=== PATIENT | male | born 1970 | race Caucasian/White ===

== ENCOUNTER 2016-12-12 17:53 | Observation (INO) | payer MEDICARE, OTHER ==
[~2016-12-12] VITALS: Ht 165.1 cm; Wt 115.0 kg
[~2016-12-12 17:53] MED LIST: ACET160L7 PO; ALBU.5I NEB; AMBI5TAB PO; AMLO10 PO; AMLO10TA2 PO; CARA1TAB6 PO; CLIN300I2 IM/IV; COLA100C3 PO; COMMODE PAIL WI1 MIS; COUM5TAB PO; COUM6TAB PO; DOCU1CAP39 PO; ENOX30P SQ; FLUT1INH INH; GETGO ROLLING W1 MI1; INSU100V2 SQ; LACTG PO; LANTUS2P SQ; MIRA33504 PO; NICO7DIS2 TD; NICODIS3 TD; NYST1POW16 TOP; OXYC-392 PO; PANT40TA3 PO; POLY17S PO; PRAV40TA PO; PRAV40TA2 PO; PROP20TA3 PO; PROT40TA PO; VANC1INJ38 IM/IV; VENL75TA2 PO; VENL75XR PO; [UNRECOGNIZED DRUG - CODE] PO
[2016-12-12 17:55] VITALS: BP 131/89; PULSE 108; RESP 16; TEMP 98.2; O2SAT 89
[2016-12-12] MEDS ORDERED: ONDANSETRON HCL 4 MG/2 ML VIAL IV PUSH ONE (18:15)
[2016-12-12] MEDS ORDERED: HYDROmorphone HCL PF 1 MG/ML VIAL IV PUSH ONE ×2 (18:15→21:00)
[2016-12-12] MEDS ORDERED: OMEP20TA PO (18:18)
--- NOTE | 2016-12-12 18:34 | PD ---
HPI Chief Complaint: Fall Time Seen by Provider: 18:29 Travel History International Travel<30 days: No Contact w/Intl Traveler<30days: No Traveled to known affect area: No History of Present Illness HPI 46-year-old male that presents to the ED for evaluation of fall in the shower. Patient has a chronic history of left leg up with the patient secondary to cancer. Per patient he is in stable on his feet and uses crutches to get about. Per patient he was just discharged recently from this hospital from rehabilitation after he suffered aspiration pneumonia which put him on a,. Patient has been able to do well at home with no issues. Per patient today he was in the shower and she slipped and fell and landed on his left rib cage on one of the rails that helped him hold when he is in the shower. He states that the pain is severe and feels like there is something moving on his left ribs. He does take blood thinners including Coumadin to prevent him from getting blood clots in his lungs. He denies any head injury or loss of consciousness. No abdominal pain. No nausea or vomiting. States that the pain is severe 8 out of 10 and gets worse with deep breaths. Injury occurred less than an hour ago. He denies any other injury. She states that he is compliant with his medications. He takes no pain medications at home. She does have an allergy to morphine and penicillin. 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17) Cardiovascular Problems: Yes High Cholesterol: No Chemotherapy: Yes (12 treatments completed ) Chest Pain: No Congestive Heart Failure: No COPD: Yes Cerebrovascular Accident: Yes (3 X CVA) Diabetes: Yes Patient Takes Glucophage: No Deep Vein Thrombosis: Yes Endocrine: No GERD: Yes Genitourinary: No Headaches: Yes Hiatal Hernia: No Hypertension: Yes Immune Disorder: No Implanted Vascular Access Dvce: Yes Kidney Stones: No Musculoskeletal: Yes Neurologic: No Psychiatric: Yes Reproductive: No Respiratory: Yes Migraines: No Renal Failure: No Seizures: No Sleep Apnea: No Ulcer: No Past Surgical History Abdominal Surgery: No AICD: No Appendectomy: Yes Arteriovenous Shunt: No Body Medical Devices: ivc filter Cardiac Surgery: No Ear Surgery: No Endocrine Surgery: No Eye Surgery: No Genitourinary Surgery: No Gynecologic Surgery: No Insulin Pump: No Joint Replacement: No Oral Surgery: No Pacemaker: No Thoracic Surgery: No Other Surgery: Yes (RIGH HIP REPLACED) Social History Alcohol Use: No Tobacco Use: Yes (<1ppd) Substance Use: No Allergies-Medications (Allergen,Severity, Reaction): Coded Allergies: Morphine (Verified Allergy, Mild, HIVES, 12/12/16) Penicillin (Verified Allergy, Mild, HIVES, 12/12/16) Reported Meds & Prescriptions Reported Meds & Active Scripts Active Effexor XR 24 HR (Venlafaxine HCl) 75 Mg Cap 75 Mg PO HS 30 Days Nicotine Patch (Nicotine) 7 Mg/24 Hr Patch 1 Patch TD DAILY 30 Days Commode With Arms (Device) 1 Mis Mis 1 Ea .ROUTE DIRECTED Walker Rolling/GetGo (Device) 1 Mis Mis 1 Ea .ROUTE DIRECTED Reported Omeprazole 20 Mg Tab 20 Mg PO DAILY Carafate (Sucralfate) 1 Gm Tab 1 Gm PO TIDAC AND HS On empty stomach Propranolol (Propranolol HCl) 20 Mg Tab 20 Mg PO QID Albuterol Neb (Albuterol Sulfate) 2.5 Mg/0.5 Ml Neb 2.5 Mg NEB Q6HR NEB Note: The Albuterol Sulfate Inhalation Solution is concentrated and must be diluted. Read complete instructions carefully before using. Coumadin (Warfarin) 5 Mg Tab 10 Mg PO DAILY Breo Ellipta Inh (Fluticasone/Vilanterol) 100-25 Mcg/Act Inh 1 Puff INH DAILY Use daily at the same time. Pravastatin 40 Mg Tab 40 Mg PO HS Amlodipine (Amlodipine Besylate) 10 Mg Tab 10 Mg PO DAILY Review of Systems General / Constitutional: No: Fever, Chills, Weight Gain, Weight Loss, Other Eyes: No: Diploplia, Blurred Vision, Photophobia, Drainage, Redness, Foreign Body Sensation, Pain, Tearing, Blind Spots, Visual changes, Blindness, Other HENT: No: Headaches, Vertigo, Lightheadedness, Sore Throat, Rhinitis, Rhinorrhea, Congestion, Nosebleed, Neck Stiffness, Neck Pain, Masses, Gingival Bleeding, Dental Difficulties, Ear Discharge, Earache, Other Cardiovascular: Positive: Chest Pain or Discomfort, No: Palpitations, Irregular Rhythm, Tachycardia, Diaphoresis, Syncope, Dyspnea on exertion, Varicosities, Edema, Cyanosis, Varicosities, Phlebitis, Claudication, Other Respiratory: Positive: Pleuritic Pain, No: Cough, Shortness of Breath, Wheezing, Sneezing, Orthopnea, Hemoptysis, Stridor, Night Sweats, Other Gastrointestinal: No: Nausea, Vomiting, Diarrhea, Abdominal Pain, Hematemesis, Hematochezia, Constipation, Changes in Bowel Habits, Indigestion, Dysphagia, Loss of Appetite, Other Genitourinary: No: Urgency, Frequency, Dysuria, Nocturia, Hematuria, Decreased Urinary Output, Oliguria, Hesitancy, Dribbling, Incontinence, Pelvic Pain, Flank Pain, Dyspareunia, Discharge, Dysmenorrhea, Menorrhagia, Metorrhagia, Vaginal Bleeding, Other Musculoskeletal: Positive: Pain, No: Myalgias, Arthralgias, Limited ROM, Weakness, Cramping, Edema, Atrophy, Other Skin: No Rash, No Itching, No Dryness, No Lumps, No Hives, No Change in Pigmentation, No Change in nails, No Alopecia, No Lesions, No Breast Lumps, No Breast Tenderness, No Breast Swelling, No Other Neurologic: No: Weakness, Dizziness, Syncope, Focal Abnormalities, Coordination Problem, Tremor, Ataxia, Headache, Change in Mentation, Slurred Speech, Paresthesia, Incontinence, Seizures, Sensory Disturbance, Other Psychiatric: No: Anxiety, Depression, Suicidal Ideations, Disorder of Thought, Mood Disorder, Substance Abuse, Homicidal Ideation, Other Endocrine: No: Heat Intolerance, Cold Intolerance, Polyuria, Polydipsia, Other Hematologic/Lymphatic: No: Easy Bruising, Lymph Node Enlargement, Other Physical Exam Narrative GENERAL: SKIN: Warm and dry. HEAD: Atraumatic. Normocephalic. EYES: Pupils equal and round. No scleral icterus. No injection or drainage. ENT: No nasal bleeding or discharge. Mucous membranes pink and moist. Tongue is midline. No uvula deviation. NECK: Trachea midline. No JVD. CARDIOVASCULAR: Regular rate and rhythm. No murmurs, S3. S4. Patient does have a producible pain on the left rib cage with touch and with deep breaths. Very sensitive to touch. No obvious deformity noted. RESPIRATORY: No accessory muscle use. Clear to auscultation. Breath sounds equal bilaterally. GASTROINTESTINAL: Abdomen soft, non-tender, nondistended. Hepatic and splenic margins not palpable. MUSCULOSKELETAL: Extremities without clubbing, cyanosis, or edema. No obvious deformities. Patient has full range of motion of the upper and lower extremities bilaterally. Patient does have a BKA on the left leg secondary to cancer appears to be well-healing with no sign of injury. Pupils pulses bilaterally in all extremities. No lumbar, thoracic, cervical spine tenderness to palpation. No signs of trauma to the head. NEUROLOGICAL: Awake and alert. No obvious cranial nerve deficits. Motor grossly within normal limits. Five out of 5 muscle strength in the arms and legs. Normal speech. PSYCHIATRIC: Appropriate mood and affect; insight and judgment normal. Data Data Last Documented VS Vital Signs Date Time Temp Pulse Resp B/P Pulse Ox O2 Delivery O2 Flow Rate FiO2 12/12/16 17:55 98.2 108 16 131/89 89 Room Air Orders Complete Blood Count With Diff (12/12/16 18:11) Basic Metabolic Panel (Bmp) (12/12/16 18:11) Prothrombin Time / Inr (Pt) (12/12/16 18:11) Act Partial Throm Time (Ptt) (12/12/16 18:11) Ribs, Uni (W/Exp Cxr-Min 3vw) (12/12/16 ) Iv Access Insert/Monitor (12/12/16 18:11) Hydromorphone Pf Inj (Dilaudid Pf Inj) (12/12/16 18:15) Ondansetron Inj (Zofran Inj) (12/12/16 18:15) Ct Thorax/ Chest W Iv Contrast (12/12/16 ) Iohexol 350 Inj (Omnipaque 350 Inj) (12/12/16 20:09) Hydromorphone Pf Inj (Dilaudid Pf Inj) (12/12/16 21:00) Admit Order (Ed Use Only) (12/12/16 21:02) Consult General Surgery (12/12/16 ) Labs Laboratory Tests Test 12/12/16 18:11 White Blood Count 9.4 TH/MM3 Red Blood Count 6.18 MIL/MM3 Hemoglobin 11.8 GM/DL Hematocrit 39.0 % Mean Corpuscular Volume 63.2 FL Mean Corpuscular Hemoglobin 19.1 PG Mean Corpuscular Hemoglobin 30.2 % Concent Red Cell Distribution Width 22.7 % Platelet Count 230 TH/MM3 Mean Platelet Volume 8.5 FL Neutrophils (%) (Auto) 61.4 % Lymphocytes (%) (Auto) 26.9 % Monocytes (%) (Auto) 9.1 % Eosinophils (%) (Auto) 1.7 % Basophils (%) (Auto) 0.9 % Neutrophils # (Auto) 5.8 TH/MM3 Lymphocytes # (Auto) 2.5 TH/MM3 Monocytes # (Auto) 0.9 TH/MM3 Eosinophils # (Auto) 0.2 TH/MM3 Basophils # (Auto) 0.1 TH/MM3 CBC Comment AUTO DIFF Differential Comment AUTO DIFF CONFIRMED Platelet Estimate NORMAL Platelet Morphology Comment NORMAL Prothrombin Time 83.3 SEC Prothromb Time International 6.9 RATIO Ratio Activated Partial 62.3 SEC Thromboplast Time Sodium Level 137 MEQ/L Potassium Level 4.2 MEQ/L Chloride Level 100 MEQ/L Carbon Dioxide Level 32.0 MEQ/L Anion Gap 5 MEQ/L Blood Urea Nitrogen 7 MG/DL Creatinine 0.95 MG/DL Estimat Glomerular Filtration 85 ML/MIN Rate Random Glucose 100 MG/DL Calcium Level 9.0 MG/DL [facility] Medical Decision Making Medical Screen Exam Complete: Yes Emergency Medical Condition: Yes Medical Record Reviewed: Yes Interpretation(s) CBC & BMP Diagram 12/12/16 18:11 Last Impressions Ribs X-Ray 12/12/16 0000 Signed Impressions: Service Date/Time: Monday, December 12, 2016 18:45 - CONCLUSION: 1. Multiple remote left-sided rib fractures. Questionable acute left eighth rib fracture. Left basilar atelectasis or scarring. Right lung is clear. No pneumothorax or effusion. Jarrett Mukherjee MD Chest CT 12/12/16 0000 Signed Impressions: Service Date/Time: Monday, December 12, 2016 19:56 - CONCLUSION: 1. Acute nondisplaced fractures left sixth, seventh and eighth ribs. Multiple remote healed left rib fractures. 2. Trace left pleural effusion. Subsegmental atelectasis at the left lung base. No pneumothorax. Jarrett Mukherjee MD INR of 6.9 Differential Diagnosis Rib fracture Versus fracture versus chest pain versus costochondritis versus contusion versus trauma versus fall Narrative Course 46-year-old male that presents to the ED for evaluation of injury to the left ribs. Patient was properly examine also to have signs and symptoms consistent appears to be chest injury. Recommendation this time is for labs and imaging secondary to his Coumadin use in significant discomfort. Patient is ago with this. Labs and imaging showed and about an arms as well as fracture to the left ribs. Case discussed in my attending who agrees that CT scan require. CT of the chest was done and show fractures of the sixth, seventh, eighth ribs. Patient had a small pleural effusion. My attending agrees the patient should be admitted for arms for evaluation of bleeding secondary to the elevated INR and recent trauma. This was discussed with the trauma surgeon Dr. Lora who agrees to admission but wants me to admit patient to medicine and he will consult. Case was discussed with Dr. Lewis from [facility] who agrees to admission. This was discussed with patient who agrees to admission. Procedures EKG Prior to Arrival: No Diagnosis Primary Impression: Ribs, multiple fractures Qualified Code: S22.42XA - Closed fracture of multiple ribs of left side, initial encounter Additional Impression: Elevated INR Admitting Information Admitting Physician Requests: Observation Yosef Davila Dec 12, 2016 18:34
[2016-12-12 18:41] LABS: AUTOMATED NEUTROPHIL # 5.8 TH/MM3 (1.8-7.7); BASOPHIL # 0.1 TH/MM3 (0-0.2); BASOPHIL % 0.9 % (0.0-2.0); EOSINOPHIL # 0.2 TH/MM3 (0-0.4); EOSINOPHIL % 1.7 % (0.0-4.0); HEMO FLAGS AUTO DIFF; LYMPH % 26.9 % (9.0-44.0); LYMPHOCYTE # 2.5 TH/MM3 (1.0-4.8); MEAN CELL VOLUME 63.2 FL (80.0-100.0); MEAN CORPUSCULAR HEMOGLOBIN 19.1 PG (27.0-34.0); MEAN CORPUSCULAR HGB CONC 30.2 % (32.0-36.0); MONO % 9.1 % (0.0-8.0); NEUT % 61.4 % (16.0-70.0); PLATELET COUNT 230 TH/MM3 (150-450); RED BLOOD COUNT 6.18 MIL/MM3 (4.50-5.90); RED CELL DISTRIBUTION WIDTH 22.7 % (11.6-17.2); WHITE BLOOD COUNT 9.4 TH/MM3 (4.0-11.0)
[2016-12-12 18:48] LABS: APTT (PATIENT) 62.3 SEC (24.3-30.1); PROTHROMBIN TIME - PATIENT 83.3 SEC (9.8-11.6)
[2016-12-12 18:50] LABS: POTASSIUM 4.2 MEQ/L (3.5-5.1)
--- NOTE | 2016-12-12 19:25 | RADRPT ---
EXAM DATE/TIME: 12/12/2016 18:45 [facility] COMPARISON: CHEST SINGLE AP, July 24, 2016, 4:12. INDICATIONS : Left sided rib pain from a fall. MEDICAL HISTORY : Hypertension. Diabetes mellitus type II. Chronic obstructive pulmonary disease. SURGICAL HISTORY : Left AKA ENCOUNTER: Initial ACUITY: 1 day PAIN SCORE: 10/10 LOCATION: Left flank Chest FINDINGS: There are multiple remote fractures of the left fifth through 10th ribs with callus formation and hea ling. There is a questionable acute fracture left eighth rib. No pneumothorax or significant effusion . There is probable atelectasis the left lung base. CONCLUSION: 1. Multiple remote left-sided rib fractures. Questionable acute left eighth rib fracture. Left basila r atelectasis or scarring. Right lung is clear. No pneumothorax or effusion. Jarrett Mukherjee MD on December 12, 2016 at 19:19 Board Certified Radiologist. This report was verified electronically.
[2016-12-12 19:27] LABS: INTERNATIONAL NORMALIZED RATIO 6.9 RATIO
[2016-12-12 20:04] LABS: PLATELET ESTIMATE SMEAR NORMAL (NORMAL); PLATELET MORPHOLOGY NORMAL (NORMAL); SCAN/DIFF AUTO DIFF CONFIRMED
[2016-12-12] MEDS ORDERED: IOHEXOL 350 MG/ML 10 ML VIAL (for RAD DIAG) IV ONE (20:09)
--- NOTE | 2016-12-12 20:32 | RADRPT ---
EXAM DATE/TIME: 12/12/2016 19:56 [facility] COMPARISON: No previous studies available for comparison. INDICATIONS : Trauma; fell in shower, complains of left sided rib/chest pain. IV CONTRAST: 96 cc Omnipaque 350 (iohexol) IV RADIATION DOSE: 8.46 CTDIvol (mGy) MEDICAL HISTORY : Cardiovascular disease. Deep venous thrombosis. Hypertension.CVA. Diabetes. Bone cancer. SURGICAL HISTORY : Appendectomy. ENCOUNTER: Initial ACUITY: 1 day PAIN SCALE: 8/10 LOCATION: Left chest TECHNIQUE: Volumetric scanning of the chest was performed. Using automated exposure control and adjustment of t he mA and/or kV according to patient size, radiation dose was kept as low as reasonably achievable to obtain optimal diagnostic quality images. FINDINGS: There are nondisplaced acute fractures of the left sixth, seventh and eighth ribs. There are multiple remote healed fractures of the left ribs as well. There is trace left pleural effusion. There is subsegmental airspace disease at the left lung base, l ikely atelectasis. Minimal right basilar atelectasis as well. No mediastinal hematoma. Aorta appears normal. Mild coronary calcifications. No pericardial effusion. No acute findings in the upper abdomen. CONCLUSION: 1. Acute nondisplaced fractures left sixth, seventh and eighth ribs. Multiple remote healed left rib fractures. 2. Trace left pleural effusion. Subsegmental atelectasis at the left lung base. No pneumothorax. Jarrett Mukherjee MD on December 12, 2016 at 20:26 Board Certified Radiologist. This report was verified electronically.
--- NOTE | 2016-12-12 21:07 | HHI.HP ---
HPI Service [facility] Primary Care Physician Unknown Admission Diagnosis left rib fractures with pleural effusion, elevated INR Diagnoses: (1) Fall Diagnosis: Principal (2) Ribs, multiple fractures Diagnosis: Principal (3) Intractable pain Diagnosis: Principal (4) Elevated INR Diagnosis: Principal (5) COPD (chronic obstructive pulmonary disease) Diagnosis: Principal Travel History International Travel<30 Days: No Contact w/Intl Traveler <30 Da: No Traveled to Known Affected Are: No History of Present Illness This is a 46-year-old male with PMH of DVT/PE on Coumadin, H/o Osteosarcoma s/p Left BKA, COPD, h/o CVA and HTN who presented to the ER w/ complaints of left rib pain following fall in shower. Pt normally ambulates w/ crutches, however while in shower he lost his balance and fell onto the shower rails w/ his left chest. No LOC or head trauma noted. On arrival, BP 131/89, HR 108, O2 sat 89% on RA, Afebrile. Hgb 11.6. Chemistry essentially unremarkable. INR 6.9. Rib X-ray with multiple remote left-sided rib fractures, questionable acute left eighth rib fracture, no pneumothorax. CT Chest with acute nondisplaced fractures of the left sixth seventh and eighth ribs, multiple remote healed left rib fractures, trace left pleural effusion and atelectasis left lung base, no pneumothorax. Dr. Baez consulted by ER physician, recommended admission for Observation in light of coagulopathy. Review of Systems Except as stated in HPI: all other systems reviewed are Neg ROS: 14 point review of systems otherwise negative. Past Family Social History Past Medical History PMH: DVT/PE on Coumadin, H/o Osteosarcoma s/p Left BKA, COPD, h/o CVA and HTN Past Surgical History PAST SURGICAL HISTORY: Appendectomy, IVC Filter, Right Hip Replacement Allergies: Coded Allergies: Morphine (Verified Allergy, Mild, HIVES, 12/12/16) Penicillin (Verified Allergy, Mild, HIVES, 12/12/16) Family History PAST FAMILY HISTORY: Reviewed. No h/o DM or CAD Social History PAST SOCIAL HISTORY: Negative for alcohol or drugs. Smokes <1ppd. Physical Exam Vital Signs Vital Signs Date Time Temp Pulse Resp B/P Pulse Ox O2 Delivery O2 Flow Rate FiO2 12/12/16 17:55 98.2 108 16 131/89 89 Room Air Physical Exam PE: GENERAL: Middle-aged obese white male in no acute distress. HEENT: PERRLA, EOMI. No scleral icterus or conjunctival pallor. No lid lag or facial droop. CARDIOVASCULAR: Regular rate and rhythm. No obvious murmurs to auscultation. No chest tenderness to palpation. Left rib tenderness to palpation. No flail chest RESPIRATORY: No obvious rhonchi or wheezing. Clear to auscultation. Breath sounds equal bilaterally. GASTROINTESTINAL: Abdomen soft, non-tender, nondistended. BS normal. MUSCULOSKELETAL: Extremities without clubbing, cyanosis, or edema. No obvious deformities. Left BKA, stump intact, no signs of infection. NEUROLOGICAL: Awake, alert and oriented x4. No focal neurologic deficits. Moving both upper and lower extremities spontaneously. Laboratory Laboratory Tests Test 12/12/16 18:11 White Blood Count 9.4 Red Blood Count 6.18 Hemoglobin 11.8 Hematocrit 39.0 Mean Corpuscular Volume 63.2 Mean Corpuscular Hemoglobin 19.1 Mean Corpuscular Hemoglobin 30.2 Concent Red Cell Distribution Width 22.7 Platelet Count 230 Mean Platelet Volume 8.5 Neutrophils (%) (Auto) 61.4 Lymphocytes (%) (Auto) 26.9 Monocytes (%) (Auto) 9.1 Eosinophils (%) (Auto) 1.7 Basophils (%) (Auto) 0.9 Neutrophils # (Auto) 5.8 Lymphocytes # (Auto) 2.5 Monocytes # (Auto) 0.9 Eosinophils # (Auto) 0.2 Basophils # (Auto) 0.1 CBC Comment AUTO DIFF Differential Comment AUTO DIFF CONFIRMED Platelet Estimate NORMAL Platelet Morphology Comment NORMAL Prothrombin Time 83.3 Prothromb Time International 6.9 Ratio Activated Partial 62.3 Thromboplast Time Sodium Level 137 Potassium Level 4.2 Chloride Level 100 Carbon Dioxide Level 32.0 Anion Gap 5 Blood Urea Nitrogen 7 Creatinine 0.95 Estimat Glomerular Filtration 85 Rate Random Glucose 100 Calcium Level 9.0 Result Diagram: 12/12/16181012/12/161810 Assessment and Plan Problem List: (1) Fall ICD Code: W19.XXXA Status: Acute (2) Ribs, multiple fractures ICD Code: S22.49XA Status: Acute (3) Intractable pain ICD Code: R52 Status: Acute (4) Elevated INR ICD Code: R79.1 Status: Acute (5) COPD (chronic obstructive pulmonary disease) ICD Code: J44.9 Status: Chronic Assessment and Plan A/P: 1. Fall: h/o Left BKA, s/p fall in shower after losing balance. No LOC or head trauma reported. 2. Left Rib Fx: CXR w/ multiple remote left-sided rib fractures, questionable acute left eighth rib fracture, no pneumothorax. CT Chest with acute nondisplaced fractures of the left sixth seventh and eighth ribs, remote healed left rib fractures, trace pleural effusion, no pneumothorax, images reviewed by me. Dr. Baez consulted by ER physician, recommended admission for observation in light of elevated INR. Analgesics as needed. 3. Intractable Pain: Secondary to fall/rib fractures. Analgesics as needed, Lidoderm patch prn. 4. Supratherapeutic INR: H/o DVT/PE on Coumadin, INR 6.9. Hgb stable. Vitals stable. No active bleeding at this time, CT Chest w/ no bleed. Will repeat INR in am. 5. COPD: Resume home MDI/Nebulizer. 6. DVT Prophylaxis: Hold Coumadin. 7. Social work for d/c planning as needed. 8. Case discussed w/ ER physician at length. Problem Qualifiers (1) Ribs, multiple fractures: Qualified Code: S22.42XA - Closed fracture of multiple ribs of left side, initial encounter Myra Lewis MD Dec 12, 2016 21:07
[2016-12-12] MEDS ORDERED: BISACODYL 10 MG SUPP PR PRN (21:15)
[2016-12-12] MEDS ORDERED: LIDOCAINE HCL 5% PATCH TD PRN (21:15)
[2016-12-12] MEDS ORDERED: SODIUM CHLORIDE 0.9% FLUSH 5 ML FLUSH FLUSH PRN (21:15)
[2016-12-12] MEDS ORDERED: ONDANSETRON HCL 4 MG/2 ML VIAL IVP PRN (21:15)
[2016-12-12] MEDS ORDERED: ACETAMINOPHEN 325 MG TAB PO PRN (21:15)
[2016-12-12] MEDS ORDERED: HYDROmorphone HCL PF 1 MG/ML VIAL IV PRN (21:15)
[2016-12-12 21:45] VITALS: BP 129/85; PULSE 102; RESP 16; O2SAT 95
[2016-12-12] MEDS: RESP: ALBUTEROL CONC 2.5 MG/0.5 ML NEB NEB SCH (22:02)
[2016-12-12 22:07] VITALS: O2SAT 93
[2016-12-12 23:39] VITALS: BP 146/86; PULSE 99; RESP 20; TEMP 97.4; O2SAT 91
[2016-12-13 04:05] VITALS: BP 137/83; PULSE 117; RESP 20; TEMP 97.5; O2SAT 91
[2016-12-13] MEDS: RESP: ALBUTEROL CONC 2.5 MG/0.5 ML NEB NEB SCH ×3 (04:11→10:50)
[2016-12-13] MEDS: SUCRALFATE 1 GM TAB PO SCH ×3 (06:08→16:37)
[2016-12-13 07:21] VITALS: BP 148/85; PULSE 125; RESP 24; TEMP 97.5; O2SAT 86
[2016-12-13 07:33] LABS: INTERNATIONAL NORMALIZED RATIO 5.3 RATIO; PROTHROMBIN TIME - PATIENT 62.9 SEC (9.8-11.6)
[2016-12-13 07:35] LABS: AUTOMATED NEUTROPHIL # 9.1 TH/MM3 (1.8-7.7); BASOPHIL # 0.1 TH/MM3 (0-0.2); BASOPHIL % 0.7 % (0.0-2.0); EOSINOPHIL # 0.1 TH/MM3 (0-0.4); EOSINOPHIL % 0.9 % (0.0-4.0); HEMATOCRIT 40.7 % (39.0-51.0); LYMPH % 14.4 % (9.0-44.0); LYMPHOCYTE # 1.7 TH/MM3 (1.0-4.8); MEAN CELL VOLUME 63.4 FL (80.0-100.0); MEAN CORPUSCULAR HEMOGLOBIN 19.2 PG (27.0-34.0); MEAN CORPUSCULAR HGB CONC 30.3 % (32.0-36.0); MONO % 6.8 % (0.0-8.0); NEUT % 77.2 % (16.0-70.0); PLATELET COUNT 260 TH/MM3 (150-450); RED BLOOD COUNT 6.42 MIL/MM3 (4.50-5.90); RED CELL DISTRIBUTION WIDTH 22.3 % (11.6-17.2); WHITE BLOOD COUNT 11.8 TH/MM3 (4.0-11.0)
[2016-12-13 07:44] LABS: ALT (GPT) 22 U/L (12-78); ANION GAP 6 MEQ/L (5-15); AST (GOT) 16 U/L (15-37); BICARBONATE 30.9 MEQ/L (21.0-32.0); BLOOD UREA NITROGEN 8 MG/DL (7-18); CHLORIDE 99 MEQ/L (98-107); GLOMERULAR FILTRATION RATE 96 ML/MIN (>89); POTASSIUM 4.2 MEQ/L (3.5-5.1); SODIUM (NA) 136 MEQ/L (136-145)
[2016-12-13 07:46] LABS: ALKALINE PHOSPHATASE 108 U/L (45-117); TOTAL BILIRUBIN ADULT 0.6 MG/DL (0.2-1.0)
[2016-12-13 07:52] LABS: HEMO FLAGS AUTO DIFF
--- NOTE | 2016-12-13 08:09 | RADRPT ---
EXAM DATE/TIME: 12/13/2016 07:42 [facility] COMPARISON: CHEST SINGLE AP, July 24, 2016, 4:12. INDICATIONS: Chest discomfort. Patient fell yesterday. MEDICAL HISTORY: Hypertension. Diabetes mellitus type II. Chronic obstructive pulmonary SURGICAL HISTORY: Appendectomy. ENCOUNTER: Subsequent ACUITY: 2 days PAIN SCORE: 8/10 LOCATION: Bilateral chest FINDINGS: Heart is enlarged. There is mild interstitial edema present. Minimal parenchymal changes persist in the left base. There is no pneumothorax. There is no displaced rib fracture. CONCLUSION: 1. Under aerated with mild interstitial edema. 2. Persistent consolidative changes left base. Shai Ramírez MD FACR on December 13, 2016 at 7:48 Board Certified Radiologist. This report was verified electronically.
[2016-12-13] MEDS ORDERED: DOCUSATE SODIUM 50 MG/SENNA 8.6 MG TAB PO SCH (09:00)
[2016-12-13] MEDS ORDERED: PANTOPRAZOLE SOD 20 MG DELAYED RELEASE TAB PO SCH (09:00)
[2016-12-13] MEDS ORDERED: NICOTINE 7 MG/24 HR PATCH TD SCH (09:00)
[2016-12-13] MEDS ORDERED: FLUTICASONE 100 MCG/VILANTEROL 25 MCG INHALER INH SCH (09:00)
[2016-12-13] MEDS ORDERED: SODIUM CHLORIDE 0.9% FLUSH 5 ML FLUSH FLUSH SCH (09:00)
[2016-12-13 09:25] LABS: OVALOCYTES 1+ (NORMAL); SCAN/DIFF AUTO DIFF CONFIRMED
[2016-12-13] MEDS: PROPRANOLOL HCL 20 MG TAB PO SCH ×2 (09:25→13:48)
[2016-12-13] MEDS: ACETAMINOPHEN/HYDROcodone 325 MG/5 MG TAB PO PRN ×2 (09:25→13:48)
[2016-12-13 10:50] VITALS: O2SAT 91
[2016-12-13 11:19] VITALS: BP 119/64; PULSE 101; RESP 22; TEMP 98.4; O2SAT 90
--- NOTE | 2016-12-13 11:57 | HHI.PR ---
Subjective Subjective Notes PTD: 1 Patient states that he fell in the shower. He complains to pain on the left side of his chest, and his abdomen when palpated. Objective Vitals/I&O Vital Signs Date Time Temp Pulse Resp B/P Pulse Ox O2 Delivery O2 Flow Rate FiO2 12/13/16 11:19 98.4 101 22 119/64 90 12/13/16 10:50 Nasal Cannula 4.00 Labs Laboratory Tests Test 12/12/16 12/13/16 18:11 07:05 White Blood Count 9.4 11.8 Red Blood Count 6.18 6.42 Hemoglobin 11.8 12.3 Hematocrit 39.0 40.7 Mean Corpuscular Volume 63.2 63.4 Mean Corpuscular Hemoglobin 19.1 19.2 Mean Corpuscular Hemoglobin 30.2 30.3 Concent Red Cell Distribution Width 22.7 22.3 Platelet Count 230 260 Mean Platelet Volume 8.5 9.0 Neutrophils (%) (Auto) 61.4 77.2 Lymphocytes (%) (Auto) 26.9 14.4 Monocytes (%) (Auto) 9.1 6.8 Eosinophils (%) (Auto) 1.7 0.9 Basophils (%) (Auto) 0.9 0.7 Neutrophils # (Auto) 5.8 9.1 Lymphocytes # (Auto) 2.5 1.7 Monocytes # (Auto) 0.9 0.8 Eosinophils # (Auto) 0.2 0.1 Basophils # (Auto) 0.1 0.1 CBC Comment AUTO DIFF AUTO DIFF Differential Comment AUTO DIFF AUTO DIFF CONFIRMED CONFIRMED Platelet Estimate NORMAL Platelet Morphology Comment NORMAL Prothrombin Time 83.3 62.9 Prothromb Time International 6.9 5.3 Ratio Activated Partial 62.3 Thromboplast Time Sodium Level 137 136 Potassium Level 4.2 4.2 Chloride Level 100 99 Carbon Dioxide Level 32.0 30.9 Anion Gap 5 6 Blood Urea Nitrogen 7 8 Creatinine 0.95 0.86 Estimat Glomerular Filtration 85 96 Rate Random Glucose 100 162 Calcium Level 9.0 8.9 Ovalocytes 1+ Total Bilirubin 0.6 Aspartate Amino Transf 16 (AST/SGOT) Alanine Aminotransferase 22 (ALT/SGPT) Alkaline Phosphatase 108 Total Protein 8.0 Albumin 3.6 Radiology Last Impressions Ribs X-Ray 12/12/16 0000 Signed Impressions: Service Date/Time: Monday, December 12, 2016 18:45 - CONCLUSION: 1. Multiple remote left-sided rib fractures. Questionable acute left eighth rib fracture. Left basilar atelectasis or scarring. Right lung is clear. No pneumothorax or effusion. Jarrtet Mukherjee MD Chest CT 12/12/16 0000 Signed Impressions: Service Date/Time: Monday, December 12, 2016 19:56 - CONCLUSION: 1. Acute nondisplaced fractures left sixth, seventh and eighth ribs. Multiple remote healed left rib fractures. 2. Trace left pleural effusion. Subsegmental atelectasis at the left lung base. No pneumothorax. Jarrett Mukherjee MD Narrative Exam GENERAL: This is a 46-year-old obese male sitting in bed in no distress. SKIN: Warm and dry. HEAD: Atraumatic. Normocephalic. EYES: PERRLA ENT: No nasal bleeding or discharge. Mucous membranes pink and moist. NECK: Trachea midline. No JVD. CARDIOVASCULAR: Regular rate and rhythm. RESPIRATORY: No accessory muscle use. Lungs are clear to auscultation. Breath sounds equal bilaterally. No distress or dyspnea. GASTROINTESTINAL: BS + x 4 quads. Abdomen soft, yet painful upon palpation, especially on the left side. MUSCULOSKELETAL: Extremities without cyanosis, or edema. LEFT AKA noted. + peripheral pulses x 3 extremities. Warm with good capillary refill and sensation. MAEW. NEUROLOGICAL: Awake and alert. Normal speech and pattern. A/P Problem List: (1) Ribs, multiple fractures (2) Elevated INR (3) Fall Assessment and Plan [place]: This is a 46-year-old obese male who sustained a fall in the shower. He landed on his left side. Elevated INR. (He was admitted to the hospitalist service, with a consult to the trauma team) PMHx: Bone Cancer. (Hx. DVT, Coumadin), CVA x 3, HTN, COPD, DM, GERD, IVC filter. RIGHT hip replacement. LEFT AKA INJURIES: LEFT rib fx (6,7,8) Diet: Regular diet. Tolerating po diet. Encourage good po intake with each meal. Pulmonary: Encourage good pulmonary toileting. IS and acapella at bedside and pt encouraged to use. Rationale for use explained to patient, and verbalized understanding. Patient complains of severe abdominal pain, especially upon palpation. CT abdomen/pelvis ordered for further evaluation in a patient post fall with an elevated INR. No active hemorrhage noted. PAIN Management: Hydrocodone po. Dilaudid IV. Activity: OOB. PT ordered. GI prophylaxis: Protonix by mouth. Bowel regimen: Colace and MOM. Bisacodyl ME PRN. DVT prophylaxis: Mechanical VTE with SCDs. Chemical management TBD. DC Planning: Case management consulted for assistance with final discharge disposition. Emotional support provided to patient at bedside and plan of care discussed. Patient is hemodynamically stable and being managed on the med/surg floor. Problem Qualifiers (1) Ribs, multiple fractures: Qualified Code: S22.42XA - Closed fracture of multiple ribs of left side, initial encounter (2) Fall: Qualified Code: W19.XXXA - Fall, initial encounter Sri Strong Dec 13, 2016 11:57
--- NOTE | 2016-12-13 12:31 | HHI.PR ---
Subjective Remarks Follow up for fall with rib fractures, supratherapeutic INR, COPD and hypoxia. Seen with PT at bedside, patient ambulating well at his baseline however becoming hypoxic. The patient wears 2-3L NC O2 at home secondary to his COPD. He reports mild shortness of breath secondary to the chest pain at the site of the rib fractures. He denies any wheezing. He really wants to go home. Dr. Rangel follows his INR. Thoroughly discussed holding his Coumadin until INR is rechecked and he follows up with his PCP. Objective Vitals Vital Signs Date Time Temp Pulse Resp B/P Pulse Ox O2 Delivery O2 Flow Rate FiO2 12/13/16 11:19 98.4 101 22 119/64 90 12/13/16 11:13 18 12/13/16 10:50 91 Nasal Cannula 4.00 12/13/16 07:21 97.5 125 24 148/85 86 12/13/16 04:05 97.5 117 20 137/83 91 12/12/16 23:39 97.4 99 20 146/86 91 12/12/16 22:07 93 Nasal Cannula 4.00 12/12/16 21:45 102 16 129/85 95 Nasal Cannula 4 12/12/16 17:55 98.2 108 16 131/89 89 Room Air Result Diagram: 12/13/16 0712/13/16 0705 Imaging Last Impressions Ribs X-Ray 12/12/16 0000 Signed Impressions: Service Date/Time: Monday, December 12, 2016 18:45 - CONCLUSION: 1. Multiple remote left-sided rib fractures. Questionable acute left eighth rib fracture. Left basilar atelectasis or scarring. Right lung is clear. No pneumothorax or effusion. Jarrett Mukherjee MD Chest CT 12/12/16 0000 Signed Impressions: Service Date/Time: Monday, December 12, 2016 19:56 - CONCLUSION: 1. Acute nondisplaced fractures left sixth, seventh and eighth ribs. Multiple remote healed left rib fractures. 2. Trace left pleural effusion. Subsegmental atelectasis at the left lung base. No pneumothorax. Jarrett Mukherjee MD Objective Remarks GENERAL: Well developed middle aged male patient in [facility]. SKIN: Warm and dry. HEAD: Atraumatic. Normocephalic. EYES: Pupils equal and round. No scleral icterus. No injection or drainage. ENT: No nasal bleeding or discharge. Mucous membranes pink and moist. NECK: Trachea midline. CARDIOVASCULAR: Regular rate and rhythm. No murmur appreciated. Left anterior chest tender to palpation. RESPIRATORY: No accessory muscle use. Clear to auscultation, no wheezing. Breath sounds equal bilaterally. GASTROINTESTINAL: Abdomen soft, non-tender, nondistended. Hepatic and splenic margins not palpable. MUSCULOSKELETAL: Chronic Left AKA. Extremities without clubbing, cyanosis, or edema. NEUROLOGICAL: Awake and alert. No obvious cranial nerve deficits. Motor grossly within normal limits. Normal speech. PSYCHIATRIC: Appropriate mood and affect; insight and judgment normal. Medications and IVs Current Medications Medications (Trade) Dose Ordered Sig/Corrie Route Start Time Stop Time Status Last Admin (Lidoderm 5% Patch.12 Hr) 1 patch DAILY PRN TD 12/12/16 21:15 (NS Flush) 2 ml UNSCH PRN FLUSH 12/12/16 21:15 (NS Flush) 2 ml BID FLUSH 12/13/16 09:00 12/13/16 09:26 (Zofran Inj) 4 mg Q6H PRN IVP 12/12/16 21:15 (Dulcolax Supp) 10 mg DAILY PRN NE 12/12/16 21:15 (Tylenol) 650 mg Q6H PRN PO 12/12/16 21:15 (Bostic 5-325 Mg) 1 tab Q4H PRN PO 12/12/16 21:15 12/13/16 09:25 (Dilaudid Pf Inj) 1 mg Q3H PRN IV 12/12/16 21:15 12/13/16 04:30 (Norvasc) 10 mg DAILY PO 12/13/16 09:00 12/13/16 09:25 (Breo Ellipta 100-25 Inh) 1 puff DAILY INH 12/13/16 09:00 12/13/16 09:26 (Habitrol 7 Mg Patch.24 Hr) 1 patch DAILY TD 12/13/16 09:00 12/13/16 09:25 (Protonix) 20 mg DAILY PO 12/13/16 09:00 12/13/16 09:25 (Pravachol) 40 mg HS PO 12/13/16 21:00 (Inderal) 20 mg QID PO 12/13/16 09:00 12/13/16 09:25 (Carafate) 1 gm ACHS PO 12/13/16 07:00 12/13/16 11:11 (Effexor Xr) 75 mg HS PO 12/13/16 21:00 Miscellaneous Information 1 HS TD 12/13/16 21:00 (Edyta-Colace) 2 tab DAILY PO 12/13/16 09:00 12/13/16 09:27 (Milk Of Magnsivan Lineftali) 30 ml HS PO 12/13/16 21:00 A/P Problem List: (1) Fall ICD Code: W19.XXXA Status: Acute (2) Ribs, multiple fractures ICD Code: S22.49XA Status: Acute (3) Intractable pain ICD Code: R52 Status: Acute (4) Elevated INR ICD Code: R79.1 Status: Acute (5) COPD (chronic obstructive pulmonary disease) ICD Code: J44.9 Status: Chronic Assessment and Plan 46-year-old male with PMH of DVT/PE on Coumadin, H/o Osteosarcoma s/p Left AKA, COPD, h/o CVA and HTN who presented to the ER w/ complaints of left rib pain following fall in shower. Pt normally ambulates w/ crutches to scooter, however while in shower he slipped and fell onto the shower rails w/ his left chest. No LOC or head trauma noted. Fall: h/o Left BKA, s/p fall in shower after losing balance. No LOC or head trauma reported. PT consult, ok to return home. Multiple Left Rib Fx: CXR w/ multiple remote left-sided rib fractures, questionable acute left eighth rib fracture, no pneumothorax. CT Chest with acute nondisplaced fractures of the left sixth seventh and eighth ribs, remote healed left rib fractures, trace pleural effusion, no pneumothorax, images reviewed by me. Dr. Baez consulted by ER physician, recommended admission for observation in light of elevated INR. Analgesics as needed, pain fairly well controlled on Bostic. COPD, Acute on Chronic Respiratory Failure with Hypoxia and Consolidation at B/ l Bases: suspect related to trauma/fractures to ribs. O2 sat 86% on 2L NC therefore increased O2 to 4L (patient wears 4L NC at home). Patient denies cough /fevers however WBC 11.8K and tachycardic, meets SIRS criteria, however suspect reactive to trauma and pain. Hold off on abx at this time. Continue O2 with pulmonary toilet, acapella, incentive spirometry. Repeat CBC tomorrow. Intractable Pain: Secondary to fall/rib fractures. Analgesics as needed, Lidoderm patch prn. Supratherapeutic INR: H/o DVT/PE on Coumadin, INR 6.9. Hgb stable. Vitals stable. No active bleeding at this time, CT Chest w/ no bleed. Repeat INR 5.3. Thoroughly discussed the patient needs to hold Coumadin until f/up INR done in next 1-2 days. COPD: Resume home MDI/Nebulizer. DVT Prophylaxis: Hold Coumadin. Written by Chantel Cole, acting as scribe for Dr. Frey on 12/13/16 at 12:25. The documentation accurately reflects the work performed [id number] by me Dr. Frey on 12/13/16 at 12:25. Discharge Planning Discharge patient to home with [facility]. Condition on discharge: Improved Heart Healthy Diet as tolerated Ad Diane activity Rx written: Bostic 5/325mg q4h prn pain #30 Follow-up with primary care physician Dr. Rangel 1400hrs: patient's discharge initially held due to hypoxia and consolidations on CT however he really wants to go home. Discussed with RN. We will discharge only if cleared by trauma team. Problem Qualifiers (1) Ribs, multiple fractures: Qualified Code: S22.42XA - Closed fracture of multiple ribs of left side, initial encounter Chantel Cole PA-C Dec 13, 2016 12:31 Shahnaz Frey MD Dec 13, 2016 14:39
[2016-12-13] MEDS ORDERED: NORC5TAB PO (12:36)
--- NOTE | 2016-12-13 12:37 | HHI.DCPOC ---
Discharge Care Plan Diagnosis: (1) Ribs, multiple fractures (2) Elevated INR (3) Fall (4) COPD (chronic obstructive pulmonary disease) Goals to Promote Your Health * To prevent worsening of your condition and complications * To maintain your health at the optimal level Directions to Meet Your Goals Take your medications as prescribed Follow your dietary instruction Follow activity as directed Keep your appointments as scheduled Take your immunizations and boosters as scheduled If your symptoms worsen call your PCP, if no PCP go to Urgent Care Center or Emergency Room Smoking is Dangerous to Your Health. Avoid second hand smoke Call the 24-hour hour crisis hotline for domestic abuse at Chantel Cole PA-C Dec 13, 2016 12:37 Shahnaz Frey MD Dec 14, 2016 15:51
[2016-12-13] MEDS ORDERED: IOHEXOL 350 MG/ML 10 ML VIAL (for RAD DIAG) IV ONE (13:20)
--- NOTE | 2016-12-13 13:39 | RADRPT ---
EXAM DATE/TIME: 12/13/2016 13:01 [facility] COMPARISON: CT ABDOMEN & PELVIS W CONTRAST, October 29, 2015, 12:32. INDICATIONS : Trauma; fall in bathtub. IV CONTRAST: 100 cc Omnipaque 350 (iohexol) IV ORAL CONTRAST: No oral contrast ingested. RADIATION DOSE: 11.89 CTDIvol (mGy) MEDICAL HISTORY : Cardiovascular disease. Carcinoma, bone. Deep venous thrombosis. Diabetes. SURGICAL HISTORY : Appendectomy. Appendectomy. Bowel resection. ENCOUNTER: Initial ACUITY: 1 day PAIN SCALE: 5/10 LOCATION: Left abdomen. TECHNIQUE: Volumetric scanning of the abdomen and pelvis was performed. Using automated exposure control and ad justment of the mA and/or kV according to patient size, radiation dose was kept as low as reasonably achievable to obtain optimal diagnostic quality images. FINDINGS: There is consolidative changes in both lung bases worse on the left than the right. Spleen, pancreas, liver and adrenals unremarkable. Vena cava filter is evident. There is symmetrica l renal function. There is a contusion of the left chest wall. Pelvic contents are unremarkable. Vena cava filter is noted. CONCLUSION: 1. Consolidative changes in the bases worse on the left without significant pleural effusion. 2. Spleen is intact. Shai Ramírez MD FACR on December 13, 2016 at 13:31 Board Certified Radiologist. This report was verified electronically.
--- NOTE | 2016-12-13 14:35 | HHI.FF ---
Face to Face Verification Diagnosis: (1) Fall (2) Ribs, multiple fractures (3) Elevated INR (4) COPD (chronic obstructive pulmonary disease) (5) History of pulmonary embolism (6) History of DVT (deep vein thrombosis) (7) HTN (hypertension) (8) GERD (gastroesophageal reflux disease) (9) Status post above knee amputation of left lower extremity Physical Therapy Order: Evaluate and Treat, Improve ambulation, Strength and gait training Home Health Nursing Order: Medical education Signs/symptoms of disease process Nursing assessment with vital signs I have seen patient Kayden Hand on 12/13/16. My clinical findings support the need for the requested home health care services because: Ltd mobility - disease progression Patient has SOB Limited ability to care for self High risk of falls I certify that my clinical findings support that this patient is homebound because: Hx COPD- exertion dyspnea/weakness Unsteady gait/balance Unsafe to leave home unassisted Chantel Cole PA-C Dec 13, 2016 14:35 Shahnaz Frey MD Dec 14, 2016 15:50
[2016-12-13 15:49] VITALS: BP 105/63; PULSE 93; RESP 17; TEMP 98.9; O2SAT 94
[2016-12-13] MEDS ORDERED: MAGNESIUM HYDROXIDE SUSP 30 ML CUP PO SCH (21:00)
[2016-12-13] MEDS ORDERED: VENLAFAXINE HCL XR 75 MG CAP PO SCH (21:00)
[2016-12-13] MEDS ORDERED: PRAVASTATIN SOD 40 MG TAB PO SCH (21:00)
[2016-12-13] MEDS ORDERED: REMOVE OLD NICODERM (NICOTINE) PATCH TD SCH (21:00)
== END 2016-12-13 18:08 | disposition home or self-care (01) ==
LOC: NEPE 17:53 → NEDA 21:03 → NEPHCDU 22:45
PROVIDERS: ADMIT Hospitalist; ATTEND Hospitalist
DX: S22.42XA Multiple fractures of ribs, left side, initial encounter for closed fracture (principal); J98.11 Atelectasis; J44.9 Chronic obstructive pulmonary disease, unspecified; J96.21 Acute and chronic respiratory failure with hypoxia; J90 Pleural effusion, not elsewhere classified; K21.9 Gastro-esophageal reflux disease without esophagitis; I10 Essential (primary) hypertension; E11.9 Type 2 diabetes mellitus without complications; Z72.0 Tobacco use; Z68.41 Body mass index [BMI] 40.0-44.9, adult; E66.9 Obesity, unspecified; Z86.711 Personal history of pulmonary embolism; Z86.718 Personal history of other venous thrombosis and embolism; Z86.73 Personal history of transient ischemic attack (TIA), and cerebral infarction without residual deficits; Z79.01 Long term (current) use of anticoagulants; Z85.830 Personal history of malignant neoplasm of bone; Z99.81 Dependence on supplemental oxygen; Z88.5 Allergy status to narcotic agent; Z89.612 Acquired absence of left leg above knee; Z92.21 Personal history of antineoplastic chemotherapy; Z96.641 Presence of right artificial hip joint; W01.0XXA Fall on same level from slipping, tripping and stumbling without subsequent striking against object, initial encounter; W18.2XXA Fall in (into) shower or empty bathtub, initial encounter; Y93.E1 Activity, personal bathing and showering
CPT/HCPCS: 71010; 71101; 71260; 74177; 80048; 80053; 85025; 85610; 85730; 94150; 94640; 94664; 94667; 96374; 96375; 97162; 99285; G0378; G8987; G8988; J1170; J2405; J7611; Q9967

== ENCOUNTER 2017-04-23 09:36 | Emergency (ER) | payer MEDICARE, OTHER ==
[~2017-04-23] VITALS: Ht 167.6 cm; Wt 100.0 kg
[~2017-04-23 09:36] MED LIST changes: -ACET160L7 PO; -AMBI5TAB PO; -AMLO10 PO; -CLIN300I2 IM/IV; -COLA100C3 PO; -COUM6TAB PO; -DOCU1CAP39 PO; -ENOX30P SQ; -INSU100V2 SQ; -LACTG PO; -LANTUS2P SQ; -MIRA33504 PO; -NICODIS3 TD; +NORC5TAB PO; -NYST1POW16 TOP; +OMEP20TA PO; -OXYC-392 PO; -PANT40TA3 PO; -POLY17S PO; -PRAV40TA PO; -PROT40TA PO; -VANC1INJ38 IM/IV; -VENL75TA2 PO; -[UNRECOGNIZED DRUG - CODE] PO
[2017-04-23 09:38] VITALS: BP 139/85; PULSE 104; RESP 18; TEMP 97.8; O2SAT 95
--- NOTE | 2017-04-23 09:56 | PD ---
HPI Chief Complaint: Fall Time Seen by Provider: 09:56 Travel History International Travel<30 days: No Contact w/Intl Traveler<30days: No Traveled to known affect area: No History of Present Illness HPI 46-year-old male presents to the emergency Department with complaint of right shoulder pain after losing his balance and falling this morning. Patient is a left lower extremity amputee and says when he stands up too fast sometimes he loses his balance. He reports hitting his head. Denies loss of consciousness. On Coumadin for history of PEs. Reports falling on his right shoulder. Denies neck pain or back pain. Denies headache, lightheadedness, dizziness. Denies paresthesias, loss of sensation to all extremities. Reports decreased range of motion of the right shoulder secondary to pain. Denies chest pain, shortness of breath, abdominal pain, nausea, vomiting. Has not taken any medications or tried any treatments to the bases symptoms. Allergies to morphine and penicillin. Has no other medical complaints. No other modifying factors or associated signs and symptoms. PFSH Past Medical History Hx Anticoagulant Therapy: Yes (WARFARIN) Arthritis: No Asthma: No Blood Disorders: Yes Anxiety: Yes Depression: Yes Heart Rhythm Problems: No Cancer: Yes (BONE-status post chemotherapy and resection with remission at 17) Cardiovascular Problems: Yes High Cholesterol: No Chemotherapy: Yes (bone ca) Chest Pain: No Congestive Heart Failure: No COPD: Yes Cerebrovascular Accident: Yes (3 CVA) Diabetes: Yes Deep Vein Thrombosis: Yes Endocrine: No GERD: Yes Genitourinary: No Headaches: Yes Hiatal Hernia: No Hypertension: Yes Immune Disorder: No Implanted Vascular Access Dvce: Yes Kidney Stones: No Musculoskeletal: Yes Neurologic: No Psychiatric: Yes Reproductive: No Respiratory: Yes (PE) Migraines: No Renal Failure: No Seizures: No Sleep Apnea: No Ulcer: No Past Surgical History Abdominal Surgery: No AICD: No Appendectomy: Yes Arteriovenous Shunt: No Body Medical Devices: ivc filter Cardiac Surgery: No Ear Surgery: No Endocrine Surgery: No Eye Surgery: No Genitourinary Surgery: No Gynecologic Surgery: No Insulin Pump: No Joint Replacement: No Oral Surgery: No Pacemaker: No Thoracic Surgery: No Other Surgery: Yes (RIGH HIP REPLACED) Social History Alcohol Use: No Tobacco Use: Yes (<1ppd) Substance Use: No Allergies-Medications (Allergen,Severity, Reaction): Coded Allergies: Morphine (Verified Allergy, Mild, HIVES, 04/23/17) Penicillin (Verified Allergy, Mild, HIVES, 04/23/17) Reported Meds & Prescriptions Reported Meds & Active Scripts Active Effexor XR 24 HR (Venlafaxine HCl) 75 Mg Cap 75 Mg PO HS 30 Days Nicotine Patch (Nicotine) 7 Mg/24 Hr Patch 1 Patch TD DAILY 30 Days Reported Carafate (Sucralfate) 1 Gm Tab 1 Gm PO TIDAC AND HS On empty stomach Propranolol (Propranolol HCl) 20 Mg Tab 20 Mg PO QID Albuterol Neb (Albuterol Sulfate) 2.5 Mg/0.5 Ml Neb 2.5 Mg NEB Q6HR NEB Note: The Albuterol Sulfate Inhalation Solution is concentrated and must be diluted. Read complete instructions carefully before using. Coumadin (Warfarin) 5 Mg Tab 6 Mg PO DAILY Breo Ellipta Inh (Fluticasone/Vilanterol) 100-25 Mcg/Act Inh 1 Puff INH DAILY Use daily at the same time. Pravastatin 40 Mg Tab 40 Mg PO HS Amlodipine (Amlodipine Besylate) 10 Mg Tab 10 Mg PO DAILY Review of Systems Except as stated in HPI: all other systems reviewed are Neg Physical Exam Narrative GENERAL: Well-nourished, well-developed male patient, in no acute distress SKIN: Warm and dry. HEAD: Atraumatic. Normocephalic. No facial or scalp abrasions or lacerations noted. EYES: Pupils equal and round at 3 mm with brisk reaction. No scleral icterus. No injection or drainage. No raccoon eyes. ENT: Mucosa pink and moist. No erythema or exudates. No uvular edema. No uvular , palatal, or tonsillar deviation. Airway patent. No rhinorrhea. EARS: Bilateral pinnae and external canals appear within normal limits. Bilateral tympanic membranes without erythema, dullness, hemotympanum or perforation. No otorrhea. No schwab signs. NECK: Moving freely. Trachea midline. No lymphadenopathy. Active rotation of the neck greater than 45 left and right. No midline point tenderness on palpation of the cervical spine. No obvious deformities. CHEST: No retractions or use of accessory muscles. CARDIOVASCULAR: Regular rate and rhythm. No murmur appreciated. RESPIRATORY: No accessory muscle use. Clear to auscultation. Breath sounds equal bilaterally. GASTROINTESTINAL: Obese. Abdomen soft, non-tender, nondistended. Hepatic and splenic margins not palpable. Bowel sounds are active 4 quadrants. MUSCULOSKELETAL: Left lower extremity amputated. No obvious deformities. No clubbing. No cyanosis. No edema. BACK: No midline Point tenderness on palpation of the lumbar or thoracic spine. No obvious deformities. Patient sitting up in bed at 90. NEUROLOGICAL: Awake and alert. Oriented 3. No obvious cranial nerve deficits. Motor grossly within normal limits. Normal speech. Moves all extremities. 5/5 strength to all extremities. Sensory intact. PSYCHIATRIC: Appropriate mood and affect; insight and judgment normal. Data Data Last Documented VS Vital Signs Date Time Temp Pulse Resp B/P Pulse Ox O2 Delivery O2 Flow Rate FiO2 04/23/17 09:38 97.8 104 18 139/[address] Brain W/O Iv Contrast(Rout) (04/23/17 ) Shoulder, Complete (>2vws) (04/23/17 09:56) Acetamin-Hydrocod 325-5 Mg ([place] 5-325 (04/23/17 10:15) Sling Cradle Arm (04/23/17 ) MDM Medical Decision Making Medical Screen Exam Complete: Yes Emergency Medical Condition: Yes Medical Record Reviewed: Yes Differential Diagnosis Fall, shoulder contusion, shoulder fracture, clavicle fracture, closed head injury Narrative Course 46-year-old male with right shoulder injury after losing his balance while falling. He is a lower extremity amputee and says he stood up too quickly and lost his balance. He reports hitting his head. He is on warfarin. I will do a CT of the head to rule out any intracranial process. Lortab administered in the ER. Right shoulder x-ray ordered. 1055: CT head and right shoulder x-ray concludes: Last 24 hours Impressions Shoulder X-Ray 04/23/17 0956 Signed Impressions: Service Date/Time: Sunday, April 23, 2017 10:08 - CONCLUSION: No acute fracture or joint dislocation. Satish Elizabeth MD Head CT 04/23/17 0000 Signed Impressions: Service Date/Time: Sunday, April 23, 2017 10:15 - CONCLUSION: 1. No focal or acute intracranial hemorrhage. 2. Stable CT scan of the brain compared to the prior study. Satish Elizabeth MD Patient instructed to take Tylenol as directed and as needed for pain and inflammation. Arm sling provided for support. Patient verbalizes understanding and agreement with treatment plan. Patient is medically cleared and stable for discharge. Discussed reasons to return to the emergency department. Instructed patient to follow up with primary care provider. Patient agrees with treatment plan. The patients vital signs are stable and the patient is stable for outpatient follow-up and treatment. Patient discharged home, stable and in no acute distress. Diagnosis Primary Impression: Fall Qualified Code: W19.XXXA - Fall, initial encounter Additional Impression: Right shoulder injury Qualified Code: S49.91XA - Right shoulder injury, initial encounter Referrals: Primary Care Physician Patient Instructions: Fall Prevention (ED), General Instructions, Shoulder Sprain (ED) Additional Instructions: Tylenol or ibuprofen as needed and as directed to reduce pain and inflammation Rest, ice, and compress extremity to decrease pain and inflammation Arm sling for support; remove the arm slings frequently and increased shoulder activity as tolerated Avoid aggravating activity; increase activity as tolerated Follow-up with primary care provider Follow-up with orthopedics Return to the emergency department immediately with worsening symptoms Med/Other Pt SpecificInfo: No Change to Meds, No Meds Exist/No RX given Disposition: 01 DISCHARGE HOME Condition: Stable Frida Montesinos Apr 23, 2017 09:56
[2017-04-23] MEDS ORDERED: ACETAMINOPHEN/HYDROcodone 325 MG/5 MG TAB PO ONE (10:15)
--- NOTE | 2017-04-23 10:28 | RADRPT ---
EXAM DATE/TIME: 04/23/2017 10:08 [facility] COMPARISON: No previous studies available for comparison. INDICATIONS : Anterior right shoulder pain after falling at home. MEDICAL HISTORY : Hypertension. Deep venous thrombosis. Chronic obstructive pulmonary disease. CVA. Anticoagulant thera py. GERD. Diabetes. Depression. Anxiety. Bone cancer. SURGICAL HISTORY : Appendectomy. Left leg amputation. Metal plate in right ankle. Chemotherapy. Blood transfusions. Righ t hip replaced. ENCOUNTER: Initial ACUITY: 1 day PAIN SCORE: 8/10 LOCATION: Right anterior shoulder FINDINGS: Multiple view examination of the right shoulder demonstrates no evidence of fracture or dislocation. The glenohumeral and acromioclavicular joints are maintained. Old healed fracture of the clavicle T here is normal range of motion between internal and external rotation. Bony mineralization is normal . CONCLUSION: No acute fracture or joint dislocation. Satish Elizabeth MD on April 23, 2017 at 10:25 Board Certified Radiologist. This report was verified electronically.
--- NOTE | 2017-04-23 10:44 | RADRPT ---
EXAM DATE/TIME: 04/23/2017 10:15 [facility] COMPARISON: CT BRAIN W/O CONTRAST, August 21, 2016, 15:16. INDICATIONS : Trauma; fall, pain. RADIATION DOSE: 56.35 CTDIvol (mGy) MEDICAL HISTORY : Stroke. Cardiovascular disease Hypertension. SURGICAL HISTORY : None. ENCOUNTER: Initial ACUITY: 1 day PAIN SCALE: 5/10 LOCATION: cranial TECHNIQUE: Multiple contiguous axial images were obtained of the head. Using automated exposure control and adj ustment of the mA and/or kV according to patient size, radiation dose was kept as low as reasonably a chievable to obtain optimal diagnostic quality images. DICOM format image data is available electro nically for review and comparison. FINDINGS: CEREBRUM: The ventricles are normal for age. Stable bilateral cortical atrophy and chronic white matter changes . No evidence of midline shift, mass lesion, hemorrhage or acute infarction. No extra-axial fluid c ollections are seen. POSTERIOR FOSSA: The cerebellum and brainstem are intact. The 4th ventricle is midline. The cerebellopontine angle i s unremarkable. EXTRACRANIAL: The visualized portion of the orbits is intact. SKULL: The calvaria is intact. No evidence of skull fracture. CONCLUSION: 1. No focal or acute intracranial hemorrhage. 2. Stable CT scan of the brain compared to the prior study. Satish Elizabeth MD on April 23, 2017 at 10:40 Board Certified Radiologist. This report was verified electronically.
== END 2017-04-23 11:38 | disposition home or self-care (01) ==
LOC: NEPD 09:36
DX: S49.91XA Unspecified injury of right shoulder and upper arm, initial encounter (principal); J44.9 Chronic obstructive pulmonary disease, unspecified; E11.9 Type 2 diabetes mellitus without complications; I10 Essential (primary) hypertension; W18.30XA Fall on same level, unspecified, initial encounter; Z79.01 Long term (current) use of anticoagulants; Z86.73 Personal history of transient ischemic attack (TIA), and cerebral infarction without residual deficits; Z86.718 Personal history of other venous thrombosis and embolism; Z86.711 Personal history of pulmonary embolism
CPT/HCPCS: 70450; 73030

== ENCOUNTER 2017-06-09 10:43 | Emergency (ER) | payer MEDICARE, OTHER ==
[~2017-06-09] VITALS: Ht 165.1 cm; Wt 5.0 kg
[~2017-06-09 10:43] MED LIST changes: -COMMODE PAIL WI1 MIS; -GETGO ROLLING W1 MI1; -NORC5TAB PO; -OMEP20TA PO
[2017-06-09 10:44] VITALS: BP 118/78; PULSE 128; RESP 20; TEMP 99.7; O2SAT 90
--- NOTE | 2017-06-09 10:55 | PD ---
HPI . left sided rib pain Chief Complaint: Fall Time Seen by Provider: 10:55 Travel History International Travel<30 days: No Contact w/Intl Traveler<30days: No Traveled to known affect area: No History of Present Illness HPI 46-year-old male with left leg amputation here with complaints of left sided rib pain. Patient apparently fell in his bathtub earlier today. Denies any head injury or loss of consciousness. Patient tells me that he has some type of defective hardware in his bathroom that causing him to trip repeatedly. He says that he's been in the emergency room several times for the same issue. He tells me that he plans on going to [facility] to get a new bath mat. He is requesting something for pain. He tells me does not go to his primary care provider until the end of this month and needs something for the pain in his ribs. 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17) Cardiovascular Problems: Yes High Cholesterol: Yes Chemotherapy: Yes Chest Pain: No Congestive Heart Failure: No COPD: Yes Cerebrovascular Accident: Yes Diabetes: Yes Diminished Hearing: No (UNABLE TO ASSESS ) Deep Vein Thrombosis: Yes Endocrine: No Gastrointestinal Disorders: Yes GERD: Yes Genitourinary: No Headaches: Yes Hiatal Hernia: No Hypertension: Yes Immune Disorder: No Implanted Vascular Access Dvce: Yes Kidney Stones: No Musculoskeletal: Yes Neurologic: No Psychiatric: Yes Reproductive: No Respiratory: Yes (lung ca) Migraines: No Renal Failure: No Seizures: No Sleep Apnea: No Ulcer: No Past Surgical History Abdominal Surgery: No AICD: No Appendectomy: Yes Arteriovenous Shunt: No Body Medical Devices: ivc filter Cardiac Surgery: No Ear Surgery: No Endocrine Surgery: No Eye Surgery: No Genitourinary Surgery: No Gynecologic Surgery: No Insulin Pump: No Joint Replacement: No Oral Surgery: No Pacemaker: No Thoracic Surgery: No Other Surgery: Yes (RIGH HIP REPLACED, GREEN-FIELD FILTER ) Social History Alcohol Use: No Tobacco Use: Yes (3-4 CIG ) Substance Use: No Allergies-Medications (Allergen,Severity, Reaction): Coded Allergies: Morphine (Verified Allergy, Mild, HIVES, 06/09/17) Penicillin (Verified Allergy, Mild, HIVES, 06/09/17) Reported Meds & Prescriptions Reported Meds & Active Scripts Active Effexor XR 24 HR (Venlafaxine HCl) 75 Mg Cap 75 Mg PO HS 30 Days Nicotine Patch (Nicotine) 7 Mg/24 Hr Patch 1 Patch TD DAILY 30 Days Reported Carafate (Sucralfate) 1 Gm Tab 1 Gm PO TIDAC AND HS On empty stomach Propranolol (Propranolol HCl) 20 Mg Tab 20 Mg PO QID Albuterol Neb (Albuterol Sulfate) 2.5 Mg/0.5 Ml Neb 2.5 Mg NEB Q6HR NEB Note: The Albuterol Sulfate Inhalation Solution is concentrated and must be diluted. Read complete instructions carefully before using. Coumadin (Warfarin) 5 Mg Tab 6 Mg PO DAILY Breo Ellipta Inh (Fluticasone/Vilanterol) 100-25 Mcg/Act Inh 1 Puff INH DAILY Use daily at the same time. Pravastatin 40 Mg Tab 40 Mg PO HS Amlodipine (Amlodipine Besylate) 10 Mg Tab 10 Mg PO DAILY Review of Systems General / Constitutional: No: Fever Eyes: No: Visual changes HENT: No: Headaches Cardiovascular: No: Chest Pain or Discomfort Respiratory: No: Shortness of Breath Gastrointestinal: No: Abdominal Pain Genitourinary: No: Dysuria Musculoskeletal: Positive: Pain (left rib) Skin: No Rash Neurologic: No: Weakness Psychiatric: No: Depression Endocrine: No: Polydipsia Hematologic/Lymphatic: No: Easy Bruising Physical Exam Narrative GENERAL: AAO x 3, no acute distress, Well-nourished, well-developed patient. SKIN: Warm and dry. No visible rashes or bruising. no ecchymosis present on chest/back/abdomen HEAD: Normocephalic and atraumatic. EYES: No scleral icterus. No injection or drainage. EOM intact, PERRLA ENT: No nasal drainage noted. Mucous membranes pink. Airway patent. NECK: Supple, trachea midline. No JVD. CARDIOVASCULAR: Regular rate and rhythm without murmurs, gallops, or rubs. No overt abnormality of the left-sided chest wall. There is tenderness to palpation proportion to examination RESPIRATORY: Breath sounds equal bilaterally. No accessory muscle use. No rhonchi or rales. GASTROINTESTINAL: Abdomen soft, non-tender, nondistended. EXTREMITIES: No cyanosis. Left leg amputated. BACK: No obvious deformity. NEURO: CN II-12 intact, PSYCH: AAO x 3, normal affect. Data Data Last Documented VS Vital Signs Date Time Temp Pulse Resp B/P Pulse Ox O2 Delivery O2 Flow Rate FiO2 06/09/17 11:40 108 20 93 06/09/17 10:44 99.7 118/78 Room Air Orders Ribs, Uni (W/Exp Cxr-Min 3vw) (06/09/17 10:58) Ketorolac Inj (Toradol Inj) (06/09/17 11:00) MDM Medical Decision Making Medical Screen Exam Complete: Yes Emergency Medical Condition: Yes Medical Record Reviewed: Yes Differential Diagnosis Rib contusion, rib fracture, acute on chronic pain Narrative Course 46-year-old male here with complaints of left-sided rib pain status post fall. Vitals were abnormal on arrival. On examination there are no significant findings except for tenderness proportion to palpation on the left-sided rib cage. Patient requesting pain medication. Prior to me leaving the exam room he says he needs pain medication to get through this. I explained to him that I will make those recommendations based on x-ray findings. I do not suspect I will find an acute fracture. [facility] and he filled 20 percocet on 05/26 as well as 05/16. Xray reviewed and shows what appears to be old fracture. Final read: no acute fracture. repeat vitals HR 108. o2 93%, patient uses PRN o2 at home. Says he doesn't like using it because of the mask. Discussed the findings with the patient. Explained to patient that I will not be refilling his pain medication. I explained that he needs to follow-up with his primary care provider. Diagnosis Primary Impression: Rib pain on left side Patient Instructions: General Instructions Additional Instructions: Please follow-up with your primary care provider for further refills on your pain medication. Med/Other Pt SpecificInfo: No Change to Meds Disposition: 01 DISCHARGE HOME Condition: Stable Honey Sanders Jun 09, 2017 10:55
[2017-06-09] MEDS ORDERED: KETOROLAC TROMETHAMINE 60 MG/2 ML (IM) VIAL IM ONE (11:00)
--- NOTE | 2017-06-09 11:30 | RADRPT ---
EXAM DATE/TIME: 06/09/2017 11:16 [facility] COMPARISON: RIBS LEFT(W PA CXR MIN 3VWS), December 12, 2016, 18:45. INDICATIONS : Left anterior rib pain, fell MEDICAL HISTORY : Stroke. Cardiovascular disease Hypertension. SURGICAL HISTORY : Right abouve knee amputation ENCOUNTER: Initial ACUITY: 3 days PAIN SCORE: 6/10 LOCATION: Left Ribs FINDINGS: On today's examination there are multiple old healed left-sided rib fractures which are stable compar ed to the prior examination. No definite new rib fractures are demonstrated. No evidence of pleural e ffusion or pneumothorax. Compared to the prior study no significant changes are demonstrated. There i s an IVC filter in place. This is unchanged in position compared to prior exam. CONCLUSION: 1. No definite acute rib fractures demonstrated. 2. Multiple old healed left-sided rib fractures are demonstrated. No change compared to the prior shaheen dy. Satish Elizabeth MD on June 09, 2017 at 11:26 Board Certified Radiologist. This report was verified electronically.
== END 2017-06-09 11:51 | disposition home or self-care (01) ==
LOC: NEPK 10:43
DX: R07.81 Pleurodynia (principal); F17.210 Nicotine dependence, cigarettes, uncomplicated; W18.2XXA Fall in (into) shower or empty bathtub, initial encounter
CPT/HCPCS: 71101; 99283

== ENCOUNTER 2017-10-19 10:50 | Observation (INO) | payer MEDICARE, OTHER ==
[2017-10-19] VITALS (8 sets, daily range): BP systolic 130–149; BP diastolic 79–94; PULSE 104–117; RESP 20–29; TEMP 98.2–98.4; O2SAT 87–95
[~2017-10-19] VITALS: Ht 167.6 cm; Wt 104.8 kg
[2017-10-19] MEDS ORDERED: IOHEXOL 350 MG/ML 10 ML VIAL (for RAD DIAG) IVCONTRAST ONE (10:51)
[2017-10-19] MEDS ORDERED: RESP: ALBUTEROL 2.5 MG/IPRATROPIUM 0.5 MG NEB (SCH) NEB ONE (11:00)
[2017-10-19] MEDS ORDERED: SODIUM CHLORIDE 0.9% FLUSH 10 ML FLUSH IVF PRN (11:00)
[2017-10-19] MEDS ORDERED: methylPREDNISolone SOD SUCC 125 MG/2 ML VIAL IV PUSH ONE (11:00)
[2017-10-19] MEDS ORDERED: APIX2.5T PO (11:07)
[2017-10-19 11:34] LABS: AUTOMATED NEUTROPHIL # 5.1 TH/MM3 (1.8-7.7); BASOPHIL # 0.1 TH/MM3 (0-0.2); BASOPHIL % 1.1 % (0.0-2.0); EOSINOPHIL # 0.1 TH/MM3 (0-0.4); EOSINOPHIL % 1.2 % (0.0-4.0); HEMO FLAGS DIFF FINAL; LYMPH % 22.9 % (9.0-44.0); LYMPHOCYTE # 1.7 TH/MM3 (1.0-4.8); MEAN CELL VOLUME 66.7 FL (80.0-100.0); MEAN CORPUSCULAR HEMOGLOBIN 20.6 PG (27.0-34.0); MEAN CORPUSCULAR HGB CONC 30.9 % (32.0-36.0); MONO % 5.8 % (0.0-8.0); PLATELET COUNT 334 TH/MM3 (150-450); RED CELL DISTRIBUTION WIDTH 20.5 % (11.6-17.2); WHITE BLOOD COUNT 7.4 TH/MM3 (4.0-11.0)
[2017-10-19 11:43] LABS: APTT (PATIENT) 24.4 SEC (24.3-30.1); PROTHROMBIN TIME - PATIENT 9.9 SEC (9.8-11.6)
[2017-10-19] MEDS ORDERED: HYDROmorphone HCL PF 2 MG/ML VIAL IV PUSH ONE ×2 (11:45→13:45)
--- NOTE | 2017-10-19 11:52 | RADRPT ---
EXAM DATE/TIME: 10/19/2017 11:07 [facility] COMPARISON: CHEST SINGLE AP, December 13, 2016, 7:42. INDICATIONS : Chest pain sudden onset. MEDICAL HISTORY : Stroke. Cardiovascular disease Hypertension. SURGICAL HISTORY : Right abouve knee amputation, total right shoulder. ENCOUNTER: Initial ACUITY: 1 day PAIN SCORE: 6/10 LOCATION: Bilateral chest FINDINGS: Cardia megaly with mild interstitial edema. There is no pneumothorax. There is consolidation. Shou lder arthroplasty on the right. CONCLUSION: Mild congestive failure. Negative for pneumothorax. Shai Ramírez MD FACR on October 19, 2017 at 11:48 Board Certified Radiologist. This report was verified electronically.
[2017-10-19 12:03] LABS: ALKALINE PHOSPHATASE 124 U/L (45-117); TOTAL BILIRUBIN ADULT 0.5 MG/DL (0.2-1.0)
--- NOTE | 2017-10-19 12:04 | PD ---
HPI Chief Complaint: Pain: Acute or Chronic Time Seen by Provider: 10:58 Travel History International Travel<30 days: No Contact w/Intl Traveler<30days: No Traveled to known affect area: No History of Present Illness HPI This is a 47-year-old male who presents to the emergency department with chest discomfort that started abruptly at home while he was sitting, constant, severe , and the center of his chest worse with coughing and deep breaths feeling like someone is stabbing him in the chest. He says he's never had pain like this before. He also feels short of breath particularly with exertion. He denies any fevers or chills. He does have a history of COPD. He's also had pulmonary emboli in the past. For the past week he's been off warfarin because he's been trying to fill his prescription for Eliquis. He took his first dose this morning. 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17) Cardiovascular Problems: Yes High Cholesterol: Yes Chemotherapy: Yes Chest Pain: No Congestive Heart Failure: No COPD: Yes Cerebrovascular Accident: Yes Diabetes: Yes Patient Takes Glucophage: No Diminished Hearing: No (UNABLE TO ASSESS ) Deep Vein Thrombosis: Yes Endocrine: No Gastrointestinal Disorders: Yes GERD: Yes Genitourinary: No Headaches: Yes Hiatal Hernia: No Hypertension: Yes Immune Disorder: No Implanted Vascular Access Dvce: Yes Kidney Stones: No Musculoskeletal: Yes Neurologic: No Psychiatric: Yes Reproductive: No Respiratory: Yes (lung ca) Migraines: No Renal Failure: No Seizures: No Sleep Apnea: No Ulcer: No Past Surgical History Abdominal Surgery: No AICD: No Appendectomy: Yes Arteriovenous Shunt: No Body Medical Devices: ivc filter Cardiac Surgery: No Ear Surgery: No Endocrine Surgery: No Eye Surgery: No Genitourinary Surgery: No Gynecologic Surgery: No Insulin Pump: No Joint Replacement: No Oral Surgery: No Pacemaker: No Thoracic Surgery: No Other Surgery: Yes (RIGH HIP REPLACED, GREEN-FIELD FILTER ) Social History Alcohol Use: No Tobacco Use: Yes (3-4 CIG ) Substance Use: No Allergies-Medications (Allergen,Severity, Reaction): Coded Allergies: morphine (Unverified Allergy, Mild, HIVES, 10/19/17) penicillin G (Unverified Allergy, Mild, HIVES, 10/19/17) Reported Meds & Prescriptions Reported Meds & Active Scripts Active Effexor XR 24 HR (Venlafaxine HCl) 75 Mg Cap 75 Mg PO HS 30 Days Nicotine Patch (Nicotine) 7 Mg/24 Hr Patch 1 Patch TD DAILY 30 Days Reported Eliquis (Apixaban) 2.5 Mg Tab 2.5 Mg PO BID Carafate (Sucralfate) 1 Gm Tab 1 Gm PO TIDAC AND HS On empty stomach Propranolol (Propranolol HCl) 20 Mg Tab 20 Mg PO QID Albuterol Neb (Albuterol Sulfate) 2.5 Mg/0.5 Ml Neb 2.5 Mg NEB Q6HR NEB Note: The Albuterol Sulfate Inhalation Solution is concentrated and must be diluted. Read complete instructions carefully before using. Pravastatin 40 Mg Tab 40 Mg PO HS Amlodipine (Amlodipine Besylate) 10 Mg Tab 10 Mg PO DAILY Review of Systems Except as stated in HPI: all other systems reviewed are Neg Physical Exam Narrative GENERAL: Uncomfortable appearing SKIN: Focused skin assessment warm and dry. HEAD: Atraumatic. Normocephalic. EYES: Pupils equal and round. No injection or drainage. ENT: Moist mucous membranes NECK: Trachea midline. CARDIOVASCULAR: Regular rate and rhythm. No murmur appreciated. RESPIRATORY: Tachypneic, Rales in the right lower lung base, increased work of breathing GASTROINTESTINAL: Abdomen soft, non-tender, nondistended. MUSCULOSKELETAL: Left AKA NEUROLOGICAL: Awake and alert. No obvious cranial nerve deficits. Moving all extremities. PSYCHIATRIC: Appropriate mood and affect; insight and judgment normal. Data Data Last Documented VS Vital Signs Date Time Temp Pulse Resp B/P (MAP) Pulse Ox O2 Delivery O2 Flow Rate FiO2 10/19/17 13:49 91 3.00 10/19/17 13:45 108 29 Nasal Cannula 10/19/17 10:53 98.2 Orders Orders Electrocardiogram (10/19/17 10:58) B-Type Natriuretic Peptide (10/19/17 10:58) Complete Blood Count With Diff (10/19/17 10:58) Comprehensive Metabolic Panel (10/19/17 10:58) Magnesium (Mg) (10/19/17 10:58) Prothrombin Time / Inr (Pt) (10/19/17 10:58) Act Partial Throm Time (Ptt) (10/19/17 10:58) Troponin I (10/19/17 10:58) Chest, Single Ap (10/19/17 10:58) Ecg Monitoring (10/19/17 10:58) Bilateral Bp Monitoring (10/19/17 10:58) Iv Access Insert/Monitor (10/19/17 10:58) Oximetry (10/19/17 10:58) Oxygen Administration (10/19/17 10:58) Sodium Chloride 0.9% Flush (Ns Flush) (10/19/17 11:00) Ct Pulmonary Angiogram (10/19/17 10:58) Methylprednisolone So Succ Inj (Solumedr (10/19/17 11:00) Albuterol-Ipratropium Neb (Duoneb Neb) (10/19/17 11:00) Hydromorphone Pf Inj (Dilaudid Pf Inj) (10/19/17 11:45) Iohexol 350 Inj (Omnipaque 350 Inj) (10/19/17 10:51) Sodium Chlor 0.9% 1000 Ml Inj (Ns 1000 M (10/19/17 13:45) Albuterol Neb (Albuterol Neb) (10/19/17 13:45) Hydromorphone Pf Inj (Dilaudid Pf Inj) (10/19/17 13:45) Admit Order (Ed Use Only) (10/19/17 15:27) Place In Observation (10/19/17 ) Vital Signs (Adult) Q4H (10/19/17 15:27) Activity Oob With Assistance (10/19/17 15:27) Sewer Pipe Offbearer / Telemetry .CONTINUOUS (10/19/17 15:27) Diet Heart Healthy (10/19/17 Dinner) Sodium Chloride 0.9% Flush (Ns Flush) (10/19/17 15:30) Sodium Chloride 0.9% Flush (Ns Flush) (10/19/17 21:00) Basic Metabolic Panel (Bmp) (10/20/17 06:00) Complete Blood Count With Diff (10/20/17 06:00) Resp Oxygen Shan C Titrat 1-4 L (10/19/17 ) Pt Request For Service (10/19/17 15:27) Case Management Consult (10/19/17 15:27) Naloxone Inj (Narcan Inj) (10/19/17 15:30) Ipratropium Neb (Atrovent Neb) (10/19/17 15:30) Creatine Kinase (Cpk) (10/19/17 17:00) Creatine Kinase (Cpk) (10/19/17 23:00) Troponin I (10/19/17 17:00) Troponin I (10/19/17 23:00) Electrocardiogram (10/19/17 17:00) Electrocardiogram (10/19/17 23:00) Labs Laboratory Tests Test 10/19/17 11:00 White Blood Count 7.4 TH/MM3 Red Blood Count 5.70 MIL/MM3 Hemoglobin 11.7 GM/DL Hematocrit 38.0 % Mean Corpuscular Volume 66.7 FL Mean Corpuscular Hemoglobin 20.6 PG Mean Corpuscular Hemoglobin Concent 30.9 % Red Cell Distribution Width 20.5 % Platelet Count 334 TH/MM3 Mean Platelet Volume 8.5 FL Neutrophils (%) (Auto) 69.0 % Lymphocytes (%) (Auto) 22.9 % Monocytes (%) (Auto) 5.8 % Eosinophils (%) (Auto) 1.2 % Basophils (%) (Auto) 1.1 % Neutrophils # (Auto) 5.1 TH/MM3 Lymphocytes # (Auto) 1.7 TH/MM3 Monocytes # (Auto) 0.4 TH/MM3 Eosinophils # (Auto) 0.1 TH/MM3 Basophils # (Auto) 0.1 TH/MM3 CBC Comment DIFF FINAL Differential Comment Prothrombin Time 9.9 SEC Prothromb Time International Ratio 1.0 RATIO Activated Partial Thromboplast Time 24.4 SEC Blood Urea Nitrogen 9 MG/DL Creatinine 0.75 MG/DL Random Glucose 123 MG/DL Total Protein 7.9 GM/DL Albumin 3.3 GM/DL Calcium Level 8.9 MG/DL Magnesium Level 1.8 MG/DL Alkaline Phosphatase 124 U/L Aspartate Amino Transf (AST/SGOT) 58 U/L Alanine Aminotransferase (ALT/SGPT) 31 U/L Total Bilirubin 0.5 MG/DL Sodium Level 135 MEQ/L Potassium Level 4.8 MEQ/L Chloride Level 99 MEQ/L Carbon Dioxide Level 29.2 MEQ/L Anion Gap 7 MEQ/L Estimat Glomerular Filtration Rate 112 ML/MIN Troponin I 0.04 NG/ML B-Type Natriuretic Peptide 60 PG/ML MDM Medical Decision Making Medical Screen Exam Complete: Yes Emergency Medical Condition: Yes Interpretation(s) Afebrile, tachycardic, tachypneic, hypoxic No leukocytosis Anemia Electrolytes are reassuring BNP is 60 Troponin is 0.04 Coags are normal EKG: Sinus tachycardia, right atrial enlargement, no st changes Differential Diagnosis Pulmonary embolism, myocardial infarction, COPD exacerbation, aortic dissection Narrative Course This is a 47-year-old male who presents to the emergency department with chest discomfort that started suddenly this morning as well as shortness of breath. He is diffusely wheezing on exam. He was placed on a monitor and an IV was established. He was given serial due nebs and IV steroids. He was found to be hypoxic. CT pulmonary angiogram given my high suspicion for pulmonary embolism was obtained which was negative. Patient will be admitted for COPD exacerbation. I suspect the patient's chest pain is related to COPD however given multiple risk factors at think it's reasonable to continue serial cardiac enzymes as an inpatient. Physician Communication Physician Communication Discussed with Dr. Villegas Diagnosis Primary Impression: Chest pain Qualified Codes: R07.9 - Chest pain, unspecified Additional Impression: COPD exacerbation Admitting Information Admitting Physician Requests: Admit Katherine Mann MD Oct 19, 2017 12:04
[2017-10-19 12:16] LABS: ALT (GPT) 31 U/L (12-78); ANION GAP 7 MEQ/L (5-15); AST (GOT) 58 U/L (15-37); BICARBONATE 29.2 MEQ/L (21.0-32.0); BLOOD UREA NITROGEN 9 MG/DL (7-18); CHLORIDE 99 MEQ/L (98-107); GLOMERULAR FILTRATION RATE 112 ML/MIN (>89); MAGNESIUM 1.8 MG/DL (1.5-2.5); SODIUM (NA) 135 MEQ/L (136-145)
[2017-10-19 12:21] LABS: POTASSIUM 4.8 MEQ/L (3.5-5.1)
--- NOTE | 2017-10-19 13:33 | RADRPT ---
EXAM DATE/TIME: 10/19/2017 13:09 [facility] COMPARISON: CT PULMONARY ANGIOGRAM, July 02, 2016, 9:44. INDICATIONS : Bilateral chest pain that radiates to the back. IV CONTRAST: 65 cc Omnipaque 350 (iohexol) IV RADIATION DOSE: 23.14 CTDIvol (mGy) ; Patient body habitus MEDICAL HISTORY : Cardiovascular disease. Chronic obstructive pulmonary disease. Deep venous thrombosis.Hypertension, b one cancer. SURGICAL HISTORY : Appendectomy. ENCOUNTER: Initial ACUITY: 1 day PAIN SCALE: 6/10 LOCATION: Bilateral chest TECHNIQUE: Volumetric scanning of the chest was performed using a pulmonary embolism protocol MIP images were re constructed. Using automated exposure control and adjustment of the mA and/or kV according to patien t size, radiation dose was kept as low as reasonably achievable to obtain optimal diagnostic quality images. DICOM format image data is available electronically for review and comparison. Follow-up recommendations for detected pulmonary nodules are based at a minimum on nodule size and pa tient risk factors according to Fleischner Society Guidelines. FINDINGS: PULMONARY ARTERIES: No filling defects are seen in the pulmonary arteries through the segmental level. LUNGS: There is a focal area of rounded atelectasis involving the right lung base. No infiltrate or effusion . PLEURAE: There is no pleural thickening or pleural effusion. MEDIASTINUM: Mild cardiomegaly without pericardial effusion. Aorta and pulmonary arteries are normal in caliber. N o adenopathy. MUSCULOSKELETAL: Within normal limits for patient age. MISCELLANEOUS: The visualized upper abdominal organs demonstrate no acute abnormality. CONCLUSION: 1. No pulmonary embolus. 2. Small area of atelectasis within the right base. 3. Cardiomegaly. Shane Merrill Jr., MD on October 19, 2017 at 13:22 Board Certified Radiologist. This report was verified electronically.
[2017-10-19] MEDS ORDERED: SODIUM CHLOR 0.9% 1000 ML INJ 1,000 ML IV SCH (13:45)
[2017-10-19] MEDS: RESP: ALBUTEROL 2.5 MG/3 ML NEB (SCH) INH ×2 (13:58→14:01)
[2017-10-19] MEDS ORDERED: RESP: IPRATROPIUM 0.5 MG/2.5 ML NEB NEB PRN (15:30)
[2017-10-19] MEDS ORDERED: NALOXONE HCL 0.4 MG/ML AMP IV PUSH PRN (15:30)
[2017-10-19] MEDS ORDERED: SODIUM CHLORIDE 0.9% FLUSH 10 ML FLUSH IV FLUSH PRN (15:30)
[2017-10-19] MEDS: SODIUM CHLORIDE 0.9% FLUSH 10 ML FLUSH IV FLUSH SCH (21:00)
[2017-10-19] MEDS ORDERED: RESP: ALBUTEROL 2.5 MG/IPRATROPIUM 0.5 MG NEB (PRN) NEB (22:45)
[2017-10-19] MEDS: ACETAMINOPHEN/HYDROcodone 325 MG/5 MG TAB PO PRN (22:51)
--- NOTE | 2017-10-19 23:12 | HHI.HP ---
[facility] Bebeto Cali MD Admission Diagnosis chest pain, copd exacerbation Diagnoses: Travel History International Travel<30 Days: No Contact w/Intl Traveler <30 Da: No Traveled to Known Affected Are: No History of Present Illness 47-year-old male with a past medical history significant for COPD on 2 L nasal cannula at home, hypertension, GERD, history of PE and multiple CVAs anticoagulated on Eliquis presents to the emergency department with increasing shortness of breath and bilateral chest pain that started earlier today. The patient reports his chest pain is worse with deep inspiration. He has a nonproductive cough. Chest x-ray significant for mild interstitial edema with cardiomegaly. Patient is afebrile without leukocytosis. Review of Systems Denies fever or chills Denies blurry vision, otorrhea, rhinorrhea Denies sore throat. 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 Read complete instructions carefully before using. Pravastatin 40 Mg Tab 40 Mg PO HS Amlodipine (Amlodipine Besylate) 10 Mg Tab 10 Mg PO DAILY Allergies: Coded Allergies: morphine (Unverified Allergy, Mild, HIVES, 10/19/17) penicillin G (Unverified Allergy, Mild, HIVES, 10/19/17) Family History Father with diabetes mellitus Social History Smokes approximately half a pack per day 32 years. Denies alcohol, illicit drugs. Physical Exam Vital Signs Vital Signs Date Time Temp Pulse Resp B/P (MAP) Pulse Ox O2 Delivery O2 Flow Rate FiO2 10/19/17 20:40 114 10/19/17 20:40 Nasal Cannula 3.00 10/19/17 19:34 98.4 109 20 130/79 (96) 94 10/19/17 13:49 91 3.00 10/19/17 13:45 108 29 140/94 (109) 87 Nasal Cannula 3.00 10/19/17 11:30 115 28 149/90 (109) 94 Nasal Cannula 2.00 10/19/17 11:03 Nasal Cannula 2.00 10/19/17 11:03 95 Nasal Cannula 10/19/17 10:53 98.2 117 26 142/91 (108) 95 Physical Exam GENERAL: Obese, male lying in bed SKIN: No rashes, ecchymoses or lesions. Cool and dry. HEAD: Atraumatic. Normocephalic. No temporal or scalp tenderness. EYES: Pupils equal round and reactive. Extraocular motions intact. No scleral icterus. No injection or drainage. ENT: Nose without bleeding, purulent drainage or septal hematoma. Throat without erythema, tonsillar hypertrophy or exudate. Uvula midline. Airway patent. NECK: Trachea midline. No JVD or lymphadenopathy. Supple, nontender, no meningeal signs. CARDIOVASCULAR: Regular rate and rhythm without murmurs, gallops, or rubs. RESPIRATORY: Clear to auscultation. Breath sounds equal bilaterally. No wheezes , rales, or rhonchi. GASTROINTESTINAL: Abdomen soft, non-tender, nondistended. No hepato-splenomegaly , or palpable masses. No guarding. MUSCULOSKELETAL: Right extremity without clubbing, cyanosis, or edema. No joint tenderness, effusion, or edema noted. No calf tenderness. Left AKA. NEUROLOGICAL: Awake and alert. Cranial nerves II through XII intact. Motor and sensory grossly within normal limits. Normal speech. Laboratory Laboratory Tests Test 10/19/17 11:00 10/19/17 18:43 White Blood Count 7.4 Red Blood Count 5.70 Hemoglobin 11.7 Hematocrit 38.0 Mean Corpuscular Volume 66.7 Mean Corpuscular Hemoglobin 20.6 Mean Corpuscular Hemoglobin Concent 30.9 Red Cell Distribution Width 20.5 Platelet Count 334 Mean Platelet Volume 8.5 Neutrophils (%) (Auto) 69.0 Lymphocytes (%) (Auto) 22.9 Monocytes (%) (Auto) 5.8 Eosinophils (%) (Auto) 1.2 Basophils (%) (Auto) 1.1 Neutrophils # (Auto) 5.1 Lymphocytes # (Auto) 1.7 Monocytes # (Auto) 0.4 Eosinophils # (Auto) 0.1 Basophils # (Auto) 0.1 CBC Comment DIFF FINAL Differential Comment Prothrombin Time 9.9 Prothromb Time International Ratio 1.0 Activated Partial Thromboplast Time 24.4 Blood Urea Nitrogen 9 Creatinine 0.75 Random Glucose 123 Total Protein 7.9 Albumin 3.3 Calcium Level 8.9 Magnesium Level 1.8 Alkaline Phosphatase 124 Aspartate Amino Transf (AST/SGOT) 58 Alanine Aminotransferase (ALT/SGPT) 31 Total Bilirubin 0.5 Sodium Level 135 Potassium Level 4.8 Chloride Level 99 Carbon Dioxide Level 29.2 Anion Gap 7 Estimat Glomerular Filtration Rate 112 Troponin I 0.04 0.02 B-Type Natriuretic Peptide 60 Total Creatine Kinase 41 Result Diagram: 10/19/17 1100 10/19/17 1100 Caprini VTE Risk Assessment Caprini VTE Risk Assessment: Mod/High Risk (score >= 2) Caprini Risk Assessment Model Point Value = 1 Point Value = 2 Point Value = 3 Point Value = 5 Age 41-60 Minor surgery BMI > 25 kg/m2 Swollen legs Varicose veins or History of unexplained or recurrent spontaneous Oral contraceptives or hormone replacement Sepsis (< 1 month) Serious lung disease, including pneumonia (< 1 month) Abnormal pulmonary function Acute myocardial infarction Congestive heart failure (< 1 month) History of inflammatory bowel disease Medical patient at bed rest Age 61-74 Arthroscopic surgery Major open surgery (> 45 min) Laparoscopic surgery (> 45 min) Malignancy Confined to bed (> 72 hours) Immobilizing plaster cast Central venous access Age >= 75 History of VTE Family history of VTE Factor V Leiden Prothrombin [id number] Lupus anticoagulant Anticardiolipin antibodies Elevated serum homocysteine Heparin-induced thrombocytopenia Other congenital or acquired thrombophilia Stroke (< 1 month) Elective arthroplasty Hip, pelvis, or leg fracture Acute spinal cord injury (< 1 month) Prophylaxis Regimen Total Risk Factor Score Risk Level Prophylaxis Regimen 0-1 Low Early ambulation 2 Moderate Order ONE of the following: *Sequential Compression Device (SCD) *Heparin 5000 units SQ BID 3-4 Higher Order ONE of the following medications: *Heparin 5000 units SQ TID *Enoxaparin/Lovenox 40 mg SQ daily (WT < 150 kg, CrCl > 30 mL/min) *Enoxaparin/Lovenox 30 mg SQ daily (WT < 150 kg, CrCl > 10-29 mL/min) *Enoxaparin/Lovenox 30 mg SQ BID (WT < 150 kg, CrCl > 30 mL/min) AND/OR *Sequential Compression Device (SCD) 5 or more Highest Order ONE of the following medications: *Heparin 5000 units SQ TID (Preferred with Epidurals) *Enoxaparin/Lovenox 40 mg SQ daily (WT < 150 kg, CrCl > 30 mL/min) *Enoxaparin/Lovenox 30 mg SQ daily (WT < 150 kg, CrCl > 10-29 mL/min) *Enoxaparin/Lovenox 30 mg SQ BID (WT < 150 kg, CrCl > 30 mL/min) AND *Sequential Compression Device (SCD) Assessment and Plan Assessment and Plan Assessment/plan: 1. Shortness of breath/COPD exacerbation Chest x-ray showed mild interstitial edema with cardiomegaly, images reviewed by me BNP 60 Supplemental oxygen Duo nebs IV Steroids 2. Chest pain Initial troponin negative 2 EKG showed sinus tachycardia, no ST segment elevations or depressions, images reviewed by me ACS rule out pending 3. Hypertension Continue home amlodipine, propranolol 4. GERD Continue home sucralfate for duodenal ulcer 5. Hyperlipidemia Continue home statin 6. History of PE CTA negative for PE Patient stopped his Coumadin approximately one week ago in preparation for transition to a Eliquis - took first dose this am Continue Eliquis FEN Heart healthy diet Electrolytes: monitor and replete prn Natalie De La Garza MD Oct 19, 2017 23:12
[2017-10-20] VITALS (13 sets, daily range): BP systolic 124–148; BP diastolic 80–96; PULSE 83–112; RESP 18–22; TEMP 97.8–98.6; O2SAT 92–96
[2017-10-20] MEDS: ACETAMINOPHEN/HYDROcodone 325 MG/5 MG TAB PO PRN ×5 (04:04→21:34)
[2017-10-20] MEDS: SUCRALFATE 1 GM TAB PO SCH ×2 (05:28→16:00)
[2017-10-20] MEDS: methylPREDNISolone SOD SUCC 40 MG/1 ML VIAL IV PUSH SCH ×3 (05:28→21:34)
[2017-10-20 07:35] LABS: AUTOMATED NEUTROPHIL # 10.4 TH/MM3 (1.8-7.7); BASOPHIL % 0.2 % (0.0-2.0); HEMATOCRIT 37.6 % (39.0-51.0); HEMO FLAGS DIFF FINAL; LYMPH % 7.1 % (9.0-44.0); LYMPHOCYTE # 0.8 TH/MM3 (1.0-4.8); MEAN CELL VOLUME 68.2 FL (80.0-100.0); MEAN CORPUSCULAR HEMOGLOBIN 20.8 PG (27.0-34.0); MEAN CORPUSCULAR HGB CONC 30.6 % (32.0-36.0); MONO % 3.6 % (0.0-8.0); NEUT % 89.1 % (16.0-70.0); PLATELET COUNT 338 TH/MM3 (150-450); RED BLOOD COUNT 5.52 MIL/MM3 (4.50-5.90); RED CELL DISTRIBUTION WIDTH 20.6 % (11.6-17.2); WHITE BLOOD COUNT 11.7 TH/MM3 (4.0-11.0)
[2017-10-20 07:51] LABS: BICARBONATE 28.4 MEQ/L (21.0-32.0); POTASSIUM 3.8 MEQ/L (3.5-5.1)
[2017-10-20] MEDS: APIXABAN 2.5 MG TABLET PO SCH ×2 (08:32→19:48)
[2017-10-20] MEDS: PROPRANOLOL HCL 20 MG TAB PO SCH ×4 (08:32→19:48)
[2017-10-20] MEDS: SODIUM CHLORIDE 0.9% FLUSH 10 ML FLUSH IV FLUSH SCH ×2 (08:32→19:49)
[2017-10-20] MEDS: RESP: ALBUTEROL 2.5 MG/IPRATROPIUM 0.5 MG NEB (SCH) NEB ×4 (10:00→20:52)
[2017-10-20] MEDS ORDERED: RESP: ALBUTEROL CONC 2.5 MG/0.5 ML NEB NEB PRN (10:00)
[2017-10-20] MEDS ORDERED: RESP: ALBUTEROL CONC 2.5 MG/0.5 ML NEB NEB SCH (10:00)
[2017-10-20] MEDS ORDERED: hydrOXYzine PAMOATE 25 MG CAP PO PRN (13:00)
[2017-10-20] MEDS: REMOVE OLD PATCH T-DERMAL SCH (13:00)
[2017-10-20] MEDS: guaiFENesin E.R. 600 MG TAB PO SCH ×2 (13:58→19:48)
[2017-10-20] MEDS: DOXYCYCLINE HYCLATE 100 MG CAP PO SCH ×2 (13:58→19:48)
[2017-10-20] MEDS: BENZONATATE 100 MG CAP PO PRN ×2 (13:58→21:34)
[2017-10-20] MEDS: NICOTINE 21 MG/24 HR PATCH T-DERMAL SCH (14:00)
--- NOTE | 2017-10-20 14:40 | EKG ---
Date Performed: 10/19/2017 Time Performed: 22:24:57 PTAGE: 47 years EKG: SINUS TACHYCARDIA Compared to prior tracing no significant change PREVIOUS TRACING : 07/02/2016 08.46 DOCTOR: Jean Pak Interpretating Date/Time 10/20/2017 14:39:44
[2017-10-20 14:45] LABS: HEMOGLOBIN A1a 1.6 %; HEMOGLOBIN A1b 2.2 %; HEMOGLOBIN Ao 83.7 %; HEMOGLOBIN LA1C 2.3 %; HEMOGLOBIN P3 3.7 %
--- NOTE | 2017-10-20 15:14 | HHI.PR ---
Subjective Remarks Follow-up COPD exacerbation. Improving shortness of breath. Still with atypical chest pain pleuritic in nature especially with cough and deep breathing. Requesting nicotinic patch. He is anxious and wants to go home. Seen with mother. Discussed with RN Objective Vitals Vital Signs Date Time Temp Pulse Resp B/P (MAP) Pulse Ox O2 Delivery O2 Flow Rate FiO2 10/20/17 12:00 98.6 94 20 130/86 (101) 96 10/20/17 09:00 Nasal Cannula 3.00 10/20/17 08:00 98.2 109 22 126/96 (106) 96 10/20/17 05:22 97.8 104 20 125/80 (95) 96 10/20/17 04:08 106 10/20/17 04:00 Nasal Cannula 3.00 10/20/17 00:00 Nasal Cannula 3.00 10/20/17 00:00 112 10/19/17 23:35 98.3 104 20 146/89 (108) 93 10/19/17 20:40 114 10/19/17 20:40 Nasal Cannula 3.00 10/19/17 19:34 98.4 109 20 130/79 (96) 94 I/O 10/19/17 10/19/17 10/19/17 10/20/17 10/20/17 10/20/17 07:00 15:00 23:00 07:00 15:00 23:00 Intake Total 1000 ml 360 ml Output Total 550 ml Balance 1000 ml -190 ml Intake Oral 360 ml IV Total 1000 ml Output Urine Total 550 ml # Bowel Movements 0 Result Diagram: 10/20/17 0631 10/20/17 0631 Imaging Last Impressions Chest X-Ray 10/19/17 1058 Signed Impressions: Service Date/Time: Thursday, October 19, 2017 11:07 - CONCLUSION: Mild congestive failure. Negative for pneumothorax. Shai Ramírez MD FACR CT Angiography 10/19/17 1058 Signed Impressions: Service Date/Time: Thursday, October 19, 2017 13:09 - CONCLUSION: 1. No pulmonary embolus. 2. Small area of atelectasis within the right base. 3. Cardiomegaly. Shane Merrill Jr., MD Objective Remarks GENERAL: Obese, male lying in bed SKIN: No rashes, ecchymoses or lesions. Cool and dry. CARDIOVASCULAR: Regular rate and rhythm without murmurs, gallops, or rubs. RESPIRATORY: Diffuse expiratory wheezes. Breath sounds equal bilaterally. GASTROINTESTINAL: Abdomen soft, non-tender, nondistended. No guarding. MUSCULOSKELETAL: Right extremity without clubbing, cyanosis, or edema. No joint tenderness, effusion, or edema noted. No calf tenderness. Left AKA. NEUROLOGICAL: Awake and alert. Cranial nerves II through XII intact. Motor and sensory grossly within normal limits. Normal speech. Procedures none A/P Problem List: (1) COPD exacerbation ICD Code: J44.1 - Chronic obstructive pulmonary disease with (acute) exacerbation Status: Acute (2) Chest pain ICD Code: R07.9 - Chest pain, unspecified Status: Acute Assessment and Plan 1. Shortness of breath/COPD exacerbation. He is actively wheezing. Continue IV steroids, nebulizations and start doxycycline. No evidence of heart failure even though chest x-ray image showed mild distress due to edema with cardiomegaly. Tobacco cessation. Start nicotinic patch 2. Atypical chest pain secondary to COPD exacerbation. CTA negative for PE. Ruled out for [place] with cardiac enzymes 3. Hypertension. Stable. Continue home amlodipine, propranolol 4. GERD. Stable. Continue home sucralfate for duodenal ulcer 5. Hyperlipidemia. Continue home statin 6. History of PE. Continue Eliquis 7. Hyperglycemia. Obtain A1c 8. Mild leukocytosis secondary to steroids. FEN Heart healthy diet Electrolytes: monitor and replete prn Discharge Planning Possible discharge in the morning Problem Qualifiers (1) Chest pain: Qualified Codes: R07.9 - Chest pain, unspecified Ge Mcfadden MD Oct 20, 2017 15:14
[2017-10-20] MEDS ORDERED: DOXY100C PO (15:51)
[2017-10-20] MEDS ORDERED: PRED20 PO (15:51)
[2017-10-20] MEDS ORDERED: HYDR-3516 PO (15:51)
--- NOTE | 2017-10-20 15:51 | HHI.DCPOC ---
Discharge Care Plan Diagnosis: (1) COPD (chronic obstructive pulmonary disease) Your Health Problems Are: Difficulty with ADL Exercise Tolerance Goals to Promote Your Health * To prevent worsening of your condition and complications * To maintain your health at the optimal level Directions to Meet Your Goals Take your medications as prescribed Follow your dietary instruction Follow activity as directed Keep your appointments as scheduled Take your immunizations and boosters as scheduled If your symptoms worsen call your PCP, if no PCP go to Urgent Care Center or Emergency Room Smoking is Dangerous to Your Health. Avoid second hand smoke Call the 24-hour hour crisis hotline for domestic abuse at Ge Mcfadden MD Oct 20, 2017 15:51
[2017-10-20] MEDS ORDERED: PRAVASTATIN SOD 40 MG TAB PO SCH (21:00)
[2017-10-20] MEDS ORDERED: VENLAFAXINE HCL XR 75 MG CAP PO SCH (21:00)
[2017-10-21] MEDS: ACETAMINOPHEN/HYDROcodone 325 MG/5 MG TAB PO PRN ×3 (01:34→09:16)
[2017-10-21 03:39] VITALS: PULSE 85
[2017-10-21 04:45] VITALS: BP 131/85; PULSE 73; RESP 18; TEMP 97.7; O2SAT 95
[2017-10-21] MEDS: BENZONATATE 100 MG CAP PO PRN (05:29)
[2017-10-21] MEDS: SUCRALFATE 1 GM TAB PO SCH (05:29)
[2017-10-21] MEDS: methylPREDNISolone SOD SUCC 40 MG/1 ML VIAL IV PUSH SCH (05:29)
[2017-10-21] MEDS: RESP: ALBUTEROL 2.5 MG/IPRATROPIUM 0.5 MG NEB (SCH) NEB ×2 (07:34→11:27)
[2017-10-21 07:37] VITALS: O2SAT 93
[2017-10-21 08:00] VITALS: BP 125/81; PULSE 71; PULSE 81; RESP 18; TEMP 97.3; O2SAT 93
[2017-10-21] MEDS: SODIUM CHLORIDE 0.9% FLUSH 10 ML FLUSH IV FLUSH SCH (09:16)
[2017-10-21] MEDS: APIXABAN 2.5 MG TABLET PO SCH (09:16)
[2017-10-21] MEDS: guaiFENesin E.R. 600 MG TAB PO SCH (09:16)
[2017-10-21] MEDS: PROPRANOLOL HCL 20 MG TAB PO SCH ×2 (09:16→12:28)
[2017-10-21] MEDS: DOXYCYCLINE HYCLATE 100 MG CAP PO SCH (09:16)
[2017-10-21] MEDS: REMOVE OLD PATCH T-DERMAL SCH (09:17)
[2017-10-21] MEDS: NICOTINE 21 MG/24 HR PATCH T-DERMAL SCH (09:17)
[2017-10-21] MEDS ORDERED: predniSONE 20 MG TAB PO SCH (11:00)
[2017-10-21 12:00] VITALS: BP 122/69; PULSE 76; RESP 16; TEMP 97.3; O2SAT 93
--- NOTE | 2017-10-21 12:22 | HHI.PR ---
Subjective Remarks Follow-up COPD exacerbation. Improving shortness of breath currently on 2 L. No active wheezing. Discussed with RN Objective Vitals Vital Signs Date Time Temp Pulse Resp B/P (MAP) Pulse Ox O2 Delivery O2 Flow Rate FiO2 10/21/17 12:00 97.3 76 16 122/69 (86) 93 10/21/17 08:00 97.3 81 18 125/81 (96) 93 10/21/17 07:37 93 Nasal Cannula 4.00 10/21/17 04:45 97.7 73 18 131/85 (100) 95 10/21/17 03:39 85 10/20/17 23:45 83 10/20/17 23:32 98.0 85 18 124/85 (98) 92 10/20/17 20:54 96 Nasal Cannula 3.00 10/20/17 19:49 87 10/20/17 19:47 98.2 86 20 148/81 (103) 96 10/20/17 19:40 Nasal Cannula 3.00 Humidified 10/20/17 18:49 3.00 10/20/17 16:02 101 10/20/17 16:00 98.6 99 22 133/86 (102) 93 I/O 10/20/17 10/20/17 10/20/17 10/21/17 10/21/17 10/21/17 07:00 15:00 23:00 07:00 15:00 23:00 Intake Total 360 ml 840 ml 240 ml Output Total 550 ml 850 ml 1350 ml Balance -190 ml -10 ml -1110 ml Intake Oral 360 ml 840 ml 240 ml Output Urine Total 550 ml 850 ml 1350 ml # Bowel Movements 0 0 0 Result Diagram: 10/20/1731 10/20/1731 Imaging Last Impressions Chest X-Ray 10/19/17 105 Signed Impressions: Service Date/Time: Thursday, October 19, 2017 11:07 - CONCLUSION: Mild congestive failure. Negative for pneumothorax. Shai Ramírez MD FACR CT Angiography 10/19/17 1058 Signed Impressions: Service Date/Time: Thursday, October 19, 2017 13:09 - CONCLUSION: 1. No pulmonary embolus. 2. Small area of atelectasis within the right base. 3. Cardiomegaly. Shane Merrill Jr., MD Objective Remarks GENERAL: Obese, male lying in bed SKIN: No rashes, ecchymoses or lesions. Cool and dry. CARDIOVASCULAR: Regular rate and rhythm without murmurs, gallops, or rubs. RESPIRATORY: Clear lungs. Breath sounds equal bilaterally. GASTROINTESTINAL: Abdomen soft, non-tender, nondistended. No guarding. MUSCULOSKELETAL: Right extremity without clubbing, cyanosis, or edema. No joint tenderness, effusion, or edema noted. No calf tenderness. Left AKA. NEUROLOGICAL: Awake and alert. Cranial nerves II through XII intact. Motor and sensory grossly within normal limits. Normal speech. Procedures none A/P Problem List: (1) COPD exacerbation ICD Code: J44.1 - Chronic obstructive pulmonary disease with (acute) exacerbation Status: Acute (2) Chest pain ICD Code: R07.9 - Chest pain, unspecified Status: Acute Assessment and Plan 1. Shortness of breath/COPD exacerbation. Much improved no wheezing switched to by mouth steroids, continue nebulizations and doxycycline. No evidence of heart failure. Tobacco cessation. Continue nicotinic patch 2. Atypical chest pain secondary to COPD exacerbation. CTA negative for PE. Ruled out for [place] with cardiac enzymes 3. Hypertension. Stable. Continue home amlodipine, propranolol 4. GERD. Stable. Continue home sucralfate for duodenal ulcer 5. Hyperlipidemia. Continue home statin 6. History of PE. Continue Eliquis 7. Hyperglycemia. A1c 5.9 8. Mild leukocytosis secondary to steroids. FEN Heart healthy diet Electrolytes: monitor and replete prn Discharge Planning Discharge patient to home Condition on discharge: Improved Regular Diet as tolerated Ad Diane activity Rx written: Doxycycline, prednisone and Lortab Follow-up with primary care physician and pulmonary Problem Qualifiers (1) Chest pain: Qualified Codes: R07.9 - Chest pain, unspecified Ge Mcfadden MD Oct 21, 2017 12:22
== END 2017-10-21 14:00 | disposition home or self-care (01) ==
LOC: NEPC 10:50 → NEDA 15:29 → N04B 19:38
PROVIDERS: ADMIT Internal Medicine; ATTEND Internal Medicine
DX: J44.1 Chronic obstructive pulmonary disease with (acute) exacerbation (principal); T38.0X5A Adverse effect of glucocorticoids and synthetic analogues, initial encounter; D72.829 Elevated white blood cell count, unspecified; R07.9 Chest pain, unspecified; I11.9 Hypertensive heart disease without heart failure; E78.00 Pure hypercholesterolemia, unspecified; K21.9 Gastro-esophageal reflux disease without esophagitis; K26.9 Duodenal ulcer, unspecified as acute or chronic, without hemorrhage or perforation; F41.9 Anxiety disorder, unspecified; F32.9 Major depressive disorder, single episode, unspecified; F17.200 Nicotine dependence, unspecified, uncomplicated; Z85.118 Personal history of other malignant neoplasm of bronchus and lung; Z86.718 Personal history of other venous thrombosis and embolism; Z85.830 Personal history of malignant neoplasm of bone; Z86.711 Personal history of pulmonary embolism; Z86.73 Personal history of transient ischemic attack (TIA), and cerebral infarction without residual deficits; Z79.899 Other long term (current) drug therapy; Z89.612 Acquired absence of left leg above knee; Z96.641 Presence of right artificial hip joint
CPT/HCPCS: 71010; 71275; 80048; 80053; 82550; 83036; 83735; 83880; 84484; 85025; 85610; 85730; 93005; 94640; 94664; 96374; 96375; 96376; 97162; 99285; G0378; J1170; J2920; J2930; J7030; J7512; J7613; Q0177; Q9967

== ENCOUNTER 2017-10-27 08:15 | Inpatient (IN) | payer MEDICARE, OTHER ==
[~2017-10-27] VITALS: Ht 167.6 cm; Wt 105.0 kg
[2017-10-27] VITALS (10 sets, daily range): BP systolic 119–162; BP diastolic 71–92; PULSE 84–112; RESP 18–22; TEMP 97.6–98.7; O2SAT 89–98
[~2017-10-27 08:15] MED LIST changes: +APIX2.5T PO; -COUM5TAB PO; +DOXY100C PO; -FLUT1INH INH; +HYDR-3516 PO; +PRED20 PO
[2017-10-27] MEDS ORDERED: SODIUM CHLORIDE 0.9% FLUSH 10 ML FLUSH IVF PRN (08:30)
[2017-10-27] MEDS ORDERED: SODIUM CHLOR 0.9% 1000 ML INJ 1,000 ML IV ONE (08:30)
[2017-10-27] MEDS ORDERED: methylPREDNISolone SOD SUCC 125 MG/2 ML VIAL IV PUSH ONE (08:30)
--- NOTE | 2017-10-27 08:32 | PD ---
HPI Chief Complaint: Chest Pain Time Seen by Provider: 08:22 Travel History International Travel<30 days: No Contact w/Intl Traveler<30days: No Traveled to known affect area: No History of Present Illness HPI 47-year-old male arrives complaining of shortness of breath and pain with coughing. He has a history of recent discharged following admission for COPD exacerbation. Workup at that time included CT pulmonary angiogram serial enzymes. Both are negative. He was discharged with prednisone and doxycycline. Compliance with both reported. He states his main issue the fact that he can't clear his throat and that is painful to cough or sneeze. Patient reports usage of a nicotine patch in order to help avoid smoking. No fever. Nebulizer treatments at home conferred marginal benefit. 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17) Cardiovascular Problems: Yes High Cholesterol: Yes Chemotherapy: Yes Chest Pain: No Congestive Heart Failure: No COPD: Yes Cerebrovascular Accident: Yes Diabetes: No (runs in family) Diminished Hearing: No (UNABLE TO ASSESS ) Deep Vein Thrombosis: Yes Endocrine: No Gastrointestinal Disorders: Yes GERD: Yes Genitourinary: No Headaches: Yes Hiatal Hernia: No Hypertension: Yes Immune Disorder: No Implanted Vascular Access Dvce: Yes Kidney Stones: No Musculoskeletal: Yes (l leg amputated) Neurologic: Yes Psychiatric: Yes Reproductive: No Respiratory: Yes Migraines: No Renal Failure: No Seizures: No Sleep Apnea: No Ulcer: No Past Surgical History Abdominal Surgery: No AICD: No Appendectomy: Yes Arteriovenous Shunt: No Body Medical Devices: ivc filter Cardiac Surgery: No Ear Surgery: No Endocrine Surgery: No Eye Surgery: No Genitourinary Surgery: No Gynecologic Surgery: No Insulin Pump: No Joint Replacement: No Oral Surgery: No Pacemaker: No Thoracic Surgery: No Other Surgery: Yes (RIGH HIP REPLACED, GREEN-FIELD FILTER ) Social History Alcohol Use: No Tobacco Use: Yes (3-4 CIG ) Substance Use: No Allergies-Medications (Allergen,Severity, Reaction): Coded Allergies: morphine (Unverified Allergy, Mild, HIVES, 10/27/17) penicillin G (Unverified Allergy, Mild, HIVES, 10/27/17) Reported Meds & Prescriptions Reported Meds & Active Scripts Active Hydrocodone-Acetamin 5-325 mg (Hydrocodone/Acetaminophen) 5 Mg-325 Mg Tablet 1 Tab PO Q6H PRN Doxycycline Hyclate 100 Mg Cap 100 Mg PO BID Effexor XR 24 HR (Venlafaxine HCl) 75 Mg Cap 75 Mg PO HS 30 Days Nicotine Patch (Nicotine) 7 Mg/24 Hr Patch 1 Patch TD DAILY 30 Days Reported Eliquis (Apixaban) 2.5 Mg Tab 2.5 Mg PO BID Carafate (Sucralfate) 1 Gm Tab 1 Gm PO TIDAC AND HS On empty stomach Propranolol (Propranolol HCl) 20 Mg Tab 20 Mg PO QID Albuterol Neb (Albuterol Sulfate) 2.5 Mg/0.5 Ml Neb 2.5 Mg NEB Q6HR NEB Note: The Albuterol Sulfate Inhalation Solution is concentrated and must be diluted. Read complete instructions carefully before using. Pravastatin 40 Mg Tab 40 Mg PO HS Amlodipine (Amlodipine Besylate) 10 Mg Tab 10 Mg PO DAILY Review of Systems Except as stated in HPI: all other systems reviewed are Neg General / Constitutional: No: Fever Cardiovascular: Positive: Chest Pain or Discomfort Respiratory: Positive: Cough, Shortness of Breath, Wheezing Physical Exam Narrative GENERAL: 47-year-old male well-nourished well-developed speaking in sentences SKIN: Focused skin assessment warm/dry. HEAD: Atraumatic. Normocephalic. EYES: Pupils equal and round. No scleral icterus. No injection or drainage. ENT: No nasal bleeding or discharge. Mucous membranes pink and moist. NECK: Trachea midline. No JVD. CARDIOVASCULAR: Heart rate of approximately 105. The rhythm is regular. RESPIRATORY: Mild tachypnea reported. Sounds present bilaterally. GASTROINTESTINAL: Abdomen soft, non-tender, nondistended. Hepatic and splenic margins not palpable. MUSCULOSKELETAL: No obvious deformities. No clubbing. No cyanosis. No edema. NEUROLOGICAL: Awake and alert. No obvious cranial nerve deficits. Motor grossly within normal limits. Normal speech. PSYCHIATRIC: Appropriate mood and affect; insight and judgment normal. Data Data Last Documented VS Vital Signs Date Time Temp Pulse Resp B/P (MAP) Pulse Ox O2 Delivery O2 Flow Rate FiO2 10/27/17 09:37 96 Nasal Cannula 2.00 10/27/17 09:35 10/27/17 08:31 100 22 10/27/17 08:21 98.7 Vital signs reviewed Orders Orders Complete Blood Count With Diff (10/27/17 08:28) Basic Metabolic Panel (Bmp) (10/27/17 08:28) Iv Access Insert/Monitor (10/27/17 08:28) Electrocardiogram (10/27/17 08:28) Ecg Monitoring (10/27/17 08:28) Oximetry (10/27/17 08:28) Oxygen Administration (10/27/17 08:28) Chest, Single Ap (10/27/17 08:28) Sodium Chloride 0.9% Flush (Ns Flush) (10/27/17 08:30) Methylprednisolone So Succ Inj (Solumedr (10/27/17 08:30) Albuterol-Ipratropium Neb (Duoneb Neb) (10/27/17 08:30) Sodium Chlor 0.9% 1000 Ml Inj (Ns 1000 M (10/27/17 08:30) Ketorolac Inj (Toradol Inj) (10/27/17 08:45) Troponin I (10/27/17 09:44) Admit Order (Ed Use Only) (10/27/17 ) Manager Systems / Telemetry JUDI.Q8H (10/27/17 10:01) Vital Signs (Adult) Q4H (10/27/17 10:01) Activity Bed Rest (10/27/17 10:01) Labs Laboratory Tests Test 10/27/17 08:05 10/27/17 08:28 10/27/17 08:30 Blood Urea Nitrogen 15 MG/DL Creatinine 0.71 MG/DL Random Glucose 70 MG/DL Calcium Level 8.9 MG/DL Sodium Level 136 MEQ/L Potassium Level 4.1 MEQ/L Chloride Level 100 MEQ/L Carbon Dioxide Level 28.2 MEQ/L Anion Gap 8 MEQ/L Estimat Glomerular Filtration Rate 119 ML/MIN Troponin I 0.04 NG/ML White Blood Count 11.8 TH/MM3 Red Blood Count 5.73 MIL/MM3 Hemoglobin 11.3 GM/DL Hematocrit 38.0 % Mean Corpuscular Volume 66.4 FL Mean Corpuscular Hemoglobin 19.8 PG Mean Corpuscular Hemoglobin Concent 29.8 % Red Cell Distribution Width 20.4 % Platelet Count 292 TH/MM3 Mean Platelet Volume 8.1 FL Neutrophils (%) (Auto) 68.8 % Lymphocytes (%) (Auto) 22.3 % Monocytes (%) (Auto) 7.7 % Eosinophils (%) (Auto) 0.4 % Basophils (%) (Auto) 0.8 % Neutrophils # (Auto) 8.1 TH/MM3 Lymphocytes # (Auto) 2.6 TH/MM3 Monocytes # (Auto) 0.9 TH/MM3 Eosinophils # (Auto) 0.0 TH/MM3 Basophils # (Auto) 0.1 TH/MM3 CBC Comment DIFF FINAL Differential Comment MDM Medical Decision Making Medical Screen Exam Complete: Yes Emergency Medical Condition: Yes Medical Record Reviewed: Yes Differential Diagnosis COPD exacerbation, pneumonia, rib fracture, rib contusion Narrative Course CBC & BMP Diagram 10/27/17 08:05 Calcium Level 8.9 10/27/17 08:28 EKG: sinus rate 99 normal axis, ? L heart hypertrophy Last 24 hours Impressions Chest X-Ray 10/27/17827 Signed Impressions: Service Date/Time: September 08:47 - CONCLUSION: 1. Compensated cardiomegaly. 2. Otherwise negative. Lungs remain clear. No significant change from prior. Lucien Barnes MD The prior BNP was 60. There is no echo on record. The patient has 3 prior troponins at 0.02. After he received 3 rounds of DuoNeb and his chest pain became fairly severe prompting my bedside evaluation a troponin was added on. The O2 sat was about 92% on 2 L nasal cannula. The heart rate was about 110. Patient will be admitted for ongoing monitoring, oxygen therapy and additional diagnostic evaluation as considered appropriate by the admitting service, family medicine residency. Discussed with Dr. Miller. Diagnosis Primary Impression: COPD (chronic obstructive pulmonary disease) Qualified Codes: J44.9 - Chronic obstructive pulmonary disease, unspecified Admitting Information Admitting Physician Requests: Observation Kayden Schmitz MD Oct 27, 2017 08:32
[2017-10-27] MEDS: RESP: ALBUTEROL 2.5 MG/IPRATROPIUM 0.5 MG NEB (SCH) INH ×4 (08:35→20:29)
[2017-10-27] MEDS ORDERED: KETOROLAC TROMETHAMINE 30 MG/ML (IVP) VIAL IV PUSH ONE (08:45)
[2017-10-27 08:49] LABS: AUTOMATED NEUTROPHIL # 8.1 TH/MM3 (1.8-7.7); BASOPHIL # 0.1 TH/MM3 (0-0.2); BASOPHIL % 0.8 % (0.0-2.0); EOSINOPHIL % 0.4 % (0.0-4.0); HEMOGLOBIN 11.3 GM/DL (13.0-17.0); LYMPH % 22.3 % (9.0-44.0); LYMPHOCYTE # 2.6 TH/MM3 (1.0-4.8); MEAN CELL VOLUME 66.4 FL (80.0-100.0); MEAN CORPUSCULAR HEMOGLOBIN 19.8 PG (27.0-34.0); MEAN PLATELET VOLUME 8.1 FL (7.0-11.0); MONO % 7.7 % (0.0-8.0); MONOCYTE # 0.9 TH/MM3 (0-0.9); NEUT % 68.8 % (16.0-70.0); PLATELET COUNT 292 TH/MM3 (150-450); RED BLOOD COUNT 5.73 MIL/MM3 (4.50-5.90); RED CELL DISTRIBUTION WIDTH 20.4 % (11.6-17.2); WHITE BLOOD COUNT 11.8 TH/MM3 (4.0-11.0)
[2017-10-27 08:53] LABS: MEAN CORPUSCULAR HGB CONC 29.8 % (32.0-36.0)
--- NOTE | 2017-10-27 08:59 | RADRPT ---
EXAM DATE/TIME: 10/27/2017 08:47 [place] COMPARISON: No previous studies available for comparison. INDICATIONS : Shortness of breath, chest pain, coughing, congestion. MEDICAL HISTORY : Hypertension. Chronic obstructive pulmonary disease. SURGICAL HISTORY : Right shoulder replacement. ENCOUNTER: Initial ACUITY: 1 week PAIN SCORE: 10/10 LOCATION: Bilateral upper chest FINDINGS: A single view of the chest demonstrates the lungs to be symmetrically aerated without evidence of mas s, infiltrate or effusion. Heart size is borderline prominent but well compensated.. Right shoulder a rthroplasty. Osseous structures are otherwise intact. Bulbous configuration of the distal right clavi elva may represent an old fracture deformity. CONCLUSION: 1. Compensated cardiomegaly. 2. Otherwise negative. Lungs remain clear. No significant change from prior. Lucien Barnes MD on October 27, 2017 at 8:56 Board Certified Radiologist. This report was verified electronically.
[2017-10-27 09:15] LABS: BICARBONATE 28.2 MEQ/L (21.0-32.0); CALCIUM 8.9 MG/DL (8.5-10.1); CREATININE 0.71 MG/DL (0.60-1.30)
--- NOTE | 2017-10-27 10:39 | HHI.HP ---
[facility] Service Family Medicine Primary Care Physician Bebeto Cali MD Admission Diagnosis COPD Exacerbation; Chest Pain Diagnoses: International Travel<30 Days: No Contact w/Intl Traveler<30days: No Known Affected Area: No History of Present Illness Mr. Hand is a 47-year-old white male with a past medical history of COPD, osteogenic sarcoma, and DVTs presenting with shortness of breath. He was just released from the hospital last Tuesday for COPD exacerbation on prednisone and doxycycline. He stated that he completed his course of prednisone yesterday but was to complete his doxycycline course today. After being released from the hospital he felt like nothing had changed. He continues to have chest pain. He described it as a 10/10 sharp pain that is located right under his right breast and radiates around to his back. It's worse with sneezing and coughing, nothing makes it better, and hasn't tried any pain medication. He states that this the same pain as the last time he was hospitalized, but is slowly building. He feels short of breath and is unable to take deep breaths because of the pain. He uses nebulizers at home, but they did not help. He feels like his breathing has gotten worse. His shortness of breath is mostly at rest because he is unable to move around at home due to his amputation. He has mostly been in bed. He usually has to bend over to breathe better. He describes his cough as only happening when he swallows and is sometimes productive of blackish sputum. (Tamie Whitmore MD R1) Review of Systems Constitutional: COMPLAINS OF: Change in appetite (hungrier), DENIES: Fever, Chills, Night Sweats Eyes: COMPLAINS OF: Blurred vision (in the morning upon waking usually) Ears, nose, mouth, throat: COMPLAINS OF: Tinnitus (chronic), DENIES: Nasal discharge, Throat pain Respiratory: COMPLAINS OF: Cough, Sputum production, Shortness of breath, DENIES: Hemoptysis Cardiovascular: COMPLAINS OF: Chest pain, Palpitations (fast), PND, Lower Extremity Edema (ankle), Orthopnea Gastrointestinal: DENIES: Abdominal pain, Black stools, Bloody stools, Constipation, Diarrhea Genitourinary: DENIES: Urinary frequency, Urinary incontinence Musculoskeletal: COMPLAINS OF: Muscle aches (torso) Integumentary: DENIES: Rash Neurologic: DENIES: Headache Psychiatric: COMPLAINS OF: Anxiety (unable to sleep) (Tamie Whitmore MD R1) Past Family Social History Past Medical History COPD Bone cancer- osteogenic sarcoma HTN Anxiety DVTs Past Surgical History 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 Right hip replacement Appendectomy IVC filter Reported Medications Reported Meds & Active Scripts Active Hydrocodone-Acetamin 5-325 mg (Hydrocodone/Acetaminophen) 5 Mg-325 Mg Tablet 1 Tab PO Q6H PRN Doxycycline Hyclate 100 Mg Cap 100 Mg PO BID Effexor XR 24 HR (Venlafaxine HCl) 75 Mg Cap 75 Mg PO HS 30 Days Nicotine Patch (Nicotine) 7 Mg/24 Hr Patch 1 Patch TD DAILY 30 Days Reported Eliquis (Apixaban) 2.5 Mg Tab 2.5 Mg PO BID Carafate (Sucralfate) 1 Gm Tab 1 Gm PO TIDAC AND HS On empty stomach Propranolol (Propranolol HCl) 20 Mg Tab 20 Mg PO QID Albuterol Neb (Albuterol Sulfate) 2.5 Mg/0.5 Ml Neb 2.5 Mg NEB Q6HR NEB Note: The Albuterol Sulfate Inhalation Solution is concentrated and must be diluted. Read complete instructions carefully before using. Pravastatin 40 Mg Tab 40 Mg PO HS Amlodipine (Amlodipine Besylate) 10 Mg Tab 10 Mg PO DAILY (Tamie Whitmore MD R1) Allergies: Coded Allergies: morphine (Unverified Allergy, Mild, HIVES, 10/27/17) ONLY WHEN USING RACE [employer] PUMP AT AGE 21. HAS SINCE HAD MORPHINE WITHOUT REACTION/ALLERGY. penicillin G (Unverified Allergy, Mild, HIVES, 10/27/17) Family History Father-DM Mother- healthy Social History Lives in [place] with mother On disability Alcohol- no Cigarettes- currently quitting with the patch, previously smoked for about 30 yrs Illicit drugs- none (Tamie Whitmore MD R1) Physical Exam Vital Signs Vital Signs Date Time Temp Pulse Resp B/P (MAP) Pulse Ox O2 Delivery O2 Flow Rate FiO2 10/27/17 10:10 107 22 140/71 (94) 95 Nasal Cannula 4.00 10/27/17 09:37 96 Nasal Cannula 2.00 10/27/17 09:35 89 Room Air 10/27/17 08:31 100 22 93 Room Air 10/27/17 08:21 98.7 101 22 140/85 (103) 93 10/27/17 08:17 98.2 112 18 162/92 (115) 95 Physical Exam GENERAL: This is a well-nourished, well-developed obese white male patient sitting in bed, in no apparent distress. SKIN: No rashes, ecchymoses or lesions. Cool and dry. HEAD: Atraumatic. Normocephalic. EYES: Pupils equal round and reactive. Extraocular motions intact. No scleral icterus. No injection or drainage. ENT: Nose without bleeding, purulent drainage or septal hematoma. Throat without erythema, tonsillar hypertrophy or exudate. Uvula midline. Airway patent. NECK: Trachea midline. No JVD or lymphadenopathy. Supple, nontender, no meningeal signs. CHEST: Tender to palpation at sternum, and bilateral ribs CARDIOVASCULAR: Regular rate and rhythm without murmurs, gallops, or rubs. RESPIRATORY: Diffuse wheezes. Breath sounds equal bilaterally. GASTROINTESTINAL: Abdomen soft, obese, non-tender, nondistended. No hepato- splenomegaly, or palpable masses. No guarding. MUSCULOSKELETAL:Right leg without clubbing, cyanosis. Slight ankle edema. No joint tenderness, effusion, or edema noted. No calf tenderness.Left leg amputated above the knee NEUROLOGICAL: Awake and alert. Motor and sensory grossly within normal limits. Normal speech. Laboratory Laboratory Tests Test 10/27/17 08:05 10/27/17 08:28 Blood Urea Nitrogen 15 Creatinine 0.71 Random Glucose 70 Calcium Level 8.9 Sodium Level 136 Potassium Level 4.1 Chloride Level 100 Carbon Dioxide Level 28.2 Anion Gap 8 Estimat Glomerular Filtration Rate 119 White Blood Count 11.8 Red Blood Count 5.73 Hemoglobin 11.3 Hematocrit 38.0 Mean Corpuscular Volume 66.4 Mean Corpuscular Hemoglobin 19.8 Mean Corpuscular Hemoglobin Concent 29.8 Red Cell Distribution Width 20.4 Platelet Count 292 Mean Platelet Volume 8.1 Neutrophils (%) (Auto) 68.8 Lymphocytes (%) (Auto) 22.3 Monocytes (%) (Auto) 7.7 Eosinophils (%) (Auto) 0.4 Basophils (%) (Auto) 0.8 Neutrophils # (Auto) 8.1 Lymphocytes # (Auto) 2.6 Monocytes # (Auto) 0.9 Eosinophils # (Auto) 0.0 Basophils # (Auto) 0.1 CBC Comment DIFF FINAL Differential Comment (Tamie Whitmore MD R1) Result Diagram: 10/27/1728 10/27/17804 Caprini VTE Risk Assessment Caprini VTE Risk Assessment: Mod/High Risk (score >= 2) Caprini Risk Assessment Model Point Value = 1 Point Value = 2 Point Value = 3 Point Value = 5 Age 41-60 Minor surgery BMI > 25 kg/m2 Swollen legs Varicose veins or History of unexplained or recurrent spontaneous Oral contraceptives or hormone replacement Sepsis (< 1 month) Serious lung disease, including pneumonia (< 1 month) Abnormal pulmonary function Acute myocardial infarction Congestive heart failure (< 1 month) History of inflammatory bowel disease Medical patient at bed rest Age 61-74 Arthroscopic surgery Major open surgery (> 45 min) Laparoscopic surgery (> 45 min) Malignancy Confined to bed (> 72 hours) Immobilizing plaster cast Central venous access Age >= 75 History of VTE Family history of VTE Factor V Leiden Prothrombin [id number] Lupus anticoagulant Anticardiolipin antibodies Elevated serum homocysteine Heparin-induced thrombocytopenia Other congenital or acquired thrombophilia Stroke (< 1 month) Elective arthroplasty Hip, pelvis, or leg fracture Acute spinal cord injury (< 1 month) Prophylaxis Regimen Total Risk Factor Score Risk Level Prophylaxis Regimen 0-1 Low Early ambulation 2 Moderate Order ONE of the following: *Sequential Compression Device (SCD) *Heparin 5000 units SQ BID 3-4 Higher Order ONE of the following medications: *Heparin 5000 units SQ TID *Enoxaparin/Lovenox 40 mg SQ daily (WT < 150 kg, CrCl > 30 mL/min) *Enoxaparin/Lovenox 30 mg SQ daily (WT < 150 kg, CrCl > 10-29 mL/min) *Enoxaparin/Lovenox 30 mg SQ BID (WT < 150 kg, CrCl > 30 mL/min) AND/OR *Sequential Compression Device (SCD) 5 or more Highest Order ONE of the following medications: *Heparin 5000 units SQ TID (Preferred with Epidurals) *Enoxaparin/Lovenox 40 mg SQ daily (WT < 150 kg, CrCl > 30 mL/min) *Enoxaparin/Lovenox 30 mg SQ daily (WT < 150 kg, CrCl > 10-29 mL/min) *Enoxaparin/Lovenox 30 mg SQ BID (WT < 150 kg, CrCl > 30 mL/min) AND *Sequential Compression Device (SCD) (Tamie Whitmore MD R1) Assessment and Plan Assessment and Plan Mr. Hand is a 47-year-old male past medical history of hypertension, DVT, COPD presenting with shortness of breath most likely due to COPD exacerbation. Code Status DNR Discussed Condition With Doctors Paul and Bhavana (Tamie Whitmore MD R1) Attending Attestation Patient seen and examined. Case reviewed and discussed with the resident team. Agree with plan of care as discussed with me and documented in the resident note. Pt seen in the ED on admission. agree with eval of heart and assessment of why he is not better from his COPD (Nathalie Bateman MD) Problem List: (1) Shortness of breath ICD Codes: R06.02 - Shortness of breath Status: Acute Plan: Patient recently discharged on 10/21 for COPD exacerbation. Continue symptoms since then. He also has a history of PE and DVT and symptoms of CHF ( orthopnea, PND, and leg swelling). COPD exacerbation versus CHF versus PE Well's score is 7.5 at high risk range, d-dimer is nl at 0.28 and CTA nl conducted at previous admission BNP normal at 79 * Given DuoNeb in ED * Given methylprednisolone 125 mg IV in ED * Echocardiogram pending * Azithromycin 500 mg po daily x 3 days * Prednisone 40 mg by mouth daily * Albuterol and DuoNeb nebs (2) Chest pain ICD Codes: R07.9 - Chest pain, unspecified Status: Acute Plan: Description of pain and physical exam findings consistent with costochondritis. Will rule out IL. Troponins 0.04->0.04 EKG on admission shows sinus rhythm * Continue to trend troponins x 3 * Toradol for pain (3) HTN (hypertension) ICD Codes: I10 - Essential (primary) hypertension Status: Chronic Plan: Continue at-home medications of amlodipine and propranolol (4) History of DVT (deep vein thrombosis) ICD Codes: Z86.718 - Personal history of other venous thrombosis and embolism Status: Chronic Plan: Tenure at home Eliquis 2.5 mg by mouth twice a day (5) FEN Status: Acute Plan: Fluids: Tolerating by mouth Electrolytes: monitor and replete as needed Nutrition: heart-healthy diet DVT Prophylaxis: Early ambulation. Eliquis GI Prophylaxis: Pepcid 20mg po BID due to steroids Pain management: Toradol and Riddle (Tamie Whitmore MD R1) Physician Certification 2 Midnight Certification Type: Admission for Inpatient Services Order for Inpatient Services The services are ordered in accordance with Medicare regulations or non- Medicare payer requirements, as applicable. In the case of services not specified as inpatient-only, they are appropriately provided as inpatient services in accordance with the 2-midnight benchmark. Estimated LOS (days): 2 days is the estimated time the patient will need to remain in the hospital, assuming treatment plan goals are met and no additional complications. Post-Hospital Plan: Home (Tamie Whitmore MD R1) Problem Qualifiers (1) Chest pain: Qualified Codes: R07.89 - Other chest pain (2) HTN (hypertension): Qualified Codes: I10 - Essential (primary) hypertension Tamie Whitmore MD R1 Oct 27, 2017 10:39 Nathalie Bateman MD Oct 28, 2017 12:44
[2017-10-27] MEDS ORDERED: RESP: ALBUTEROL 2.5 MG/3 ML NEB (PRN) INH (11:15)
[2017-10-27] MEDS ORDERED: MORPHINE SULFATE 2 MG/ML INJ IV ONE (12:00)
[2017-10-27] MEDS: predniSONE 20 MG TAB PO SCH (12:15)
[2017-10-27] MEDS: AZITHROMYCIN 250 MG TAB PO SCH (12:15)
[2017-10-27] MEDS: NICOTINE 21 MG/24 HR PATCH TD SCH (12:16)
[2017-10-27] MEDS: PROPRANOLOL HCL 20 MG TAB PO SCH ×3 (12:17→21:10)
[2017-10-27] MEDS: KETOROLAC TROMETHAMINE 30 MG/ML (IVP) VIAL IV PUSH SCH ×2 (16:58→23:56)
--- NOTE | 2017-10-27 17:03 | ECHRPT ---
Indication: cp CONCLUSIONS Technically difficult study. The left ventricular systolic function is normal with an estimated ejection fraction in the range of 55-60%. Mild concentric left ventricular hypertrophy. Trace mitral valve regurgitation. There is mild tricuspid valve regurgitation. BP: / HR: Rhythm: MEASUREMENTS (Male / Female) Normal Values Technical Quality:Technically difficult study 2D ECHO LV Diastolic Diameter PLAX 5.3 cm 4.2 - 5.9 / 3.9 - 5.3 cm LV Systolic Diameter PLAX 4.1 cm IVS Diastolic Thickness 1.5 cm 0.6 - 1.0 / 0.6 - 0.9 cm LVPW Diastolic Thickness 1.3 cm 0.6 - 1.0 / 0.6 - 0.9 cm LV Relative Wall Thickness 0.5 RV Internal Dim ED PLAX 3.4 cm M-MODE Aortic Root Diameter MM 3.8 cm LA Systolic Diameter MM 4.6 cm LA Ao Ratio MM 1.2 AV Cusp Separation MM 2.6 cm DOPPLER Mitral E Point Velocity 82.4 cm/s Mitral A Point Velocity 39.5 cm/s Mitral E to A Ratio 2.1 LV E' Lateral Velocity 6.1 cm/s Mitral E to LV E' Lateral Ratio 13.4 LV E' Septal Velocity 6.6 cm/s Mitral E to LV E' Septal Ratio 12.4 FINDINGS LEFT VENTRICLE Normal left ventricular size. The left ventricular systolic function is normal with an estimated ejection fraction in the range of 55-60%. Mild concentric left ventricular hypertrophy. RIGHT VENTRICLE Grossly normal right ventricle LEFT ATRIUM The left atrial size is mildly dilated. RIGHT ATRIUM The right atrial size is normal. ATRIAL SEPTUM Normal atrial septal thickness. AORTA The aortic root and proximal ascending aorta are not well visualized. MITRAL VALVE Structurally normal mitral valve. Trace mitral valve regurgitation. No mitral valve stenosis. AORTIC VALVE Grossly normal aortic valve No aortic valve regurgitation. No aortic valve stenosis. TRICUSPID VALVE Grossly normal tricuspid valve. There is mild tricuspid valve regurgitation. No tricuspid valve stenosis. PULMONARY VALVE The pulmonary valve is not well visualized. Vin Schmitz DO (Electronically Signed) Final Date:27 October 2017 17:02
[2017-10-27] MEDS: VENLAFAXINE HCL XR 75 MG CAP PO SCH (21:07)
[2017-10-27] MEDS: PRAVASTATIN SOD 40 MG TAB PO SCH (21:08)
[2017-10-27] MEDS: SODIUM CHLORIDE 0.9% FLUSH 10 ML FLUSH IV FLUSH SCH (21:08)
[2017-10-27] MEDS: FAMOTIDINE 20 MG TAB PO SCH (21:09)
[2017-10-27] MEDS: APIXABAN 2.5 MG TABLET PO SCH (21:09)
[2017-10-27] MEDS: REMOVE OLD NICODERM (NICOTINE) PATCH T-DERMAL SCH (21:10)
--- NOTE | 2017-10-27 22:13 | EKG ---
Date Performed: 10/27/2017 Time Performed: 08:25:43 PTAGE: 47 years EKG: Sinus rhythm POSSIBLE LEFT ATRIAL ENLARGEMENT POSSIBLE LEFT VENTRICULAR HYPERTROPHY ABNORMAL ECG PREVIOUS TRACING : 10/19/2017 22.24 Compared to prior tracing no significant change DOCTOR: Duy Daniel Interpretating Date/Time 10/27/2017 22:12:14
[2017-10-28] VITALS (12 sets, daily range): BP systolic 105–146; BP diastolic 60–97; PULSE 65–87; RESP 20–24; TEMP 97.4–97.7; O2SAT 92–96
[2017-10-28] MEDS ORDERED: ACETAMINOPHEN/HYDROcodone 325 MG/5 MG TAB PO ONE (02:30)
[2017-10-28] MEDS: RESP: ALBUTEROL 2.5 MG/IPRATROPIUM 0.5 MG NEB (SCH) INH ×6 (04:15→20:04)
[2017-10-28] MEDS: KETOROLAC TROMETHAMINE 30 MG/ML (IVP) VIAL IV PUSH SCH ×3 (05:33→18:43)
[2017-10-28] MEDS: ACETAMINOPHEN/HYDROcodone 325 MG/5 MG TAB PO PRN ×3 (08:43→21:19)
[2017-10-28] MEDS: APIXABAN 2.5 MG TABLET PO SCH ×2 (08:47→21:18)
[2017-10-28] MEDS: PROPRANOLOL HCL 20 MG TAB PO SCH ×4 (08:48→21:18)
[2017-10-28] MEDS: FAMOTIDINE 20 MG TAB PO SCH ×2 (08:50→21:19)
[2017-10-28] MEDS: NICOTINE 21 MG/24 HR PATCH TD SCH (08:51)
[2017-10-28 09:00] LABS: AUTOMATED NEUTROPHIL # 13.1 TH/MM3 (1.8-7.7); BASOPHIL % 0.2 % (0.0-2.0); HEMATOCRIT 37.7 % (39.0-51.0); HEMOGLOBIN 11.2 GM/DL (13.0-17.0); LYMPH % 11.7 % (9.0-44.0); LYMPHOCYTE # 1.8 TH/MM3 (1.0-4.8); MEAN CORPUSCULAR HEMOGLOBIN 20.1 PG (27.0-34.0); MEAN PLATELET VOLUME 8.7 FL (7.0-11.0); MONOCYTE # 0.8 TH/MM3 (0-0.9); NEUT % 83.1 % (16.0-70.0); PLATELET COUNT 293 TH/MM3 (150-450); RED BLOOD COUNT 5.55 MIL/MM3 (4.50-5.90); RED CELL DISTRIBUTION WIDTH 20.2 % (11.6-17.2); WHITE BLOOD COUNT 15.8 TH/MM3 (4.0-11.0)
[2017-10-28] MEDS: predniSONE 20 MG TAB PO SCH (09:04)
[2017-10-28] MEDS: SODIUM CHLORIDE 0.9% FLUSH 10 ML FLUSH IV FLUSH SCH ×2 (09:05→21:20)
[2017-10-28 09:11] LABS: MEAN CORPUSCULAR HGB CONC 29.6 % (32.0-36.0)
[2017-10-28 09:28] LABS: AST (GOT) 15 U/L (15-37); BICARBONATE 30.3 MEQ/L (21.0-32.0); BLOOD UREA NITROGEN 21 MG/DL (7-18); CALCIUM 8.9 MG/DL (8.5-10.1); CHLORIDE 99 MEQ/L (98-107); CREATININE 0.65 MG/DL (0.60-1.30); GLOMERULAR FILTRATION RATE 132 ML/MIN (>89); GLUCOSE,RANDOM 99 MG/DL (74-106); SODIUM (NA) 137 MEQ/L (136-145)
[2017-10-28 09:35] LABS: ALKALINE PHOSPHATASE 89 U/L (45-117); ALT (GPT) 19 U/L (12-78); TOTAL BILIRUBIN ADULT 0.6 MG/DL (0.2-1.0); TOTAL PROTEIN 6.8 GM/DL (6.4-8.2)
--- NOTE | 2017-10-28 09:35 | HHI.HP ---
[facility] Service Family Medicine Primary Care Physician Bebeto Cali MD Admission Diagnosis COPD Exacerbation; Chest Pain Diagnoses: (1) Shortness of breath Diagnosis: Principal (2) Chest pain Diagnosis: Principal (3) HTN (hypertension) Diagnosis: Principal (4) History of DVT (deep vein thrombosis) Diagnosis: Principal (5) FEN Diagnosis: Principal International Travel<30 Days: No Contact w/Intl Traveler<30days: No Known Affected Area: No History of Present Illness Mr. Hand is a 47-year-old white male with a past medical history of COPD, osteogenic sarcoma, and DVTs who presented with shortness of breath. He was just released from the hospital last Tuesday for COPD exacerbation on prednisone and doxycycline. He stated that he completed his course of prednisone but was to complete his doxycycline course the day of admission. After being released from the hospital he felt like nothing had changed. He continues to have chest pain. He described it as a 10/10 sharp pain that is located right under his right breast and radiates around to his back. It's worse with sneezing and coughing, nothing makes it better, and hasn't tried any pain medication except his usual at home Norris. He states that this the same pain as the last time he was hospitalized, but is slowly building. He feels short of breath and is unable to take deep breaths because of the pain. He uses nebulizers at home, but they did not help. He feels like his breathing has gotten worse. His shortness of breath is mostly at rest because he is unable to move around at home due to his amputation. He has mostly been in bed. He usually has to bend over to breathe better. He describes his cough as only happening when he swallows and is sometimes productive of blackish sputum. He also reported he cannot sleep flat for at least two weeks. His mother was able to provide more history and stated that his sleep apnea (which the pt had neglected to mention) was the worst that his [employer] Weapons [employer] Tactics Officer had ever seen when he was tested. Mr Hand reports he never really used his CPAP at home as he felt "like it was pushing on his face and made him claustrophobic". I explained the importance of CPAP as he could stop breathing at night and I explained the throat could narrow so much that he may get no oxygen when he breathed in. He was unaware of the true importance of his CPAP and it was explained that not using his machine could harm his heart and some people can from this. His mother reported an episode in the hospital today when Mr Hand was sleeping and she observed him not breathing and she was worried about him potentially dying. When he was awake today, he appears to be breathing easier than yesterday. Review of Systems Other Constitutional: COMPLAINS OF: Change in appetite (hungrier), DENIES: Fever, Chills, Night Sweats Eyes: COMPLAINS OF: Blurred vision (in the morning upon waking usually) Ears, nose, mouth, throat: COMPLAINS OF: Tinnitus (chronic), DENIES: Nasal discharge, Throat pain Respiratory: COMPLAINS OF: Cough, Sputum production, Shortness of breath, DENIES: Hemoptysis Cardiovascular: COMPLAINS OF: Chest pain, Palpitations (fast), PND, Lower Extremity Edema (ankle), Orthopnea Gastrointestinal: DENIES: Abdominal pain, Black stools, Bloody stools, Constipation, Diarrhea Genitourinary: DENIES: Urinary frequency, Urinary incontinence Musculoskeletal: COMPLAINS OF: Muscle aches (torso) Integumentary: DENIES: Rash Neurologic: DENIES: Headache Psychiatric: COMPLAINS OF: Anxiety (unable to sleep) Past Family Social History Past Medical History COPD Bone cancer- osteogenic sarcoma HTN Anxiety DVTs Past Surgical History 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 Right hip replacement Appendectomy IVC filter Reported Medications Hydrocodone-Acetamin 5-325 mg (Hydrocodone/Acetaminophen) 5 Mg-325 Mg Tablet 1 Tab PO Q6H PRN Doxycycline Hyclate 100 Mg Cap 100 Mg PO BID Effexor XR 24 HR (Venlafaxine HCl) 75 Mg Cap 75 Mg PO HS 30 Days Nicotine Patch (Nicotine) 7 Mg/24 Hr Patch 1 Patch TD DAILY 30 Days Reported Eliquis (Apixaban) 2.5 Mg Tab 2.5 Mg PO BID Carafate (Sucralfate) 1 Gm Tab 1 Gm PO TIDAC AND HS On empty stomach Propranolol (Propranolol HCl) 20 Mg Tab 20 Mg PO QID Albuterol Neb (Albuterol Sulfate) 2.5 Mg/0.5 Ml Neb 2.5 Mg NEB Q6HR NEB Note: The Albuterol Sulfate Inhalation Solution is concentrated and must be diluted. Read complete instructions carefully before using. Pravastatin 40 Mg Tab 40 Mg PO HS Amlodipine (Amlodipine Besylate) 10 Mg Tab 10 Mg PO DAILY Allergies: Coded Allergies: morphine (Unverified Allergy, Mild, HIVES, 10/27/17) ONLY WHEN USING CASH ANALYST PUMP AT AGE 21. HAS SINCE HAD MORPHINE WITHOUT REACTION/ALLERGY. penicillin G (Unverified Allergy, Mild, HIVES, 10/27/17) Family History Father-DM Mother- healthy Social History Lives in [place] with mother On disability Alcohol- no Cigarettes- currently quitting with the patch, previously smoked for about 30 yrs Illicit drugs- none Physical Exam Vital Signs Vital Signs Date Time Temp Pulse Resp B/P (MAP) Pulse Ox O2 Delivery O2 Flow Rate FiO2 10/28/17 08:29 97.6 68 22 140/86 (104) 93 10/28/17 07:36 94 Nasal Cannula 4.00 10/28/17 04:16 95 Nasal Cannula 4.00 10/28/17 04:00 71 10/28/17 04:00 97.6 83 22 131/75 (93) 95 10/28/17 00:00 65 10/28/17 00:00 97.4 87 20 146/83 (104) 94 10/27/17 20:28 98 Nasal Cannula 4.00 10/27/17 20:00 Nasal Cannula 4.00 10/27/17 20:00 97.6 86 22 119/73 (88) 95 10/27/17 20:00 84 10/27/17 18:31 20 10/27/17 16:09 97.9 87 20 139/86 (103) 94 10/27/17 16:00 84 10/27/17 12:50 98.1 88 20 136/81 (99) 96 10/27/17 12:26 97 Nasal Cannula 4.00 10/27/17 11:29 10/27/17 10:10 107 22 140/71 (94) 95 Nasal Cannula 4.00 10/27/17 09:37 96 Nasal Cannula 2.00 Physical Exam GENERAL: This is a well-nourished, well-developed obese white male patient sitting in bed, in no apparent distress. SKIN: No rashes, ecchymoses or lesions. Cool and dry. HEAD: Atraumatic. Normocephalic. very large circumference to his neck EYES: Pupils equal round and reactive. Extraocular motions intact. No scleral icterus. No injection or drainage. ENT: Nose without bleeding, purulent drainage or septal hematoma. Throat without erythema, tonsillar hypertrophy or exudate. Uvula midline. Airway patent. NECK: Trachea midline. No JVD or lymphadenopathy. Supple, nontender, no meningeal signs. CHEST: Tender to palpation at sternum, and bilateral ribs CARDIOVASCULAR: Regular rate and rhythm without murmurs, gallops, or rubs. RESPIRATORY: Diffuse wheezes on admission, better today. Breath sounds equal bilaterally. GASTROINTESTINAL: Abdomen soft, obese, non-tender, nondistended. No hepato- splenomegaly, or palpable masses. No guarding. MUSCULOSKELETAL:Right leg without clubbing, cyanosis. Slight ankle edema. No joint tenderness, effusion, or edema noted. No calf tenderness.Left leg amputated above the knee NEUROLOGICAL: Awake and alert. Motor and sensory grossly within normal limits. Normal speech. Laboratory Laboratory Tests Test 10/27/17 11:48 10/27/17 15:51 10/28/17 08:12 Troponin I 0.04 0.03 White Blood Count 15.8 Red Blood Count 5.55 Hemoglobin 11.2 Hematocrit 37.7 Mean Corpuscular Volume 68.0 Mean Corpuscular Hemoglobin 20.1 Mean Corpuscular Hemoglobin Concent 29.6 Red Cell Distribution Width 20.2 Platelet Count 293 Mean Platelet Volume 8.7 Neutrophils (%) (Auto) 83.1 Lymphocytes (%) (Auto) 11.7 Monocytes (%) (Auto) 5.0 Eosinophils (%) (Auto) 0.0 Basophils (%) (Auto) 0.2 Neutrophils # (Auto) 13.1 Lymphocytes # (Auto) 1.8 Monocytes # (Auto) 0.8 Eosinophils # (Auto) 0.0 Basophils # (Auto) 0.0 CBC Comment DIFF FINAL Differential Comment Blood Urea Nitrogen 21 Creatinine 0.65 Random Glucose 99 Albumin 3.0 Calcium Level 8.9 Aspartate Amino Transf (AST/SGOT) 15 Sodium Level 137 Potassium Level 4.0 Chloride Level 99 Carbon Dioxide Level 30.3 Anion Gap 8 Estimat Glomerular Filtration Rate 132 Result Diagram: 10/28/1781110/28/17811 Caprini VTE Risk Assessment Caprini VTE Risk Assessment: Mod/High Risk (score >= 2) Caprini Risk Assessment Model Point Value = 1 Point Value = 2 Point Value = 3 Point Value = 5 Age 41-60 Minor surgery BMI > 25 kg/m2 Swollen legs Varicose veins or History of unexplained or recurrent spontaneous Oral contraceptives or hormone replacement Sepsis (< 1 month) Serious lung disease, including pneumonia (< 1 month) Abnormal pulmonary function Acute myocardial infarction Congestive heart failure (< 1 month) History of inflammatory bowel disease Medical patient at bed rest Age 61-74 Arthroscopic surgery Major open surgery (> 45 min) Laparoscopic surgery (> 45 min) Malignancy Confined to bed (> 72 hours) Immobilizing plaster cast Central venous access Age >= 75 History of VTE Family history of VTE Factor V Leiden Prothrombin [id number] Lupus anticoagulant Anticardiolipin antibodies Elevated serum homocysteine Heparin-induced thrombocytopenia Other congenital or acquired thrombophilia Stroke (< 1 month) Elective arthroplasty Hip, pelvis, or leg fracture Acute spinal cord injury (< 1 month) Prophylaxis Regimen Total Risk Factor Score Risk Level Prophylaxis Regimen 0-1 Low Early ambulation 2 Moderate Order ONE of the following: *Sequential Compression Device (SCD) *Heparin 5000 units SQ BID 3-4 Higher Order ONE of the following medications: *Heparin 5000 units SQ TID *Enoxaparin/Lovenox 40 mg SQ daily (WT < 150 kg, CrCl > 30 mL/min) *Enoxaparin/Lovenox 30 mg SQ daily (WT < 150 kg, CrCl > 10-29 mL/min) *Enoxaparin/Lovenox 30 mg SQ BID (WT < 150 kg, CrCl > 30 mL/min) AND/OR *Sequential Compression Device (SCD) 5 or more Highest Order ONE of the following medications: *Heparin 5000 units SQ TID (Preferred with Epidurals) *Enoxaparin/Lovenox 40 mg SQ daily (WT < 150 kg, CrCl > 30 mL/min) *Enoxaparin/Lovenox 30 mg SQ daily (WT < 150 kg, CrCl > 10-29 mL/min) *Enoxaparin/Lovenox 30 mg SQ BID (WT < 150 kg, CrCl > 30 mL/min) AND *Sequential Compression Device (SCD) Assessment and Plan Assessment and Plan Mr. Hand is a 47-year-old male past medical history of hypertension, DVT, COPD presenting with shortness of breath most likely due to COPD exacerbation. Problem List: (1) Shortness of breath ICD Codes: R06.02 - Shortness of breath Status: Acute Plan: Patient recently discharged on 10/21 for COPD exacerbation. Continued symptoms since then. He also has a history of PE and DVT and symptoms of CHF ( orthopnea, PND, and leg swelling). COPD exacerbation versus CHF versus PE Well's score is 7.5 at high risk range, d-dimer is nl at 0.28 and CTA nl conducted at previous admission BNP normal at 79 * Given DuoNeb in ED * Given methylprednisolone 125 mg IV in ED * Echocardiogram does not show CHF * Azithromycin 500 mg po daily x 3 days * Prednisone 40 mg by mouth daily * Albuterol and DuoNeb nebs (2) Chest pain ICD Codes: R07.9 - Chest pain, unspecified Status: Acute Plan: Description of pain and physical exam findings consistent with costochondritis. Will rule out [place]. Troponins 0.04->0.04 EKG on admission shows sinus rhythm * Continue to trend troponins x 3 * Toradol for pain * he was on Norris at home but is asking for more pain meds (3) HTN (hypertension) ICD Codes: I10 - Essential (primary) hypertension Status: Chronic Plan: Continue at-home medications of amlodipine and propranolol (4) History of DVT (deep vein thrombosis) ICD Codes: Z86.718 - Personal history of other venous thrombosis and embolism Status: Chronic Plan: Eliquis 2.5 mg by mouth twice a day (5) Sleep apnea ICD Codes: G47.30 - Sleep apnea, unspecified Status: Chronic Plan: will use bipap tonight as that is what is available in the hospital explained the importance of CPAP at home and follow up with a [employer] We[employer]ics Officer as it can be life threatening to ignore this and many of his sxs can be related to that (6) FEN Status: Acute Plan: Fluids: Tolerating by mouth Electrolytes: monitor and replete as needed Nutrition: heart-healthy diet DVT Prophylaxis: Early ambulation if possible. Eliquis GI Prophylaxis: Pepcid 20mg po BID due to steroids Pain management: Toradol and Norris Problem Qualifiers (1) Chest pain: Qualified Codes: R07.89 - Other chest pain (2) HTN (hypertension): Qualified Codes: I10 - Essential (primary) hypertension (3) Sleep apnea: Qualified Codes: G47.33 - Obstructive sleep apnea (adult) (pediatric) Nathalie Bateman MD 29, 2017 09:35
[2017-10-28] MEDS ORDERED: IOHEXOL 350 MG/ML 10 ML VIAL (for RAD DIAG) IVCONTRAST ONE (11:12)
--- NOTE | 2017-10-28 11:21 | RADRPT ---
EXAM DATE/TIME: 10/28/2017 10:52 [facility] COMPARISON: CT PULMONARY ANGIOGRAM, October 19, 2017, 13:09. INDICATIONS : Short of breath, chest pain. IV CONTRAST: 75 cc Omnipaque 350 (iohexol) IV RADIATION DOSE: 43.08 CTDIvol (mGy) MEDICAL HISTORY : Cardiovascular disease. Hypertension. Chronic obstructive pulmonary disease. SURGICAL HISTORY : Appendectomy. ENCOUNTER: Initial ACUITY: 1 day PAIN SCALE: 10/10 LOCATION: chest TECHNIQUE: Volumetric scanning of the chest was performed using a pulmonary embolism protocol MIP images were re constructed. Using automated exposure control and adjustment of the mA and/or kV according to patien t size, radiation dose was kept as low as reasonably achievable to obtain optimal diagnostic quality images. DICOM format image data is available electronically for review and comparison. Follow-up recommendations for detected pulmonary nodules are based at a minimum on nodule size and pa tient risk factors according to Fleischner Society Guidelines. FINDINGS: PULMONARY ARTERIES: No filling defects are seen in the pulmonary arteries through the segmental level. LUNGS: There is no consolidation or pneumothorax . No concerning pulmonary nodule is visualized. There is s table mild scarring and/or atelectasis. PLEURAE: There is no pleural thickening or pleural effusion. MEDIASTINUM: There is good visualization of the great vessels of the middle mediastinum. No evidence of mediastin al or hilar adenopathy/mass. MUSCULOSKELETAL: Within normal limits for patient age. MISCELLANEOUS: The visualized upper abdominal organs demonstrate no acute abnormality. CONCLUSION: 1. No evidence of pulmonary embolism. 2. Stable mild scarring and/or atelectasis. Fredi Kenney MD on October 28, 2017 at 11:12 Board Certified Radiologist. This report was verified electronically.
[2017-10-28] MEDS: AZITHROMYCIN 250 MG TAB PO SCH (12:37)
[2017-10-28] MEDS: REMOVE OLD NICODERM (NICOTINE) PATCH T-DERMAL SCH (21:00)
[2017-10-28] MEDS: PRAVASTATIN SOD 40 MG TAB PO SCH (21:18)
[2017-10-28] MEDS: VENLAFAXINE HCL XR 75 MG CAP PO SCH (21:18)
[2017-10-29] VITALS: BP 118/58; PULSE 71; RESP 20; TEMP 97.2; O2SAT 93
[2017-10-29] MEDS: KETOROLAC TROMETHAMINE 30 MG/ML (IVP) VIAL IV PUSH SCH ×3 (00:51→12:12)
[2017-10-29] MEDS: SODIUM CHLORIDE 0.9% FLUSH 10 ML FLUSH IV FLUSH PRN ×2 (00:52→05:28)
[2017-10-29 01:07] VITALS: O2SAT 93; O2SAT 96
[2017-10-29 04:00] VITALS: BP 127/73; PULSE 86; RESP 24; TEMP 97.4; O2SAT 93
[2017-10-29] MEDS: RESP: ALBUTEROL 2.5 MG/IPRATROPIUM 0.5 MG NEB (SCH) INH ×3 (04:57→09:14)
[2017-10-29 05:48] LABS: AUTOMATED NEUTROPHIL # 12.8 TH/MM3 (1.8-7.7); BASOPHIL # 0.1 TH/MM3 (0-0.2); BASOPHIL % 0.9 % (0.0-2.0); EOSINOPHIL # 0.1 TH/MM3 (0-0.4); EOSINOPHIL % 0.5 % (0.0-4.0); HEMATOCRIT 38.8 % (39.0-51.0); HEMOGLOBIN 11.8 GM/DL (13.0-17.0); LYMPH % 16.2 % (9.0-44.0); LYMPHOCYTE # 2.7 TH/MM3 (1.0-4.8); MEAN CELL VOLUME 67.7 FL (80.0-100.0); MEAN CORPUSCULAR HEMOGLOBIN 20.5 PG (27.0-34.0); MEAN CORPUSCULAR HGB CONC 30.3 % (32.0-36.0); MEAN PLATELET VOLUME 8.7 FL (7.0-11.0); MONO % 4.4 % (0.0-8.0); MONOCYTE # 0.7 TH/MM3 (0-0.9); PLATELET COUNT 317 TH/MM3 (150-450); RED BLOOD COUNT 5.73 MIL/MM3 (4.50-5.90); RED CELL DISTRIBUTION WIDTH 19.8 % (11.6-17.2); WHITE BLOOD COUNT 16.5 TH/MM3 (4.0-11.0)
[2017-10-29 08:00] VITALS: BP 127/89; PULSE 76; RESP 20; TEMP 98.5; O2SAT 93
[2017-10-29] MEDS: predniSONE 20 MG TAB PO SCH (08:09)
[2017-10-29] MEDS: ACETAMINOPHEN/HYDROcodone 325 MG/5 MG TAB PO PRN (08:09)
[2017-10-29] MEDS: FAMOTIDINE 20 MG TAB PO SCH (08:09)
[2017-10-29] MEDS: APIXABAN 2.5 MG TABLET PO SCH (08:10)
[2017-10-29] MEDS: NICOTINE 21 MG/24 HR PATCH TD SCH (08:11)
[2017-10-29] MEDS: SODIUM CHLORIDE 0.9% FLUSH 10 ML FLUSH IV FLUSH SCH (08:12)
[2017-10-29] MEDS: PROPRANOLOL HCL 20 MG TAB PO SCH (08:32)
[2017-10-29] MEDS ORDERED: VENTAER INH (10:19)
[2017-10-29] MEDS ORDERED: NICO21DI2 T-DERMAL (10:19)
[2017-10-29] MEDS ORDERED: PRED20 PO (10:19)
[2017-10-29] MEDS ORDERED: IBUP-232 PO (10:19)
[2017-10-29] MEDS ORDERED: HYDR-3516 PO (10:19)
--- NOTE | 2017-10-29 10:21 | HHI.DCPOC ---
Discharge Care Plan Diagnosis: (1) Sleep apnea (2) COPD (chronic obstructive pulmonary disease) Goals to Promote Your Health * To prevent worsening of your condition and complications * To maintain your health at the optimal level Directions to Meet Your Goals Take your medications as prescribed Follow your dietary instruction Follow activity as directed Keep your appointments as scheduled Take your immunizations and boosters as scheduled If your symptoms worsen call your PCP, if no PCP go to Urgent Care Center or Emergency Room Smoking is Dangerous to Your Health. Avoid second hand smoke Call the 24-hour hour crisis hotline for domestic abuse at Som Miller MD Oct 29, 2017 10:20 am
--- NOTE | 2017-10-29 10:27 | HHI.FPPN ---
Subjective Remarks Overnight no events. Did very well with CPAP, now has no SOB, much less fatigue , no cough. Chest and back pain persistent, incompletely relieved by Toradol. Objective Vitals Vital Signs Date Time Temp Pulse Resp B/P (MAP) Pulse Ox O2 Delivery O2 Flow Rate FiO2 10/29/17 08:00 98.5 76 20 127/89 (102) 93 10/29/17 04:00 97.4 86 24 127/73 (91) 93 10/29/17 04:00 Nasal Cannula 4.00 Humidified 10/29/17 01:19 Bi-Pap 40 10/29/17 01:07 93 40 10/29/17 01:07 96 cpap 40 10/29/17 00:00 97.2 71 20 118/58 (78) 93 10/28/17 21:00 96 35 10/28/17 21:00 96 BiPAP 35 10/28/17 21:00 Bi-Pap 35 10/28/17 20:00 Nasal Cannula 4.00 Humidified 10/28/17 20:00 97.5 82 20 105/60 (75) 95 10/28/17 19:00 Nasal Cannula 4.00 10/28/17 16:59 97.7 70 24 130/78 (95) 92 10/28/17 16:34 95 Nasal Cannula 4.00 10/28/17 13:04 97.7 80 24 144/97 (113) 95 10/28/17 11:51 79 I/O 10/28/17 10/28/17 10/28/17 10/29/17 10/29/17 10/29/17 07:00 15:00 23:00 07:00 15:00 23:00 Intake Total 480 ml 720 ml 1080 ml Output Total 1550 ml 2275 ml 1250 ml Balance -1070 ml -1555 ml -170 ml Intake Oral 480 ml 720 ml 1080 ml Output Urine Total 1550 ml 2275 ml 1250 ml # Bowel Movements 0 Result Diagram: 10/29/17 0505 10/28/[address] Angiography 10/28/17 0000 Signed Impressions: Service Date/Time: Saturday, October 28, 2017 10:52 - CONCLUSION: 1. No evidence of pulmonary embolism. 2. Stable mild scarring and/or atelectasis. Fredi Kenney MD Chest X-Ray 10/27/17 0828 Signed Impressions: Service Date/Time: September 08:47 - CONCLUSION: 1. Compensated cardiomegaly. 2. Otherwise negative. Lungs remain clear. No significant change from prior. Lucien Barnes MD Objective Remarks GEN: WDWN, obese, NAD, appears comfortable LUNG: Normal rate and effort, CTAB, very faint forced end expiratory wheezes at b/l bases. Reproducible chest pain on palpation. CV: NRRR, normal S1/S2, no MRG Neck: Large circumference Abd: Obese A/P Assessment and Plan Mr. Hand is a 47-year-old male past medical history of hypertension, DVT, COPD presenting with: Problem List: (1) Sleep apnea ICD Codes: G47.30 - Sleep apnea, unspecified Status: Chronic Plan: Improved greatly with CPAP * Continue CPAP at home (has machine) * F/u with pulmonology to ensure home mask fits well * Give him his hospital mask to take home (2) Shortness of breath ICD Codes: R06.02 - Shortness of breath Status: Resolved Plan: Patient recently discharged on 10/21 for COPD exacerbation. Continued symptoms since then. He also has a history of PE and DVT and symptoms of CHF ( orthopnea, PND, and leg swelling). COPD exacerbation versus CHF versus PE Well's score is 7.5 at high risk range, d-dimer is nl at 0.28 and CTA nl conducted at previous admission BNP normal at 79 CTA negative for PE Echo negative for systolic or diastolic dysfunction * Azithromycin 500 mg po daily x 3 days (completed course) * Prednisone 40 mg by mouth daily to complete 5 days * Albuterol inhaler Q6H scheduled for 5 days, then PRN * F/u with soft iron inspector Dr. Quintana (3) Costochondral chest pain ICD Codes: R07.1 - Chest pain on breathing Plan: Description of pain and physical exam findings consistent with costochondritis. Troponins negative x3 EKG on admission shows sinus rhythm * Ibuprofen PRN for pain * Hydrocodone/acetaminophen PRN for breakthrough * Manage COPD and PK as noted (4) HTN (hypertension) ICD Codes: I10 - Essential (primary) hypertension Status: Chronic Plan: Continue at-home medications of amlodipine and propranolol (5) History of DVT (deep vein thrombosis) ICD Codes: Z86.718 - Personal history of other venous thrombosis and embolism Status: Chronic Plan: Eliquis 2.5 mg by mouth twice a day (6) FEN Status: Acute Plan: Fluids: Tolerating PO Electrolytes: monitor and replete as needed Nutrition: heart-healthy diet DVT Prophylaxis: on Eliquis GI Prophylaxis: Pepcid 20mg po BID due to steroids Dispo: Home today Problem Qualifiers (1) Sleep apnea: Qualified Codes: G47.33 - Obstructive sleep apnea (adult) (pediatric) (2) HTN (hypertension): Qualified Codes: I10 - Essential (primary) hypertension Som Miller MD Oct 29, 2017 10:27
[2017-10-29] MEDS ORDERED: RANI150T2 PO (10:29)
[2017-10-29] MEDS ORDERED: AZITHROMYCIN 250 MG TAB PO ONE (10:30)
--- NOTE | 2017-10-29 13:58 | HHI.DS ---
Discharge Summary Admission Date Oct 27, 2017 at 11:45 am Discharge Date: Oct 29, 2017 Admitting Diagnosis COPD Exacerbation; Chest Pain (1) Sleep apnea Diagnosis: Principal ICD Codes: G47.30 - Sleep apnea, unspecified Status: Chronic (2) Shortness of breath Diagnosis: Principal ICD Codes: R06.02 - Shortness of breath Status: Resolved (3) Costochondral chest pain Diagnosis: Principal ICD Codes: R07.1 - Chest pain on breathing (4) HTN (hypertension) Diagnosis: Secondary Plan: Continue at-home medications of amlodipine and propranolol ICD Codes: I10 - Essential (primary) hypertension Status: Chronic (5) History of DVT (deep vein thrombosis) Diagnosis: Secondary ICD Codes: Z86.718 - Personal history of other venous thrombosis and embolism Status: Chronic Brief History Mr. Hand is a 47-year-old white male with a past medical history of COPD, osteogenic sarcoma, and DVTs who presented with shortness of breath. He was just released from the hospital last Tuesday for COPD exacerbation on prednisone and doxycycline. He stated that he completed his course of prednisone but was to complete his doxycycline course the day of admission. After being released from the hospital he felt like nothing had changed. He continues to have chest pain. He described it as a 10/10 sharp pain that is located right under his right breast and radiates around to his back. It's worse with sneezing and coughing, nothing makes it better, and hasn't tried any pain medication except his usual at home [employer]. He states that this the same pain as the last time he was hospitalized, but is slowly building. He feels short of breath and is unable to take deep breaths because of the pain. He uses nebulizers at home, but they did not help. He feels like his breathing has gotten worse. His shortness of breath is mostly at rest because he is unable to move around at home due to his amputation. He has mostly been in bed. He usually has to bend over to breathe better. He describes his cough as only happening when he swallows and is sometimes productive of blackish sputum. He also reported he cannot sleep flat for at least two weeks. His mother was able to provide more history and stated that his sleep apnea (which the pt had neglected to mention) was the worst that his Global Sales Manager had ever seen when he was tested. Mr Hand reports he never really used his CPAP at home as he felt "like it was pushing on his face and made him claustrophobic". I explained the importance of CPAP as he could stop breathing at night and I explained the throat could narrow so much that he may get no oxygen when he breathed in. He was unaware of the true importance of his CPAP and it was explained that not using his machine could harm his heart and some people can from this. His mother reported an episode in the hospital today when Mr Hand was sleeping and she observed him not breathing and she was worried about him potentially dying. When he was awake today, he appears to be breathing easier than yesterday. CBC/BMP: 10/29/17 0505 10/28/17 0812 Significant Findings Laboratory Tests Test 10/27/17 08:05 10/27/17 08:28 10/27/17 08:30 10/27/17 11:48 Random Glucose 70 MG/DL (74-106) White Blood Count 11.8 TH/MM3 (4.0-11.0) Hemoglobin 11.3 GM/DL (13.0-17.0) Hematocrit 38.0 % (39.0-51.0) Mean Corpuscular Volume 66.4 FL (80.0-100.0) Mean Corpuscular Hemoglobin 19.8 PG (27.0-34.0) Mean Corpuscular Hemoglobin Concent 29.8 % (32.0-36.0) Red Cell Distribution Width 20.4 % (11.6-17.2) Neutrophils # (Auto) 8.1 TH/MM3 (1.8-7.7) Test 10/27/17 15:51 10/28/17 08:12 10/29/17 05:05 White Blood Count 15.8 TH/MM3 (4.0-11.0) 16.5 TH/MM3 (4.0-11.0) Hemoglobin 11.2 GM/DL (13.0-17.0) 11.8 GM/DL (13.0-17.0) Hematocrit 37.7 % (39.0-51.0) 38.8 % (39.0-51.0) Mean Corpuscular Volume 68.0 FL (80.0-100.0) 67.7 FL (80.0-100.0) Mean Corpuscular Hemoglobin 20.1 PG (27.0-34.0) 20.5 PG (27.0-34.0) Mean Corpuscular Hemoglobin Concent 29.6 % (32.0-36.0) 30.3 % (32.0-36.0) Red Cell Distribution Width 20.2 % (11.6-17.2) 19.8 % (11.6-17.2) Neutrophils (%) (Auto) 83.1 % (16.0-70.0) 78.0 % (16.0-70.0) Neutrophils # (Auto) 13.1 TH/MM3 (1.8-7.7) 12.8 TH/MM3 (1.8-7.7) Blood Urea Nitrogen 21 MG/DL (7-18) Albumin 3.0 GM/DL (3.4-5.0) Imaging Last Impressions CT Angiography 10/28/17 0000 Signed Impressions: Service Date/Time: Saturday, October 28, 2017 10:52 - CONCLUSION: 1. No evidence of pulmonary embolism. 2. Stable mild scarring and/or atelectasis. Fredi Kenney MD Chest X-Ray 10/27/17 0828 Signed Impressions: Service Date/Time: September 08:47 - CONCLUSION: 1. Compensated cardiomegaly. 2. Otherwise negative. Lungs remain clear. No significant change from prior. Lucien Barnes MD PE at Discharge GEN: WDWN, obese, NAD, appears comfortable LUNG: Normal rate and effort, CTAB, very faint forced end expiratory wheezes at b/l bases. Reproducible chest pain on palpation. CV: NRRR, normal S1/S2, no MRG Neck: Large circumference Abd: Obese Hospital Course 47 yo male with h/o osteogenic sarcoma s/p LLE AKA, HTN, DVT/PE, COPD, presenting with shortness of breath and chest pain in setting in setting of recent hospitalization for COPD exacerbation. Chest pain likely costochondral by history. RI ruled out through troponin testing. PE ruled out by imaging. SOB incompletely resolved with conservative COPD treatment, but improved dramatically on hospital day 2 with CPAP trial that evening. Patient reports having PK as outpatient but never wears his CPAP machine. Improvement was so dramatic he was medically cleared for discharge on hospital day 3. He will continue using albuterol inhaler scheduled and finish a short course of prednisone for suspected component of COPD. Follow up recommended as below. Ibuprofen as below to treat costochondritis. Pt Condition on Discharge: Good Discharge Disposition: Discharge Home Discharge Instructions DIET: Follow Instructions for: Heart Healthy Diet Activities you can perform: Regular-No Restrictions Follow up Referrals: Appointment for Follow Up @ [facility] PCP Follow-up - 1 Week with Bebeto Cali MD Pulmonology - 2 Weeks with Javier Quintana MD Pulmonology @ [facility] New Medications: Albuterol 18 GM Inh (Ventolin Hfa 18 GM Inh) 90 Mcg/Act Aer 2 PUFF INH Q4-6H PRN for SHORTNESS OF BREATH, #1 INHALER 0 Refills For the next 5 days after discharge, take 2 puffs every 6 hours. After that can use as needed. Ibuprofen (Ibuprofen) 600 Mg Tab 600 MG PO Q6H PRN for PAIN, #60 TAB 0 Refills Nicotine Patch (Nicotine Patch) 21 Mg/24 Hr Patch 21 MG T-DERMAL DAILY for Smoking Cessation, #30 PATCH 0 Refills Ranitidine HCl (Px Acid Packaging Manager Maximum S) 150 Mg Tab 1 TAB PO BID, #6 TAB Prednisone (Prednisone) 20 Mg Tab 40 MG PO DAILY, #2 TAB Changed Medications: Hydrocodone/Acetaminophen (Hydrocodone-Acetamin 5-325 mg) 5 Mg-325 Mg Tablet 1 TAB PO Q6H PRN for BREAKTHROUGH PAIN, #20 TAB (Changed from: 28) Continued Medications: Albuterol Neb (Albuterol Neb) 2.5 Mg/0.5 Ml Neb 2.5 MG NEB Q6HR NEB for Breathing Treatment, #120 NEBULE 0 Refills Note: The Albuterol Sulfate Inhalation Solution is concentrated and must be diluted. Read complete instructions carefully before using. Amlodipine (Amlodipine) 10 Mg Tab 10 MG PO DAILY for Blood Pressure Management, #30 TAB 0 Refills Apixaban (Eliquis) 2.5 Mg Tab 2.5 MG PO BID for Blood Clot Prevention, TAB 0 Refills Pravastatin (Pravastatin) 40 Mg Tab 40 MG PO HS for Cholesterol Management, #30 TAB 0 Refills Propranolol (Propranolol) 20 Mg Tab 20 MG PO QID, #60 TAB 0 Refills Venlafaxine ER 24 HR (Effexor XR 24 HR) 75 Mg Cap 75 MG PO HS for 30 Days, CAP Discontinued Medications: Nicotine Patch (Nicotine Patch) 7 Mg/24 Hr Patch 1 PATCH TD DAILY for 30 Days Sucralfate (Carafate) 1 Gm Tab 1 GM PO TIDAC and HS for Duodenal ulcer, #90 TAB 0 Refills On empty stomach Som Miller MD Oct 29, 2017 1:58 pm
== END 2017-10-29 13:06 | disposition home or self-care (01) | DRG 155 ==
LOC: NEPC 08:15 → NEDA 10:03 → NEPHCDU 11:32 → OBSVTOIN 11:45 → N04A 15:31
PROVIDERS: ADMIT Family Medicine; ATTEND Family Medicine
DX: G47.33 Obstructive sleep apnea (adult) (pediatric) (principal); J44.1 Chronic obstructive pulmonary disease with (acute) exacerbation; I11.9 Hypertensive heart disease without heart failure; Z89.612 Acquired absence of left leg above knee; M94.0 Chondrocostal junction syndrome [Tietze]; K21.9 Gastro-esophageal reflux disease without esophagitis; E66.9 Obesity, unspecified; F41.9 Anxiety disorder, unspecified; F32.9 Major depressive disorder, single episode, unspecified; F17.210 Nicotine dependence, cigarettes, uncomplicated; Z66 Do not resuscitate; Z68.37 Body mass index [BMI] 37.0-37.9, adult; Z79.01 Long term (current) use of anticoagulants; Z86.73 Personal history of transient ischemic attack (TIA), and cerebral infarction without residual deficits; Z85.830 Personal history of malignant neoplasm of bone; Z86.711 Personal history of pulmonary embolism; Z86.718 Personal history of other venous thrombosis and embolism; Z88.0 Allergy status to penicillin; Z88.5 Allergy status to narcotic agent; Z91.19 Patient's noncompliance with other medical treatment and regimen; Z92.21 Personal history of antineoplastic chemotherapy; Z96.641 Presence of right artificial hip joint
CPT/HCPCS: 71010; 71275; 80048; 80053; 83880; 84484; 85025; 85379; 87070; 87102; 87205; 87206; 93005; 93306; 94640; 94664; 96361; 96374; 96375; J1885; J2270; J2930; J7030; J7512; Q9967

== ENCOUNTER 2017-11-13 12:34 | Emergency (ER) | payer MEDICARE, OTHER ==
[~2017-11-13] VITALS: Ht 167.6 cm; Wt 114.0 kg
[~2017-11-13 12:34] MED LIST changes: -CARA1TAB6 PO; -DOXY100C PO; +IBUP-232 PO; +NICO21DI2 T-DERMAL; -NICO7DIS2 TD; +RANI150T2 PO; +VENTAER INH
[2017-11-13 12:36] VITALS: BP 119/64; PULSE 111; RESP 24; TEMP 97.6; O2SAT 92
--- NOTE | 2017-11-13 13:13 | PD ---
Physical Exam Time Seen by Provider: 13:10 Narrative 47yo M c/o chest pain x 1 month. Radiates around to his back. Seen here twice for the same complaint. +SOB. On home oxygen at night. HX COPD. Denies fever , vomiting. HAs not followed up with burrer machine. Patient seen in triage. VS reviewed. Awaiting bed placement. See next providers note for final patient disposition. Data Data Last Documented VS Vital Signs Date Time Temp Pulse Resp B/P (MAP) Pulse Ox O2 Delivery O2 Flow Rate FiO2 11/13/17 12:36 97.6 111 24 119/64 (82) 92 Room Air [facility] Supervised Visit with PING: Frida Bro Nov 13, 2017 13:13
[2017-11-13] MEDS ORDERED: SODIUM CHLORIDE 0.9% FLUSH 10 ML FLUSH IVF PRN (13:30)
[2017-11-13] MEDS ORDERED: ACETAMINOPHEN/HYDROcodone 325 MG/5 MG TAB PO ONE (13:30)
--- NOTE | 2017-11-13 13:51 | RADRPT ---
EXAM DATE/TIME: 11/13/2017 13:34 [facility] COMPARISON: CHEST SINGLE AP, October 27, 2017, 8:47. INDICATIONS : Chest pain MEDICAL HISTORY : Cardiovascular disease. Hypertension. Chronic obstructive pulmonary disease. SURGICAL HISTORY : Appendectomy. ENCOUNTER: Initial ACUITY: 1 week PAIN SCORE: 10/10 LOCATION: Bilateral chest FINDINGS: A single view of the chest demonstrates the lungs to be symmetrically aerated without evidence of mas s, infiltrate or effusion. The cardiomediastinal contours are unremarkable. Osseous structures are intact. There are minor echocardiogram weeks. Patient is again noted be status post right shoulder ar throplasty. CONCLUSION: No acute disease. Fredi Kenney MD on November 13, 2017 at 13:47 Board Certified Radiologist. This report was verified electronically.
--- NOTE | 2017-11-13 14:55 | PD ---
HPI Chief Complaint: Chest Pain Time Seen by Provider: 13:23 Travel History International Travel<30 days: No Contact w/Intl Traveler<30days: No Traveled to known affect area: No History of Present Illness HPI 47-year-old male arrives with chest pain and left side. Radiates to the back with inspiration. It comes and goes. It is felt that intermittently for the past and month. He reports an occasional cough makes it worse and he is therefore trying to avoid coughing. He's had no fever. No recent injury. He' s had multiple prior visits for the same complaint. PFSH Past Medical History Hx Anticoagulant Therapy: Yes Arthritis: No Asthma: No Blood Disorders: Yes Anxiety: Yes Depression: Yes Heart Rhythm Problems: No Cancer: Yes (OSTEOGENIC SARCOMA LEFT KNEE) Cardiovascular Problems: Yes High Cholesterol: Yes Chemotherapy: Yes Chest Pain: No Congestive Heart Failure: No COPD: Yes Cerebrovascular Accident: Yes Diabetes: No (runs in family) Deep Vein Thrombosis: Yes Endocrine: No Gastrointestinal Disorders: Yes GERD: Yes Genitourinary: No Headaches: Yes Hiatal Hernia: No Hypertension: Yes Immune Disorder: No Implanted Vascular Access Dvce: Yes Kidney Stones: No Musculoskeletal: Yes (l leg amputated) Neurologic: Yes Psychiatric: Yes Reproductive: No Respiratory: Yes Migraines: No Renal Failure: No Seizures: No Sleep Apnea: Yes (USES CPAP AT HOME) Ulcer: No Past Surgical History Abdominal Surgery: Yes (NIKITA FILTER, APPENDIX) AICD: No Appendectomy: Yes Arteriovenous Shunt: No Body Medical Devices: NIKITA FILTER AND PIN/PLATE RIGHT FOOT Cardiac Surgery: No Ear Surgery: No Endocrine Surgery: No Eye Surgery: No Genitourinary Surgery: No Gynecologic Surgery: No Insulin Pump: No Joint Replacement: No Oral Surgery: Yes (JAW WIRED AGE 11 YRS) Pacemaker: No Thoracic Surgery: No Other Surgery: Yes (RIGH HIP REPLACED, GREEN-FIELD FILTER ) Social History Alcohol Use: No Tobacco Use: Yes (3-4 CIG ) Substance Use: No Allergies-Medications (Allergen,Severity, Reaction): Coded Allergies: morphine (Unverified Allergy, Mild, HIVES, 11/13/17) ONLY WHEN USING BUSINESS PRACTICES OFFICER PUMP AT AGE 21. HAS SINCE HAD MORPHINE WITHOUT REACTION/ALLERGY. penicillin G (Unverified Allergy, Mild, HIVES, 11/13/17) Reported Meds & Prescriptions Reported Meds & Active Scripts Active Px Acid Curriculum Manager Maximum S (Ranitidine HCl) 150 Mg Tab 1 Tab PO BID Nicotine Patch (Nicotine) 21 Mg/24 Hr Patch 21 Mg T-DERMAL DAILY Ventolin Hfa 18 GM Inh (Albuterol Sulfate) 90 Mcg/Act Aer 2 Puff INH Q4-6H PRN For the next 5 days after discharge, take 2 puffs every 6 hours. After that can use as needed. Prednisone 20 Mg Tab 40 Mg PO DAILY Ibuprofen 600 Mg Tab 600 Mg PO Q6H PRN Effexor XR 24 HR (Venlafaxine HCl) 75 Mg Cap 75 Mg PO HS 30 Days Reported Eliquis (Apixaban) 2.5 Mg Tab 2.5 Mg PO BID Propranolol (Propranolol HCl) 20 Mg Tab 20 Mg PO QID Albuterol Neb (Albuterol Sulfate) 2.5 Mg/0.5 Ml Neb 2.5 Mg NEB Q6HR NEB Note: The Albuterol Sulfate Inhalation Solution is concentrated and must be diluted. Read complete instructions carefully before using. Pravastatin 40 Mg Tab 40 Mg PO HS Amlodipine (Amlodipine Besylate) 10 Mg Tab 10 Mg PO DAILY Review of Systems Except as stated in HPI: all other systems reviewed are Neg General / Constitutional: No: Fever Physical Exam Narrative GENERAL: 47-year-old male well-nourished well-developed no acute distress speaking full sentences SKIN: Warm and dry. HEAD: Atraumatic. Normocephalic. EYES: Pupils equal and round. No scleral icterus. No injection or drainage. ENT: No nasal bleeding or discharge. Mucous membranes pink and moist. NECK: Trachea midline. No JVD. CARDIOVASCULAR: Mild tachycardia. Regular rhythm. RESPIRATORY: Breath sounds present bilaterally. Minimal tachypnea. GASTROINTESTINAL: Abdomen soft, non-tender, nondistended. Hepatic and splenic margins not palpable. MUSCULOSKELETAL: Extremities without clubbing, cyanosis, or edema. No obvious deformities. NEUROLOGICAL: Awake and alert. No obvious cranial nerve deficits. Motor grossly within normal limits. Five out of 5 muscle strength in the arms and legs. Normal speech. PSYCHIATRIC: Appropriate mood and affect; insight and judgment normal. Data Data Last Documented VS Vital Signs Date Time Temp Pulse Resp B/P (MAP) Pulse Ox O2 Delivery O2 Flow Rate FiO2 11/13/17 12:36 97.6 111 24 119/64 (82) 92 Room Air Orders Orders Electrocardiogram (11/13/17 ) Electrocardiogram (11/13/17 13:29) Basic Metabolic Panel (Bmp) (11/13/17 13:29) Complete Blood Count With Diff (11/13/17 13:29) Magnesium (Mg) (11/13/17 13:29) Prothrombin Time / Inr (Pt) (11/13/17 13:29) Act Partial Throm Time (Ptt) (11/13/17 13:29) Chest, Single Ap (11/13/17 13:29) Ecg Monitoring (11/13/17 13:29) Iv Access Insert/Monitor (11/13/17 13:29) Oximetry (11/13/17 13:29) Oxygen Administration (11/13/17 13:29) Sodium Chloride 0.9% Flush (Ns Flush) (11/13/17 13:30) Acetamin-Hydrocod 325-5 Mg ([place] 5-325 (11/13/17 13:30) Ed Discharge Order (11/13/17 15:45) Labs Laboratory Tests Test 11/13/17 15:00 White Blood Count 4.6 TH/MM3 Red Blood Count 5.25 MIL/MM3 Hemoglobin 11.0 GM/DL Hematocrit 36.2 % Mean Corpuscular Volume 68.9 FL Mean Corpuscular Hemoglobin 20.9 PG Mean Corpuscular Hemoglobin Concent 30.4 % Red Cell Distribution Width 21.2 % Platelet Count 295 TH/MM3 Mean Platelet Volume 8.3 FL Neutrophils (%) (Auto) 60.0 % Lymphocytes (%) (Auto) 29.6 % Monocytes (%) (Auto) 7.7 % Eosinophils (%) (Auto) 2.1 % Basophils (%) (Auto) 0.6 % Neutrophils # (Auto) 2.7 TH/MM3 Lymphocytes # (Auto) 1.4 TH/MM3 Monocytes # (Auto) 0.4 TH/MM3 Eosinophils # (Auto) 0.1 TH/MM3 Basophils # (Auto) 0.0 TH/MM3 CBC Comment DIFF FINAL Differential Comment Prothrombin Time 10.2 SEC Prothromb Time International Ratio 1.0 RATIO Activated Partial Thromboplast Time 24.2 SEC Blood Urea Nitrogen 8 MG/DL Creatinine 0.71 MG/DL Random Glucose 85 MG/DL Calcium Level 8.8 MG/DL Magnesium Level 1.9 MG/DL Sodium Level 138 MEQ/L Potassium Level 3.7 MEQ/L Chloride Level 101 MEQ/L Carbon Dioxide Level 31.7 MEQ/L Anion Gap 5 MEQ/L Estimat Glomerular Filtration Rate 119 ML/MIN MDM Medical Decision Making Medical Screen Exam Complete: Yes Emergency Medical Condition: Yes Medical Record Reviewed: Yes Differential Diagnosis NSTEMI, unstable angina, coronary vasospasm, PE, PTX, aortic dissection, pericarditis, myocarditis, endocarditis, PNA, esophageal disease, aneurysm, musculoskeletal etiologies, anxiety, cocaine/sympathomimetic abuse Narrative Course EKG reveals a sinus tachycardia with a rate of 101 normal axis and intervals no acute ischemic injury pattern CBC & BMP Diagram 11/13/17 15:00 Calcium Level 8.8, Magnesium Level 1.9 Last Impressions Chest X-Ray 11/13/17 1329 Signed Impressions: Service Date/Time: Monday, November 13, 2017 13:34 - CONCLUSION: No acute disease. Fredi Kenney MD The patient is resting comfortably and feels better, is alert and in no distress. The patients results and examination findings were discussed. The repeat examination is unremarkable and benign. The history, exam, diagnostic testing, and current condition do not suggest any significant pathology to warrant further testing, continued ED treatment, admission, or surgical evaluation at this point. The vital signs have been stable. The patient does not have uncontrollable pain, intractable vomiting, or other significant symptoms. The patient's condition is stable and appropriate for discharge. The patient will pursue further outpatient evaluation with a primary care physician or other designated or consulting physician as indicated in the discharge instructions. The patient expressed understanding and was agreeable with this plan. Diagnosis Primary Impression: Chest pain Qualified Codes: R07.9 - Chest pain, unspecified Additional Impressions: Rib pain on left side Atelectasis Referrals: Primary Care Physician 2 days Med/Other Pt SpecificInfo: No Change to Meds Disposition: 01 DISCHARGE HOME Condition: Stable Kayden Schmitz MD Nov 13, 2017 14:55
[2017-11-13 15:25] LABS: AUTOMATED NEUTROPHIL # 2.7 TH/MM3 (1.8-7.7); BASOPHIL % 0.6 % (0.0-2.0); EOSINOPHIL # 0.1 TH/MM3 (0-0.4); EOSINOPHIL % 2.1 % (0.0-4.0); HEMATOCRIT 36.2 % (39.0-51.0); LYMPH % 29.6 % (9.0-44.0); LYMPHOCYTE # 1.4 TH/MM3 (1.0-4.8); MEAN CELL VOLUME 68.9 FL (80.0-100.0); MEAN CORPUSCULAR HEMOGLOBIN 20.9 PG (27.0-34.0); MEAN CORPUSCULAR HGB CONC 30.4 % (32.0-36.0); MEAN PLATELET VOLUME 8.3 FL (7.0-11.0); MONO % 7.7 % (0.0-8.0); MONOCYTE # 0.4 TH/MM3 (0-0.9); PLATELET COUNT 295 TH/MM3 (150-450); RED BLOOD COUNT 5.25 MIL/MM3 (4.50-5.90); RED CELL DISTRIBUTION WIDTH 21.2 % (11.6-17.2); WHITE BLOOD COUNT 4.6 TH/MM3 (4.0-11.0)
[2017-11-13 15:27] LABS: PROTHROMBIN TIME - PATIENT 10.2 SEC (9.8-11.6)
[2017-11-13 15:33] LABS: BICARBONATE 31.7 MEQ/L (21.0-32.0); CALCIUM 8.8 MG/DL (8.5-10.1); CREATININE 0.71 MG/DL (0.60-1.30); MAGNESIUM 1.9 MG/DL (1.5-2.5)
--- NOTE | 2017-11-14 15:01 | EKG ---
Date Performed: 11/13/2017 Time Performed: 13:29:50 PTAGE: 47 years EKG: SINUS TACHYCARDIA MODERATE VOLTAGE CRITERIA FOR LVH, CONSIDER NORMAL VARIANT. Since previou s tracing, no significant change noted ABNORMAL RHYTHM ECG PREVIOUS TRACING : 10/27/2017 08.25 DOCTOR: Jean Pak Interpretating Date/Time 11/14/2017 14:59:00
== END 2017-11-13 16:20 | disposition home or self-care (01) ==
LOC: NEPC 12:34
DX: R07.89 Other chest pain (principal); J98.11 Atelectasis; R00.0 Tachycardia, unspecified; R05 Cough; R94.31 Abnormal electrocardiogram [ECG] [EKG]; F41.9 Anxiety disorder, unspecified; F39 Unspecified mood [affective] disorder; J44.9 Chronic obstructive pulmonary disease, unspecified; I10 Essential (primary) hypertension
CPT/HCPCS: 71045; 80048; 83735; 85025; 85610; 85730; 93005

== ENCOUNTER 2018-02-14 09:59 | Inpatient (IN) | payer MEDICARE, OTHER ==
[2018-02-14] VITALS (12 sets, daily range): BP systolic 104–126; BP diastolic 70–72; PULSE 90–110; RESP 16–32; TEMP 97.2–98.6; O2SAT 50–100
[~2018-02-14] VITALS: Ht 167.6 cm; Wt 108.0 kg
[~2018-02-14 09:59] MED LIST changes: -HYDR-3516 PO
[2018-02-14] MEDS ORDERED: RESP: ALBUTEROL 2.5 MG/IPRATROPIUM 0.5 MG NEB (SCH) ONE (10:20)
[2018-02-14] MEDS: RESP: ALBUTEROL 2.5 MG/IPRATROPIUM 0.5 MG NEB (SCH) INH ×2 (10:21→10:31)
[2018-02-14] MEDS ORDERED: metroNIDAZOLE 500 MG INJ 100 ML IV STA (10:21)
[2018-02-14] MEDS ORDERED: VANCOMYCIN INJ 1,000 MG in SODIUM CHLOR 0.9% 250 ML INJ 250 ML IV STA (10:21)
[2018-02-14] MEDS ORDERED: AZTREONAM INJ 2,000 MG in SODIUM CHLORIDE 0.9% INJ 100 ML IV STA (10:21)
[2018-02-14] MEDS ORDERED: methylPREDNISolone SOD SUCC 125 MG/2 ML VIAL IV PUSH ONE (10:30)
--- NOTE | 2018-02-14 10:47 | PD ---
HPI Chief Complaint: Respiratory Distress Time Seen by Provider: 10:11 Travel History International Travel<30 days: No Contact w/Intl Traveler<30days: No History of Present Illness HPI 47-year-old male arrives by ambulance with altered mental status and low oxygen saturations. They said his end-tidal CO2 was in the 60s his initial sat was in the 30s but they were able to bag him up to the 70s. Patient has history of COPD. His initial GCS was 7. Here patient is able to state his first and last name and denies pain but history is significantly limited. PFSH Past Medical History Narrative Medical By records Hx Anticoagulant Therapy: Yes Arthritis: No Asthma: No Blood Disorders: Yes Anxiety: Yes Depression: Yes Heart Rhythm Problems: No Cancer: Yes (OSTEOGENIC SARCOMA LEFT KNEE) Cardiovascular Problems: Yes High Cholesterol: Yes Chemotherapy: Yes Chest Pain: No Congestive Heart Failure: No COPD: Yes Cerebrovascular Accident: Yes Diabetes: No (runs in family) Deep Vein Thrombosis: Yes Endocrine: No Gastrointestinal Disorders: Yes GERD: Yes Genitourinary: No Headaches: Yes Hiatal Hernia: No Hypertension: Yes Immune Disorder: No Implanted Vascular Access Dvce: Yes Kidney Stones: No Musculoskeletal: Yes (l leg amputated) Neurologic: Yes Psychiatric: Yes Reproductive: No Respiratory: Yes Migraines: No Renal Failure: No Seizures: No Sleep Apnea: Yes (USES CPAP AT HOME) Ulcer: No Past Surgical History Narrative Surgical By records Abdominal Surgery: Yes (NIKITA FILTER, APPENDIX) AICD: No Appendectomy: Yes Arteriovenous Shunt: No Body Medical Devices: NIKITA FILTER AND PIN/PLATE RIGHT FOOT Cardiac Surgery: No Ear Surgery: No Endocrine Surgery: No Eye Surgery: No Genitourinary Surgery: No Gynecologic Surgery: No Insulin Pump: No Joint Replacement: No Oral Surgery: Yes (JAW WIRED AGE 11 YRS) Pacemaker: No Thoracic Surgery: No Other Surgery: Yes (RIGH HIP REPLACED, GREEN-FIELD FILTER ) Social History Narrative Social History By records Alcohol Use: No Tobacco Use: Yes (3-4 CIG ) Substance Use: No Allergies-Medications (Allergen,Severity, Reaction): Coded Allergies: morphine (Verified Allergy, Mild, HIVES, 02/14/18) ONLY WHEN USING 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 HAS SINCE HAD MORPHINE WITHOUT REACTION/ALLERGY. penicillin G (Verified Allergy, Mild, HIVES, 02/14/18) Reported Meds & Prescriptions Reported Meds & Active Scripts Active Px Acid Supervisor Drying Maximum S (Ranitidine HCl) 150 Mg Tab 1 Tab PO BID Nicotine Patch (Nicotine) 21 Mg/24 Hr Patch 21 Mg T-DERMAL DAILY Ventolin Hfa 18 GM Inh (Albuterol Sulfate) 90 Mcg/Act Aer 2 Puff INH Q4-6H PRN For the next 5 days after discharge, take 2 puffs every 6 hours. After that can use as needed. Prednisone 20 Mg Tab 40 Mg PO DAILY Ibuprofen 600 Mg Tab 600 Mg PO Q6H PRN Effexor XR 24 HR (Venlafaxine HCl) 75 Mg Cap 75 Mg PO HS 30 Days Reported Eliquis (Apixaban) 2.5 Mg Tab 2.5 Mg PO BID Propranolol (Propranolol HCl) 20 Mg Tab 20 Mg PO QID Albuterol Neb (Albuterol Sulfate) 2.5 Mg/0.5 Ml Neb 2.5 Mg NEB Q6HR NEB Note: The Albuterol Sulfate Inhalation Solution is concentrated and must be diluted. Read complete instructions carefully before using. Pravastatin 40 Mg Tab 40 Mg PO HS Amlodipine (Amlodipine Besylate) 10 Mg Tab 10 Mg PO DAILY Review of Systems ROS Limitations: Clinical Condition Except as stated in HPI: all other systems reviewed are Neg Physical Exam Exam Limitations: Clinical Condition Narrative General: In severe distress, focused exam performed Skin: Warm and dry Eyes: Pupils pinpoint Neck: Trachea midline Cardiovascular: Regular rate and rhythm Respiratory: increased respiratory effort noted, decreased breath sounds bilaterally Abdomen: Soft, nondistended Neuro: Moves all extremities, follows basic commands, states name Data Data Last Documented VS Vital Signs Date Time Temp Pulse Resp B/P (MAP) Pulse Ox O2 Delivery O2 Flow Rate FiO2 02/14/18 10:15 97.2 110 22 126/72 (90) 98 BiPAP 02/14/18 10:05 100 Orders Orders Sepsis Workup Initiated (02/14/18 ) Electrocardiogram (02/14/18 10:11) Complete Blood Count With Diff (02/14/18 10:11) Comprehensive Metabolic Panel (02/14/18 10:11) Prothrombin Time / Inr (Pt) (02/14/18 10:11) Act Partial Throm Time (Ptt) (02/14/18 10:11) Lactic Acid Sepsis Protocol (02/14/18 10:11) Magnesium (Mg) (02/14/18 10:11) Phosphorus (Po4) (02/14/18 10:11) Lipase (02/14/18 10:11) Ckmb (Isoenzyme) Profile (02/14/18 10:11) Troponin I (02/14/18 10:11) Urinalysis - C+S If Indicated (02/14/18 10:11) Influenzae A/B Antigen (02/14/18 10:11) Blood Culture (02/14/18 10:11) Chest, Single Ap (02/14/18 10:11) Ecg Monitoring (02/14/18 10:11) Iv Access Insert/Monitor (02/14/18 10:11) Oximetry (02/14/18 10:11) Oxygen Administration (02/14/18 10:11) Urinary Catheter Insert/Apply (02/14/18 10:11) B-Type Natriuretic Peptide (02/14/18 10:11) Methylprednisolone So Succ Inj (Solumedr (02/14/18 10:30) Albuterol-Ipratropium Neb (Duoneb Neb) (02/14/18 10:30) Albuterol-Ipratropium Neb (Duoneb Neb) (02/14/18 10:20) Vancomycin Inj (Vancomycin Inj) (02/14/18 10:21) Aztreonam Inj (Azactam Inj) (02/14/18 10:21) Metronidazole 500 Mg Inj (Flagyl 500 Mg (02/14/18 10:21) Resp Bipap / Cpap Non Invas Vt (02/14/18 ) Arterial Blood Gas (Abg) (02/14/18 ) Etomidate Inj (Amidate Inj) (02/14/18 11:45) Succinylcholine Inj (Quelicin Inj) (02/14/18 11:45) Sodium Chloride 0.9% Flush (Ns Flush) (02/14/18 11:45) Propofol 1000 Mg/100 Ml Inj (Diprivan 10 (02/14/18 11:45) Etomidate Inj (Amidate Inj) (02/14/18 11:33) Propofol 500 Mg/50 Ml Inj (Diprivan 500 (02/14/18 11:33) Succinylcholine Inj (Quelicin Inj) (02/14/18 11:33) Furosemide Inj (Lasix Inj) (02/14/18 11:45) Urine Culture (02/14/18 10:45) Chest, Single Ap (02/14/18 12:01) Sodium Chlor 0.9% 1000 Ml Inj (Ns 1000 M (02/14/18 12:15) Admit Order (Ed Use Only) (02/14/18 12:02) Ct Brain W/O Iv Contrast(Rout) (02/14/18 12:04) Ct Pulmonary Angiogram (02/14/18 12:04) Labs Laboratory Tests Test 02/14/18 10:30 02/14/18 10:45 Prothrombin Time 10.7 SEC Prothromb Time International Ratio 1.1 RATIO Activated Partial Thromboplast Time 24.5 SEC Blood Urea Nitrogen 9 MG/DL Creatinine 1.33 MG/DL Random Glucose 209 MG/DL Total Protein 8.0 GM/DL Albumin 3.2 GM/DL Calcium Level 8.3 MG/DL Phosphorus Level 5.9 MG/DL Magnesium Level 2.1 MG/DL Alkaline Phosphatase 112 U/L Aspartate Amino Transf (AST/SGOT) 36 U/L Alanine Aminotransferase (ALT/SGPT) 24 U/L Total Bilirubin 0.8 MG/DL Sodium Level 132 MEQ/L Potassium Level 4.3 MEQ/L Chloride Level 92 MEQ/L Carbon Dioxide Level 28.2 MEQ/L Anion Gap 12 MEQ/L Estimat Glomerular Filtration Rate 58 ML/MIN Lactic Acid Level 6.0 mmol/L Total Creatine Kinase 71 U/L Troponin I 0.03 NG/ML B-Type Natriuretic Peptide 334 PG/ML Lipase 165 U/L Urine Color YELLOW Urine Turbidity CLEAR Urine pH 6.5 Urine Specific [place] 1.013 Urine Protein 300 mg/dL Urine Glucose (UA) TRACE mg/dL Urine Ketones NEG mg/dL Urine Occult Blood NEG Urine Nitrite NEG Urine Bilirubin NEG Urine Urobilinogen LESS THAN 2.0 MG/DL Urine Leukocyte Esterase NEG Urine RBC 2 /hpf Urine WBC 10 /hpf Urine Squamous Epithelial Cells 1 /hpf Urine Bacteria OCC /hpf Urine Hyaline Casts 21 /lpf Urine Mucus FEW /lpf Microscopic Urinalysis Comment CATH-CULTURE IND MDM Medical Decision Making Medical Screen Exam Complete: Yes Emergency Medical Condition: Yes Medical Record Reviewed: Yes (Past history confirmed, history of COPD noted) Interpretation(s) CBC & BMP Diagram 02/14/18 10:30 Total Protein 8.0, Albumin 3.2 L, Calcium Level 8.3 L, Phosphorus Level 5.9 H, Magnesium Level 2.1, Alkaline Phosphatase 112, Aspartate Amino Transf (AST/SGOT ) 36, Alanine Aminotransferase (ALT/SGPT) 24, Total Bilirubin 0.8 Last [address] 02/14/18 1204 Signed Impressions: Service Date/Time: Wednesday, February 14, 2018 14:09 - CONCLUSION: 1. Chronic ischemic changes in the parietal lobes. No change from previous study. 2. No acute intracranial abnormality or Tye Steinberg MD Chest X-Ray 02/14/18 1201 Signed Impressions: Service Date/Time: Wednesday, February 14, 2018 12:05 - CONCLUSION: 1. Endotracheal tube in appropriate position with tip measuring 4.8 cm from the shiela. 2. Nasogastric tube distal tip is within the stomach. 3. Stable mild basilar opacities representing either atelectasis or consolidation. Bebeto Lowery MD Chest X-Ray 02/14/18 1011 Signed Impressions: Service Date/Time: Wednesday, February 14, 2018 11:00 - CONCLUSION: Cardiomegaly with increased pulmonary vascularity. Tye Steinberg MD Given initial chest x-ray IV fluids were held, after patient was intubated he was given his first IV fluid bolus and will need continue IV fluids given elevated lactate Differential Diagnosis COPD exacerbation, pneumonia, pneumothorax, sepsis, [place] Narrative Course Patient was able to get his sats with bag valve mask into the 80s but he is awake and talking. Wanting to try BiPAP. With BiPAP oxygen saturation went into 98%. Will try to decrease FiO2 while treating with duo nebs and Solu- Medrol and antibiotics. He will need to be closely monitored On reassessment after 15 minutes oxygen saturation is still in the 90s. He is currently tolerating BiPAP will continue to closely monitor On recheck after been on BiPAP about an hour. Patient is still tachypneic and oxygen saturations are in the mid 90s. Lengthy discussion with family at bedside and they want aggressive measures. Will proceed with intubation. Patient very difficult airway and his oxygen saturations were immediately dropping rapidly. Able to intubate on third attempt. Even after patient was intubated on 100% FiO2 his oxygen saturation remained in the 80s. He was paralyzed with rocuronium after his airway was confirmed on chest x-ray and Dr. Alvarenga came to bedside and helped adjust his ventilatory settings. He will be admitted to the ICU for continued critical care and further workup Critical Care Narrative Aggregate critical care time was 75 minutes. Time to perform other separately billable procedures was not included in the critical care time. My time did not include minutes spent treating any other patients simultaneously or on activities that did not directly contribute to the patient's treatment. The services I provided to this patient were to treat and/or prevent clinically significant deterioration that could result in: respiratory failure, I provided critical care services requiring my management, as noted below: Chart data review, documentation time, medication orders and management, vital sign assessments/reviewing monitor data, ordering and reviewing lab tests, ordering and interpreting/reviewing x-rays and diagnostic studies, care of the patient and discussion of the patient with the admitting physicians. Procedures Procedure Narrative After the risks and benefits were discussed with his mother and sister the following procedure was performed: INTUBATION: The patient was put in optimal position for the procedure. Rapid sequence intubation was initiated by me using 20 milligrams of etomidate IV and 100 milligrams of succinylcholine IV. The patient was intubated with a 7.5 cuffed endotracheal tube after unable to pass an 8-0 tube. Patient would quickly desat even with looking very briefly and this made in a patient also very difficult. Tube placement was confirmed by visualization of the tube and balloon passing through the cords, capnometry and subsequent chest x-ray. Breath sounds were equal and well aerated bilaterally postintubation. No breath sounds over stomach. Patient tolerated procedure well. Sepsis Criteria SIRS Criteria (2 or more): Heart rate over 90, RR > 20 or PaCO2 < 32 Sepsis Criteria (SIRS+source): Infect source susp/known Severe Sepsis (+one): Lactate >2 Septic Shock Criteria: Lactic acid >=4 Criteria Outcome: Meets septic shock criteria Physician Communication Physician Communication dr alvarenga agrees to admit and will come see patient, CT pulmonary pending Diagnosis Primary Impression: Acute hypoxemic respiratory failure Additional Impressions: COPD with acute exacerbation History of bone cancer History of pulmonary embolism Septic shock Admitting Information Admitting Physician Requests: Admit Ashia Padilla MD Feb 14, 2018 10:47
[2018-02-14 11:32] LABS: INTERNATIONAL NORMALIZED RATIO 1.1 RATIO; PROTHROMBIN TIME - PATIENT 10.7 SEC (9.8-11.6)
--- NOTE | 2018-02-14 11:32 | RADRPT ---
EXAM DATE/TIME: 02/14/2018 11:00 [facility] COMPARISON: CHEST SINGLE AP, November 13, 2017, 13:34. INDICATIONS : Short of breath. MEDICAL HISTORY : Cardiovascular disease. Hypertension Chronic obstructive pulmonary disease. SURGICAL HISTORY : Appendectomy. Right shoulder arthroplasty. ENCOUNTER: Initial ACUITY: 1 day PAIN SCORE: Non-responsive. LOCATION: Bilateral chest FINDINGS: A single view of the chest demonstrates cardiomegaly with increased pulmonary vascularity. The cardi omediastinal contours are unremarkable. Osseous structures are intact. CONCLUSION: Cardiomegaly with increased pulmonary vascularity. Tye Steinberg MD on February 14, 2018 at 11:28 Board Certified Radiologist. This report was verified electronically.
[2018-02-14] MEDS ORDERED: PROPOFOL 500 MG/50 ML INJ 50 ML ONE (11:33)
[2018-02-14] MEDS ORDERED: ETOMIDATE 40 MG/20 ML VIAL ONE (11:33)
[2018-02-14] MEDS ORDERED: SUCCINYLCHOLINE CHLORIDE 200 MG/10 ML VIAL ONE (11:33)
[2018-02-14 11:36] LABS: BACTERIA, URINE OCC /hpf; BILIRUBIN, URINE NEG (NEG); BLOOD, URINE NEG (NEG); GLUCOSE,URINE TRACE mg/dL (NEG); HYALINE CAST, URINE 21 /lpf (RARE); KETONE, URINE NEG (NEG); MUCUS URINE FEW /lpf (OCC); NITRITE,URINE NEG (NEG); PH, URINE 6.5 (5.0-8.5); SQUAMOUS EPITHELIAL CELL URINE 1 /hpf (0-5); URINE COLOR YELLOW (YELLW/STRAW); URINE LEUKOCYTE ESTERASE NEG (NEG)
[2018-02-14] MEDS ORDERED: PROPOFOL 1000 MG/100 ML INJ 100 ML IV PRN (11:45)
[2018-02-14] MEDS ORDERED: FUROSEMIDE 40 MG/4 ML VIAL IV PUSH ONE (11:45)
[2018-02-14] MEDS ORDERED: SODIUM CHLORIDE 0.9% FLUSH 10 ML FLUSH IVF PRN (11:45)
[2018-02-14] MEDS ORDERED: ETOMIDATE 20 MG/10 ML VIAL IVP ONE (11:45)
[2018-02-14] MEDS ORDERED: SUCCINYLCHOLINE CHLORIDE 200 MG/10 ML VIAL IV PUSH ONE (11:45)
[2018-02-14 11:57] LABS: ALBUMIN 3.2 GM/DL (3.4-5.0); ALKALINE PHOSPHATASE 112 U/L (45-117); ALT (GPT) 24 U/L (12-78); AST (GOT) 36 U/L (15-37); BICARBONATE 28.2 MEQ/L (21.0-32.0); BLOOD UREA NITROGEN 9 MG/DL (7-18); CALCIUM 8.3 MG/DL (8.5-10.1); CHLORIDE 92 MEQ/L (98-107); CREATININE 1.33 MG/DL (0.60-1.30); GLOMERULAR FILTRATION RATE 58 ML/MIN (>89); GLUCOSE,RANDOM 209 MG/DL (74-106); MAGNESIUM 2.1 MG/DL (1.5-2.5); PHOSPHORUS 5.9 MG/DL (2.5-4.9); SODIUM (NA) 132 MEQ/L (136-145); TOTAL BILIRUBIN ADULT 0.8 MG/DL (0.2-1.0); TROPONIN I 0.03 NG/ML (0.02-0.05)
[2018-02-14] MEDS ORDERED: MIDAZOLAM HCL 5 MG/ML VIAL (1 ML) ONE (12:10)
[2018-02-14] MEDS ORDERED: ROCURONIUM INJ 50 MG/5 ML VIAL ONE (12:14)
[2018-02-14] MEDS ORDERED: SODIUM CHLOR 0.9% 1000 ML INJ 1,000 ML IV ONE ×2 (12:15→15:30)
--- NOTE | 2018-02-14 12:20 | RADRPT ---
EXAM DATE/TIME: 02/14/2018 12:05 [facility] COMPARISON: CHEST SINGLE AP, February 14, 2018, 11:00. INDICATIONS : Post intubation. MEDICAL HISTORY : Cardiovascular disease. Hypertension Chronic obstructive pulmonary disease. SURGICAL HISTORY : None. ENCOUNTER: Initial ACUITY: 1 day PAIN SCORE: Non-responsive. LOCATION: Bilateral chest FINDINGS: Slightly rotated portable AP view of the chest demonstrates cardiac silhouette size at the upper limi ts for normal. Endotracheal tube distal tip is at the clavicular head level measuring approximately 4 .8 cm from the shiela. Nasogastric tube courses beyond the GE junction with distal tip near the gastr ic cardia. Lungs are underinflated with mild by basilar opacities, stable from the prior study. No pl eural effusion or pneumothorax is identified. CONCLUSION: 1. Endotracheal tube in appropriate position with tip measuring 4.8 cm from the shiela. 2. Nasogastric tube distal tip is within the stomach. 3. Stable mild basilar opacities representing either atelectasis or consolidation. Bebeto Lowery MD on February 14, 2018 at 12:18 Board Certified Radiologist. This report was verified electronically.
[2018-02-14] MEDS ORDERED: ROCURONIUM INJ 50 MG/5 ML VIAL IV ONE (12:30)
[2018-02-14 13:55] LABS: AUTOMATED NEUTROPHIL # 8.3 TH/MM3 (1.8-7.7); BASOPHIL % 0.4 % (0.0-2.0); HEMOGLOBIN 10.2 GM/DL (13.0-17.0); LYMPH % 4.1 % (9.0-44.0); LYMPHOCYTE # 0.4 TH/MM3 (1.0-4.8); MEAN CELL VOLUME 66.6 FL (80.0-100.0); MEAN CORPUSCULAR HEMOGLOBIN 19.9 PG (27.0-34.0); MEAN PLATELET VOLUME 8.4 FL (7.0-11.0); MONO % 7.3 % (0.0-8.0); MONOCYTE # 0.7 TH/MM3 (0-0.9); NEUT % 88.2 % (16.0-70.0); PLATELET COUNT 261 TH/MM3 (150-450); RED BLOOD COUNT 5.11 MIL/MM3 (4.50-5.90); RED CELL DISTRIBUTION WIDTH 22.1 % (11.6-17.2); WHITE BLOOD COUNT 9.4 TH/MM3 (4.0-11.0)
[2018-02-14] MEDS ORDERED: CHLORHEXIDINE GLUCONATE 2 % 1 PACK (2 CLOTHS) TOP PRN (14:00)
[2018-02-14] MEDS ORDERED: NURSING INFORMATION XX SCH (14:00)
--- NOTE | 2018-02-14 14:03 | PD.PROCEDR ---
Central Line Procedure REASON FOR PROCEDURE Central venous access PROCEDURE PERFORMED Central line placement: RIJ central line placement CONSENT Emergency procedure ANESTHESIA Local injection of 1% Lidocaine DESCRIPTION OF THE PROCEDURE The patient was placed in supine, mild Trendelenburg position. The area was exposed and cleansed with ChloraPrep, times two. Large sterile drape was used to cover the patient, with the site exposed, under sterile conditions including cap, face mask, sterile gown, and sterile gloves. On single attempt, the introducer needle was inserted with negative pressure in syringe and venous flash was obtained. The guide wire was then advanced without any restriction and the needle was removed. The dilator was used without any complications. Using Seldinger technique the 20 cm 7 F triple lumen catheter was advanced over the guide wire to a depth of 20 centimeters. The guide wire was removed. All ports were aspirated with dark venous blood return and flushed easily with sterile saline. All ports were capped. Antibiotic disc was placed around central line at puncture site. The central line was secured to the skin with two interrupted 2.0 silk sutures. The area was bandaged with sterile see- through central line bandage. RADIOLOGICAL DATA Ultrasound guidance was used to locate RIJ. Doppler/color flow was used to confirm venous flow. COMPLICATIONS: No apparent complications ESTIMATED BLOOD LOSS: Less than 1 cc. Maci Tate MD Feb 14, 2018 14:03
[2018-02-14 14:17] LABS: MEAN CORPUSCULAR HGB CONC 29.9 % (32.0-36.0)
--- NOTE | 2018-02-14 14:25 | RADRPT ---
EXAM DATE/TIME: 02/14/2018 14:09 [facility] COMPARISON: CT BRAIN W/O CONTRAST, April 23, 2017, 10:15. INDICATIONS : Altered mental status. RADIATION DOSE: 56.35 CTDIvol (mGy) ; Tabletop CT Head MEDICAL HISTORY : Chronic obstructive pulmonary disease. Diabetes mellitus type 2. Deep venous thrombosis.Hypertension. Osteogenic sarcoma. SURGICAL HISTORY : Appendectomy. ENCOUNTER: Initial ACUITY: 1 day PAIN SCALE: Non-responsive LOCATION: cranial TECHNIQUE: Multiple contiguous axial images were obtained of the head. Using automated exposure control and adj ustment of the mA and/or kV according to patient size, radiation dose was kept as low as reasonably a chievable to obtain optimal diagnostic quality images. DICOM format image data is available electro nically for review and comparison. FINDINGS: CEREBRUM: Stable small area of low density in both parietal lobes. The ventricles are normal for age. No evide nce of midline shift, mass lesion, hemorrhage or acute infarction. No extra-axial fluid collections are seen. POSTERIOR FOSSA: The cerebellum and brainstem are intact. The 4th ventricle is midline. The cerebellopontine angle i s unremarkable. EXTRACRANIAL: The visualized portion of the orbits is intact. SKULL: The calvaria is intact. No evidence of skull fracture. CONCLUSION: 1. Chronic ischemic changes in the parietal lobes. No change from previous study. 2. No acute intracranial abnormality or Tye Steinberg MD on February 14, 2018 at 14:22 Board Certified Radiologist. This report was verified electronically.
--- NOTE | 2018-02-14 14:44 | HHI.HP ---
[facility] Service Critical Care Medicine Primary Care Physician Bebeto Cali MD Admission Diagnosis acute repsiratory failure Diagnosis: (1) Acute hypoxemic respiratory failure Diagnosis: Principal (2) COPD with acute exacerbation Diagnosis: Principal (3) Septic shock Diagnosis: Principal (4) Lactic acidemia Diagnosis: Principal (5) Pneumonia Diagnosis: Principal (6) History of pulmonary embolism Diagnosis: Secondary (7) Osteosarcoma of bone Diagnosis: Secondary (8) COPD (chronic obstructive pulmonary disease) Diagnosis: Secondary (9) S/P IVC filter Diagnosis: Secondary (10) Status post above knee amputation of left lower extremity Diagnosis: Secondary Chief Complaint: Acute hypoxemic respiratory failure Travel History International Travel<30 Days: No Contact w/Intl Traveler <30 Da: No Sepsis Criteria SIRS Criteria (2 or more): Heart rate over 90, RR > 20 or PaCO2 < 32 Sepsis Criteria (SIRS+source): Infect source susp/known Septic Shock Criteria: Lactic acid >=4 Criteria Outcome: Meets septic shock criteria History of Present Illness Patient is a 47-year-old morbidly obese male with past medical history significant for obesity, obstructive sleep apnea clinically, history of DVT, chronic Eliquis use who was brought in by EMS for altered mental status and severe hypoxemia. Apparently per EMS end-tidal CO2 was in the 60s his initial sat was in the 30s, but with bagging came up to the 70s. Initial GCS apparently was 7 but improved with continued bag and mask ventilation in the ED. Sats remained in the low 80s. Patient initially refused intubation and was placed on BiPAP. Received duo nebs and Solu-Medrol and antibiotics (Azactam, Flagyl, vancomycin). Patient continued to be tachypneic and severely hypoxemic, and patient was intubated by the ER physician. Apparently difficult airway and was intubated on the third attempt. Patient was desaturating to low 80s even after intubation and I was called to the ED for assisting. I immediately evaluated the patient he continues to be in severe bronchospasm, severely hypoxemic. Additional breathing treatments ordered. I changed the vent settings to PCAC to target tidal volume 600-650 and reduce the rate to 14. PEEP increased to 10. Gradually oxygen saturation improved to 90. I placed a right IJ central line as the patient was borderline hypotensive. Chest x-ray showed apparently pulmonary vascular congestion. No definite infiltrate. Lactic acid 6. Appears patient has acute COPD exacerbation and severe sepsis, pulmonary embolism needs to be ruled out. IV Solu-Medrol DuoNeb breathing treatments will be continued. Patient takes Eliquis for PE in the past. Further workup and management based on results Review of Systems ROS Limitations: Intubated, Altered Mental Status Past Family Social History Allergies: Coded Allergies: morphine (Verified Allergy, Mild, HIVES, 02/14/18) ONLY WHEN USING SOLO [employer] PUMP AT AGE 21. HAS SINCE HAD MORPHINE WITHOUT REACTION/ALLERGY. penicillin G (Verified Allergy, Mild, HIVES, 02/14/18) Past Medical History COPD History of osteogenic sarcoma HTN Anxiety DVTs Past Surgical History Left above the knee amputation at age of 21 Right hip replacement Appendectomy IVC filter Reported Medications Ranitidine HCl 150 Mg Tab 1 Tab PO BID Nicotine Patch (Nicotine) 21 Mg/24 Hr Patch 21 Mg T-DERMAL DAILY Ventolin Hfa 18 GM Inh (Albuterol Sulfate) 90 Mcg/Act Aer 2 Puff INH Q4-6H PRN Prednisone 20 Mg Tab 40 Mg PO DAILY Ibuprofen 600 Mg Tab 600 Mg PO Q6H PRN Effexor XR 24 HR (Venlafaxine HCl) 75 Mg Cap 75 Mg PO HS 30 Days Eliquis (Apixaban) 2.5 Mg Tab 2.5 Mg PO BID Propranolol (Propranolol HCl) 20 Mg Tab 20 Mg PO QID Albuterol Neb (Albuterol Sulfate) 2.5 Mg/0.5 Ml Neb 2.5 Mg NEB Q6HR NEB Pravastatin 40 Mg Tab 40 Mg PO HS Amlodipine (Amlodipine Besylate) 10 Mg Tab 10 Mg PO DAILY Active Ordered Medications Reviewed Family History Unable to obtain family history as the patient is intubated Social History Smokes about half pack of cigarettes a day Denies alcohol or tobacco use Physical Exam Vital Signs Vital Signs Date Time Temp Pulse Resp B/P (MAP) Pulse Ox O2 Delivery O2 Flow Rate FiO2 02/14/18 12:10 94 100 02/14/18 10:15 97.2 110 22 126/72 (90) 98 BiPAP 02/14/18 10:15 109 50 Bag Valve 02/14/18 10:15 98 BiPAP 02/14/18 10:05 96 100 02/14/18 10:05 96 BiPAP 100 02/14/18 10:00 109 22 126/72 (90) 50 Physical Exam GENERAL: morbidly obese 47-year-old male lying in bed recently intubated currently under neuromuscular blockade, persistently hypoxemic SKIN: Warm and dry. HEENT: Atraumatic. Normocephalic. PERRL. Orotracheally intubated NECK: Trachea midline. obese. jvd difficult to assess. CARDIOVASCULAR: Regular rhythm. no murmurs. Heart sounds are distant RESPIRATORY: Coarse breath sounds bilaterally with bilateral wheezes, no rales. GASTROINTESTINAL: Abdomen soft, nondistended. MUSCULOSKELETAL: Palpable pulses with warm periphery. Left AKA. NEUROLOGICAL: Intubated sedated currently under neuromuscular paralysis which limits exam Laboratory Laboratory Tests Test 02/14/18 10:30 02/14/18 10:45 02/14/18 12:50 02/14/18 13:39 Prothrombin Time 10.7 Prothromb Time International Ratio 1.1 Activated Partial Thromboplast Time 24.5 Blood Urea Nitrogen 9 Creatinine 1.33 Random Glucose 209 Total Protein 8.0 Albumin 3.2 Calcium Level 8.3 Phosphorus Level 5.9 Magnesium Level 2.1 Alkaline Phosphatase 112 Aspartate Amino Transf (AST/SGOT) 36 Alanine Aminotransferase (ALT/SGPT) 24 Total Bilirubin 0.8 Sodium Level 132 Potassium Level 4.3 Chloride Level 92 Carbon Dioxide Level 28.2 Anion Gap 12 Estimat Glomerular Filtration Rate 58 Lactic Acid Level 6.0 2.9 Total Creatine Kinase 71 Troponin I 0.03 B-Type Natriuretic Peptide 334 Lipase 165 Urine Color YELLOW Urine Turbidity CLEAR Urine pH 6.5 Urine Specific Huntley 1.013 Urine Protein 300 Urine Glucose (UA) TRACE Urine Ketones NEG Urine Occult Blood NEG Urine Nitrite NEG Urine Bilirubin NEG Urine Urobilinogen LESS THAN 2.0 Urine Leukocyte Esterase NEG Urine RBC 2 Urine WBC 10 Urine Squamous Epithelial Cells 1 Urine Bacteria OCC Urine Hyaline Casts 21 Urine Mucus FEW Microscopic Urinalysis Comment CATH-CULTURE IND Blood Gas Puncture Site LT RADIAL Blood Gas Patient Temperature 98.6 Blood Gas HCO3 29 Blood Gas Base Excess 6.0 Blood Gas Oxygen Saturation 87 Arterial Blood pH 7.51 Arterial Blood Partial Pressure CO2 37 Arterial Blood Partial Pressure O2 54 Arterial Blood Oxygen Content 11.9 Arterial Blood Carboxyhemoglobin 4.0 Arterial Blood Methemoglobin 0.1 Blood Gas Hemoglobin 9.7 Oxygen Delivery Device VENTILATOR Blood Gas Ventilator Setting PCAC14/IP36/IT1/10PE Blood Gas Inspired Oxygen 100 White Blood Count 9.4 Red Blood Count 5.11 Hemoglobin 10.2 Hematocrit 34.0 Mean Corpuscular Volume 66.6 Mean Corpuscular Hemoglobin 19.9 Mean Corpuscular Hemoglobin Concent 29.9 Red Cell Distribution Width 22.1 Platelet Count 261 Mean Platelet Volume 8.4 Neutrophils (%) (Auto) 88.2 Lymphocytes (%) (Auto) 4.1 Monocytes (%) (Auto) 7.3 Eosinophils (%) (Auto) 0.0 Basophils (%) (Auto) 0.4 Neutrophils # (Auto) 8.3 Lymphocytes # (Auto) 0.4 Monocytes # (Auto) 0.7 Eosinophils # (Auto) 0.0 Basophils # (Auto) 0.0 CBC Comment DIFF FINAL Differential Comment Date/Time Source Procedure Growth Status 02/14/18 10:30 Blood Peripheral Aerobic Blood Culture Pending Received 02/14/18 10:30 Blood Peripheral Anaerobic Blood Culture Pending Received 02/14/18 10:45 Urine Catheterized Urine Urine Culture Pending Worksheet Result Diagram: 02/14/18 1339 02/14/18 1030 Imaging Chest x-ray shows pulmonary vascular congestion Septic Shock Reassessment Septic shock perfusion: reassessment completed Caprini VTE Risk Assessment Caprini VTE Risk Assessment: Mod/High Risk (score >= 2) Caprini Risk Assessment Model Point Value = 1 Point Value = 2 Point Value = 3 Point Value = 5 Age 41-60 Minor surgery BMI > 25 kg/m2 Swollen legs Varicose veins or History of unexplained or recurrent spontaneous Oral contraceptives or hormone replacement Sepsis (< 1 month) Serious lung disease, including pneumonia (< 1 month) Abnormal pulmonary function Acute myocardial infarction Congestive heart failure (< 1 month) History of inflammatory bowel disease Medical patient at bed rest Age 61-74 Arthroscopic surgery Major open surgery (> 45 min) Laparoscopic surgery (> 45 min) Malignancy Confined to bed (> 72 hours) Immobilizing plaster cast Central venous access Age >= 75 History of VTE Family history of VTE Factor V Leiden Prothrombin [id number] Lupus anticoagulant Anticardiolipin antibodies Elevated serum homocysteine Heparin-induced thrombocytopenia Other congenital or acquired thrombophilia Stroke (< 1 month) Elective arthroplasty Hip, pelvis, or leg fracture Acute spinal cord injury (< 1 month) Prophylaxis Regimen Total Risk Factor Score Risk Level Prophylaxis Regimen 0-1 Low Early ambulation 2 Moderate Order ONE of the following: *Sequential Compression Device (SCD) *Heparin 5000 units SQ BID 3-4 Higher Order ONE of the following medications: *Heparin 5000 units SQ TID *Enoxaparin/Lovenox 40 mg SQ daily (WT < 150 kg, CrCl > 30 mL/min) *Enoxaparin/Lovenox 30 mg SQ daily (WT < 150 kg, CrCl > 10-29 mL/min) *Enoxaparin/Lovenox 30 mg SQ BID (WT < 150 kg, CrCl > 30 mL/min) AND/OR *Sequential Compression Device (SCD) 5 or more Highest Order ONE of the following medications: *Heparin 5000 units SQ TID (Preferred with Epidurals) *Enoxaparin/Lovenox 40 mg SQ daily (WT < 150 kg, CrCl > 30 mL/min) *Enoxaparin/Lovenox 30 mg SQ daily (WT < 150 kg, CrCl > 10-29 mL/min) *Enoxaparin/Lovenox 30 mg SQ BID (WT < 150 kg, CrCl > 30 mL/min) AND *Sequential Compression Device (SCD) Assessment and Plan Assessment and Plan A/P Assessment and Plan Neuro / Psych Metabolic encephalopathy Hx depression Hx of CVA 3 -CT of the head negative for acute findings, encephalopathy most likely metabolic -Propofol and fentanyl for sedation and ventilator synchrony Cardiovascular Hypotension Lactic acidosis Hx of hypertension and dyslipidemia -Septic shock. Fluid resuscitation given 3 L normal saline boluses, maintenance IV fluid at 125 mL/h -LVEF 55-60%.Mild concentric left ventricular hypertrophy. On echo done on 2016 -Hold all home antihypertensives and statins -Trend lactic acid Respiratory Acute hypoxic respiratory failure Acute COPD exacerbation Pneumonia Hx of DVT / PE -Emergently intubated and placed on mechanical ventilation in the ED -Apparently difficult airway -IV Solu-Medrol 125 mg 1 and 60 mg every 8 hours -Continue DuoNeb q 4, Pulmicort q 12 -Inhaled Flolan if needed -Broad-spectrum antibiotics with Azactam and Flagyl -CT pulmonary angiogram is pending -On Chronic Eliquis, will continue GI / Nutrition GERD Morbid obesity -N.p.o., IV famotidine -Start bowel regimen and tube feeds in 24 hours Renal / Metabolic Acute kidney injury -Leone catheter for accurate intake output -IV fluid resuscitation as above Endocrine -Sliding scale insulin if needed Heme Hx of DVT / PE -more than a year ago; s/p prior IVC filter and on Eliquis at home Hx of childhood osteosarcoma s/p chemoradiation therapy Microcytic anemia -CT PE protocol pending at this time -On home Eliquis, continue if CT head negative for bleed -Monitor cbc, coags ID Septic shock Probable pneumonia -Send sputum culture, urine culture, blood culture. Check influenza swab -Broad-spectrum antibiotics with Azactam and Flagyl and Levaquin. Received 1 dose of IV vancomycin in the ED Prophylaxis: GI - IV Famotidine q 12 DVT - SCD on right lower extremity; Resume eliquis IV Access: -RIJ central line placed in ED CCT 85 MIN excluding procedures. Code Status Full Discussed Condition With Dr. Padilla Problem Qualifiers (1) Pneumonia: (2) COPD (chronic obstructive pulmonary disease): Maci Tate MD Feb 14, 2018 14:43
[2018-02-14] MEDS: RESP: ALBUTEROL 2.5 MG/IPRATROPIUM 0.5 MG NEB (SCH) NEB ×2 (16:00→20:34)
[2018-02-14] MEDS: AZTREONAM INJ 2,000 MG in SODIUM CHLORIDE 0.9% INJ 100 ML IV SCH (17:24)
[2018-02-14] MEDS: LEVOFLOXACIN 750 MG PREMIX INJ 150 ML IV SCH (17:24)
[2018-02-14] MEDS: SODIUM CHLOR 0.9% 1000 ML INJ 1,000 ML IV SCH ×2 (17:24→23:34)
[2018-02-14] MEDS: ENOXAPARIN SODIUM 40 MG/0.4 ML SYRINGE SQ SCH (17:25)
[2018-02-14] MEDS: PROPOFOL 1000 MG/100 ML INJ 100 ML IV PRN ×2 (19:35→22:27)
[2018-02-14] MEDS ORDERED: IOHEXOL 350 MG/ML 10 ML VIAL (for RAD DIAG) IVCONTRAST ONE (20:08)
--- NOTE | 2018-02-14 20:20 | RADRPT ---
EXAM DATE/TIME: 02/14/2018 20:07 [facility] COMPARISON: CT PULMONARY ANGIOGRAM, October 28, 2017, 10:52. INDICATIONS : Evaluate for pulmonary embolism. IV CONTRAST: 74 cc Omnipaque 350 (iohexol) IV RADIATION DOSE: 29.09 CTDIvol (mGy) ; Patient body habitus MEDICAL HISTORY : Deep venous thrombosis. Chronic obstructive pulmonary disease. Diabetes mellitus type 2.Hypertension. Osteogenic sarcoma. SURGICAL HISTORY : Appendectomy. ENCOUNTER: Initial ACUITY: 1 day PAIN SCALE: Non-responsive LOCATION: chest TECHNIQUE: Volumetric scanning of the chest was performed using a pulmonary embolism protocol MIP images were re constructed. Using automated exposure control and adjustment of the mA and/or kV according to patien t size, radiation dose was kept as low as reasonably achievable to obtain optimal diagnostic quality images. DICOM format image data is available electronically for review and comparison. Follow-up recommendations for detected pulmonary nodules are based at a minimum on nodule size and pa tient risk factors according to Fleischner Society Guidelines. FINDINGS: PULMONARY ARTERIES: No filling defects are seen in the pulmonary arteries through the segmental level. LUNGS: There is bibasilar consolidation. No pneumothorax . No concerning pulmonary nodule is visualized. PLEURAE: There is no pleural thickening or pleural effusion. MEDIASTINUM: There is good visualization of the great vessels of the middle mediastinum. Small bilateral hilar livan nopathy. Cardiomegaly. MUSCULOSKELETAL: Within normal limits for patient age. MISCELLANEOUS: The visualized upper abdominal organs demonstrate no acute abnormality. CONCLUSION: 1. No evidence for pulmonary embolism. 2. Bibasilar consolidation. 3. Cardiomegaly. Tye Steinberg MD on February 14, 2018 at 20:16 Board Certified Radiologist. This report was verified electronically.
[2018-02-14] MEDS: RESP: BUDESONIDE 0.5 MG/2 ML NEB NEB SCH (20:34)
[2018-02-14] MEDS: CHLORHEXIDINE 0.12% (ORAL KIT) 15 ML CUP MT SCH (22:08)
[2018-02-14] MEDS: methylPREDNISolone SOD SUCC 125 MG/2 ML VIAL IV PUSH SCH (22:09)
[2018-02-14] MEDS: FAMOTIDINE 20 MG/2 ML VIAL IV PUSH SCH (22:09)
[2018-02-14] MEDS: SODIUM CHLORIDE 0.9% FLUSH 10 ML FLUSH IV FLUSH SCH (22:09)
[2018-02-14] MEDS: metroNIDAZOLE 500 MG INJ 100 ML IV SCH (22:09)
[2018-02-14] MEDS: APIXABAN 2.5 MG TABLET PO SCH (22:10)
[2018-02-15] VITALS (22 sets, daily range): BP systolic 109–133; BP diastolic 68–86; PULSE 91–120; RESP 16–34; TEMP 97.8–98.7; O2SAT 92–99
[2018-02-15] MEDS: PROPOFOL 1000 MG/100 ML INJ 100 ML IV PRN ×8 (00:03→20:49)
[2018-02-15] MEDS: AZTREONAM INJ 2,000 MG in SODIUM CHLORIDE 0.9% INJ 100 ML IV SCH ×4 (00:04→23:25)
[2018-02-15] MEDS: CHLORHEXIDINE GLUCONATE 2 % 1 PACK (2 CLOTHS) TOP SCH (03:46)
[2018-02-15] MEDS: RESP: ALBUTEROL 2.5 MG/IPRATROPIUM 0.5 MG NEB (SCH) NEB ×4 (04:21→20:52)
[2018-02-15] MEDS: metroNIDAZOLE 500 MG INJ 100 ML IV SCH ×3 (04:50→20:48)
[2018-02-15] MEDS: methylPREDNISolone SOD SUCC 125 MG/2 ML VIAL IV PUSH SCH ×3 (04:51→20:48)
[2018-02-15] MEDS: CHLORHEXIDINE 0.12% (ORAL KIT) 15 ML CUP MT SCH ×2 (08:00→20:48)
[2018-02-15] MEDS: FAMOTIDINE 20 MG/2 ML VIAL IV PUSH SCH (08:12)
[2018-02-15] MEDS: SODIUM CHLOR 0.9% 1000 ML INJ 1,000 ML IV SCH ×2 (08:12→23:25)
[2018-02-15] MEDS: APIXABAN 2.5 MG TABLET PO SCH ×2 (08:12→20:47)
[2018-02-15] MEDS: SODIUM CHLORIDE 0.9% FLUSH 10 ML FLUSH IV FLUSH PRN ×2 (08:12→14:24)
[2018-02-15] MEDS: SODIUM CHLORIDE 0.9% FLUSH 10 ML FLUSH IV FLUSH SCH ×2 (08:12→20:48)
[2018-02-15 08:21] LABS: AUTOMATED NEUTROPHIL # 6.8 TH/MM3 (1.8-7.7); BASOPHIL % 0.1 % (0.0-2.0); HEMATOCRIT 32.4 % (39.0-51.0); HEMOGLOBIN 9.7 GM/DL (13.0-17.0); LYMPH % 4.7 % (9.0-44.0); LYMPHOCYTE # 0.4 TH/MM3 (1.0-4.8); MEAN CELL VOLUME 65.7 FL (80.0-100.0); MEAN CORPUSCULAR HEMOGLOBIN 19.6 PG (27.0-34.0); MEAN PLATELET VOLUME 8.6 FL (7.0-11.0); MONO % 4.1 % (0.0-8.0); MONOCYTE # 0.3 TH/MM3 (0-0.9); NEUT % 91.1 % (16.0-70.0); PLATELET COUNT 262 TH/MM3 (150-450); RED BLOOD COUNT 4.93 MIL/MM3 (4.50-5.90); RED CELL DISTRIBUTION WIDTH 22.3 % (11.6-17.2); WHITE BLOOD COUNT 7.5 TH/MM3 (4.0-11.0)
[2018-02-15 08:26] LABS: MEAN CORPUSCULAR HGB CONC 29.9 % (32.0-36.0)
--- NOTE | 2018-02-15 08:26 | HHI.CCPN ---
Subjective Remarks/Hospital Course Patient is a 47-year-old morbidly obese male with past medical history significant for obesity, obstructive sleep apnea clinically, history of DVT, chronic Eliquis use who was brought in by EMS for altered mental status and severe hypoxemia. Apparently per EMS end-tidal CO2 was in the 60s his initial sat was in the 30s, but with bagging came up to the 70s. Initial GCS apparently was 7 but improved with continued bag and mask ventilation in the ED. Sats remained in the low 80s. Patient initially refused intubation and was placed on BiPAP. Received duo nebs and Solu-Medrol and antibiotics (Azactam, Flagyl, vancomycin). Patient continued to be tachypneic and severely hypoxemic, and patient was intubated by the ER physician. Apparently difficult airway and was intubated on the third attempt. Patient was desaturating to low 80s even after intubation and I was called to the ED for assisting. I immediately evaluated the patient he continues to be in severe bronchospasm, severely hypoxemic. Additional breathing treatments ordered. I changed the vent settings to PCAC to target tidal volume 600-650 and reduce the rate to 14. PEEP increased to 10. Gradually oxygen saturation improved to 90. I placed a right IJ central line as the patient was borderline hypotensive. Chest x-ray showed apparently pulmonary vascular congestion. No definite infiltrate. Lactic acid 6. Appears patient has acute COPD exacerbation and severe sepsis, pulmonary embolism needs to be ruled out. IV Solu-Medrol DuoNeb breathing treatments will be continued. Patient takes Eliquis for PE in the past. Further workup and management based on results 02/15: Remains intubated heavily sedated. PEEP remains at 12 FiO2 has been weaned to 55%. CT PE protocol negative for pulmonary embolism, showed bibasilar significant consolidation indicative of pneumonia. Sputum Gram stain shows GPC. Add vancomycin. Objective Vital Signs Date Time Temp Pulse Resp B/P (MAP) Pulse Ox O2 Delivery O2 Flow Rate FiO2 02/15/18 08:00 45 02/15/18 06:00 96 02/15/18 04:23 99 02/15/18 04:00 97.8 16 133/86 (102) 02/14/18 10:15 BiPAP Intake and Output 02/15/18 02/15/18 02/16/18 08:00 16:00 00:00 Intake Total 1109.2 ml Output Total 800 ml Balance 309.2 ml Result Diagram: 02/14/18 1339 02/14/18 1030 Other Results Microbiology Date/Time Source Procedure Growth Status 02/14/18 17:04 Nasal Aspirate Influenza Types A,B Antigen (BRIANA) - Final NEGATIVE FOR FLU A AND B ANTIGEN.... Complete Laboratory Tests Test 02/14/18 12:50 Blood Gas Puncture Site LT RADIAL Blood Gas Patient Temperature 98.6 Blood Gas HCO3 29 mmol/L (22-26) Blood Gas Base Excess 6.0 mmol/L (-2-2) Blood Gas Oxygen Saturation 87 % (90-100) Arterial Blood pH 7.51 (7.380-7.420) Arterial Blood Partial Pressure CO2 37 mmHg (38-42) Arterial Blood Partial Pressure O2 54 mmHG (61-120) Arterial Blood Oxygen Content 11.9 Vol % (12.0-20.0) Arterial Blood Carboxyhemoglobin 4.0 % (0-4) Arterial Blood Methemoglobin 0.1 % (0-2) Blood Gas Hemoglobin 9.7 G/DL (12.0-16.0) Oxygen Delivery Device VENTILATOR Blood Gas Ventilator Setting PCAC14/IP36/IT1/10PE Blood Gas Inspired Oxygen 100 % Imaging Chest x-ray shows pulmonary vascular congestion Objective Remarks GENERAL: morbidly obese 47-year-old male lying in bed recently intubated currently under neuromuscular blockade, persistently hypoxemic SKIN: Warm and dry. HEENT: Atraumatic. Normocephalic. PERRL. Orotracheally intubated NECK: Trachea midline. obese. jvd difficult to assess. CARDIOVASCULAR: Regular rhythm. no murmurs. Heart sounds are distant RESPIRATORY: Coarse breath sounds bilaterally with bilateral wheezes, no rales. PEEP at 12 GASTROINTESTINAL: Abdomen soft, nondistended. MUSCULOSKELETAL: Palpable pulses with warm right periphery. Left AKA. NEUROLOGICAL: Intubated sedated. On lightening sedation moving extremities. Not following commands on propofol A/P Assessment and Plan A/P Assessment and Plan Neuro / Psych Metabolic encephalopathy Hx depression Hx of CVA 3 -CT of the head negative for acute findings, encephalopathy most likely metabolic -Propofol and fentanyl for sedation and ventilator synchrony. Start daily sedation location Cardiovascular Hypotension Lactic acidosis Hx of hypertension and dyslipidemia -Septic shock. Status post fluid resuscitation given 3 L normal saline boluses , maintenance IV fluid at 125 mL/h-reduce to 50 mL/h -LVEF 55-60%.Mild concentric left ventricular hypertrophy. On echo done on 2016 -Hold all home antihypertensives and statins -Trend lactic acid Respiratory Acute hypoxic respiratory failure Bilateral pneumonia Acute COPD exacerbation Hx of DVT / PE -Emergently intubated and placed on mechanical ventilation in the ED, Apparently difficult airway -IV Solu-Medrol 60 mg every 8 hours -Continue DuoNeb q 4, Pulmicort q 12 -CT PE protocol showed no pulmonary embolism, but positive for bibasilar consolidation -Broad-spectrum antibiotics with Azactam, Flagyl and Levaquin, add vancomycin -On Chronic Eliquis, will continue GI / Nutrition GERD Morbid obesity -N.p.o., IV famotidine -Start bowel regimen and tube feeds with Jevity Renal / Metabolic Acute kidney injury-resolved -Leone catheter for accurate intake output -IV fluid resuscitation as above Endocrine -Sliding scale insulin if needed Heme Hx of DVT / PE -more than a year ago; s/p prior IVC filter and on Eliquis at home Hx of childhood osteosarcoma s/p chemoradiation therapy Microcytic anemia -CT PE protocol negative for PE -On home Eliquis, continue if CT head negative for bleed -Monitor cbc, coags ID Septic shock Bibasilar pneumonia -F/u sputum culture, urine culture, blood culture. Check influenza swab -Broad-spectrum antibiotics with Azactam, Vanc, Flagyl and Levaquin. Received 1 dose of IV vancomycin in the ED Prophylaxis: GI - IV Famotidine q 12 DVT - SCD on right lower extremity; Eliquis IV Access: -RIJ central line placed in ED, got dislodged in ED CCT 38 MIN excluding procedures. Maci Tate MD Feb 15, 2018 08:26
[2018-02-15 08:50] LABS: ALBUMIN 2.6 GM/DL (3.4-5.0); ALKALINE PHOSPHATASE 82 U/L (45-117); ALT (GPT) 17 U/L (12-78); AST (GOT) 19 U/L (15-37); BICARBONATE 27.8 MEQ/L (21.0-32.0); BLOOD UREA NITROGEN 14 MG/DL (7-18); CALCIUM 8.4 MG/DL (8.5-10.1); CHLORIDE 98 MEQ/L (98-107); GLOMERULAR FILTRATION RATE 104 ML/MIN (>89); GLUCOSE,RANDOM 162 MG/DL (74-106); SODIUM (NA) 135 MEQ/L (136-145); TOTAL BILIRUBIN ADULT 0.6 MG/DL (0.2-1.0); TOTAL PROTEIN 6.5 GM/DL (6.4-8.2)
[2018-02-15 09:09] LABS: BANDS 3 % (0-6); CORRECTED NUCLEATED RBC 3 /100 WBC (0-0); LYMPHOCYTES 5 % (9-44); MONOCYTES 2 % (0-8); NUCLEATED RED BLOOD CELL 3 (0-0); POLYS (SEG NEUTROPHILS) 90 % (16-70)
[2018-02-15 09:10] LABS: OVALOCYTES 1+ (NORMAL)
[2018-02-15] MEDS: RESP: BUDESONIDE 0.5 MG/2 ML NEB NEB SCH ×2 (09:43→20:51)
[2018-02-15] MEDS ORDERED: Vancomycin Consult Pharmacy 1 EA OTHER SCH (09:45)
[2018-02-15] MEDS ORDERED: VANCOMYCIN INJ 1,000 MG in SODIUM CHLOR 0.9% 250 ML INJ 250 ML IV ONE (09:45)
--- NOTE | 2018-02-15 11:07 | RADRPT ---
EXAM DATE/TIME: 02/15/2018 11:20 [facility] COMPARISON: CHEST SINGLE AP, February 14, 2018, 12:05. INDICATIONS : Respiratory Disease. MEDICAL HISTORY : Chronic obstructive pulmonary disease. Diabetes mellitus type 2. Deep venous thrombosis.Hypertension. Osteogenic sarcoma SURGICAL HISTORY : Appendectomy. ENCOUNTER: Subsequent ACUITY: 2 days PAIN SCORE: 0/10 LOCATION: Bilateral chest FINDINGS: Endotracheal tube and nasogastric tube are present in good position. There is mild hazy bibasilar ple ural-parenchymal opacity which is grossly unchanged. Cardiac contours are grossly stable. CONCLUSION: No significant change Bebeto Leonard MD on February 15, 2018 at 11:00 Board Certified Radiologist. This report was verified electronically.
[2018-02-15] MEDS: fentaNYL 2,500 MCG/NS 250 ML IV PRN ×2 (11:30→20:50)
[2018-02-15] MEDS ORDERED: VANCOMYCIN 1,000 MG/NS 250 ML IV ONE ×2 (12:30)
[2018-02-15] MEDS: LEVOFLOXACIN 750 MG PREMIX INJ 150 ML IV SCH (15:30)
[2018-02-15] MEDS: ENOXAPARIN SODIUM 40 MG/0.4 ML SYRINGE SQ SCH (15:30)
--- NOTE | 2018-02-15 17:48 | ECHRPT ---
Indication: Shortness of Breath CONCLUSIONS The left ventricular systolic function is moderately reduced with an estimated ejection fraction in the range of 35-40%. Mild concentric left ventricular hypertrophy. Mildly dilated left ventricle. The left atrial size is moderately dilated. Trace mitral valve regurgitation. There is mild tricuspid valve regurgitation. The estimated pulmonary arterial pressure is 33 mmHg. Mild pulmonary valve regurgitation. BP: / HR: Rhythm: Sinus MEASUREMENTS (Male / Female) Normal Values Technical Quality:Technically difficult study 2D ECHO LV Diastolic Diameter PLAX 6.2 cm 4.2 - 5.9 / 3.9 - 5.3 cm LV Systolic Diameter PLAX 5.0 cm IVS Diastolic Thickness 1.1 cm 0.6 - 1.0 / 0.6 - 0.9 cm LVPW Diastolic Thickness 1.2 cm 0.6 - 1.0 / 0.6 - 0.9 cm LV Relative Wall Thickness 0.4 RV Internal Dim ED PLAX 4.1 cm LVOT Diameter 2.6 cm LA Systolic Diameter LX 4.9 cm 3.0 - 4.0 / 2.7 - 3.8 cm M-MODE Aortic Root Diameter MM 3.6 cm LA Systolic Diameter MM 4.7 cm LA Ao Ratio MM 1.3 AV Cusp Separation MM 2.4 cm DOPPLER AV Peak Velocity 116.0 cm/s AV Peak Gradient 5.4 mmHg LVOT Peak Velocity 77.5 cm/s LVOT Peak Gradient 2.4 mmHg AV Area Cont Eq pk 3.5 cm MV Area PHT 3.8 cm Mitral E Point Velocity 86.9 cm/s Mitral A Point Velocity 48.4 cm/s Mitral E to A Ratio 1.8 LV E' Lateral Velocity 7.7 cm/s Mitral E to LV E' Lateral Ratio 11.3 LV E' Septal Velocity 7.1 cm/s Mitral E to LV E' Septal Ratio 12.2 TR Peak Velocity 242.0 cm/s TR Peak Gradient 23.4 mmHg Right Atrial Pressure 10.0 mmHg Pulmonary Artery Systolic Pressu 33.4 mmHg Right Ventricular Systolic Press 33.4 mmHg FINDINGS LEFT VENTRICLE The left ventricular systolic function is moderately reduced with an estimated ejection fraction in the range of 35-40%. Mild concentric left ventricular hypertrophy. Mildly dilated left ventricle. RIGHT VENTRICLE Normal right ventricular size and systolic function. LEFT ATRIUM The left atrial size is moderately dilated. RIGHT ATRIUM The right atrial size is normal. ATRIAL SEPTUM Normal atrial septal thickness without atrial level shunting by limited color doppler interrogation. AORTA The aortic root and proximal ascending aorta are normal in size on limited imaging. MITRAL VALVE Structurally normal mitral valve. Trace mitral valve regurgitation. AORTIC VALVE Trileaflet aortic valve. No aortic valve stenosis or regurgitation. TRICUSPID VALVE Structurally normal tricuspid valve. There is mild tricuspid valve regurgitation. The estimated pulmonary arterial pressure is 33.4 mmHg. PULMONARY VALVE Mild pulmonary valve regurgitation. VESSELS The inferior vena cava is normal in size. PERICARDIUM No pericardial effusion. Cheyenne Jackson MD, FACC (Electronically Signed) Final Date:15 February 2018 17:47
[2018-02-15] MEDS ORDERED: MIDAZOLAM HCL 2 MG/2 ML VIAL IV PUSH ONE (18:00)
[2018-02-15] MEDS: MIDAZOLAM 100 MG/100 ML INJ 100 ML IV PRN (18:09)
[2018-02-15] MEDS: FAMOTIDINE 20 MG TAB PO SCH (20:47)
--- NOTE | 2018-02-15 23:18 | EKG ---
Date Performed: 02/14/2018 Time Performed: 10:13:58 PTAGE: 47 years EKG: SINUS TACHYCARDIA WITH OCCASIONAL VENTRICULAR PREMATURE COMPLEXES NONSPECIFIC T-WAVE ABNORM ALITY ABNORMAL RHYTHM ECG Since the PREVIOUS TRACING , no significant change noted DOCTOR: Cheyenne Jackson Interpretating Date/Time 02/15/2018 23:17:41
[2018-02-16] VITALS (20 sets, daily range): BP systolic 104–112; BP diastolic 62–76; PULSE 104–122; RESP 16; TEMP 97.9–99.5; O2SAT 91–96
[2018-02-16] MEDS: PROPOFOL 1000 MG/100 ML INJ 100 ML IV PRN ×9 (00:26→23:35)
[2018-02-16] MEDS: RESP: ALBUTEROL 2.5 MG/IPRATROPIUM 0.5 MG NEB (SCH) NEB ×4 (02:57→20:47)
[2018-02-16] MEDS: CHLORHEXIDINE GLUCONATE 2 % 1 PACK (2 CLOTHS) TOP SCH (03:43)
[2018-02-16] MEDS: methylPREDNISolone SOD SUCC 125 MG/2 ML VIAL IV PUSH SCH ×3 (04:51→20:00)
[2018-02-16] MEDS: metroNIDAZOLE 500 MG INJ 100 ML IV SCH (04:51)
[2018-02-16 07:16] LABS: CREATININE 0.95 MG/DL (0.60-1.30)
[2018-02-16 07:18] LABS: RANDOM VANCOMYCIN 5.7 COMMENT
[2018-02-16] MEDS: RESP: BUDESONIDE 0.5 MG/2 ML NEB NEB SCH ×2 (07:24→20:00)
--- NOTE | 2018-02-16 07:56 | RADRPT ---
EXAM DATE/TIME: 02/16/2018 07:31 [facility] COMPARISON: CHEST SINGLE AP, February 15, 2018, 11:20. INDICATIONS : Short of breath MEDICAL HISTORY : Chronic obstructive pulmonary disease. Diabetes mellitus type II. Hypertension. osteogenic sarcom a, DVT SURGICAL HISTORY : Appendectomy. ENCOUNTER: Subsequent ACUITY: 3 days PAIN SCORE: 10/10 LOCATION: Bilateral chest FINDINGS: A single view of the chest demonstrates cardiomegaly with pulmonary vascular congestion and bibasilar densities. Endotracheal tube and nasogastric tube unchanged. Osseous structures are intact. CONCLUSION: Cardiomegaly with pulmonary vascular congestion and bibasilar densities, slightly more prominent. Tye Steinberg MD on February 16, 2018 at 7:53 Board Certified Radiologist. This report was verified electronically.
[2018-02-16] MEDS: CHLORHEXIDINE 0.12% (ORAL KIT) 15 ML CUP MT SCH ×2 (08:00→20:00)
[2018-02-16] MEDS ORDERED: DEXMEDETOMIDINE 200 MCG in NS 48 ML IV PRN (08:00)
[2018-02-16] MEDS: SODIUM CHLORIDE 0.9% FLUSH 10 ML FLUSH IV FLUSH SCH ×2 (08:00→20:00)
[2018-02-16] MEDS: FAMOTIDINE 20 MG TAB PO SCH ×2 (08:16→20:00)
[2018-02-16] MEDS: APIXABAN 2.5 MG TABLET PO SCH ×2 (08:16→20:01)
[2018-02-16] MEDS: AZTREONAM INJ 2,000 MG in SODIUM CHLORIDE 0.9% INJ 100 ML IV SCH ×3 (08:18→21:59)
[2018-02-16 08:20] LABS: AUTOMATED NEUTROPHIL # 11.5 TH/MM3 (1.8-7.7); BASOPHIL # 0.1 TH/MM3 (0-0.2); BASOPHIL % 0.5 % (0.0-2.0); HEMATOCRIT 33.9 % (39.0-51.0); HEMOGLOBIN 9.7 GM/DL (13.0-17.0); LYMPH % 1.8 % (9.0-44.0); LYMPHOCYTE # 0.2 TH/MM3 (1.0-4.8); MEAN CELL VOLUME 67.6 FL (80.0-100.0); MEAN CORPUSCULAR HEMOGLOBIN 19.4 PG (27.0-34.0); MEAN PLATELET VOLUME 8.6 FL (7.0-11.0); MONO % 3.5 % (0.0-8.0); MONOCYTE # 0.4 TH/MM3 (0-0.9); NEUT % 94.2 % (16.0-70.0); PLATELET COUNT 325 TH/MM3 (150-450); RED BLOOD COUNT 5.01 MIL/MM3 (4.50-5.90); RED CELL DISTRIBUTION WIDTH 22.7 % (11.6-17.2); WHITE BLOOD COUNT 12.2 TH/MM3 (4.0-11.0)
[2018-02-16] MEDS: fentaNYL 2,500 MCG/NS 250 ML IV PRN ×2 (08:20→19:59)
[2018-02-16 08:26] LABS: MEAN CORPUSCULAR HGB CONC 28.7 % (32.0-36.0)
[2018-02-16 08:37] LABS: BICARBONATE 29.3 MEQ/L (21.0-32.0); CALCIUM 8.4 MG/DL (8.5-10.1); CREATININE 1.1 MG/DL (0.60-1.30)
[2018-02-16] MEDS: RESP: ALBUTEROL 2.5 MG/IPRATROPIUM 0.5 MG NEB (PRN) INH (08:45)
[2018-02-16] MEDS ORDERED: FUROSEMIDE 20 MG/2 ML VIAL IV PUSH ONE (09:15)
[2018-02-16] MEDS ORDERED: POTASSIUM CHLORIDE 25 MEQ EFFERVESCENT TAB PO ONE (09:15)
[2018-02-16] MEDS ORDERED: FUROSEMIDE 40 MG/4 ML VIAL ONE (09:18)
--- NOTE | 2018-02-16 09:25 | HHI.CCPN ---
Subjective Remarks/Hospital Course Patient is a 47-year-old morbidly obese male with past medical history significant for obesity, obstructive sleep apnea clinically, history of DVT, chronic Eliquis use who was brought in by EMS for altered mental status and severe hypoxemia. Apparently per EMS end-tidal CO2 was in the 60s his initial sat was in the 30s, but with bagging came up to the 70s. Initial GCS apparently was 7 but improved with continued bag and mask ventilation in the ED. Sats remained in the low 80s. Patient initially refused intubation and was placed on BiPAP. Received duo nebs and Solu-Medrol and antibiotics (Azactam, Flagyl, vancomycin). Patient continued to be tachypneic and severely hypoxemic, and patient was intubated by the ER physician. Apparently difficult airway and was intubated on the third attempt. Patient was desaturating to low 80s even after intubation and I was called to the ED for assisting. I immediately evaluated the patient he continues to be in severe bronchospasm, severely hypoxemic. Additional breathing treatments ordered. I changed the vent settings to PCAC to target tidal volume 600-650 and reduce the rate to 14. PEEP increased to 10. Gradually oxygen saturation improved to 90. I placed a right IJ central line as the patient was borderline hypotensive. Chest x-ray showed apparently pulmonary vascular congestion. No definite infiltrate. Lactic acid 6. Appears patient has acute COPD exacerbation and severe sepsis, pulmonary embolism needs to be ruled out. IV Solu-Medrol DuoNeb breathing treatments will be continued. Patient takes Eliquis for PE in the past. Further workup and management based on results 02/15: Remains intubated heavily sedated. PEEP remains at 12 FiO2 has been weaned to 55%. CT PE protocol negative for pulmonary embolism, showed bibasilar significant consolidation indicative of pneumonia. Sputum Gram stain shows GPC. Add vancomycin. 02/16: Patient remains intubated remains critical. Remains hypoxemic on high vent support. On attempt to reduce PEEP, he desaturated and currently on 10 of PEEP. FiO2 50%. Sputum culture with MSSA and strep pneumo. Will discontinue Levaquin and Flagyl continue exact amount of vancomycin Objective Vital Signs Date Time Temp Pulse Resp B/P (MAP) Pulse Ox O2 Delivery O2 Flow Rate FiO2 02/16/18 08:46 93 Ventilator 50 02/16/18 06:00 120 02/16/18 04:00 97.9 16 104/67 (79) Intake and Output 02/16/18 02/16/18 02/17/18 08:00 16:00 00:00 Intake Total 668 ml 798 ml Output Total 350 ml Balance 318 ml 798 ml Result Diagram: 02/16/18 0809 02/16/18 0809 Other Results Microbiology Date/Time Source Procedure Growth Status 02/14/18 17:04 Nasal Aspirate Influenza Types A,B Antigen (BRIANA) - Final NEGATIVE FOR FLU A AND B ANTIGEN.... Complete Imaging Chest x-ray shows pulmonary vascular congestion Objective Remarks GENERAL: morbidly obese 47-year-old male lying in bed intubated sedated with propofol fentanyl and Versed SKIN: Warm and dry. HEENT: Atraumatic. Normocephalic. PERRL. Orotracheally intubated NECK: Trachea midline. obese. jvd difficult to assess. CARDIOVASCULAR: Regular rhythm. no murmurs. Heart sounds are distant RESPIRATORY: Coarse breath sounds bilaterally with bilateral wheezes, no rales. PEEP at 10 GASTROINTESTINAL: Abdomen soft, nondistended. MUSCULOSKELETAL: Palpable pulses RLE. Left AKA. NEUROLOGICAL: Intubated sedated. On lightening sedation moving extremities. Follows commands on sedation hold, nonfocal exam A/P Assessment and Plan A/P Assessment and Plan Neuro / Psych Metabolic encephalopathy Hx depression Hx of CVA 3 -CT of the head negative for acute findings, encephalopathy most likely metabolic -Propofol and fentanyl for sedation and ventilator synchrony. Daily sedation location Cardiovascular Hypotension Lactic acidosis Hx of hypertension and dyslipidemia -Septic shock resolved. Status post fluid resuscitation given 3 L normal saline boluses, -DC maintenance IV fluid. IV Lasix 20 mg x1 -LVEF 55-60%.Mild concentric left ventricular hypertrophy. On echo done on 2016 -Holding all home antihypertensives and statins -Trend lactic acid Respiratory Acute hypoxic respiratory failure Bilateral pneumonia (MSSA, strep pneumo) Acute COPD exacerbation Hx of DVT / PE -Emergently intubated and placed on mechanical ventilation in the ED, Apparently difficult airway per -IV Solu-Medrol 60 mg every 8 hours, Continue DuoNeb, Pulmicort q 12 -CT PE protocol showed no pulmonary embolism, but positive for bibasilar consolidation -Broad-spectrum antibiotics with Azactam, vancomycin. DC Flagyl and Levaquin -On Chronic Eliquis, will continue GI / Nutrition GERD Morbid obesity -Tube feeds tolerated., IV famotidine -No BM, add lactulose Renal / Metabolic Acute kidney injury-resolved -Leoen catheter for accurate intake output -DC IV fluid resuscitation. Give Lasix 20 mg IV 1 Endocrine -Sliding scale insulin if needed Heme Hx of DVT / PE -more than a year ago; s/p prior IVC filter and on Eliquis at home Hx of childhood osteosarcoma s/p chemoradiation therapy Microcytic anemia -CT PE protocol negative for PE -On home Eliquis, continue -Monitor cbc, coags ID Septic shock-resolved Bibasilar pneumonia -F/u sputum culture MSSA, Streptococcus pneumonia. Influenza negative -Broad-spectrum antibiotics with Azactam, Vanc, discontinue Flagyl and Levaquin 02/16. Prophylaxis: GI - IV Famotidine q 12 DVT - SCD on right lower extremity; Eliquis IV Access: -RIJ central line placed in ED, got dislodged in ED CCT 35 MIN excluding procedures. Maci Tate MD Feb 16, 2018 09:25
[2018-02-16] MEDS: VANCOMYCIN INJ 1,750 MG in SODIUM CHLORID 0.9% 500 ML INJ 500 ML IV SCH (12:02)
[2018-02-16] MEDS: LACTULOSE SYRUP 20 GM/30 ML CUP PO SCH ×3 (12:06→20:02)
[2018-02-16] MEDS: ENOXAPARIN SODIUM 40 MG/0.4 ML SYRINGE SQ SCH (15:49)
[2018-02-17] VITALS (32 sets, daily range): BP systolic 92–121; BP diastolic 56–71; PULSE 86–153; RESP 15–44; TEMP 98.3–99.2; O2SAT 92–97
[2018-02-17] MEDS: PROPOFOL 1000 MG/100 ML INJ 100 ML IV PRN ×7 (02:59→21:17)
[2018-02-17] MEDS: CHLORHEXIDINE GLUCONATE 2 % 1 PACK (2 CLOTHS) TOP SCH (02:59)
[2018-02-17] MEDS: RESP: ALBUTEROL 2.5 MG/IPRATROPIUM 0.5 MG NEB (SCH) NEB ×4 (03:23→19:38)
[2018-02-17] MEDS: methylPREDNISolone SOD SUCC 125 MG/2 ML VIAL IV PUSH SCH (04:30)
[2018-02-17] MEDS: fentaNYL 2,500 MCG/NS 250 ML IV PRN ×2 (04:30→16:20)
--- NOTE | 2018-02-17 05:08 | RADRPT ---
EXAM DATE/TIME: 02/17/2018 03:51 [facility] COMPARISON: CHEST SINGLE AP, February 16, 2018, 7:31. INDICATIONS : Shortness of breath. MEDICAL HISTORY : Chronic obstructive pulmonary disease. Diabetes mellitus type II. Hypertension. osteogenic sarcoma, D VT. SURGICAL HISTORY : Appendectomy. ENCOUNTER: Subsequent ACUITY: 4 - 6 days PAIN SCORE: Non-responsive. LOCATION: chest FINDINGS: A single portable frontal view of the chest is limited by the patient's body habitus. Significant car diomegaly with pulmonary vascular engorgement. Small bilateral pleural effusions and bibasilar infilt rates show no significant change. Tip of endotracheal tube 4 cm from the shiela. Nasogastric tube coi led in the body of the stomach. CONCLUSION: Unchanged pulmonary edema. Shane Merrill Jr., MD on February 17, 2018 at 5:06 Board Certified Radiologist. This report was verified electronically.
[2018-02-17 05:19] LABS: BASOPHIL % 0.4 % (0.0-2.0); HEMATOCRIT 33.6 % (39.0-51.0); HEMOGLOBIN 9.6 GM/DL (13.0-17.0); LYMPH % 2.3 % (9.0-44.0); LYMPHOCYTE # 0.2 TH/MM3 (1.0-4.8); MEAN CELL VOLUME 67.4 FL (80.0-100.0); MEAN CORPUSCULAR HEMOGLOBIN 19.3 PG (27.0-34.0); MEAN PLATELET VOLUME 8.6 FL (7.0-11.0); MONO % 4.3 % (0.0-8.0); MONOCYTE # 0.5 TH/MM3 (0-0.9); PLATELET COUNT 300 TH/MM3 (150-450); RED BLOOD COUNT 4.98 MIL/MM3 (4.50-5.90); RED CELL DISTRIBUTION WIDTH 22.4 % (11.6-17.2); WHITE BLOOD COUNT 10.7 TH/MM3 (4.0-11.0)
[2018-02-17 05:28] LABS: MEAN CORPUSCULAR HGB CONC 28.6 % (32.0-36.0)
[2018-02-17 05:40] LABS: ALBUMIN 2.3 GM/DL (3.4-5.0); AST (GOT) 7 U/L (15-37); BICARBONATE 29.8 MEQ/L (21.0-32.0); BLOOD UREA NITROGEN 31 MG/DL (7-18); CALCIUM 8.1 MG/DL (8.5-10.1); CHLORIDE 106 MEQ/L (98-107); CREATININE 1.07 MG/DL (0.60-1.30); GLOMERULAR FILTRATION RATE 74 ML/MIN (>89); GLUCOSE,RANDOM 202 MG/DL (74-106); SODIUM (NA) 140 MEQ/L (136-145)
[2018-02-17 05:41] LABS: ALT (GPT) 12 U/L (12-78)
[2018-02-17] MEDS: VANCOMYCIN INJ 1,750 MG in SODIUM CHLORID 0.9% 500 ML INJ 500 ML IV SCH (05:42)
[2018-02-17] MEDS: MIDAZOLAM 100 MG/100 ML INJ 100 ML IV PRN (05:43)
[2018-02-17 05:45] LABS: ALKALINE PHOSPHATASE 59 U/L (45-117); TOTAL BILIRUBIN ADULT 0.3 MG/DL (0.2-1.0)
[2018-02-17] MEDS: LACTULOSE SYRUP 20 GM/30 ML CUP PO SCH ×4 (07:12→21:00)
[2018-02-17] MEDS: AZTREONAM INJ 2,000 MG in SODIUM CHLORIDE 0.9% INJ 100 ML IV SCH ×2 (07:31→14:59)
[2018-02-17] MEDS: SODIUM CHLORIDE 0.9% FLUSH 10 ML FLUSH IV FLUSH SCH ×2 (07:31→21:15)
[2018-02-17] MEDS: CHLORHEXIDINE 0.12% (ORAL KIT) 15 ML CUP MT SCH ×2 (07:31→19:55)
[2018-02-17] MEDS: FAMOTIDINE 20 MG TAB PO SCH ×2 (07:32→21:16)
[2018-02-17] MEDS: APIXABAN 2.5 MG TABLET PO SCH ×2 (07:32→21:16)
[2018-02-17] MEDS: RESP: BUDESONIDE 0.5 MG/2 ML NEB NEB SCH ×2 (09:24→19:38)
[2018-02-17] MEDS ORDERED: FUROSEMIDE 40 MG/4 ML VIAL IV PUSH STA (10:10)
--- NOTE | 2018-02-17 10:51 | HHI.CCPN ---
Subjective Remarks/Hospital Course Patient is a 47-year-old morbidly obese male with past medical history significant for obesity, obstructive sleep apnea clinically, history of DVT, chronic Eliquis use who was brought in by EMS for altered mental status and severe hypoxemia. Apparently per EMS end-tidal CO2 was in the 60s his initial sat was in the 30s, but with bagging came up to the 70s. Initial GCS apparently was 7 but improved with continued bag and mask ventilation in the ED. Sats remained in the low 80s. Patient initially refused intubation and was placed on BiPAP. Received duo nebs and Solu-Medrol and antibiotics (Azactam, Flagyl, vancomycin). Patient continued to be tachypneic and severely hypoxemic, and patient was intubated by the ER physician. Apparently difficult airway and was intubated on the third attempt. Patient was desaturating to low 80s even after intubation and I was called to the ED for assisting. I immediately evaluated the patient he continues to be in severe bronchospasm, severely hypoxemic. Additional breathing treatments ordered. I changed the vent settings to PCAC to target tidal volume 600-650 and reduce the rate to 14. PEEP increased to 10. Gradually oxygen saturation improved to 90. I placed a right IJ central line as the patient was borderline hypotensive. Chest x-ray showed apparently pulmonary vascular congestion. No definite infiltrate. Lactic acid 6. Appears patient has acute COPD exacerbation and severe sepsis, pulmonary embolism needs to be ruled out. IV Solu-Medrol DuoNeb breathing treatments will be continued. Patient takes Eliquis for PE in the past. Further workup and management based on results 02/15: Remains intubated heavily sedated. PEEP remains at 12 FiO2 has been weaned to 55%. CT PE protocol negative for pulmonary embolism, showed bibasilar significant consolidation indicative of pneumonia. Sputum Gram stain shows GPC. Add vancomycin. 02/16: Patient remains intubated remains critical. Remains hypoxemic on high vent support. On attempt to reduce PEEP, he desaturated and currently on 10 of PEEP. FiO2 50%. Sputum culture with MSSA and strep pneumo. Will discontinue Levaquin and Flagyl continue Azactam and vancomycin 02/17: Remains critical, CXR still showing pulmonary edema. IV Lasix repeat dose given. Wean PEEP to 8, FiO2 to 45%. Start SBT as tolerated Objective Vital Signs Date Time Temp Pulse Resp B/P (MAP) Pulse Ox O2 Delivery O2 Flow Rate FiO2 02/17/18 10:30 45 02/17/18 10:00 90 02/17/18 09:10 95 02/17/18 09:00 16 102/65 (77) 02/17/18 08:00 98.5 02/16/18 20:49 Ventilator Intake and Output 02/17/18 02/17/18 02/18/18 08:00 16:00 00:00 Intake Total 1068 ml 200 ml Output Total 600 ml Balance 468 ml 200 ml Result Diagram: 02/17/18 0430 02/17/18 0430 Other Results Microbiology Date/Time Source Procedure Growth Status 02/14/18 17:04 Nasal Aspirate Influenza Types A,B Antigen (BRIANA) - Final NEGATIVE FOR FLU A AND B ANTIGEN.... Complete 02/14/18 17:04 Sputum Endotracheal Gram Stain - Final Complete 02/14/18 17:04 Sputum Culture - Final Staphylococcus Aureus Streptococcus Pneumoniae Complete 02/14/18 10:45 Urine Catheterized Urine Urine Culture - Final NO GROWTH IN 48 HOURS. Complete Imaging Chest x-ray shows pulmonary vascular congestion Objective Remarks GENERAL: morbidly obese 47-year-old male lying in bed intubated sedated with propofol fentanyl and Versed SKIN: Warm and dry. HEENT: Atraumatic. Normocephalic. PERRL. Orotracheally intubated NECK: Trachea midline. obese. JVD difficult to assess. CARDIOVASCULAR: Regular rhythm. no murmurs. Heart sounds are distant RESPIRATORY: Coarse breath sounds bilaterally with bilateral wheezes, no rales. PEEP at 10-reduce to 8 GASTROINTESTINAL: Abdomen soft, nondistended. MUSCULOSKELETAL: Palpable pulses RLE. Left AKA. NEUROLOGICAL: Intubated sedated. On lightening sedation moving extremities. Follows commands on sedation hold, nonfocal exam A/P Assessment and Plan A/P Assessment and Plan Neuro / Psych Metabolic encephalopathy Hx depression Hx of CVA 3 -CT of the head negative for acute findings, encephalopathy most likely metabolic -Propofol and fentanyl for sedation and ventilator synchrony. Daily sedation location Cardiovascular Hypotension Lactic acidosis Hx of hypertension and dyslipidemia -Septic shock resolved. Status post fluid resuscitation given 3 L normal saline boluses, -DC maintenance IV fluid. IV Lasix 40 mg x1 and 20 mg q12, with KCL replacement -LVEF 55-60%.Mild concentric left ventricular hypertrophy. On echo done on 2016 -Holding all home antihypertensives and statins -Trend lactic acid Respiratory Acute hypoxic respiratory failure Bilateral pneumonia (MSSA, strep pneumo) Acute COPD exacerbation Hx of DVT / PE -Emergently intubated and placed on mechanical ventilation in the ED, Apparently difficult airway per -IV Solu-Medrol 60 mg every 8 hours-reduce to 40 q8, Continue DuoNeb, Pulmicort q 12 -CT PE protocol showed no pulmonary embolism, but positive for bibasilar consolidation -Broad-spectrum antibiotics with Azactam, vancomycin. DC vanc and continue Azactam and Levaquin -On Chronic Eliquis, will continue GI / Nutrition GERD Morbid obesity -Tube feeds tolerated., IV famotidine -Having BM, PRN lactulose Renal / Metabolic Acute kidney injury-resolved -Leone catheter for accurate intake output -IV Lasix as above Endocrine -Sliding scale insulin if needed Heme Hx of DVT / PE -more than a year ago; s/p prior IVC filter and on Eliquis at home Hx of childhood osteosarcoma s/p chemoradiation therapy Microcytic anemia -CT PE protocol negative for PE -On home Eliquis, continue -Monitor cbc, coags ID Septic shock-resolved Bibasilar pneumonia -F/u sputum culture MSSA, Streptococcus pneumonia. Influenza negative -Broad-spectrum antibiotics with Azactam, and Levaquin. DC Vanc Prophylaxis: GI - IV Famotidine q 12 DVT - SCD on right lower extremity; Eliquis IV Access: -RIJ central line placed in ED, got dislodged in ED CCT 35 MIN excluding procedures. Maci Tate MD Feb 17, 2018 10:51
[2018-02-17] MEDS: POTASSIUM CHLORIDE 25 MEQ EFFERVESCENT TAB NG SCH (11:35)
[2018-02-17] MEDS: methylPREDNISolone SOD SUCC 40 MG/1 ML VIAL IV PUSH SCH ×2 (11:35→21:16)
[2018-02-17] MEDS: LEVOFLOXACIN 750 MG PREMIX INJ 150 ML IV SCH (14:58)
[2018-02-17] MEDS: ENOXAPARIN SODIUM 40 MG/0.4 ML SYRINGE SQ SCH (14:59)
[2018-02-17] MEDS: FUROSEMIDE 20 MG/2 ML VIAL IV PUSH SCH (17:04)
[2018-02-17] MEDS ORDERED: PHARMACY ORDERED LAB ONE (23:45)
[2018-02-18] VITALS (33 sets, daily range): BP systolic 103–132; BP diastolic 61–80; PULSE 82–102; RESP 16–23; TEMP 98.7–99.7; O2SAT 89–97
[2018-02-18] MEDS: CHLORHEXIDINE GLUCONATE 2 % 1 PACK (2 CLOTHS) TOP SCH (00:14)
[2018-02-18] MEDS: AZTREONAM INJ 2,000 MG in SODIUM CHLORIDE 0.9% INJ 100 ML IV SCH ×3 (00:14→15:58)
[2018-02-18] MEDS: PROPOFOL 1000 MG/100 ML INJ 100 ML IV PRN ×6 (00:18→20:57)
[2018-02-18] MEDS: fentaNYL 2,500 MCG/NS 250 ML IV PRN ×2 (02:25→11:17)
[2018-02-18] MEDS: RESP: ALBUTEROL 2.5 MG/IPRATROPIUM 0.5 MG NEB (SCH) NEB ×3 (03:47→15:16)
[2018-02-18] MEDS: methylPREDNISolone SOD SUCC 40 MG/1 ML VIAL IV PUSH SCH ×3 (04:25→19:48)
--- NOTE | 2018-02-18 04:57 | RADRPT ---
EXAM DATE/TIME: 02/18/2018 04:18 [facility] COMPARISON: CHEST SINGLE AP, February 17, 2018, 3:51. INDICATIONS : Shortness of breath, possible pulmonary disease. MEDICAL HISTORY : Chronic obstructive pulmonary disease. Diabetes mellitus type II. Hypertension. DVT SURGICAL HISTORY : Appendectomy. ENCOUNTER: Subsequent ACUITY: 4 - 6 days PAIN SCORE: Non-responsive. LOCATION: Bilateral chest FINDINGS: No significant change in appearance when compared to the prior study. Heart enlarged. Pulmonary vascu lar engorgement noted. Bilateral pleural effusions and bilateral pulmonary infiltrates most pronounce d at the bases. Tip of endotracheal tube 4 cm proximal to the shiela. Nasogastric tube courses off th e inferior margin of the film. Right humeral head prosthesis. CONCLUSION: Unchanged radiographic appearance most consistent with pulmonary edema. Shane Merrill Jr., MD on February 18, 2018 at 4:55 Board Certified Radiologist. This report was verified electronically.
[2018-02-18] MEDS ORDERED: FUROSEMIDE 20 MG/2 ML VIAL IV PUSH ONE (06:45)
[2018-02-18] MEDS: FUROSEMIDE 20 MG/2 ML VIAL IV PUSH SCH ×2 (07:10→19:06)
[2018-02-18 07:26] LABS: AUTOMATED NEUTROPHIL # 7.2 TH/MM3 (1.8-7.7); BASOPHIL % 0.1 % (0.0-2.0); HEMATOCRIT 32.7 % (39.0-51.0); HEMOGLOBIN 9.7 GM/DL (13.0-17.0); LYMPH % 4.5 % (9.0-44.0); LYMPHOCYTE # 0.4 TH/MM3 (1.0-4.8); MEAN CELL VOLUME 66.5 FL (80.0-100.0); MEAN CORPUSCULAR HEMOGLOBIN 19.7 PG (27.0-34.0); MEAN PLATELET VOLUME 8.5 FL (7.0-11.0); MONO % 6.1 % (0.0-8.0); MONOCYTE # 0.5 TH/MM3 (0-0.9); NEUT % 89.3 % (16.0-70.0); PLATELET COUNT 283 TH/MM3 (150-450); RED BLOOD COUNT 4.92 MIL/MM3 (4.50-5.90); RED CELL DISTRIBUTION WIDTH 22.3 % (11.6-17.2)
[2018-02-18 07:42] LABS: ALBUMIN 2.3 GM/DL (3.4-5.0); ALT (GPT) 11 U/L (12-78); AST (GOT) 6 U/L (15-37); BICARBONATE 34.9 MEQ/L (21.0-32.0); BLOOD UREA NITROGEN 27 MG/DL (7-18); CALCIUM 8.3 MG/DL (8.5-10.1); CHLORIDE 101 MEQ/L (98-107); CREATININE 0.77 MG/DL (0.60-1.30); GLOMERULAR FILTRATION RATE 108 ML/MIN (>89); GLUCOSE,RANDOM 205 MG/DL (74-106); MAGNESIUM 2.1 MG/DL (1.5-2.5); SODIUM (NA) 142 MEQ/L (136-145)
[2018-02-18 07:44] LABS: ALKALINE PHOSPHATASE 51 U/L (45-117); TOTAL BILIRUBIN ADULT 0.3 MG/DL (0.2-1.0); TOTAL PROTEIN 5.9 GM/DL (6.4-8.2)
[2018-02-18 08:13] LABS: MEAN CORPUSCULAR HGB CONC 29.6 % (32.0-36.0)
--- NOTE | 2018-02-18 09:10 | HHI.CCPN ---
Subjective Remarks/Hospital Course Patient is a 47-year-old morbidly obese male with past medical history significant for obesity, obstructive sleep apnea clinically, history of DVT, chronic Eliquis use who was brought in by EMS for altered mental status and severe hypoxemia. Apparently per EMS end-tidal CO2 was in the 60s his initial sat was in the 30s, but with bagging came up to the 70s. Initial GCS apparently was 7 but improved with continued bag and mask ventilation in the ED. Sats remained in the low 80s. Patient initially refused intubation and was placed on BiPAP. Received duo nebs and Solu-Medrol and antibiotics (Azactam, Flagyl, vancomycin). Patient continued to be tachypneic and severely hypoxemic, and patient was intubated by the ER physician. Apparently difficult airway and was intubated on the third attempt. Patient was desaturating to low 80s even after intubation and I was called to the ED for assisting. I immediately evaluated the patient he continues to be in severe bronchospasm, severely hypoxemic. Additional breathing treatments ordered. I changed the vent settings to PCAC to target tidal volume 600-650 and reduce the rate to 14. PEEP increased to 10. Gradually oxygen saturation improved to 90. I placed a right IJ central line as the patient was borderline hypotensive. Chest x-ray showed apparently pulmonary vascular congestion. No definite infiltrate. Lactic acid 6. Appears patient has acute COPD exacerbation and severe sepsis, pulmonary embolism needs to be ruled out. IV Solu-Medrol DuoNeb breathing treatments will be continued. Patient takes Eliquis for PE in the past. Further workup and management based on results 02/15: Remains intubated heavily sedated. PEEP remains at 12 FiO2 has been weaned to 55%. CT PE protocol negative for pulmonary embolism, showed bibasilar significant consolidation indicative of pneumonia. Sputum Gram stain shows GPC. Add vancomycin. 02/16: Patient remains intubated remains critical. Remains hypoxemic on high vent support. On attempt to reduce PEEP, he desaturated and currently on 10 of PEEP. FiO2 50%. Sputum culture with MSSA and strep pneumo. Will discontinue Levaquin and Flagyl continue Azactam and vancomycin 02/17: Remains critical, CXR still showing pulmonary edema. IV Lasix repeat dose given. Wean PEEP to 8, FiO2 to 45%. Start SBT as tolerated 4/21: Patient remains intubated heavily sedated. On lightening sedation patient becomes very agitated. PEEP remains at 8 FiO2 down to 40%. Chest x- ray continues to show pulmonary vascular congestion Objective Vital Signs Date Time Temp Pulse Resp B/P (MAP) Pulse Ox O2 Delivery O2 Flow Rate FiO2 02/18/18 07:17 92 40 02/18/18 06:00 85 02/18/18 04:00 98.8 16 105/62 (76) 02/16/18 20:49 Ventilator Intake and Output 02/18/18 02/18/18 02/19/18 08:00 16:00 00:00 Intake Total 1418 ml Output Total 2200 ml Balance -782 ml Result Diagram: 02/18/18 0548 02/18/18 0548 Imaging Chest x-ray shows pulmonary vascular congestion Objective Remarks GENERAL: morbidly obese 47-year-old male lying in bed intubated sedated with propofol fentanyl and Versed SKIN: Warm and dry. HEENT: Atraumatic. Normocephalic. PERRL. Orotracheally intubated NECK: Trachea midline. obese. JVD difficult to assess. CARDIOVASCULAR: Regular rhythm. no murmurs. Heart sounds are distant RESPIRATORY: Coarse breath sounds bilaterally with bilateral wheezes, no rales. PEEP at 8 GASTROINTESTINAL: Abdomen soft, nondistended. MUSCULOSKELETAL: Palpable pulses RLE. Left AKA. NEUROLOGICAL: Intubated sedated. On lightening sedation moving extremities. Follows commands on sedation hold, per RN nonfocal exam A/P Assessment and Plan Assessment and Plan Neuro / Psych Metabolic encephalopathy Hx depression Hx of CVA 3 -CT of the head negative for acute findings, encephalopathy most likely metabolic -Propofol and fentanyl for sedation and ventilator synchrony. Daily sedation location -Add Precedex today to facilitate ventilator weaning Cardiovascular Hypotension Lactic acidosis Hx of hypertension and dyslipidemia -Septic shock resolved. -IV Lasix 20 mg q12, with KCL replacement. Give additional 20 mg IV Lasix today -LVEF 55-60%.Mild concentric left ventricular hypertrophy. On echo done on 2016 -Holding all home antihypertensives and statins Respiratory Acute hypoxic respiratory failure Bilateral pneumonia (MSSA, strep pneumo) Acute COPD exacerbation Hx of DVT / PE -Emergently intubated and placed on mechanical ventilation in the ED, Apparently difficult airway per -IV Solu-Medrol 60 mg every 8 hours-reduced to 40 q8, Continue DuoNeb, Pulmicort q 12 -CT PE protocol showed no pulmonary embolism, but positive for bibasilar consolidation -Broad-spectrum antibiotics with Azactam and Levaquin -On Chronic Eliquis, will continue GI / Nutrition GERD Morbid obesity -Tube feeds tolerated., IV famotidine -Having BM, PRN lactulose Renal / Metabolic Acute kidney injury-resolved -Leone catheter for accurate intake output -IV Lasix as above Endocrine -Sliding scale insulin if needed Heme Hx of DVT / PE -more than a year ago; s/p prior IVC filter and on Eliquis at home Hx of childhood osteosarcoma s/p chemoradiation therapy Microcytic anemia -CT PE protocol negative for PE -On home Eliquis, continue -Monitor cbc, coags ID Septic shock-resolved Bibasilar pneumonia -F/u sputum culture MSSA, Streptococcus pneumonia. Influenza negative -Broad-spectrum antibiotics with Azactam, and Levaquin. Prophylaxis: GI - IV Famotidine q 12 DVT - SCD on right lower extremity; Eliquis IV Access: -RIJ central line placed in ED, got dislodged in ED Level 3 Maci Tate MD Feb 18, 2018 09:10
[2018-02-18] MEDS: APIXABAN 2.5 MG TABLET PO SCH ×2 (09:12→19:48)
[2018-02-18] MEDS: FAMOTIDINE 20 MG TAB PO SCH ×2 (09:12→19:48)
[2018-02-18] MEDS: POTASSIUM CHLORIDE 25 MEQ EFFERVESCENT TAB NG SCH (09:12)
[2018-02-18] MEDS: DEXMEDETOMIDINE INJ 200 MCG in SODIUM CHLORIDE 0.9% INJ 50 ML IV PRN ×3 (09:13→13:01)
[2018-02-18] MEDS: SODIUM CHLORIDE 0.9% FLUSH 10 ML FLUSH IV FLUSH SCH ×2 (09:14→19:47)
[2018-02-18] MEDS: LACTULOSE SYRUP 20 GM/30 ML CUP PO SCH ×4 (09:17→20:06)
[2018-02-18] MEDS: CHLORHEXIDINE 0.12% (ORAL KIT) 15 ML CUP MT SCH ×2 (09:17→19:47)
[2018-02-18] MEDS: RESP: BUDESONIDE 0.5 MG/2 ML NEB NEB SCH ×2 (10:14→19:29)
[2018-02-18] MEDS: LEVOFLOXACIN 750 MG PREMIX INJ 150 ML IV SCH (15:57)
[2018-02-18] MEDS: ENOXAPARIN SODIUM 40 MG/0.4 ML SYRINGE SQ SCH (15:57)
[2018-02-18] MEDS: DEXMEDETOMIDINE INJ 1,000 MCG in SODIUM CHLOR 0.9% 250 ML INJ 240 ML IV PRN (16:35)
[2018-02-18] MEDS: RESP: ALBUTEROL 2.5 MG/IPRATROPIUM 0.5 MG NEB (PRN) INH (19:29)
[2018-02-19] VITALS (34 sets, daily range): BP systolic 112–138; BP diastolic 73–88; PULSE 79–87; RESP 16–34; TEMP 97.5–99.6; O2SAT 91–96
[2018-02-19] MEDS: CHLORHEXIDINE GLUCONATE 2 % 1 PACK (2 CLOTHS) TOP SCH (00:05)
[2018-02-19] MEDS: AZTREONAM INJ 2,000 MG in SODIUM CHLORIDE 0.9% INJ 100 ML IV SCH ×4 (00:05→23:52)
[2018-02-19] MEDS: DEXMEDETOMIDINE INJ 1,000 MCG in SODIUM CHLOR 0.9% 250 ML INJ 240 ML IV PRN ×4 (00:05→19:24)
[2018-02-19] MEDS: PROPOFOL 1000 MG/100 ML INJ 100 ML IV PRN ×6 (01:07→23:52)
[2018-02-19] MEDS: RESP: ALBUTEROL 2.5 MG/IPRATROPIUM 0.5 MG NEB (PRN) INH ×3 (03:53→19:27)
[2018-02-19] MEDS: methylPREDNISolone SOD SUCC 40 MG/1 ML VIAL IV PUSH SCH ×3 (05:30→20:45)
[2018-02-19] MEDS: RESP: BUDESONIDE 0.5 MG/2 ML NEB NEB SCH ×2 (07:08→19:27)
[2018-02-19] MEDS: FUROSEMIDE 20 MG/2 ML VIAL IV PUSH SCH ×2 (09:20→17:07)
[2018-02-19] MEDS: CHLORHEXIDINE 0.12% (ORAL KIT) 15 ML CUP MT SCH ×2 (09:20→19:24)
[2018-02-19] MEDS: FAMOTIDINE 20 MG TAB PO SCH ×2 (09:21→20:46)
[2018-02-19] MEDS: SODIUM CHLORIDE 0.9% FLUSH 10 ML FLUSH IV FLUSH SCH ×2 (09:21→20:46)
[2018-02-19] MEDS: POTASSIUM CHLORIDE 25 MEQ EFFERVESCENT TAB NG SCH (09:21)
[2018-02-19] MEDS: APIXABAN 2.5 MG TABLET PO SCH ×2 (09:22→20:45)
[2018-02-19] MEDS: LACTULOSE SYRUP 20 GM/30 ML CUP PO SCH ×4 (09:22→20:45)
[2018-02-19] MEDS: fentaNYL 2,500 MCG/NS 250 ML IV PRN (11:06)
[2018-02-19] MEDS: LEVOFLOXACIN 750 MG PREMIX INJ 150 ML IV SCH (14:25)
--- NOTE | 2018-02-19 15:24 | HHI.CCPN ---
Subjective Remarks/Hospital Course Patient is a 47-year-old morbidly obese male with past medical history significant for obesity, obstructive sleep apnea clinically, history of DVT, chronic Eliquis use who was brought in by EMS for altered mental status and severe hypoxemia. Apparently per EMS end-tidal CO2 was in the 60s his initial sat was in the 30s, but with bagging came up to the 70s. Initial GCS apparently was 7 but improved with continued bag and mask ventilation in the ED. Sats remained in the low 80s. Patient initially refused intubation and was placed on BiPAP. Received duo nebs and Solu-Medrol and antibiotics (Azactam, Flagyl, vancomycin). Patient continued to be tachypneic and severely hypoxemic, and patient was intubated by the ER physician. Apparently difficult airway and was intubated on the third attempt. Patient was desaturating to low 80s even after intubation and I was called to the ED for assisting. I immediately evaluated the patient he continues to be in severe bronchospasm, severely hypoxemic. Additional breathing treatments ordered. I changed the vent settings to PCAC to target tidal volume 600-650 and reduce the rate to 14. PEEP increased to 10. Gradually oxygen saturation improved to 90. I placed a right IJ central line as the patient was borderline hypotensive. Chest x-ray showed apparently pulmonary vascular congestion. No definite infiltrate. Lactic acid 6. Appears patient has acute COPD exacerbation and severe sepsis, pulmonary embolism needs to be ruled out. IV Solu-Medrol DuoNeb breathing treatments will be continued. Patient takes Eliquis for PE in the past. Further workup and management based on results 02/15: Remains intubated heavily sedated. PEEP remains at 12 FiO2 has been weaned to 55%. CT PE protocol negative for pulmonary embolism, showed bibasilar significant consolidation indicative of pneumonia. Sputum Gram stain shows GPC. Add vancomycin. 02/16: Patient remains intubated remains critical. Remains hypoxemic on high vent support. On attempt to reduce PEEP, he desaturated and currently on 10 of PEEP. FiO2 50%. Sputum culture with MSSA and strep pneumo. Will discontinue Levaquin and Flagyl continue Azactam and vancomycin 02/17: Remains critical, CXR still showing pulmonary edema. IV Lasix repeat dose given. Wean PEEP to 8, FiO2 to 45%. Start SBT as tolerated 02/18: Patient remains intubated heavily sedated. On lightening sedation patient becomes very agitated. PEEP remains at 8 FiO2 down to 40%. Chest x- ray continues to show pulmonary vascular congestion 02/19: Patient transitioned to Precedex in the last 24 hours continues on CPAP trials 15/8/40%. Patient cooperative following commands. Chest x-ray pending. Aggressive diureses initiated BMP pending this afternoon. Objective Vital Signs Date Time Temp Pulse Resp B/P (MAP) Pulse Ox O2 Delivery O2 Flow Rate FiO2 02/19/18 15:00 95 40 02/19/18 12:00 98.1 80 21 124/74 (91) 02/16/18 20:49 Ventilator Intake and Output 02/19/18 02/19/18 02/19/18 07:59 15:59 23:59 Intake Total 1612 ml Output Total 3100 ml Balance -1488 ml Result Diagram: 02/18/18 0548 02/18/18 0548 Imaging Last Impressions Chest X-Ray 02/18/18 0600 Signed Impressions: Service Date/Time: Sunday, February 18, 2018 04:18 - CONCLUSION: Unchanged radiographic appearance most consistent with pulmonary edema. Shane Merrill Jr., MD Head CT 02/14/18 1204 Signed Impressions: Service Date/Time: Wednesday, February 14, 2018 14:09 - CONCLUSION: 1. Chronic ischemic changes in the parietal lobes. No change from previous study. 2. No acute intracranial abnormality or Tye Steinberg MD CT Angiography 02/14/18 1204 Signed Impressions: Service Date/Time: Wednesday, February 14, 2018 20:07 - CONCLUSION: 1. No evidence for pulmonary embolism. 2. Bibasilar consolidation. 3. Cardiomegaly. Tye Steinberg MD Objective Remarks GENERAL: morbidly obese 47-year-old male lying in bed intubated sedated with propofol, fentanyl and Precedex SKIN: Warm and dry. HEENT: Atraumatic. Normocephalic. PERRL. Orotracheally intubated NECK: Trachea midline. obese. JVD difficult to assess. CARDIOVASCULAR: Regular rhythm. no murmurs. Heart sounds are distant RESPIRATORY: Coarse breath sounds bilaterally with bilateral wheezes, no rales. PEEP at 8 GASTROINTESTINAL: Abdomen soft, nondistended. MUSCULOSKELETAL: Palpable pulses RLE. Left AKA. NEUROLOGICAL: Intubated sedated. On lightening sedation moving extremities. Follows commands on sedation hold, per RN nonfocal exam A/P Assessment and Plan Assessment and Plan Neuro / Psych Metabolic encephalopathy Hx depression Hx of CVA 3 -CT of the head negative for acute findings, encephalopathy most likely metabolic - Daily sedation vacation -Precedex infusion facilitate ventilator weaning, propofol infusion currently being weaned off Cardiovascular Hypotension Lactic acidosis Hx of hypertension and dyslipidemia -Septic shock resolved. -IV Lasix 20 mg q12, with KCL replacement. Give additional 20 mg IV Lasix today -LVEF 55-60%.Mild concentric left ventricular hypertrophy. On echo done on 2016 -Holding all home antihypertensives and statins Respiratory Acute hypoxic respiratory failure Bilateral pneumonia (MSSA, strep pneumo) Acute COPD exacerbation Hx of DVT / PE -Emergently intubated and placed on mechanical ventilation in the ED, Apparently difficult airway per -IV Solu-Medrol 60 mg every 8 hours-reduced to 40 q8, Continue DuoNeb, Pulmicort q 12 -CT PE protocol showed no pulmonary embolism, but positive for bibasilar consolidation -Broad-spectrum antibiotics with Azactam and Levaquin -On Chronic Eliquis, continued -Patient to be maintained on CPAP trials throughout the night if clinically tolerated GI / Nutrition GERD Morbid obesity -Tube feeds tolerated., IV famotidine -Having BM, PRN lactulose Renal / Metabolic Acute kidney injury-resolved -Leone catheter for accurate intake output -IV Lasix as above Endocrine -Sliding scale insulin if needed Heme Hx of DVT / PE -more than a year ago; s/p prior IVC filter and on Eliquis at home Hx of childhood osteosarcoma s/p chemoradiation therapy Microcytic anemia -CT PE protocol negative for PE -On home Eliquis, continue -Monitor cbc, coags ID Septic shock-resolved Bibasilar pneumonia -F/u sputum culture MSSA, Streptococcus pneumonia. Influenza negative -Broad-spectrum antibiotics with Azactam, and Levaquin. Prophylaxis: GI - IV Famotidine q 12 DVT - SCD on right lower extremity; Eliquis IV Access: -RIJ central line placed and dislodged in the ED. PIV's x 4. Level 3 follow up Extensive discussion with patient's mother Mrs. Green at bedside. Provided medical status update plan for continued aggressive diuresis follow-up chest tube in the a.m. Patient to be maintained on CPAP trials throughout the night if clinically stable. Will really reassess in the a.m. for SBT parameters, chest x-ray for possible extubation. Nancy Barrera MD Feb 19, 2018 15:24
[2018-02-19] MEDS: ENOXAPARIN SODIUM 40 MG/0.4 ML SYRINGE SQ SCH (15:28)
--- NOTE | 2018-02-19 15:39 | RADRPT ---
EXAM DATE/TIME: 02/19/2018 15:15 [facility] COMPARISON: CHEST SINGLE AP, February 18, 2018, 4:18. INDICATIONS : Respiratory failure MEDICAL HISTORY : Chronic obstructive pulmonary disease. Diabetes mellitus type II. Hypertension. DVT SURGICAL HISTORY : ENCOUNTER: Subsequent ACUITY: 4 - 6 days PAIN SCORE: Non-responsive. LOCATION: chest FINDINGS: A single view of the chest demonstrates persistent cardiomegaly with bilateral airspace disease and p robable associated effusions. Findings suggest some degree of CHF. There may be some slight interval improvement when compared with prior. Life support tubes including the endotracheal and nasogastric t ubes are unchanged in position. Right shoulder arthroplasty. Osseous structures are otherwise intact. CONCLUSION: 1. Plain film findings concerning for cardiomegaly with CHF and bilateral pleural effusions. There ma y be slight interval improvement when compared to prior. 2. Stable position of life support tubes. Lucien Barnes MD on February 19, 2018 at 15:35 Board Certified Radiologist. This report was verified electronically.
[2018-02-19 18:14] LABS: BICARBONATE 25.3 MEQ/L (21.0-32.0); CALCIUM 8.8 MG/DL (8.5-10.1); CREATININE 0.79 MG/DL (0.60-1.30)
[2018-02-20] VITALS (30 sets, daily range): BP systolic 103–152; BP diastolic 66–97; PULSE 75–96; RESP 13–32; TEMP 99–99.7; O2SAT 91–99
[2018-02-20] MEDS: CHLORHEXIDINE GLUCONATE 2 % 1 PACK (2 CLOTHS) TOP SCH (01:55)
[2018-02-20] MEDS: DEXMEDETOMIDINE INJ 1,000 MCG in SODIUM CHLOR 0.9% 250 ML INJ 240 ML IV PRN ×4 (01:56→21:26)
[2018-02-20] MEDS: RESP: ALBUTEROL 2.5 MG/IPRATROPIUM 0.5 MG NEB (PRN) INH ×2 (03:59→07:18)
[2018-02-20] MEDS: PROPOFOL 1000 MG/100 ML INJ 100 ML IV PRN ×7 (04:33→23:34)
[2018-02-20] MEDS: methylPREDNISolone SOD SUCC 40 MG/1 ML VIAL IV PUSH SCH ×3 (05:12→21:27)
[2018-02-20] MEDS: RESP: BUDESONIDE 0.5 MG/2 ML NEB NEB SCH ×2 (07:18→21:15)
[2018-02-20] MEDS: POTASSIUM CHLORIDE 25 MEQ EFFERVESCENT TAB NG SCH (07:48)
[2018-02-20] MEDS: SODIUM CHLORIDE 0.9% FLUSH 10 ML FLUSH IV FLUSH SCH ×2 (07:49→21:27)
[2018-02-20] MEDS: FUROSEMIDE 20 MG/2 ML VIAL IV PUSH SCH ×2 (07:49→17:24)
[2018-02-20] MEDS: APIXABAN 2.5 MG TABLET PO SCH ×2 (07:49→21:26)
[2018-02-20] MEDS: FAMOTIDINE 20 MG TAB PO SCH ×2 (07:49→21:26)
[2018-02-20] MEDS: LACTULOSE SYRUP 20 GM/30 ML CUP PO SCH ×4 (07:49→21:26)
[2018-02-20] MEDS: CHLORHEXIDINE 0.12% (ORAL KIT) 15 ML CUP MT SCH ×2 (07:50→21:09)
[2018-02-20] MEDS ORDERED: FUROSEMIDE 40 MG/4 ML VIAL IV PUSH ONE (08:00)
[2018-02-20] MEDS: AZTREONAM INJ 2,000 MG in SODIUM CHLORIDE 0.9% INJ 100 ML IV SCH ×3 (08:14→23:35)
[2018-02-20 08:47] LABS: BICARBONATE 22.9 MEQ/L (21.0-32.0); CALCIUM 8.9 MG/DL (8.5-10.1); CREATININE 0.82 MG/DL (0.60-1.30); MAGNESIUM 2.3 MG/DL (1.5-2.5)
[2018-02-20 08:50] LABS: AUTOMATED NEUTROPHIL # 13.6 TH/MM3 (1.8-7.7); BASOPHIL # 0.1 TH/MM3 (0-0.2); BASOPHIL % 0.4 % (0.0-2.0); HEMATOCRIT 39.1 % (39.0-51.0); HEMOGLOBIN 11.3 GM/DL (13.0-17.0); LYMPHOCYTE # 0.6 TH/MM3 (1.0-4.8); MEAN CORPUSCULAR HEMOGLOBIN 19.2 PG (27.0-34.0); MEAN PLATELET VOLUME 8.7 FL (7.0-11.0); MONO % 4.4 % (0.0-8.0); MONOCYTE # 0.7 TH/MM3 (0-0.9); NEUT % 91.2 % (16.0-70.0); PLATELET COUNT 324 TH/MM3 (150-450); RED BLOOD COUNT 5.92 MIL/MM3 (4.50-5.90); RED CELL DISTRIBUTION WIDTH 22.1 % (11.6-17.2)
--- NOTE | 2018-02-20 08:52 | RADRPT ---
EXAM DATE/TIME: 02/20/2018 07:52 [facility] COMPARISON: CHEST SINGLE AP, February 19, 2018, 15:15. INDICATIONS : Respiratory failure MEDICAL HISTORY : Chronic obstructive pulmonary disease. Diabetes mellitus type II. Hypertension. DVT SURGICAL HISTORY : intubation ENCOUNTER: Subsequent ACUITY: 1 week PAIN SCORE: Non-responsive. LOCATION: Bilateral chest FINDINGS: The cardiac silhouette is enlarged in transverse diameter. Support lines and tubes are in satisfactor y position. There are findings of congestive heart failure with interstitial and alveolar opacity edis aterally. The findings are improved when compared with the prior exam. CONCLUSION: 1. Cardiomegaly and findings of congestive heart failure. The findings are improved when compared wit h the prior exam. Jean Delcid MD on February 20, 2018 at 8:49 Board Certified Radiologist. This report was verified electronically.
--- NOTE | 2018-02-20 12:43 | HHI.CCPN ---
Subjective Remarks/Hospital Course Patient is a 47-year-old morbidly obese male with past medical history significant for obesity, obstructive sleep apnea clinically, history of DVT, chronic Eliquis use who was brought in by EMS for altered mental status and severe hypoxemia. Apparently per EMS end-tidal CO2 was in the 60s his initial sat was in the 30s, but with bagging came up to the 70s. Initial GCS apparently was 7 but improved with continued bag and mask ventilation in the ED. Sats remained in the low 80s. Patient initially refused intubation and was placed on BiPAP. Received duo nebs and Solu-Medrol and antibiotics (Azactam, Flagyl, vancomycin). Patient continued to be tachypneic and severely hypoxemic, and patient was intubated by the ER physician. Apparently difficult airway and was intubated on the third attempt. Patient was desaturating to low 80s even after intubation and I was called to the ED for assisting. I immediately evaluated the patient he continues to be in severe bronchospasm, severely hypoxemic. Additional breathing treatments ordered. I changed the vent settings to PCAC to target tidal volume 600-650 and reduce the rate to 14. PEEP increased to 10. Gradually oxygen saturation improved to 90. I placed a right IJ central line as the patient was borderline hypotensive. Chest x-ray showed apparently pulmonary vascular congestion. No definite infiltrate. Lactic acid 6. Appears patient has acute COPD exacerbation and severe sepsis, pulmonary embolism needs to be ruled out. IV Solu-Medrol DuoNeb breathing treatments will be continued. Patient takes Eliquis for PE in the past. Further workup and management based on results 02/15: Remains intubated heavily sedated. PEEP remains at 12 FiO2 has been weaned to 55%. CT PE protocol negative for pulmonary embolism, showed bibasilar significant consolidation indicative of pneumonia. Sputum Gram stain shows GPC. Add vancomycin. 02/16: Patient remains intubated remains critical. Remains hypoxemic on high vent support. On attempt to reduce PEEP, he desaturated and currently on 10 of PEEP. FiO2 50%. Sputum culture with MSSA and strep pneumo. Will discontinue Levaquin and Flagyl continue Azactam and vancomycin 02/17: Remains critical, CXR still showing pulmonary edema. IV Lasix repeat dose given. Wean PEEP to 8, FiO2 to 45%. Start SBT as tolerated 02/18: Patient remains intubated heavily sedated. On lightening sedation patient becomes very agitated. PEEP remains at 8 FiO2 down to 40%. Chest x- ray continues to show pulmonary vascular congestion 02/19: Patient transitioned to Precedex in the last 24 hours continues on CPAP trials 15/8/40%. Patient cooperative following commands. Chest x-ray pending. Aggressive diureses initiated BMP pending this afternoon. 02/20: While on Precedex CPAP trial was attempted. After about 15 minutes patient became severely tachypneic diaphoretic with respiratory rate in the 40s. Re sedated with 50 mg IV push of propofol, and restarting propofol infusion. CXR shows improving pulmonary vascular congestion. WBC count though is trending up Objective Vital Signs Date Time Temp Pulse Resp B/P (MAP) Pulse Ox O2 Delivery O2 Flow Rate FiO2 02/20/18 12:00 40 02/20/18 12:00 79 02/20/18 12:00 99.5 18 147/96 (113) 97 02/16/18 20:49 Ventilator Intake and Output 02/20/18 02/20/18 02/21/18 08:00 16:00 00:00 Intake Total 1295 ml 409.3 ml Output Total 1800 ml Balance -505 ml 409.3 ml Result Diagram: 02/20/18 0757 02/20/18 0757 Imaging Last Impressions Chest X-Ray 02/18/18 0600 Signed Impressions: Service Date/Time: Sunday, February 18, 2018 04:18 - CONCLUSION: Unchanged radiographic appearance most consistent with pulmonary edema. Shane Merrill Jr., MD Head CT 02/14/18 1204 Signed Impressions: Service Date/Time: Wednesday, February 14, 2018 14:09 - CONCLUSION: 1. Chronic ischemic changes in the parietal lobes. No change from previous study. 2. No acute intracranial abnormality or Tye Steinberg MD CT Angiography 02/14/18 1204 Signed Impressions: Service Date/Time: Wednesday, February 14, 2018 20:07 - CONCLUSION: 1. No evidence for pulmonary embolism. 2. Bibasilar consolidation. 3. Cardiomegaly. Tye Steinberg MD Objective Remarks GENERAL: morbidly obese 47-year-old male lying in bed intubated wide awake on Precedex SKIN: Warm and dry. Diaphoretic HEENT: Atraumatic. Normocephalic. PERRL. Orotracheally intubated NECK: Trachea midline. obese. JVD difficult to assess. CARDIOVASCULAR: Regular rhythm. no murmurs. Heart sounds are distant RESPIRATORY: Coarse breath sounds bilaterally with bilateral wheezes, no rales. PEEP at 8. Severely tachypneic, diaphoretic GASTROINTESTINAL: Abdomen soft, nondistended. MUSCULOSKELETAL: Palpable pulses RLE. Left AKA. NEUROLOGICAL: Intubated, all sedation is on hold except Precedex. follows commands on sedation hold, nofocal exam. (Due to severe tachypnea and agitation patient was restarted on propofol) A/P Assessment and Plan Assessment and Plan Neuro / Psych Metabolic encephalopathy Hx depression Hx of CVA 3 -CT of the head negative for acute findings, encephalopathy most likely metabolic -Daily sedation vacation -Precedex infusion to facilitate ventilator weaning, but patient also requiring propofol to maintain ventilator synchrony -Start home medication Inderal 20 mg twice daily -Start scheduled Ativan 1 mg p.o. every 6 hours. Give as needed IV Ativan Cardiovascular Hypotension-resolved Lactic acidosis Hx of hypertension and dyslipidemia -Septic shock resolved. -IV Lasix 20 mg q12, with KCL replacement. Give additional 40 mg IV Lasix today. Chest x-ray improving pulmonary vascular congestion -LVEF 55-60%.Mild concentric left ventricular hypertrophy. On echo done on 2016 -Resume Inderal 20 mg BID 02/20 Respiratory Acute hypoxic respiratory failure Bilateral pneumonia (MSSA, strep pneumo) Acute COPD exacerbation Hx of DVT / PE -Emergently intubated and placed on mechanical ventilation in the ED, Apparently difficult airway per -IV Solu-Medrol 40 mg every 8 hours, Continue DuoNeb, Pulmicort q 12 -CT PE protocol showed no pulmonary embolism, but positive for bibasilar consolidation -Broad-spectrum antibiotics with Azactam and Levaquin -On Chronic Eliquis, continued -Attempted CPAP today but failed in approximately 15 minutes severely diaphoretic and tachypneic -Attempt SBT daily GI / Nutrition GERD Morbid obesity -Tube feeds tolerated., IV famotidine -Having BM, Use PRN lactulose Renal / Metabolic Acute kidney injury-resolved -Leone catheter for accurate intake output -IV Lasix as above Endocrine -Sliding scale insulin if needed Heme Hx of DVT / PE -more than a year ago; s/p prior IVC filter and on Eliquis at home Hx of childhood osteosarcoma s/p chemoradiation therapy Microcytic anemia -CT PE protocol negative for PE -On home Eliquis, continue -Monitor cbc, coags ID Septic shock-resolved Bibasilar pneumonia -F/u sputum culture MSSA, Streptococcus pneumonia. Influenza negative -Broad-spectrum antibiotics with Azactam, and Levaquin. DC Azactam today Prophylaxis: GI - IV Famotidine q 12 DVT - SCD on right lower extremity; Eliquis IV Access: -RIJ central line placed and dislodged in the ED. PIV's x 4. Level 3 Failed extubated today, will continue to attempt SBT daily. Need further diuresis and improvement in COPD Exacerbation prior to extubation. Continue to evaluate with SBT daily Dr. Barrera had extensive discussion with patient's mother Mrs. Green at bedside. Maci Tate MD Feb 20, 2018 12:43
[2018-02-20] MEDS: LEVOFLOXACIN 750 MG PREMIX INJ 150 ML IV SCH (14:00)
[2018-02-20] MEDS: LORazepam 1 MG TAB PO SCH ×2 (16:58→23:35)
[2018-02-20] MEDS: PROPRANOLOL HCL 20 MG TAB PO SCH ×2 (16:58→21:26)
[2018-02-20] MEDS: ENOXAPARIN SODIUM 40 MG/0.4 ML SYRINGE SQ SCH (17:24)
[2018-02-21] VITALS (18 sets, daily range): BP systolic 105–135; BP diastolic 67–87; PULSE 76–85; RESP 14–28; TEMP 98.8–100.6; O2SAT 94–97
[2018-02-21] MEDS: PROPOFOL 1000 MG/100 ML INJ 100 ML IV PRN ×7 (02:27→22:56)
[2018-02-21] MEDS: CHLORHEXIDINE GLUCONATE 2 % 1 PACK (2 CLOTHS) TOP SCH (03:16)
[2018-02-21 04:02] LABS: BASOPHIL # 0.1 TH/MM3 (0-0.2); BASOPHIL % 0.4 % (0.0-2.0); HEMATOCRIT 38.2 % (39.0-51.0); HEMOGLOBIN 11.2 GM/DL (13.0-17.0); LYMPH % 3.2 % (9.0-44.0); LYMPHOCYTE # 0.5 TH/MM3 (1.0-4.8); MEAN CELL VOLUME 65.7 FL (80.0-100.0); MEAN CORPUSCULAR HEMOGLOBIN 19.2 PG (27.0-34.0); MEAN PLATELET VOLUME 8.5 FL (7.0-11.0); MONO % 4.2 % (0.0-8.0); MONOCYTE # 0.6 TH/MM3 (0-0.9); NEUT % 92.2 % (16.0-70.0); PLATELET COUNT 317 TH/MM3 (150-450); RED BLOOD COUNT 5.81 MIL/MM3 (4.50-5.90); RED CELL DISTRIBUTION WIDTH 21.9 % (11.6-17.2); WHITE BLOOD COUNT 14.1 TH/MM3 (4.0-11.0)
[2018-02-21 04:09] LABS: MEAN CORPUSCULAR HGB CONC 29.2 % (32.0-36.0)
[2018-02-21] MEDS: DEXMEDETOMIDINE INJ 1,000 MCG in SODIUM CHLOR 0.9% 250 ML INJ 240 ML IV PRN ×3 (04:09→18:12)
--- NOTE | 2018-02-21 04:25 | RADRPT ---
EXAM DATE/TIME: 02/21/2018 03:20 [facility] COMPARISON: CHEST SINGLE AP, February 20, 2018, 7:52. INDICATIONS : Short of breath. MEDICAL HISTORY : Chronic obstructive pulmonary disease. Diabetes mellitus type II.Hypertension. DVT SURGICAL HISTORY : None. ENCOUNTER: Subsequent ACUITY: 2 weeks PAIN SCORE: 0/10 LOCATION: Bilateral chest FINDINGS: A single view of the chest demonstrates endotracheal tube and nasogastric tube in good position. Mild basilar airspace disease. Previous right shoulder replacement. CONCLUSION: 1. Support apparatus in satisfactory position. Mild basilar airspace disease. Jarrett Mukherjee MD on February 21, 2018 at 4:21 Board Certified Radiologist. This report was verified electronically.
[2018-02-21 04:29] LABS: ALBUMIN 2.9 GM/DL (3.4-5.0); ALKALINE PHOSPHATASE 56 U/L (45-117); ALT (GPT) 25 U/L (12-78); AST (GOT) 13 U/L (15-37); BICARBONATE 25.6 MEQ/L (21.0-32.0); BLOOD UREA NITROGEN 35 MG/DL (7-18); CALCIUM 8.6 MG/DL (8.5-10.1); CHLORIDE 104 MEQ/L (98-107); CREATININE 0.89 MG/DL (0.60-1.30); GLOMERULAR FILTRATION RATE 92 ML/MIN (>89); GLUCOSE,RANDOM 292 MG/DL (74-106); MAGNESIUM 2.4 MG/DL (1.5-2.5); SODIUM (NA) 140 MEQ/L (136-145); TOTAL BILIRUBIN ADULT 0.5 MG/DL (0.2-1.0); TOTAL PROTEIN 6.8 GM/DL (6.4-8.2)
[2018-02-21] MEDS: methylPREDNISolone SOD SUCC 40 MG/1 ML VIAL IV PUSH SCH ×3 (05:05→22:55)
[2018-02-21] MEDS: LORazepam 1 MG TAB PO SCH ×4 (05:05→22:55)
[2018-02-21] MEDS: CHLORHEXIDINE 0.12% (ORAL KIT) 15 ML CUP MT SCH ×2 (07:24→19:44)
[2018-02-21] MEDS: POTASSIUM CHLORIDE 25 MEQ EFFERVESCENT TAB NG SCH (07:25)
[2018-02-21] MEDS: APIXABAN 2.5 MG TABLET PO SCH ×2 (07:25→19:43)
[2018-02-21] MEDS: FAMOTIDINE 20 MG TAB PO SCH ×2 (07:25→19:43)
[2018-02-21] MEDS: PROPRANOLOL HCL 20 MG TAB PO SCH ×4 (07:25→19:43)
[2018-02-21] MEDS: LACTULOSE SYRUP 20 GM/30 ML CUP PO SCH ×4 (07:25→19:43)
[2018-02-21] MEDS: FUROSEMIDE 20 MG/2 ML VIAL IV PUSH SCH (07:26)
[2018-02-21] MEDS: SODIUM CHLORIDE 0.9% FLUSH 10 ML FLUSH IV FLUSH SCH ×2 (07:26→19:44)
[2018-02-21] MEDS: RESP: ALBUTEROL 2.5 MG/IPRATROPIUM 0.5 MG NEB (PRN) INH (07:32)
[2018-02-21] MEDS: RESP: BUDESONIDE 0.5 MG/2 ML NEB NEB SCH ×2 (07:32→19:43)
[2018-02-21] MEDS: AZTREONAM INJ 2,000 MG in SODIUM CHLORIDE 0.9% INJ 100 ML IV SCH (08:21)
--- NOTE | 2018-02-21 11:17 | HHI.CCPN ---
Subjective Remarks/Hospital Course Patient is a 47-year-old morbidly obese male with past medical history significant for obesity, obstructive sleep apnea clinically, history of DVT, chronic Eliquis use who was brought in by EMS for altered mental status and severe hypoxemia. Apparently per EMS end-tidal CO2 was in the 60s his initial sat was in the 30s, but with bagging came up to the 70s. Initial GCS apparently was 7 but improved with continued bag and mask ventilation in the ED. Sats remained in the low 80s. Patient initially refused intubation and was placed on BiPAP. Received duo nebs and Solu-Medrol and antibiotics (Azactam, Flagyl, vancomycin). Patient continued to be tachypneic and severely hypoxemic, and patient was intubated by the ER physician. Apparently difficult airway and was intubated on the third attempt. Patient was desaturating to low 80s even after intubation and I was called to the ED for assisting. I immediately evaluated the patient he continues to be in severe bronchospasm, severely hypoxemic. Additional breathing treatments ordered. I changed the vent settings to PCAC to target tidal volume 600-650 and reduce the rate to 14. PEEP increased to 10. Gradually oxygen saturation improved to 90. I placed a right IJ central line as the patient was borderline hypotensive. Chest x-ray showed apparently pulmonary vascular congestion. No definite infiltrate. Lactic acid 6. Appears patient has acute COPD exacerbation and severe sepsis, pulmonary embolism needs to be ruled out. IV Solu-Medrol DuoNeb breathing treatments will be continued. Patient takes Eliquis for PE in the past. Further workup and management based on results 02/15: Remains intubated heavily sedated. PEEP remains at 12 FiO2 has been weaned to 55%. CT PE protocol negative for pulmonary embolism, showed bibasilar significant consolidation indicative of pneumonia. Sputum Gram stain shows GPC. Add vancomycin. 02/16: Patient remains intubated remains critical. Remains hypoxemic on high vent support. On attempt to reduce PEEP, he desaturated and currently on 10 of PEEP. FiO2 50%. Sputum culture with MSSA and strep pneumo. Will discontinue Levaquin and Flagyl continue Azactam and vancomycin 02/17: Remains critical, CXR still showing pulmonary edema. IV Lasix repeat dose given. Wean PEEP to 8, FiO2 to 45%. Start SBT as tolerated 02/18: Patient remains intubated heavily sedated. On lightening sedation patient becomes very agitated. PEEP remains at 8 FiO2 down to 40%. Chest x- ray continues to show pulmonary vascular congestion 02/19: Patient transitioned to Precedex in the last 24 hours continues on CPAP trials 15/8/40%. Patient cooperative following commands. Chest x-ray pending. Aggressive diureses initiated BMP pending this afternoon. 02/20: While on Precedex CPAP trial was attempted. After about 15 minutes patient became severely tachypneic diaphoretic with respiratory rate in the 40s. Re sedated with 50 mg IV push of propofol, and restarting propofol infusion. CXR shows improving pulmonary vascular congestion. WBC count though is trending up. 02/21: No events over the night. Patient is currently on CPAP, PS 15/8/40%, with RR in the 30's and Vt low 300's. Patient is sedated with propofol and precedex. Tmax 100.4, I/O 2946/3020. Objective Vital Signs Date Time Temp Pulse Resp B/P (MAP) Pulse Ox O2 Delivery O2 Flow Rate FiO2 02/21/18 10:48 94 40 02/21/18 10:00 82 02/21/18 08:00 98.8 28 105/74 (84) Intake and Output 02/21/18 02/21/18 02/22/18 08:00 16:00 00:00 Intake Total 1088 ml 447 ml Output Total 1110 ml Balance -22 ml 447 ml Result Diagram: 02/21/18 0345 02/21/18 0345 Imaging Last Impressions Chest X-Ray 02/18/18 0600 Signed Impressions: Service Date/Time: Sunday, February 18, 2018 04:18 - CONCLUSION: Unchanged radiographic appearance most consistent with pulmonary edema. Shane Merrill Jr., MD Head CT 02/14/18 1204 Signed Impressions: Service Date/Time: Wednesday, February 14, 2018 14:09 - CONCLUSION: 1. Chronic ischemic changes in the parietal lobes. No change from previous study. 2. No acute intracranial abnormality or Tye Steinberg MD CT Angiography 02/14/18 1204 Signed Impressions: Service Date/Time: Wednesday, February 14, 2018 20:07 - CONCLUSION: 1. No evidence for pulmonary embolism. 2. Bibasilar consolidation. 3. Cardiomegaly. Tye Steinberg MD Objective Remarks GENERAL: Middle age gentleman, intubated and sedated. SKIN: Warm and dry. HEENT: Pupils are equal and reactive, sclerae are anicteric. Atraumatic. Normocephalic. Orally intubated. NECK: Trachea midline. JVD difficult to assess due to body habitus. CARDIOVASCULAR: Heart sounds are regular, no murmurs, distant. RESPIRATORY: Coarse breath sounds bilaterally, no wheezes, no rales. GASTROINTESTINAL: Abdomen soft, appears nontender, distended, hypoactive bowel sounds. Unable to appreciate any hepatomegaly or splenomegaly. MUSCULOSKELETAL: Warm and well-perfused. Palpable pulses RLE. Left AKA. NEUROLOGICAL: Intubated, and sedated, does not follow commands, withdraws to pain. A/P Assessment and Plan Assessment and Plan Neuro / Psych Metabolic encephalopathy Hx depression Hx of CVA 3 -CT of the head negative for acute findings, encephalopathy most likely metabolic -Daily sedation vacation -Precedex infusion to facilitate ventilator weaning, propofol added yesterday for the vent synchrony and due to agitation -Start home medication Inderal 20 mg twice daily -Start scheduled Ativan 1 mg p.o. every 6 hours. Give as needed IV Ativan Cardiovascular Hypotension-resolved Lactic acidosis Hx of hypertension and dyslipidemia -Septic shock resolved. -Increase Lasix -LVEF 55-60%.Mild concentric left ventricular hypertrophy. On echo done on 2016 -Resume Inderal 20 mg BID 02/20 Respiratory Acute hypoxic respiratory failure Bilateral pneumonia (MSSA, strep pneumo) Acute COPD exacerbation Hx of DVT / PE -Emergently intubated and placed on mechanical ventilation in the ED, Apparently difficult airway per -IV Solu-Medrol 40 mg every 8 hours, Continue DuoNeb, Pulmicort q 12. Start tapering steroids today -CT PE protocol showed no pulmonary embolism, but positive for bibasilar consolidation -Broad-spectrum antibiotics with Azactam and Levaquin -On Chronic Eliquis, continued -Patient on CPAP 15 this morning with tachypnea and low tidal volumes, pressure support increased to 20 and then gradually decreased to 18 now tolerating better with tidal volumes in the 600s and respiratory rate mid to high teens -Attempt SBT daily GI / Nutrition GERD Morbid obesity Abdominal distention - -Check KUB -Hold tube feeds due to high residuals tube -IV famotidine -OGT to low intermittent wall suction Renal / Metabolic Acute kidney injury-resolved -Leone catheter for accurate intake output -IV Lasix as above Endocrine -Sliding scale insulin if needed Heme Hx of DVT / PE -more than a year ago; s/p prior IVC filter and on Eliquis at home Hx of childhood osteosarcoma s/p chemoradiation therapy Microcytic anemia -CT PE protocol negative for PE -On home Eliquis, continue -Monitor cbc, coags ID Septic shock-resolved Bibasilar pneumonia -F/u sputum culture MSSA, Streptococcus pneumonia. Influenza negative -On broad-spectrum antibiotics Prophylaxis: GI - IV Famotidine q 12 DVT - SCD on right lower extremity; Eliquis IV Access: -RIJ central line placed and dislodged in the ED. PIV's x 4. William Barcenas MD Feb 21, 2018 11:17
--- NOTE | 2018-02-21 12:05 | RADRPT ---
EXAM DATE/TIME: 02/21/2018 11:19 [facility] COMPARISON: ABDOMEN KUB ONLY, July 11, 2016, 10:14. INDICATIONS : Abdominal distention. MEDICAL HISTORY : Chronic obstructive pulmonary disease. Diabetes mellitus type Chronic obstructive pulmonary disease. Diabetes mellitus type SURGICAL HISTORY : None. ENCOUNTER: Subsequent ACUITY: 2 days PAIN SCORE: Non-responsive. LOCATION: Abdomen. FINDINGS: 2 AP supine views of the abdomen. Nasogastric tube is now in place and coiled in the stomach. Tip is in the region of the gastric fundus. Diffusely dilated air-filled colon is noted cecal diameter measu res 14.6 cm. IVC filter noted. CONCLUSION: Nasogastric tube coiled in the stomach. Diffuse air-filled distention of the colon likely representin g ileus. Momo Hnad MD on February 21, 2018 at 12:01 Board Certified Radiologist. This report was verified electronically.
[2018-02-21] MEDS: LEVOFLOXACIN 750 MG PREMIX INJ 150 ML IV SCH (14:13)
[2018-02-21] MEDS: FUROSEMIDE 40 MG/4 ML VIAL IV PUSH SCH (17:39)
[2018-02-22] VITALS (31 sets, daily range): BP systolic 84–131; BP diastolic 53–87; PULSE 75–80; RESP 11–28; TEMP 98.5–99.7; O2SAT 88–100
[2018-02-22] MEDS: DEXMEDETOMIDINE INJ 1,000 MCG in SODIUM CHLOR 0.9% 250 ML INJ 240 ML IV PRN ×4 (00:59→21:45)
[2018-02-22] MEDS: PROPOFOL 1000 MG/100 ML INJ 100 ML IV PRN ×6 (01:32→22:54)
[2018-02-22] MEDS: CHLORHEXIDINE GLUCONATE 2 % 1 PACK (2 CLOTHS) TOP SCH (04:00)
[2018-02-22] MEDS: LORazepam 1 MG TAB PO SCH ×2 (04:38→17:33)
[2018-02-22] MEDS: RESP: ALBUTEROL 2.5 MG/IPRATROPIUM 0.5 MG NEB (PRN) INH (07:48)
[2018-02-22] MEDS: RESP: BUDESONIDE 0.5 MG/2 ML NEB NEB SCH ×2 (07:48→20:51)
--- NOTE | 2018-02-22 08:33 | HHI.CCPN ---
Subjective Remarks/Hospital Course Patient is a 47-year-old morbidly obese male with past medical history significant for obesity, obstructive sleep apnea clinically, history of DVT, chronic Eliquis use who was brought in by EMS for altered mental status and severe hypoxemia. Apparently per EMS end-tidal CO2 was in the 60s his initial sat was in the 30s, but with bagging came up to the 70s. Initial GCS apparently was 7 but improved with continued bag and mask ventilation in the ED. Sats remained in the low 80s. Patient initially refused intubation and was placed on BiPAP. Received duo nebs and Solu-Medrol and antibiotics (Azactam, Flagyl, vancomycin). Patient continued to be tachypneic and severely hypoxemic, and patient was intubated by the ER physician. Apparently difficult airway and was intubated on the third attempt. Patient was desaturating to low 80s even after intubation and I was called to the ED for assisting. I immediately evaluated the patient he continues to be in severe bronchospasm, severely hypoxemic. Additional breathing treatments ordered. I changed the vent settings to PCAC to target tidal volume 600-650 and reduce the rate to 14. PEEP increased to 10. Gradually oxygen saturation improved to 90. I placed a right IJ central line as the patient was borderline hypotensive. Chest x-ray showed apparently pulmonary vascular congestion. No definite infiltrate. Lactic acid 6. Appears patient has acute COPD exacerbation and severe sepsis, pulmonary embolism needs to be ruled out. IV Solu-Medrol DuoNeb breathing treatments will be continued. Patient takes Eliquis for PE in the past. Further workup and management based on results 02/15: Remains intubated heavily sedated. PEEP remains at 12 FiO2 has been weaned to 55%. CT PE protocol negative for pulmonary embolism, showed bibasilar significant consolidation indicative of pneumonia. Sputum Gram stain shows GPC. Add vancomycin. 02/16: Patient remains intubated remains critical. Remains hypoxemic on high vent support. On attempt to reduce PEEP, he desaturated and currently on 10 of PEEP. FiO2 50%. Sputum culture with MSSA and strep pneumo. Will discontinue Levaquin and Flagyl continue Azactam and vancomycin 02/17: Remains critical, CXR still showing pulmonary edema. IV Lasix repeat dose given. Wean PEEP to 8, FiO2 to 45%. Start SBT as tolerated 02/18: Patient remains intubated heavily sedated. On lightening sedation patient becomes very agitated. PEEP remains at 8 FiO2 down to 40%. Chest x- ray continues to show pulmonary vascular congestion 02/19: Patient transitioned to Precedex in the last 24 hours continues on CPAP trials 15/8/40%. Patient cooperative following commands. Chest x-ray pending. Aggressive diureses initiated BMP pending this afternoon. 02/20: While on Precedex CPAP trial was attempted. After about 15 minutes patient became severely tachypneic diaphoretic with respiratory rate in the 40s. Re sedated with 50 mg IV push of propofol, and restarting propofol infusion. CXR shows improving pulmonary vascular congestion. WBC count though is trending up. 02/21: No events over the night. Patient is currently on CPAP, PS 15/8/40%, with RR in the 30's and Vt low 300's. Patient is sedated with propofol and precedex. Tmax 100.4, I/O 2946/3020. 02/22: No events over the night. Patient is currently on propofol and Precedex, calm, opening eyes to voice stimuli, following commands. RASS of -2. T-max of 100.6. On 0.3 FiO2. Urine output is adequate. ROS -unobtainable, patient is intubated Objective Vital Signs Date Time Temp Pulse Resp B/P (MAP) Pulse Ox O2 Delivery O2 Flow Rate FiO2 02/22/18 07:51 99 30 02/22/18 06:00 75 02/22/18 04:00 99.7 16 128/85 (99) Intake and Output 02/22/18 02/22/18 02/23/18 08:00 16:00 00:00 Intake Total 350 ml Output Total 1415 ml Balance -1065 ml Result Diagram: 02/21/18 0345 02/21/18 0345 Imaging Last Impressions Chest X-Ray 02/18/18 0600 Signed Impressions: Service Date/Time: Sunday, February 18, 2018 04:18 - CONCLUSION: Unchanged radiographic appearance most consistent with pulmonary edema. Shane Merrill Jr., MD Head CT 02/14/18 1204 Signed Impressions: Service Date/Time: Wednesday, February 14, 2018 14:09 - CONCLUSION: 1. Chronic ischemic changes in the parietal lobes. No change from previous study. 2. No acute intracranial abnormality or Tye Steinberg MD CT Angiography 02/14/18 1204 Signed Impressions: Service Date/Time: Wednesday, February 14, 2018 20:07 - CONCLUSION: 1. No evidence for pulmonary embolism. 2. Bibasilar consolidation. 3. Cardiomegaly. Tye Steinberg MD Objective Remarks General - middle-aged gentleman, intubated, sedated, arousable, ill-appearing HEENT - pupils equal, reactive, sclerae anicteric, neck supple, no nuchal rigidity, unable to appreciate neck vein distention due to body habitus, no carotid bruit, orally intubated CV - regular S1, S2, no murmurs, distant Chest - coarse breath sounds b/l, good air entry, no wheezes Abdomen - soft, non-tender, distended, BS hypoactive, no hepatomegaly, no splenomegaly Skin - no rashes, no cyanosis Extremities - warm and well perfused, no edema, + peripheral pulses RLE, no clubbing, LLE AKA Neuro - intubated and sedated, arousable, opens eyes to voice stimuli and follows commands, moves both upper extremities and lower extremities but weak A/P Assessment and Plan Assessment and Plan Neuro / Psych Metabolic encephalopathy -slowly improving Hx depression Hx of CVA 3 -CT of the head negative for acute findings, encephalopathy most likely metabolic -Daily sedation vacation -Precedex infusion to facilitate ventilator weaning, propofol added for the vent synchrony and due to agitation -Decrease propofol and continue Precedex to facilitate vent weaning Cardiovascular Hypotension-resolved Lactic acidosis Hx of hypertension and dyslipidemia -Septic shock resolved. -Continue Lasix -LVEF 55-60%.Mild concentric left ventricular hypertrophy. On echo done on 2016 -Resume Inderal 20 mg BID 02/20 Respiratory Acute hypoxic respiratory failure -improved O2 requirements Bilateral pneumonia (MSSA, strep pneumo) -white count remains elevated Acute COPD exacerbation -improved Hx of DVT / PE -Emergently intubated and placed on mechanical ventilation in the ED, Apparently difficult airway per -Taper steroids -CT PE protocol showed no pulmonary embolism, but positive for bibasilar consolidation -Continue levofloxacin -On Chronic Eliquis, continued -Currently on PRVC, PIP 26, 0.3 FiO2, patient synchronized with the ventilator, no auto PEEP -Decrease propofol and attempt SBT today GI / Nutrition GERD Morbid obesity Ileus -Continue to hold tube feeds -OGT to low intermittent wall suction Renal / Metabolic Acute kidney injury-resolved -Leone catheter for accurate intake output -Continue diuresis with Lasix -Check labs today Endocrine -Sliding scale insulin if needed Heme Hx of DVT / PE -more than a year ago; s/p prior IVC filter and on Eliquis at home Hx of childhood osteosarcoma s/p chemoradiation therapy Microcytic anemia -CT PE protocol negative for PE -On home Eliquis, continue -Monitor cbc, coags ID Septic shock-resolved Bibasilar pneumonia -F/u sputum culture MSSA, Streptococcus pneumonia. Influenza negative -On broad-spectrum antibiotics with levofloxacin Prophylaxis: GI - IV Famotidine q 12 DVT - SCD on right lower extremity; Eliquis No family present at bedside Addendum: patient was on CPAP for approximately 2 hours. Per nursing, patient became tachypneic and hypoxic and he was switched back to PRVC. Currently patient on 100% O2. On chest auscultation, no wheezes, decreased air entry at bases, no crackles. Stat CXR ordered, vent settings readjusted, Vt decreased to 550, PEEP increased to 10 and ABG ordered for 5 PM. Discussed with RT and RN. Addendum: Chest x-ray reviewed, suboptimal, worsening bibasilar opacities. ABG reviewed, despite vent changes and PEEP of 12 no significant improvement in PO2. Patient was switched to APRV, P high 30, T high 5 seconds, T low 0.6 seconds, with improvement in O2 sat up to 95-96%. Minute ventilation maintained between 7.5-8.2 L. Lasix was held and patient was given 500 mL's fluid bolus. Arterial line will be placed for serial blood gases to be able to evaluate for hypoxia and hypercapnia. Next ABG will be done at 7 PM. Ideally patient should have a CT chest to rule out PE but at this time patient is too unstable to go. Eliquis was increased from 2.5 to 5 and Doppler lower extremity is being ordered. In addition, we will start inhaled Flolan. CT chest with IV contrast when patient more stable. Patient is critically ill with worsening acute respiratory failure and he is at very high risk for further decompensation and . No family present at bedside. William Barcenas MD Feb 22, 2018 08:33
[2018-02-22] MEDS: LACTULOSE SYRUP 20 GM/30 ML CUP PO SCH ×3 (09:48→17:35)
[2018-02-22] MEDS: FAMOTIDINE 20 MG TAB PO SCH ×2 (09:48→21:44)
[2018-02-22] MEDS: APIXABAN 2.5 MG TABLET PO SCH (09:48)
[2018-02-22] MEDS: SODIUM CHLORIDE 0.9% FLUSH 10 ML FLUSH IV FLUSH SCH ×2 (09:49→21:06)
[2018-02-22] MEDS: FUROSEMIDE 40 MG/4 ML VIAL IV PUSH SCH ×2 (09:49→17:34)
[2018-02-22] MEDS: PROPRANOLOL HCL 20 MG TAB PO SCH ×5 (09:49→21:44)
[2018-02-22] MEDS: POTASSIUM CHLORIDE 25 MEQ EFFERVESCENT TAB NG SCH (09:49)
[2018-02-22] MEDS: CHLORHEXIDINE 0.12% (ORAL KIT) 15 ML CUP MT SCH ×2 (09:50→21:44)
--- NOTE | 2018-02-22 17:05 | RADRPT ---
EXAM DATE/TIME: 02/22/2018 16:35 [facility] COMPARISON: CHEST SINGLE AP, February 21, 2018, 3:20. INDICATIONS : Difficulty breathing. Evaluate for pneumonia per order. MEDICAL HISTORY : Chronic obstructive pulmonary disease. Diabetes. SURGICAL HISTORY : None. ENCOUNTER: Subsequent ACUITY: 1 week PAIN SCORE: Non-responsive. LOCATION: Bilateral chest FINDINGS: Lung bases are only partially evaluated. Suspect developing bibasilar areas of consolidation/effusion , however. Endotracheal tube is positioned just above the clavicular heads and a nasogastric tube anne ntified at the base of the heart and extending off the inferior aspect of the image. Right shoulder a rthroplasty CONCLUSION: Apparent developing bibasilar areas of consolidation/effusion. Lung bases are only partially renetta luated, however. Lucien Barnes MD on February 22, 2018 at 17:01 Board Certified Radiologist. This report was verified electronically.
[2018-02-22] MEDS: methylPREDNISolone SOD SUCC 40 MG/1 ML VIAL IV PUSH SCH (17:33)
[2018-02-22] MEDS: LEVOFLOXACIN 750 MG PREMIX INJ 150 ML IV SCH (17:34)
[2018-02-22] MEDS ORDERED: SODIUM CHLORID 0.9% 500 ML INJ 500 ML IV ONE (18:00)
[2018-02-22 18:03] LABS: AUTOMATED NEUTROPHIL # 11.7 TH/MM3 (1.8-7.7); BASOPHIL # 0.1 TH/MM3 (0-0.2); BASOPHIL % 0.7 % (0.0-2.0); EOSINOPHIL % 0.1 % (0.0-4.0); HEMATOCRIT 35.6 % (39.0-51.0); HEMOGLOBIN 10.5 GM/DL (13.0-17.0); LYMPH % 8.9 % (9.0-44.0); LYMPHOCYTE # 1.2 TH/MM3 (1.0-4.8); MEAN CELL VOLUME 65.5 FL (80.0-100.0); MEAN CORPUSCULAR HEMOGLOBIN 19.4 PG (27.0-34.0); MEAN PLATELET VOLUME 8.5 FL (7.0-11.0); MONO % 6.3 % (0.0-8.0); MONOCYTE # 0.9 TH/MM3 (0-0.9); PLATELET COUNT 258 TH/MM3 (150-450); RED BLOOD COUNT 5.43 MIL/MM3 (4.50-5.90); RED CELL DISTRIBUTION WIDTH 21.7 % (11.6-17.2); WHITE BLOOD COUNT 13.9 TH/MM3 (4.0-11.0)
[2018-02-22] MEDS ORDERED: EPOPROSTENOL NEB SOLUTION 50 NG/KG/MIN 100 ML NEB SCH ×2 (18:15)
[2018-02-22 18:19] LABS: MEAN CORPUSCULAR HGB CONC 29.6 % (32.0-36.0)
[2018-02-22 18:39] LABS: ALBUMIN 2.6 GM/DL (3.4-5.0); ALKALINE PHOSPHATASE 50 U/L (45-117); ALT (GPT) 28 U/L (12-78); AST (GOT) 30 U/L (15-37); BICARBONATE 28.6 MEQ/L (21.0-32.0); BLOOD UREA NITROGEN 53 MG/DL (7-18); CALCIUM 8.5 MG/DL (8.5-10.1); CHLORIDE 104 MEQ/L (98-107); CREATININE 0.88 MG/DL (0.60-1.30); GLOMERULAR FILTRATION RATE 93 ML/MIN (>89); GLUCOSE,RANDOM 155 MG/DL (74-106); MAGNESIUM 2.4 MG/DL (1.5-2.5); PHOSPHORUS 3.2 MG/DL (2.5-4.9); SODIUM (NA) 143 MEQ/L (136-145); TOTAL BILIRUBIN ADULT 0.9 MG/DL (0.2-1.0); TOTAL PROTEIN 6.3 GM/DL (6.4-8.2)
[2018-02-22] MEDS: EPOPROSTENOL NEB SOLUTION 50 NG/KG/MIN 100 ML NEB SCH ×2 (21:05)
--- NOTE | 2018-02-22 21:24 | RADRPT ---
EXAM DATE/TIME: 02/22/2018 20:03 [facility] COMPARISON: US LEG BILATERAL VENOUS DOPPLER, July 15, 2016, 22:18. INDICATIONS : Lower extremity edema. MEDICAL HISTORY : Chronic obstructive pulmonary disease. Diabetes. Deep vein thrombosis. Hypertension. Hypercholeste rolemia. Pacemaker. Myocardial infarction. Congestive heart failure. Thyroid disease SURGICAL HISTORY : Above knee right leg amputation. Cardiac surgery. Appendectomy. Nephrectomy. Hiatal hernia. ENCOUNTER: Initial ACUITY: 1 day PAIN SCORE: Non-responsive LOCATION: Bilateral Lower extremity TECHNIQUE: Venous ultrasound of the left and right leg was performed from the inguinal ligament to the proximal calf. Real-time, color Doppler and spectral tracing, compression and augmentation techniques were us ed. FINDINGS: RIGHT LEG: There is normal compressibility of the deep venous system from the inguinal region to the proximal ca lf. No echogenic clot is seen in the lumen of the common femoral, femoral, popliteal, and posterior tibial veins. There is a normal response of the venous system to proximal and distal augmentation an d respiration. LEFT LEG: Above-knee amputation. Venous tributaries of the left lower extremity remnant are patent. CONCLUSION: No venous thrombosis of either lower extremity. Bebeto Dominique MD on February 22, 2018 at 21:20 Board Certified Radiologist. This report was verified electronically.
[2018-02-22] MEDS: APIXABAN 5 MG TABLET PO SCH (21:44)
--- NOTE | 2018-02-22 22:06 | RADRPT ---
EXAM DATE/TIME: 02/22/2018 21:32 [facility] COMPARISON: CHEST SINGLE AP, February 22, 2018, 16:35. INDICATIONS : Central line placement. MEDICAL HISTORY : Chronic obstructive pulmonary disease. Diabetes. Deep vein thrombosis. Hypertension. Hypercholesterol emia. Pacemaker. Myocardial infarction. Congestive heartfailure. Thyroid disease. SURGICAL HISTORY : Cardiac surgery. Appendectomy. Nephrectomy. Hiatal hernia. ENCOUNTER: Subsequent ACUITY: 1 day PAIN SCORE: Non-responsive. LOCATION: Bilateral chest FINDINGS: Improved aeration on both sides. Now just trace atelectasis seen at the right lung base. No pneumotho rax. There is a new left internal jugular central venous catheter with tip at the atrial caval junction. Endotracheal tube tip approximately 5 cm above the shiela again noted. There is a nasogastric tube co ursing into the stomach. CONCLUSION: 1. New left IJ central venous catheter as above. No pneumothorax. 2. Trace right base consolidation. There is improved aeration on both sides. Bebeto Dominique MD on February 22, 2018 at 22:02 Board Certified Radiologist. This report was verified electronically.
[2018-02-23] VITALS (25 sets, daily range): BP systolic 90–143; BP diastolic 63–84; PULSE 77–83; RESP 11–18; TEMP 98.3–99.8; O2SAT 91–100
[2018-02-23] MEDS: methylPREDNISolone SOD SUCC 40 MG/1 ML VIAL IV PUSH SCH ×2 (00:41→14:04)
--- NOTE | 2018-02-23 00:53 | PD.PROCEDR ---
Procedure Note Procedure Central line placement A time-out was completed verifying correct patient, procedure, site, positioning , and special equipment if applicable. The patient was placed in a dependent position appropriate for central line placement based on the vein to be cannulated. The patients left neck was prepped and draped in sterile fashion. 1 % Lidocaine was used to anesthetize the surrounding skin area. A triple lumen 9 [place] catheter was introduced into the the internal jugular vein using the Seldinger technique and under ultrasound guidance. The catheter was threaded smoothly over the guide wire and appropriate blood return was obtained. Each lumen of the catheter was evacuated of air and flushed with sterile saline. The catheter was then sutured in place to the skin and a sterile dressing applied. Perfusion to the extremity distal to the point of catheter insertion was checked and found to be adequate. Estimated Blood Loss: 1ml The patient tolerated the procedure well and there were no complications. Thomas Garcia MD Feb 23, 2018 12:53 am
[2018-02-23] MEDS: PROPOFOL 1000 MG/100 ML INJ 100 ML IV PRN ×8 (01:52→23:09)
[2018-02-23] MEDS: CHLORHEXIDINE GLUCONATE 2 % 1 PACK (2 CLOTHS) TOP SCH (04:00)
[2018-02-23] MEDS: EPOPROSTENOL NEB SOLUTION 50 NG/KG/MIN 100 ML NEB SCH ×6 (04:00→23:11)
[2018-02-23] MEDS: LORazepam 1 MG TAB PO SCH ×2 (04:57→17:24)
[2018-02-23] MEDS: DEXMEDETOMIDINE INJ 1,000 MCG in SODIUM CHLOR 0.9% 250 ML INJ 240 ML IV PRN ×3 (04:57→11:24)
[2018-02-23 05:00] LABS: HEMATOCRIT 33.2 % (39.0-51.0); HEMOGLOBIN 9.9 GM/DL (13.0-17.0); MEAN CELL VOLUME 65.7 FL (80.0-100.0); MEAN CORPUSCULAR HEMOGLOBIN 19.5 PG (27.0-34.0); MEAN PLATELET VOLUME 8.6 FL (7.0-11.0); PLATELET COUNT 247 TH/MM3 (150-450); RED BLOOD COUNT 5.05 MIL/MM3 (4.50-5.90); RED CELL DISTRIBUTION WIDTH 21.7 % (11.6-17.2); WHITE BLOOD COUNT 18.1 TH/MM3 (4.0-11.0)
[2018-02-23 05:11] LABS: MEAN CORPUSCULAR HGB CONC 29.7 % (32.0-36.0)
[2018-02-23 05:23] LABS: ALBUMIN 2.5 GM/DL (3.4-5.0); ALKALINE PHOSPHATASE 51 U/L (45-117); ALT (GPT) 27 U/L (12-78); AST (GOT) 33 U/L (15-37); BICARBONATE 25.4 MEQ/L (21.0-32.0); BLOOD UREA NITROGEN 66 MG/DL (7-18); CALCIUM 8.4 MG/DL (8.5-10.1); CHLORIDE 103 MEQ/L (98-107); CREATININE 1.32 MG/DL (0.60-1.30); GLOMERULAR FILTRATION RATE 58 ML/MIN (>89); GLUCOSE,RANDOM 206 MG/DL (74-106); MAGNESIUM 2.4 MG/DL (1.5-2.5); PHOSPHORUS 6.2 MG/DL (2.5-4.9); SODIUM (NA) 140 MEQ/L (136-145); TOTAL BILIRUBIN ADULT 0.8 MG/DL (0.2-1.0); TOTAL PROTEIN 6.1 GM/DL (6.4-8.2)
--- NOTE | 2018-02-23 05:25 | RADRPT ---
EXAM DATE/TIME: 02/23/2018 03:59 [facility] COMPARISON: CHEST SINGLE AP, February 22, 2018, 21:32. INDICATIONS : Shortness of breath, possible pulmonary disease. MEDICAL HISTORY : Chronic obstructive pulmonary disease. Diabetes mellitus type II. Hypercholes terolemia. Hypertension DVT DC SURGICAL HISTORY : CABG. Appendectomy. Nephrectomy ENCOUNTER: Subsequent ACUITY: 1 week PAIN SCORE: Non-responsive. LOCATION: Bilateral chest FINDINGS: A single view of the chest demonstrates linear density right midlung. Left lung clear. Endotracheal t ube, nasogastric tube and left jugular central line in stable position. The cardiomediastinal contour s are unremarkable. Osseous structures are intact. CONCLUSION: Minimal subsegmental atelectasis versus scarring right midlung otherwise clear chest. Tye Steinberg MD on February 23, 2018 at 5:23 Board Certified Radiologist. This report was verified electronically.
[2018-02-23 06:21] LABS: BANDS 1 % (0-6); METAMYELOCYTES 1 % (0-1); MONOCYTES 2 % (0-8); NEUTROPHIL # MANUAL DIFF 17.7 TH/MM3 (1.8-7.7); POLYS (SEG NEUTROPHILS) 96 % (16-70)
[2018-02-23 06:22] LABS: OVALOCYTES 1+ (NORMAL); STOMATOCYTES 1+ (NORMAL)
[2018-02-23] MEDS: RESP: BUDESONIDE 0.5 MG/2 ML NEB NEB SCH ×2 (08:14→21:09)
--- NOTE | 2018-02-23 08:25 | HHI.CCPN ---
Subjective Remarks/Hospital Course Patient is a 47-year-old morbidly obese male with past medical history significant for obesity, obstructive sleep apnea clinically, history of DVT, chronic Eliquis use who was brought in by EMS for altered mental status and severe hypoxemia. Apparently per EMS end-tidal CO2 was in the 60s his initial sat was in the 30s, but with bagging came up to the 70s. Initial GCS apparently was 7 but improved with continued bag and mask ventilation in the ED. Sats remained in the low 80s. Patient initially refused intubation and was placed on BiPAP. Received duo nebs and Solu-Medrol and antibiotics (Azactam, Flagyl, vancomycin). Patient continued to be tachypneic and severely hypoxemic, and patient was intubated by the ER physician. Apparently difficult airway and was intubated on the third attempt. Patient was desaturating to low 80s even after intubation and I was called to the ED for assisting. I immediately evaluated the patient he continues to be in severe bronchospasm, severely hypoxemic. Additional breathing treatments ordered. I changed the vent settings to PCAC to target tidal volume 600-650 and reduce the rate to 14. PEEP increased to 10. Gradually oxygen saturation improved to 90. I placed a right IJ central line as the patient was borderline hypotensive. Chest x-ray showed apparently pulmonary vascular congestion. No definite infiltrate. Lactic acid 6. Appears patient has acute COPD exacerbation and severe sepsis, pulmonary embolism needs to be ruled out. IV Solu-Medrol DuoNeb breathing treatments will be continued. Patient takes Eliquis for PE in the past. Further workup and management based on results 02/15: Remains intubated heavily sedated. PEEP remains at 12 FiO2 has been weaned to 55%. CT PE protocol negative for pulmonary embolism, showed bibasilar significant consolidation indicative of pneumonia. Sputum Gram stain shows GPC. Add vancomycin. 02/16: Patient remains intubated remains critical. Remains hypoxemic on high vent support. On attempt to reduce PEEP, he desaturated and currently on 10 of PEEP. FiO2 50%. Sputum culture with MSSA and strep pneumo. Will discontinue Levaquin and Flagyl continue Azactam and vancomycin 02/17: Remains critical, CXR still showing pulmonary edema. IV Lasix repeat dose given. Wean PEEP to 8, FiO2 to 45%. Start SBT as tolerated 02/18: Patient remains intubated heavily sedated. On lightening sedation patient becomes very agitated. PEEP remains at 8 FiO2 down to 40%. Chest x- ray continues to show pulmonary vascular congestion 02/19: Patient transitioned to Precedex in the last 24 hours continues on CPAP trials 15/8/40%. Patient cooperative following commands. Chest x-ray pending. Aggressive diureses initiated BMP pending this afternoon. 02/20: While on Precedex CPAP trial was attempted. After about 15 minutes patient became severely tachypneic diaphoretic with respiratory rate in the 40s. Re sedated with 50 mg IV push of propofol, and restarting propofol infusion. CXR shows improving pulmonary vascular congestion. WBC count though is trending up. 02/21: No events over the night. Patient is currently on CPAP, PS 15/8/40%, with RR in the 30's and Vt low 300's. Patient is sedated with propofol and precedex. Tmax 100.4, I/O 2946/3020. 02/22: No events over the night. Patient is currently on propofol and Precedex, calm, opening eyes to voice stimuli, following commands. RASS of -2. T-max of 100.6. On 0.3 FiO2. Urine output is adequate. 02/23: Yesterday afternoon patient decompensated, requiring high PEEP and 100% O2 with sats in the mid 80s. Patient was switched to bilevel ventilation and started on inhaled Flolan with rapid improvement in his oxygenation. A central line and art line with placed and patient required 1 L fluid bolus. This morning patient is down to 0.4 FiO2. Sedation is achieved with propofol. No pressors. Decreased urine output over the night. T-max of 99. Still with significant NG tube output, over the last 24 hours 1200 mL's. Morning chest x- ray reviewed, significantly improved air entry at bases. ROS -unobtainable, patient is intubated Objective Vital Signs Date Time Temp Pulse Resp B/P (MAP) Pulse Ox O2 Delivery O2 Flow Rate FiO2 02/23/18 06:00 81 02/23/18 06:00 11 99/64 (76) 102/66 (78) 02/23/18 06:00 50 02/23/18 04:28 96 02/23/18 04:00 98.7 Intake and Output 02/23/18 02/23/18 02/24/18 08:00 16:00 00:00 Intake Total 832 ml Output Total 500 ml Balance 332 ml Result Diagram: 02/23/18 0425 02/23/18 0425 Other Results Laboratory Tests Test 02/22/18 17:30 02/22/18 19:44 02/22/18 23:13 02/23/18 04:50 Blood Gas Puncture Site RT RADIAL LT RADIAL RT RADIAL ART LINE Blood Gas Patient Temperature 98.6 98.6 98.6 98.6 Blood Gas HCO3 29 mmol/L (22-26) 27 mmol/L (22-26) 26 mmol/L (22-26) 24 mmol/L (22-26) Blood Gas Base Excess 5.7 mmol/L (-2-2) 3.8 mmol/L (-2-2) 2.6 mmol/L (-2-2) 0.1 mmol/L (-2-2) Blood Gas Oxygen Saturation 83 % (90-100) 95 % (90-100) 97 % (90-100) 97 % ( 90-100) Arterial Blood pH 7.49 (7.380-7.420) 7.47 (7.380-7.420) 7.45 (7.380-7.420) 7.41 (7.380-7.420) Arterial Blood Partial Pressure CO2 39 mmHg (38-42) 38 mmHg (38-42) 38 mmHg (38-42) 39 mmHg (38-42) Arterial Blood Partial Pressure O2 54 mmHg (61-120) 108 mmHg (61-120) 166 mmHg (61-120) 237 mmHg (61-120) Arterial Blood Oxygen Content 12.4 Vol % (12.0-20.0) 13.9 Vol % (12.0-20.0) 13.6 Vol % (12.0-20.0) 13.9 Vol % (12.0-20.0) Arterial Blood Carboxyhemoglobin 1.9 % (0-4) 1.7 % (0-4) 1.7 % (0-4) 1.5 % (0-4) Arterial Blood Methemoglobin 1.1 % (0-2) 1.2 % (0-2) 1.2 % (0-2) 1.3 % (0-2) Blood Gas Hemoglobin 10.6 G/DL (12.0-16.0) 10.2 G/DL (12.0-16.0) 9.8 G/DL (12.0-16.0) 9.8 G/DL (12.0-16.0) Oxygen Delivery Device VENTILATOR VENTILATOR VENTILATOR VENTILATOR Blood Gas Ventilator Setting SEE COMMENT APRV/BILEVAL BILEVEL/APRV Blood Gas Inspired Oxygen 100 % 85 % 85 % 60 % Test 02/23/18 05:53 Blood Gas Puncture Site ART LINE Blood Gas Patient Temperature 98.6 Blood Gas HCO3 24 mmol/L (22-26) Blood Gas Base Excess 0.2 mmol/L (-2-2) Blood Gas Oxygen Saturation 97 % (90-100) Arterial Blood pH 7.42 (7.380-7.420) Arterial Blood Partial Pressure CO2 38 mmHg (38-42) Arterial Blood Partial Pressure O2 250 mmHg (61-120) Arterial Blood Oxygen Content 14.1 Vol % (12.0-20.0) Arterial Blood Carboxyhemoglobin 1.5 % (0-4) Arterial Blood Methemoglobin 1.3 % (0-2) Blood Gas Hemoglobin 9.9 G/DL (12.0-16.0) Oxygen Delivery Device VENTILATOR Blood Gas Ventilator Setting BILEVEL/APRV Blood Gas Inspired Oxygen 50 % Microbiology Date/Time Source Procedure Growth Status 02/22/18 11:30 Blood Peripheral Aerobic Blood Culture Pending Received 02/22/18 11:30 Blood Peripheral Anaerobic Blood Culture Pending Received 02/22/18 11:23 Blood Peripheral Aerobic Blood Culture Pending Received 02/22/18 11:23 Blood Peripheral Anaerobic Blood Culture Pending Received 02/22/18 10:35 Sputum Endotracheal Gram Stain Pending Received 02/22/18 10:35 Sputum Endotracheal Sputum Culture Pending Received Imaging Last 24 hours Impressions Chest X-Ray 02/23/18 0600 Signed Impressions: Service Date/Time: January 03:59 - CONCLUSION: Minimal subsegmental atelectasis versus scarring right midlung otherwise clear chest. Tye Steinberg MD Last Impressions Chest X-Ray 02/18/18 0600 Signed Impressions: Service Date/Time: Sunday, February 18, 2018 04:18 - CONCLUSION: Unchanged radiographic appearance most consistent with pulmonary edema. Shane Merrill Jr., MD Head CT 02/14/18 1204 Signed Impressions: Service Date/Time: Wednesday, February 14, 2018 14:09 - CONCLUSION: 1. Chronic ischemic changes in the parietal lobes. No change from previous study. 2. No acute intracranial abnormality or Tye Steinberg MD CT Angiography 02/14/18 1204 Signed Impressions: Service Date/Time: Wednesday, February 14, 2018 20:07 - CONCLUSION: 1. No evidence for pulmonary embolism. 2. Bibasilar consolidation. 3. Cardiomegaly. Tye Steinberg MD Objective Remarks General - middle-aged gentleman, intubated and sedated, ill-appearing HEENT - pupils are equal, reactive, sclerae are anicteric, neck is supple, no neck rigidity, no JVD, no carotid bruit, orally intubated, left IJ central line -site is clean CV - regular heart sounds, no murmurs, distant Chest - improved air entry, no wheezes, no crackles Abdomen - soft, non-tender, distended but softer, BS hypoactive, no hepatomegaly , no splenomegaly Skin - no rashes, no cyanosis Extremities - warm, no edema, + peripheral pulses RLE, no clubbing, LLE AKA Neuro - intubated, sedated, does not open eyes to voice stimuli, does not follow commands A/P Assessment and Plan 1. Acute hypoxic respiratory failure -worsened yesterday requiring bilevel ventilation, currently significantly improved 2. Bibasilar MSSA and strep pneumo pneumonia 3. Acute COPD exacerbation -resolved 4. Metabolic encephalopathy 5. Hypotension -resolved 6. Ileus -still with significant NG tube output 7. 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 History of DVT and PE s/p IVC filter 9. LUCAS - creatinine is improved, urine output is trending down over the last 24 hours 10. Hx depression and Hx of CVA 3 11. Hx of hypertension and dyslipidemia 12. Hx of childhood osteosarcoma s/p chemoradiation therapy 1. Continue bilevel ventilation for now. FiO2 tapered to 0.35, P high decreased to 28, maintain pressure support 5, T high 5 seconds and T low 0.6 seconds 2. Continue Flolan 3. Vent bundle and bronchodilators 4. On steroids 5. Continue levofloxacin for now. Will discuss today with mother regarding penicillin allergy 6. Repeat cultures sent 7. Home Eliquis dose increased to 5 twice daily 8. Gentle IV hydration and monitor urine output 9. Continue OG tube to low intermittent wall suction and continue to hold tube feeds 10. Hold Lasix 11. GI prophylaxis with famotidine, DVT prophylaxis addressed above No family present at bedside Patient is critically ill with worsening acute respiratory failure and he is at very high risk for further decompensation and . I spent 32 minutes of critical care time managing ventilator, Flolan, fluids, reviewing data, ordering labs, discussing with nursing staff and respiratory therapist. Addendum: Discussed in detail with mother present at bedside regarding patient' s critical condition and answered all her questions to my ability. She informed me that the penicillin allergy was just the rash at age 17 and there was no anaphylactic reaction. Due to persistent improvement in oxygenation, patient was switched from APRV to PRVC, with a tidal volume 450, respiratory rate of 16, PEEP of 14, 45% O2, O2 sat. Will repeat ABG at 4 PM. William Barcenas MD Feb 23, 2018 08:25
[2018-02-23] MEDS: PROPRANOLOL HCL 20 MG TAB PO SCH ×5 (09:10→21:28)
[2018-02-23] MEDS: APIXABAN 5 MG TABLET PO SCH ×2 (09:10→21:28)
[2018-02-23] MEDS: FAMOTIDINE 20 MG TAB PO SCH ×2 (09:10→21:28)
[2018-02-23] MEDS: POTASSIUM CHLORIDE 25 MEQ EFFERVESCENT TAB NG SCH (09:11)
[2018-02-23] MEDS: CHLORHEXIDINE 0.12% (ORAL KIT) 15 ML CUP MT SCH ×2 (09:17→21:29)
[2018-02-23] MEDS: SODIUM CHLORIDE 0.9% FLUSH 10 ML FLUSH IV FLUSH SCH ×2 (09:17→21:28)
[2018-02-23] MEDS ORDERED: INFLUENZA VIRUS VACCINE (QUADRIVALENT) 0.5 ML SYR IM ONE (10:00)
[2018-02-23] MEDS: cefTRIAXone INJ 2,000 MG in SODIUM CHLORIDE 0.9% INJ 100 ML IV SCH (14:04)
[2018-02-23] MEDS: LEVOFLOXACIN 750 MG PREMIX INJ 150 ML IV SCH (14:04)
[2018-02-23] MEDS: RESP: ALBUTEROL 2.5 MG/IPRATROPIUM 0.5 MG NEB (PRN) INH (21:09)
[2018-02-24] VITALS (26 sets, daily range): BP systolic 105–137; BP diastolic 55–87; PULSE 57–79; RESP 17–22; TEMP 97.5–99; O2SAT 85–100
[2018-02-24] MEDS: DEXMEDETOMIDINE INJ 1,000 MCG in SODIUM CHLOR 0.9% 250 ML INJ 240 ML IV PRN ×3 (00:21→20:00)
[2018-02-24] MEDS: methylPREDNISolone SOD SUCC 40 MG/1 ML VIAL IV PUSH SCH ×2 (00:24→10:55)
[2018-02-24] MEDS: PROPOFOL 1000 MG/100 ML INJ 100 ML IV PRN ×9 (01:46→19:27)
[2018-02-24] MEDS: EPOPROSTENOL NEB SOLUTION 50 NG/KG/MIN 100 ML NEB SCH ×6 (04:00→20:46)
[2018-02-24] MEDS: CHLORHEXIDINE GLUCONATE 2 % 1 PACK (2 CLOTHS) TOP SCH (04:00)
[2018-02-24 04:52] LABS: AUTOMATED NEUTROPHIL # 14.6 TH/MM3 (1.8-7.7); BASOPHIL % 0.2 % (0.0-2.0); HEMATOCRIT 28.9 % (39.0-51.0); HEMOGLOBIN 8.7 GM/DL (13.0-17.0); LYMPH % 3.1 % (9.0-44.0); LYMPHOCYTE # 0.5 TH/MM3 (1.0-4.8); MEAN CELL VOLUME 65.2 FL (80.0-100.0); MEAN CORPUSCULAR HEMOGLOBIN 19.6 PG (27.0-34.0); MEAN PLATELET VOLUME 9.1 FL (7.0-11.0); MONO % 4.7 % (0.0-8.0); MONOCYTE # 0.7 TH/MM3 (0-0.9); PLATELET COUNT 215 TH/MM3 (150-450); RED BLOOD COUNT 4.43 MIL/MM3 (4.50-5.90); RED CELL DISTRIBUTION WIDTH 22.3 % (11.6-17.2); WHITE BLOOD COUNT 15.9 TH/MM3 (4.0-11.0)
[2018-02-24] MEDS: LORazepam 1 MG TAB PO SCH ×2 (04:52→16:30)
[2018-02-24 05:29] LABS: ALBUMIN 2.1 GM/DL (3.4-5.0); ALKALINE PHOSPHATASE 45 U/L (45-117); ALT (GPT) 20 U/L (12-78); AST (GOT) 18 U/L (15-37); BICARBONATE 26.4 MEQ/L (21.0-32.0); BLOOD UREA NITROGEN 45 MG/DL (7-18); CALCIUM 8.2 MG/DL (8.5-10.1); CHLORIDE 108 MEQ/L (98-107); CREATININE 0.68 MG/DL (0.60-1.30); GLOMERULAR FILTRATION RATE 125 ML/MIN (>89); GLUCOSE,RANDOM 174 MG/DL (74-106); MAGNESIUM 2.1 MG/DL (1.5-2.5); PHOSPHORUS 2.6 MG/DL (2.5-4.9); SODIUM (NA) 143 MEQ/L (136-145); TOTAL BILIRUBIN ADULT 0.4 MG/DL (0.2-1.0); TOTAL PROTEIN 5.7 GM/DL (6.4-8.2)
--- NOTE | 2018-02-24 05:54 | RADRPT ---
EXAM DATE/TIME: 02/24/2018 04:16 [facility] COMPARISON: CHEST SINGLE AP, February 23, 2018, 3:59. INDICATIONS : Shortness of breath. MEDICAL HISTORY : Chronic obstructive pulmonary disease. Diabetes mellitus type II. Hypercholesterolemia. Hypertension DVT HI. SURGICAL HISTORY : CABG. Appendectomy. Nephrectomy. ENCOUNTER: Subsequent ACUITY: 2 weeks PAIN SCORE: Non-responsive. LOCATION: chest FINDINGS: ET tube tip just above the level of the clavicles. Left internal jugular catheter tip projects over the mid superior vena cava. Gastric tube tip projects in the stomach; the side port of the gastric t ube is 3.3 cm above the diaphragm. As decreased aeration of the lungs when compared to prior with el evation of both hemidiaphragms. There is associated patchy areas of opacity in the lower lungs which could represent developing infiltrates or manifestation of submaximal inspiration. CONCLUSION: 1. Side port of the gastric tube is 3.3 cm above the diaphragm and needs to be advanced proximally 5 cm. 2. Lesser degree of inspiration both lungs with associated indistinctness and crowding of the broncho pulmonary markings versus developing infiltrates. Shane Reed MD on February 24, 2018 at 5:48 Board Certified Radiologist. This report was verified electronically.
[2018-02-24] MEDS: RESP: BUDESONIDE 0.5 MG/2 ML NEB NEB SCH ×2 (07:49→19:21)
[2018-02-24] MEDS: RESP: ALBUTEROL 2.5 MG/IPRATROPIUM 0.5 MG NEB (PRN) INH (07:50)
[2018-02-24] MEDS: CHLORHEXIDINE 0.12% (ORAL KIT) 15 ML CUP MT SCH ×2 (08:00→20:45)
[2018-02-24] MEDS: PROPRANOLOL HCL 20 MG TAB PO SCH ×4 (09:00→20:46)
--- NOTE | 2018-02-24 10:06 | RADRPT ---
EXAM DATE/TIME: 02/24/2018 08:55 [facility] COMPARISON: CHEST SINGLE AP, February 24, 2018, 4:16. INDICATIONS : Short of breath, ET tube repositioned MEDICAL HISTORY : Chronic obstructive pulmonary disease. Diabetes mellitus type II. Hypertensio n. DVT, [place] SURGICAL HISTORY : CABG. Appendectomy. nephrectomy ENCOUNTER: Subsequent ACUITY: 2 weeks PAIN SCORE: Non-responsive. LOCATION: Bilateral chest FINDINGS: A single view of the chest demonstrates the endotracheal tube, nasogastric tube are both in excellent position. Mild vascular congestion. Small bilateral pleural effusions. Right shoulder hemiarthroplas ty. Osseous structures are intact. CONCLUSION: Tubes and catheter are in good position. Small bilateral pleural effusions. Basilar a telectasis. Jadiel Gómez MD on February 24, 2018 at 10:03 Board Certified Radiologist. This report was verified electronically.
--- NOTE | 2018-02-24 10:10 | RADRPT ---
EXAM DATE/TIME: 02/24/2018 09:06 [facility] COMPARISON: ABDOMEN KUB ONLY, February 21, 2018, 11:19. INDICATIONS : Abdominal distention, evaluate for ileus MEDICAL HISTORY : Chronic obstructive pulmonary disease. Diabetes mellitus type II. Hypertension. DVT, [place] SURGICAL HISTORY : CABG. Appendectomy. nephrectomy ENCOUNTER: Subsequent ACUITY: 2 weeks PAIN SCORE: Non-responsive. LOCATION: Bilateral abdomen FINDINGS: Supine view of the abdomen was performed. There is significant air within the right colon and portio ns of the transverse colon. It is unchanged from the 24th. There is still stool and air throughout th e left colon. The small bowel is nondilated. The abdominal bowel gas pattern is normal. No abnormal masses, calcifications, or organomegaly is seen. The osseous structures are unremarkable. IVC filter in place. A right bipolar hemiarthroplasty in good position. Left femoral neck is fractured CONCLUSION: Stable distention of the colon. No interval change since the previous study. Jadiel Gómez MD on February 24, 2018 at 10:06 Board Certified Radiologist. This report was verified electronically.
[2018-02-24] MEDS: POTASSIUM CHLORIDE 25 MEQ EFFERVESCENT TAB NG SCH (10:52)
[2018-02-24] MEDS: APIXABAN 5 MG TABLET PO SCH ×2 (10:52→20:47)
[2018-02-24] MEDS: FAMOTIDINE 20 MG TAB PO SCH ×2 (10:53→20:46)
[2018-02-24] MEDS: SODIUM CHLORIDE 0.9% FLUSH 10 ML FLUSH IV FLUSH SCH ×2 (10:55→20:46)
--- NOTE | 2018-02-24 11:03 | HHI.CCPN ---
Subjective Remarks/Hospital Course Patient is a 47-year-old morbidly obese male with past medical history significant for obesity, obstructive sleep apnea clinically, history of DVT, chronic Eliquis use who was brought in by EMS for altered mental status and severe hypoxemia. Apparently per EMS end-tidal CO2 was in the 60s his initial sat was in the 30s, but with bagging came up to the 70s. Initial GCS apparently was 7 but improved with continued bag and mask ventilation in the ED. Sats remained in the low 80s. Patient initially refused intubation and was placed on BiPAP. Received duo nebs and Solu-Medrol and antibiotics (Azactam, Flagyl, vancomycin). Patient continued to be tachypneic and severely hypoxemic, and patient was intubated by the ER physician. Apparently difficult airway and was intubated on the third attempt. Patient was desaturating to low 80s even after intubation and I was called to the ED for assisting. I immediately evaluated the patient he continues to be in severe bronchospasm, severely hypoxemic. Additional breathing treatments ordered. I changed the vent settings to PCAC to target tidal volume 600-650 and reduce the rate to 14. PEEP increased to 10. Gradually oxygen saturation improved to 90. I placed a right IJ central line as the patient was borderline hypotensive. Chest x-ray showed apparently pulmonary vascular congestion. No definite infiltrate. Lactic acid 6. Appears patient has acute COPD exacerbation and severe sepsis, pulmonary embolism needs to be ruled out. IV Solu-Medrol DuoNeb breathing treatments will be continued. Patient takes Eliquis for PE in the past. Further workup and management based on results 02/15: Remains intubated heavily sedated. PEEP remains at 12 FiO2 has been weaned to 55%. CT PE protocol negative for pulmonary embolism, showed bibasilar significant consolidation indicative of pneumonia. Sputum Gram stain shows GPC. Add vancomycin. 02/16: Patient remains intubated remains critical. Remains hypoxemic on high vent support. On attempt to reduce PEEP, he desaturated and currently on 10 of PEEP. FiO2 50%. Sputum culture with MSSA and strep pneumo. Will discontinue Levaquin and Flagyl continue Azactam and vancomycin 02/17: Remains critical, CXR still showing pulmonary edema. IV Lasix repeat dose given. Wean PEEP to 8, FiO2 to 45%. Start SBT as tolerated 02/18: Patient remains intubated heavily sedated. On lightening sedation patient becomes very agitated. PEEP remains at 8 FiO2 down to 40%. Chest x- ray continues to show pulmonary vascular congestion 02/19: Patient transitioned to Precedex in the last 24 hours continues on CPAP trials 15/8/40%. Patient cooperative following commands. Chest x-ray pending. Aggressive diureses initiated BMP pending this afternoon. 02/20: While on Precedex CPAP trial was attempted. After about 15 minutes patient became severely tachypneic diaphoretic with respiratory rate in the 40s. Re sedated with 50 mg IV push of propofol, and restarting propofol infusion. CXR shows improving pulmonary vascular congestion. WBC count though is trending up. 02/21: No events over the night. Patient is currently on CPAP, PS 15/8/40%, with RR in the 30's and Vt low 300's. Patient is sedated with propofol and precedex. Tmax 100.4, I/O 2946/3020. 02/22: No events over the night. Patient is currently on propofol and Precedex, calm, opening eyes to voice stimuli, following commands. RASS of -2. T-max of 100.6. On 0.3 FiO2. Urine output is adequate. 02/23: Yesterday afternoon patient decompensated, requiring high PEEP and 100% O2 with sats in the mid 80s. Patient was switched to bilevel ventilation and started on inhaled Flolan with rapid improvement in his oxygenation. A central line and art line with placed and patient required 1 L fluid bolus. This morning patient is down to 0.4 FiO2. Sedation is achieved with propofol. No pressors. Decreased urine output over the night. T-max of 99. Still with significant NG tube output, over the last 24 hours 1200 mL's. Morning chest x- ray reviewed, significantly improved air entry at bases. 02/24: No events over the night. Due to improved O2 requirements, yesterday, patient was switched from APRV to PRVC mode of ventilation. FiO2 between 0.45 and 0.5, but patient remains on high PEEP, currently at 14. T-max of 99.8. Improved urine output, up to 2200 over the last 24 hours. ROS -unobtainable, patient is intubated Objective Vital Signs Date Time Temp Pulse Resp B/P (MAP) Pulse Ox O2 Delivery O2 Flow Rate FiO2 02/24/18 07:30 100 50 02/24/18 06:00 79 02/24/18 04:00 22 128/74 (92) 02/24/18 00:00 98.8 Intake and Output 02/24/18 02/24/18 02/25/18 08:00 16:00 00:00 Intake Total 961 ml Output Total 1300 ml Balance -339 ml Result Diagram: 02/24/18 0300 02/24/18 0300 Other Results Microbiology Date/Time Source Procedure Growth Status 02/22/18 10:35 Sputum Endotracheal Gram Stain - Final Complete 02/22/18 10:35 Sputum Endotracheal Sputum Culture - Final HEAVY GROWTH NORMAL RESPIRATORY LUCAS Complete Laboratory Tests Test 02/23/18 12:06 02/23/18 16:30 02/24/18 05:11 Blood Gas Puncture Site ART LINE ART LINE ART LINE Blood Gas Patient Temperature 98.6 98.6 98.6 Blood Gas HCO3 23 mmol/L (22-26) 27 mmol/L (22-26) 27 mmol/L (22-26) Blood Gas Base Excess -1.0 mmol/L (-2-2) 2.7 mmol/L (-2-2) 3.2 mmol/L (-2-2) Blood Gas Oxygen Saturation 97 % (90-100) 91 % (90-100) 90 % (90-100) Arterial Blood pH 7.37 (7.380-7.420) 7.44 (7.380-7.420) 7.42 (7.380-7.420) Arterial Blood Partial Pressure CO2 41 mmHg (38-42) 40 mmHg (38-42) 43 mmHg (38-42) Arterial Blood Partial Pressure O2 197 mmHg (61-120) 74 mmHg (61-120) 72 mmHg (61-120) Arterial Blood Oxygen Content 13.3 Vol % (12.0-20.0) 12.4 Vol % (12.0-20.0) 11.3 Vol % (12.0-20.0) Arterial Blood Carboxyhemoglobin 1.5 % (0-4) 1.7 % (0-4) 1.7 % (0-4) Arterial Blood Methemoglobin 1.3 % (0-2) 1.3 % (0-2) 1.2 % (0-2) Blood Gas Hemoglobin 9.5 G/DL (12.0-16.0) 9.6 G/DL (12.0-16.0) 8.9 G/DL (12.0-16.0) Oxygen Delivery Device VENTILATOR VENTILATOR VENTILATOR Blood Gas Ventilator Setting PRVC16/450/1.0/+14 PRVC /AC Blood Gas Inspired Oxygen 40 % 45 % 45 % Imaging Last 24 hours Impressions Chest X-Ray 02/23/18 0600 Signed Impressions: Service Date/Time: January 03:59 - CONCLUSION: Minimal subsegmental atelectasis versus scarring right midlung otherwise clear chest. Tye Steinberg MD Last Impressions Chest X-Ray 02/18/18 0600 Signed Impressions: Service Date/Time: Sunday, February 18, 2018 04:18 - CONCLUSION: Unchanged radiographic appearance most consistent with pulmonary edema. Shane Merrill Jr., MD Head CT 02/14/18 1204 Signed Impressions: Service Date/Time: Wednesday, February 14, 2018 14:09 - CONCLUSION: 1. Chronic ischemic changes in the parietal lobes. No change from previous study. 2. No acute intracranial abnormality or Tye Steinberg MD CT Angiography 02/14/18 1204 Signed Impressions: Service Date/Time: Wednesday, February 14, 2018 20:07 - CONCLUSION: 1. No evidence for pulmonary embolism. 2. Bibasilar consolidation. 3. Cardiomegaly. Tye Steinberg MD Objective Remarks General - middle-aged gentleman, intubated sedated, easily arousable, ill- appearing HEENT - pupils equal, reactive, sclerae anicteric, neck without rigidity, supple , no JVD, no carotid bruit, orally intubated, left IJ central line (02/22) -site clean CV - regular S1 and S2, no murmurs appreciated, distant Chest -some scattered coarse breath sounds bibasilarly, no wheezes, good air entry Abdomen - soft, distended, non-tender, BS hypoactive, no hepatomegaly, no splenomegaly Skin - no rashes, no cyanosis Extremities - warm and well-perfused, no edema, + peripheral pulses RLE, no clubbing, LLE AKA Neuro - intubated, sedated, opens eyes to voice stimuli, follows commands, moves all extremities, attempts to talk A/P Assessment and Plan 1. Acute hypoxic respiratory failure -slightly improved, back on PRVC mode of ventilation 2. Bibasilar MSSA and strep pneumo pneumonia -patient remains afebrile, leukocytosis slowly trending down 3. Acute COPD exacerbation -resolved 4. Metabolic encephalopathy 5. Hypotension -resolved 6. Ileus -still has significant NG tube output 7. 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 History of DVT and PE s/p IVC filter 9. LUCAS -adequate urine output over the last 24 hours, creatinine is within normal limits 10. Hx depression and Hx of CVA 3 11. Hx of hypertension and dyslipidemia 12. Hx of childhood osteosarcoma s/p chemoradiation therapy 1. Continue PRVC at current vent settings. Patient is synchronized with the ventilator, no auto PEEP, PIP is less than 30 2. Continue inhaled Flolan 3. Vent bundle and bronchodilators 4. Decrease steroids 5. Continue levofloxacin and ceftriaxone 6. Repeat cultures sent, negative to date so far 7. Home Eliquis dose increased to 5 twice daily 8. Gentle IV hydration and monitor urine output 9. Continue OG tube to low intermittent wall suction and continue to hold tube feeds 10. Hold Lasix 11. Add holding parameters for propranolol 12. GI prophylaxis with famotidine, DVT prophylaxis addressed above 13. Advance ET tube 2 cm and repeat chest x-ray 14. Repeat KUB today No family present at bedside. I had extensive conversation with mother and sister yesterday at bedside and I explained to them in detail patient's critical condition. I tried to answer all their questions to my ability. Patient remains critically ill with worsening acute respiratory failure and he is at very high risk for further decompensation and . William Barcenas MD Feb 24, 2018 11:03
[2018-02-24] MEDS: cefTRIAXone INJ 2,000 MG in SODIUM CHLORIDE 0.9% INJ 100 ML IV SCH (16:28)
[2018-02-24] MEDS: LEVOFLOXACIN 750 MG PREMIX INJ 150 ML IV SCH (16:30)
[2018-02-25] VITALS (18 sets, daily range): BP systolic 132–166; BP diastolic 66–102; PULSE 52–72; RESP 16–22; TEMP 98.1–98.7; O2SAT 95–100
[2018-02-25] MEDS: PROPOFOL 1000 MG/100 ML INJ 100 ML IV PRN ×9 (00:08→21:16)
[2018-02-25] MEDS: methylPREDNISolone SOD SUCC 40 MG/1 ML VIAL IV PUSH SCH ×3 (00:08→23:05)
[2018-02-25] MEDS: CHLORHEXIDINE GLUCONATE 2 % 1 PACK (2 CLOTHS) TOP SCH ×2 (04:00→19:33)
[2018-02-25] MEDS: LORazepam 1 MG TAB PO SCH ×2 (04:18→15:39)
[2018-02-25] MEDS: EPOPROSTENOL NEB SOLUTION 50 NG/KG/MIN 100 ML NEB SCH ×6 (04:19→17:26)
[2018-02-25] MEDS: DEXMEDETOMIDINE INJ 1,000 MCG in SODIUM CHLOR 0.9% 250 ML INJ 240 ML IV PRN ×4 (04:32→23:05)
--- NOTE | 2018-02-25 04:50 | RADRPT ---
EXAM DATE/TIME: 02/25/2018 03:53 [facility] COMPARISON: CHEST SINGLE AP, February 24, 2018, 8:55. INDICATIONS : Shortness of breath, possible pulmonary disease. MEDICAL HISTORY : Chronic obstructive pulmonary disease. Diabetes mellitus type II. Hypercholesterolemia. Hypertens ion DVT [place] SURGICAL HISTORY : CABG. Appendectomy. Nephrectomy ENCOUNTER: Subsequent ACUITY: 2 weeks PAIN SCORE: Non-responsive. LOCATION: Bilateral chest FINDINGS: Persistent left lower lung consolidation and patchy infiltrates in the right lower lung. Heart size stable. ET tube tip well above the shiela. Left central line tip projects over the distal superior vena cava. Gastric tube tip and side-port project within the stomach. CONCLUSION: Persistent left lower lobe consolidation and patchy right lower lung infiltrates. Shane Reed MD on February 25, 2018 at 4:47 Board Certified Radiologist. This report was verified electronically.
[2018-02-25 06:02] LABS: AUTOMATED NEUTROPHIL # 12.9 TH/MM3 (1.8-7.7); BASOPHIL % 0.2 % (0.0-2.0); HEMATOCRIT 30.7 % (39.0-51.0); HEMOGLOBIN 9.2 GM/DL (13.0-17.0); LYMPH % 2.2 % (9.0-44.0); LYMPHOCYTE # 0.3 TH/MM3 (1.0-4.8); MEAN CELL VOLUME 66.7 FL (80.0-100.0); MEAN PLATELET VOLUME 9.1 FL (7.0-11.0); MONO % 2.8 % (0.0-8.0); MONOCYTE # 0.4 TH/MM3 (0-0.9); NEUT % 94.8 % (16.0-70.0); PLATELET COUNT 225 TH/MM3 (150-450); RED CELL DISTRIBUTION WIDTH 22.7 % (11.6-17.2); WHITE BLOOD COUNT 13.6 TH/MM3 (4.0-11.0)
[2018-02-25 06:15] LABS: ALBUMIN 2.2 GM/DL (3.4-5.0); ALKALINE PHOSPHATASE 47 U/L (45-117); ALT (GPT) 25 U/L (12-78); AST (GOT) 17 U/L (15-37); BICARBONATE 30.5 MEQ/L (21.0-32.0); BLOOD UREA NITROGEN 30 MG/DL (7-18); CALCIUM 8.7 MG/DL (8.5-10.1); CHLORIDE 103 MEQ/L (98-107); CREATININE 0.59 MG/DL (0.60-1.30); GLOMERULAR FILTRATION RATE 147 ML/MIN (>89); GLUCOSE,RANDOM 211 MG/DL (74-106); MAGNESIUM 2.2 MG/DL (1.5-2.5); PHOSPHORUS 2.4 MG/DL (2.5-4.9); SODIUM (NA) 141 MEQ/L (136-145); TOTAL BILIRUBIN ADULT 0.4 MG/DL (0.2-1.0); TOTAL PROTEIN 6.1 GM/DL (6.4-8.2)
[2018-02-25] MEDS: RESP: BUDESONIDE 0.5 MG/2 ML NEB NEB SCH ×2 (07:49→20:21)
[2018-02-25] MEDS: RESP: ALBUTEROL 2.5 MG/IPRATROPIUM 0.5 MG NEB (PRN) INH ×2 (07:50→20:21)
[2018-02-25] MEDS: SODIUM CHLORIDE 0.9% FLUSH 10 ML FLUSH IV FLUSH SCH ×2 (08:21→19:44)
[2018-02-25] MEDS: LORazepam 2 MG/ML VIAL IV PUSH PRN (08:21)
[2018-02-25] MEDS: POTASSIUM CHLORIDE 25 MEQ EFFERVESCENT TAB NG SCH (08:34)
[2018-02-25] MEDS: CHLORHEXIDINE 0.12% (ORAL KIT) 15 ML CUP MT SCH ×2 (08:34→19:32)
[2018-02-25] MEDS: FAMOTIDINE 20 MG TAB PO SCH ×2 (08:34→19:44)
[2018-02-25] MEDS: APIXABAN 5 MG TABLET PO SCH ×2 (08:34→19:44)
--- NOTE | 2018-02-25 12:00 | HHI.CCPN ---
Subjective Remarks/Hospital Course Patient is a 47-year-old morbidly obese male with past medical history significant for obesity, obstructive sleep apnea clinically, history of DVT, chronic Eliquis use who was brought in by EMS for altered mental status and severe hypoxemia. Apparently per EMS end-tidal CO2 was in the 60s his initial sat was in the 30s, but with bagging came up to the 70s. Initial GCS apparently was 7 but improved with continued bag and mask ventilation in the ED. Sats remained in the low 80s. Patient initially refused intubation and was placed on BiPAP. Received duo nebs and Solu-Medrol and antibiotics (Azactam, Flagyl, vancomycin). Patient continued to be tachypneic and severely hypoxemic, and patient was intubated by the ER physician. Apparently difficult airway and was intubated on the third attempt. Patient was desaturating to low 80s even after intubation and I was called to the ED for assisting. I immediately evaluated the patient he continues to be in severe bronchospasm, severely hypoxemic. Additional breathing treatments ordered. I changed the vent settings to PCAC to target tidal volume 600-650 and reduce the rate to 14. PEEP increased to 10. Gradually oxygen saturation improved to 90. I placed a right IJ central line as the patient was borderline hypotensive. Chest x-ray showed apparently pulmonary vascular congestion. No definite infiltrate. Lactic acid 6. Appears patient has acute COPD exacerbation and severe sepsis, pulmonary embolism needs to be ruled out. IV Solu-Medrol DuoNeb breathing treatments will be continued. Patient takes Eliquis for PE in the past. Further workup and management based on results 02/15: Remains intubated heavily sedated. PEEP remains at 12 FiO2 has been weaned to 55%. CT PE protocol negative for pulmonary embolism, showed bibasilar significant consolidation indicative of pneumonia. Sputum Gram stain shows GPC. Add vancomycin. 02/16: Patient remains intubated remains critical. Remains hypoxemic on high vent support. On attempt to reduce PEEP, he desaturated and currently on 10 of PEEP. FiO2 50%. Sputum culture with MSSA and strep pneumo. Will discontinue Levaquin and Flagyl continue Azactam and vancomycin 02/17: Remains critical, CXR still showing pulmonary edema. IV Lasix repeat dose given. Wean PEEP to 8, FiO2 to 45%. Start SBT as tolerated 02/18: Patient remains intubated heavily sedated. On lightening sedation patient becomes very agitated. PEEP remains at 8 FiO2 down to 40%. Chest x- ray continues to show pulmonary vascular congestion 02/19: Patient transitioned to Precedex in the last 24 hours continues on CPAP trials 15/8/40%. Patient cooperative following commands. Chest x-ray pending. Aggressive diureses initiated BMP pending this afternoon. 02/20: While on Precedex CPAP trial was attempted. After about 15 minutes patient became severely tachypneic diaphoretic with respiratory rate in the 40s. Re sedated with 50 mg IV push of propofol, and restarting propofol infusion. CXR shows improving pulmonary vascular congestion. WBC count though is trending up. 02/21: No events over the night. Patient is currently on CPAP, PS 15/8/40%, with RR in the 30's and Vt low 300's. Patient is sedated with propofol and precedex. Tmax 100.4, I/O 2946/3020. 02/22: No events over the night. Patient is currently on propofol and Precedex, calm, opening eyes to voice stimuli, following commands. RASS of -2. T-max of 100.6. On 0.3 FiO2. Urine output is adequate. 02/23: Yesterday afternoon patient decompensated, requiring high PEEP and 100% O2 with sats in the mid 80s. Patient was switched to bilevel ventilation and started on inhaled Flolan with rapid improvement in his oxygenation. A central line and art line with placed and patient required 1 L fluid bolus. This morning patient is down to 0.4 FiO2. Sedation is achieved with propofol. No pressors. Decreased urine output over the night. T-max of 99. Still with significant NG tube output, over the last 24 hours 1200 mL's. Morning chest x- ray reviewed, significantly improved air entry at bases. 02/24: No events over the night. Due to improved O2 requirements, yesterday, patient was switched from APRV to PRVC mode of ventilation. FiO2 between 0.45 and 0.5, but patient remains on high PEEP, currently at 14. T-max of 99.8. Improved urine output, up to 2200 over the last 24 hours. 02/25: Patient remained sedated and intubated. No events overnight. T-max of 99 and I/O . Morning chest x-ray reviewed, no significant change compared to yesterday, still with bibasilar infiltrates. Oxygenation remains the same, FiO2 of 0.4 and PEEP at 14. Patient is sedated with propofol at 50 and Precedex at 1.5, awake, trying to talk, bucking the ventilator. His mother is present at bedside. ROS -unobtainable, patient is intubated Objective Vital Signs Date Time Temp Pulse Resp B/P (MAP) Pulse Ox O2 Delivery O2 Flow Rate FiO2 02/25/18 10:00 58 02/25/18 08:00 98.7 22 136/88 (104) 100 132/66 (88) 02/25/18 08:00 40 Intake and Output 02/25/18 02/25/18 02/25/18 07:59 15:59 23:59 Intake Total 870 ml 450 ml Output Total 650 ml Balance 220 ml 450 ml Result Diagram: 02/25/18 0500 02/25/18 0500 Other Results Repeat blood cultures from 02/22 have no growth to date Sputum culture 02/22 -with heavy normal [place] Old cultures reviewed Laboratory Tests Test 02/24/18 12:32 02/25/18 06:27 Blood Gas Puncture Site CL ART LINE Blood Gas Patient Temperature 98.6 98.6 Blood Gas HCO3 29 mmol/L (22-26) 27 mmol/L (22-26) Blood Gas Base Excess 4.9 mmol/L (-2-2) 3.2 mmol/L (-2-2) Blood Gas Oxygen Saturation 96 % (90-100) 92 % (90-100) Arterial Blood pH 7.43 (7.380-7.420) 7.45 (7.380-7.420) Arterial Blood Partial Pressure CO2 44 mmHg (38-42) 39 mmHg (38-42) Arterial Blood Partial Pressure O2 117 mmHg (61-120) 74 mmHg (61-120) Arterial Blood Oxygen Content 12.3 Vol % (12.0-20.0) 11.3 Vol % (12.0-20.0) Arterial Blood Carboxyhemoglobin 1.6 % (0-4) 1.6 % (0-4) Arterial Blood Methemoglobin 0.9 % (0-2) 1.0 % (0-2) Blood Gas Hemoglobin 9.0 G/DL (12.0-16.0) 8.7 G/DL (12.0-16.0) Oxygen Delivery Device VENTILATOR VENTILATOR Blood Gas Ventilator Setting PRVCAC/VT450/R16/P14 PRVC/ AC Blood Gas Inspired Oxygen 50 % 40 % Imaging Last 24 hours Impressions Chest X-Ray 02/25/18 0600 Signed Impressions: Service Date/Time: Sunday, February 25, 2018 03:53 - CONCLUSION: Persistent left lower lobe consolidation and patchy right lower lung infiltrates. Shane Reed MD Last 24 hours Impressions Chest X-Ray 02/23/18 0600 Signed Impressions: Service Date/Time: January 03:59 - CONCLUSION: Minimal subsegmental atelectasis versus scarring right midlung otherwise clear chest. Tye Steinberg MD Last Impressions Chest X-Ray 02/18/18 0600 Signed Impressions: Service Date/Time: Sunday, February 18, 2018 04:18 - CONCLUSION: Unchanged radiographic appearance most consistent with pulmonary edema. Shane Merrill Jr., MD Head CT 02/14/18 1204 Signed Impressions: Service Date/Time: Wednesday, February 14, 2018 14:09 - CONCLUSION: 1. Chronic ischemic changes in the parietal lobes. No change from previous study. 2. No acute intracranial abnormality or Tye Steinberg MD CT Angiography 02/14/18 1204 Signed Impressions: Service Date/Time: Wednesday, February 14, 2018 20:07 - CONCLUSION: 1. No evidence for pulmonary embolism. 2. Bibasilar consolidation. 3. Cardiomegaly. Tye Steinberg MD Objective Remarks General - middle-aged gentleman, intubated and awake, ill-appearing, following commands HEENT - pupils are equal, reactive, sclerae are anicteric, no JVD, neck supple without rigidity, no carotid bruit, + ETT, + OGT, left IJ central line (02/22) - site clean CV - regular heart sounds, no murmurs appreciated, distant Chest - still with scattered coarse breath sounds bibasilarly, no wheezes Abdomen - soft, distended but improved, non-tender, BS hypoactive, no hepatomegaly, no splenomegaly Skin - no rashes, no cyanosis Extremities - warm and well-perfused, no edema, + peripheral pulses RLE, no clubbing, LLE AKA Neuro - intubated, awake, follows commands, moves all extremities, attempts to talk A/P Assessment and Plan 1. Acute hypoxic respiratory failure -slightly improved, on PRVC mode of ventilation, but continues to have high PEEP requirements 2. Bibasilar MSSA and strep pneumo pneumonia -patient remains afebrile, leukocytosis slowly trending down 3. Acute COPD exacerbation -resolved 4. Metabolic encephalopathy 5. Hypotension -resolved 6. Ileus -on repeat KUB colon is still distended 7. 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 History of DVT and PE s/p IVC filter 9. LUCAS -resolved, adequate urine output 10. Hx depression and Hx of CVA 3 11. Hx of hypertension and dyslipidemia 12. Hx of childhood osteosarcoma s/p chemoradiation therapy 1. Continue PRVC at current vent settings. We will slowly attempt to wean the PEEP 2. Continue inhaled Flolan 3. Vent bundle and bronchodilators 4. Needs more sedation due to vent dyssynchrony 5. Continue ceftriaxone day 3. Stop levofloxacin (completed 8 day coarse) 6. Repeat cultures sent, negative to date so far 7. Home Eliquis dose increased to 5 twice daily 8. Gentle IV hydration and monitor urine output 9. Continue OG tube to low intermittent wall suction and continue to hold tube feeds 10. GI consult due to persistent ileus 11. Add holding parameters for propranolol 12. GI prophylaxis with famotidine, DVT prophylaxis addressed above I discussed in detail patient's condition with his mother was not at bedside and I answered all her questions to the best of my ability. Patient remains critically ill with hypoxic respiratory failure and he is at very high risk for further decompensation and . William Barcenas MD Feb 25, 2018 12:00
[2018-02-25] MEDS: cefTRIAXone INJ 2,000 MG in SODIUM CHLORIDE 0.9% INJ 100 ML IV SCH (12:37)
--- NOTE | 2018-02-25 12:55 | PD.CONS ---
HPI History of Present Illness This is a 47 year old morbidly obese male was admitted to the hospital on 2017 for altered mental status and severe hypoxemia. According to the record patient initially refused intubation and was placed on BiPAP but was unable to tolerate. He was intubated, heavily sedated, and has been managed in the intensive care setting for critical respiratory failure with some decompensation. Gastroenterology was consulted for possible ileus. According to the record patient had 2 BMs on 02/22/2018 but none since. Abdominal x-ray done on 02/24/2018 showed stable distended colon. Patient currently has NG tube which shows clear bilious drainage to low intermittent suction. Currently patient remains intubated and sedated. No review of systems was obtained and there is no family present. Current labs show hemoglobin to be 9.2, WBC count 13.6, INR 1.1. Patient's currently on Pepcid and is taking Eliquis. Patient remains critically ill. No obvious bleeding according to the record. PFSH Past Medical History Morbid obesity Obstructive sleep apnea COPD history of DVT and PE History of depression History of CVA 3 Hypertension Hyperlipidemia Childhood osteosarcoma Past Surgical History From the record IVC filter Chemoradiation therapy from his childhood osteosarcoma Coded Allergies: morphine (Verified Allergy, Mild, HIVES, 02/14/18) ONLY WHEN USING [employer] PUMP AT AGE 21. HAS SINCE HAD MORPHINE WITHOUT REACTION/ALLERGY. penicillin G (Verified Allergy, Mild, HIVES, 02/14/18) Medications Administered Medications Medications (Trade) Dose Ordered Sig/Corrie Route PRN Reason Start Time Stop Time Status Last Admin Dose Admin Sodium Chloride (NS Flush) 2 ml UNSCH PRN IV FLUSH FLUSH AFTER USING IV ACCESS 02/14/18 14:00 02/15/18 14:24 Sodium Chloride (NS Flush) 2 ml BID IV FLUSH 02/14/18 21:00 02/25/18 08:21 Albuterol/ Ipratropium (Duoneb Neb) 1 ampule Q4HR NEB PRN INH SHORTNESS OF BREATH 02/14/18 14:00 02/25/18 07:50 Chlorhexidine Gluconate (Peridex 0.12% Liq) 15 ml BID@08,20 MT 02/14/18 20:00 02/25/18 08:34 Miscellaneous Information 1 Q361D XX 02/14/18 14:00 02/14/18 14:00 Chlorhexidine Gluconate (Chlorhexidine 2% Cloth) Taper DAILY@04 TOP 02/15/18 04:00 02/11/19 03:59 02/22/18 04:00 Propofol 100 ml @ 3.545 mls/ hr TITRATE PRN IV SEDATION 02/14/18 14:00 02/25/18 10:29 Budesonide (Pulmicort Respule Neb) 0.5 mg Q12HR NEB NEB 02/14/18 20:00 02/25/18 07:49 Famotidine (Pepcid) 20 mg BID PO 02/15/18 21:00 02/25/18 08:34 Fentanyl Citrate 250 ml @ 5 mls/hr TITRATE PRN IV Sedation 02/15/18 11:15 Future Hold 02/19/18 11:06 Potassium Bicarb/ Potassium Chloride (K-Lyte Cl Eff) 25 meq DAILY NG 02/17/18 11:00 02/25/18 08:34 Fentanyl Citrate (fentaNYL INJ) 50 mcg Q2HR PRN IV PUSH PAIN SCALE 7 TO 10 02/19/18 16:00 02/25/18 11:00 Propranolol HCl (Inderal) 20 mg QID PO 02/20/18 18:00 Future Hold 02/24/18 20:46 Lorazepam (Ativan Inj) 2 mg Q4H PRN IV PUSH agitation 02/20/18 13:15 02/25/18 08:21 Lorazepam (Ativan) 1 mg Q12H PO 02/22/18 16:00 02/25/18 04:18 Apixaban (Eliquis) 5 mg BID PO 02/22/18 21:00 02/25/18 08:34 Epoprostenol Sodium 75 ml/ Sodium Chloride 100 ml @ 5 mls/hr Q8H NEB 02/22/18 20:00 02/25/18 08:04 Dexmedetomidine HCl 1000 mcg/ Sodium Chloride 250 ml @ 5.67 mls/hr TITRATE PRN IV SEDATION 02/23/18 04:30 02/25/18 10:05 Ceftriaxone Sodium 2000 mg/ Sodium Chloride 100 ml @ 200 mls/hr Q24H IV 02/23/18 13:15 02/24/18 16:28 Methylprednisolone Sodium Succinate (SoluMEDROL INJ) 20 mg Q12H IV PUSH 02/25/18 12:00 02/25/18 11:04 Family History Unknown Social History Per the record otherwise unknown GI Exam Vitals I&O Vital Signs Date Time Temp Pulse Resp B/P (MAP) Pulse Ox O2 Delivery O2 Flow Rate FiO2 02/25/18 12:19 100 40 02/25/18 12:00 72 02/25/18 12:00 98.1 65 17 153/92 (112) 99 155/86 (109) 02/25/18 12:00 40 02/25/18 12:00 20 02/25/18 10:00 58 02/25/18 08:00 72 02/25/18 08:00 98.7 72 22 136/88 (104) 100 132/66 (88) 02/25/18 08:00 40 02/25/18 07:50 96 40 02/25/18 06:00 71 02/25/18 04:00 65 02/25/18 04:00 40 02/25/18 04:00 98.4 65 16 158/92 (114) 99 141/75 (97) 02/25/18 03:36 100 40 02/25/18 02:00 57 02/25/18 00:00 98.2 56 16 147/86 (106) 100 137/73 (94) 02/25/18 00:00 56 02/25/18 00:00 40 02/24/18 23:06 100 40 02/24/18 22:00 62 02/24/18 20:00 40 02/24/18 20:00 64 02/24/18 20:00 97.5 64 18 137/87 (104) 100 128/66 (86) 02/24/18 19:14 100 40 02/24/18 18:00 59 02/24/18 17:00 61 02/24/18 16:00 98.6 67 21 126/66 (86) 89 105/55 (72) 02/24/18 16:00 40 02/24/18 16:00 67 02/24/18 15:37 100 50 02/24/18 15:00 40 02/24/18 15:00 59 02/24/18 14:00 58 02/24/18 13:00 57 I/O 02/24/18 02/24/18 02/24/18 02/25/18 02/25/1818 06:59 14:59 22:59 06:59 14:59 22:59 Intake Total 961 ml 300 ml 670 ml 770 ml 550 ml Output Total 1300 ml 1250 ml 650 ml Balance -339 ml 300 ml -580 ml 120 ml 550 ml Intake IV Total 861 ml 300 ml 550 ml 650 ml 550 ml Autotransfusion 0 ml Other 100 ml 120 ml 120 ml Output Urine Total 1200 ml 650 ml 650 ml Gastric Drainage Total 100 ml 600 ml # Bowel Movements 0 0 Imaging Last Impressions Chest X-Ray 02/25/18 0600 Signed Impressions: Service Date/Time: Sunday, February 25, 2018 03:53 - CONCLUSION: Persistent left lower lobe consolidation and patchy right lower lung infiltrates. Shane Reed MD Abdomen X-Ray 02/24/18 0000 Signed Impressions: Service Date/Time: Saturday, February 24, 2018 09:06 - CONCLUSION: Stable distention of the colon. No interval change since the previous study. Jadiel Gómez MD Lower Extremity Ultrasound 02/22/18 0000 Signed Impressions: Service Date/Time: Thursday, February 22, 2018 20:03 - CONCLUSION: No venous thrombosis of either lower extremity. Bebeto Dominique MD Head CT 02/14/18 1204 Signed Impressions: Service Date/Time: Wednesday, February 14, 2018 14:09 - CONCLUSION: 1. Chronic ischemic changes in the parietal lobes. No change from previous study. 2. No acute intracranial abnormality or Tye tSeinberg MD CT Angiography 02/14/18 1204 Signed Impressions: Service Date/Time: Wednesday, February 14, 2018 20:07 - CONCLUSION: 1. No evidence for pulmonary embolism. 2. Bibasilar consolidation. 3. Cardiomegaly. Tye Steinberg MD Laboratory Test 02/25/18 05:00 02/25/18 06:27 White Blood Count 13.6 TH/MM3 Red Blood Count 4.60 MIL/MM3 Hemoglobin 9.2 GM/DL Hematocrit 30.7 % Mean Corpuscular Volume 66.7 FL Mean Corpuscular Hemoglobin 20.0 PG Mean Corpuscular Hemoglobin Concent 30.0 % Red Cell Distribution Width 22.7 % Platelet Count 225 TH/MM3 Mean Platelet Volume 9.1 FL Neutrophils (%) (Auto) 94.8 % Lymphocytes (%) (Auto) 2.2 % Monocytes (%) (Auto) 2.8 % Eosinophils (%) (Auto) 0.0 % Basophils (%) (Auto) 0.2 % Neutrophils # (Auto) 12.9 TH/MM3 Lymphocytes # (Auto) 0.3 TH/MM3 Monocytes # (Auto) 0.4 TH/MM3 Eosinophils # (Auto) 0.0 TH/MM3 Basophils # (Auto) 0.0 TH/MM3 CBC Comment DIFF FINAL Differential Comment Blood Urea Nitrogen 30 MG/DL Creatinine 0.59 MG/DL Random Glucose 211 MG/DL Total Protein 6.1 GM/DL Albumin 2.2 GM/DL Calcium Level 8.7 MG/DL Phosphorus Level 2.4 MG/DL Magnesium Level 2.2 MG/DL Alkaline Phosphatase 47 U/L Aspartate Amino Transf (AST/SGOT) 17 U/L Alanine Aminotransferase (ALT/SGPT) 25 U/L Total Bilirubin 0.4 MG/DL Sodium Level 141 MEQ/L Potassium Level 4.4 MEQ/L Chloride Level 103 MEQ/L Carbon Dioxide Level 30.5 MEQ/L Anion Gap 8 MEQ/L Estimat Glomerular Filtration Rate 147 ML/MIN Blood Gas Puncture Site ART LINE Blood Gas Patient Temperature 98.6 Blood Gas HCO3 27 mmol/L Blood Gas Base Excess 3.2 mmol/L Blood Gas Oxygen Saturation 92 % Arterial Blood pH 7.45 Arterial Blood Partial Pressure CO2 39 mmHg Arterial Blood Partial Pressure O2 74 mmHg Arterial Blood Oxygen Content 11.3 Vol % Arterial Blood Carboxyhemoglobin 1.6 % Arterial Blood Methemoglobin 1.0 % Blood Gas Hemoglobin 8.7 G/DL Oxygen Delivery Device VENTILATOR Blood Gas Ventilator Setting PRVC/ AC Blood Gas Inspired Oxygen 40 % Date/Time Source Procedure Growth Status 02/22/18 11:30 Blood Peripheral Aerobic Blood Culture - Preliminary NO GROWTH IN 3 DAYS Resulted 02/22/18 11:30 Blood Peripheral Anaerobic Blood Culture - Preliminary NO GROWTH IN 3 DAYS Resulted 02/22/18 10:35 Sputum Endotracheal Gram Stain - Final Complete 02/22/18 10:35 Sputum Endotracheal Sputum Culture - Final HEAVY GROWTH NORMAL RESPIRATORY LUCAS Complete 02/14/18 10:45 Urine Catheterized Urine Urine Culture - Final NO GROWTH IN 48 HOURS. Complete Physical Examination HEENT: normocephalic; atraumatic; NG tube connected to low intermittent suction NECK: Neck is supple, obese CHEST: Chest diminished breath sound, on ventilator support CARDIAC: Regular rate and rhythm ABDOMEN: Obese, round, taut, no obvious distention since NG tube is connected to low intermittent suction nontender; bowel sounds are active EXTREMITIES: Positive for lower extremity edema SKIN: Normal; no rash; no jaundice. PROGRESSIVE CARE UNIT REGISTERED NURSE: Sedated Assessment and Plan Assessment: (1) GERD (gastroesophageal reflux disease) ICD Codes: K21.9 - Gastro-esophageal reflux disease without esophagitis Status: Chronic Plan 47-year-old morbidly obese male in the intensive care setting with respiratory failure and altered mental status on admission he is currently intubated, sedated, has NG tube connected to low intermittent suction. Patient is critically ill and ventilator weaning process has been initiated. Now is complicated from possible ileus 02/24 abdominal x-ray shows stable distended colon. Hemoglobin is 9.2 , WBC count 13.6, INR 1.1. We will do some follow-up x-rays to evaluate, dilated colon involvement and whether it has extended up into the small bowel. Currently patient is on Eliquis for past PE. Patient had 2 bowel movements for 2017 but none since. Plan CT of the abdomen and pelvis, routine Monitor labs with special attention to hemoglobin Continue NGT with low intermittent suction Pepcid Antibiotics and steroids per maintenance supervisor 2nd shift Continue to monitor abdomen for any acute changes Supportive care as needed Further recommendations to follow Patient is seen by myself and Dr. Carr, note was written on his behalf Anisa Nino Feb 25, 2018 12:54
[2018-02-26] VITALS (19 sets, daily range): BP systolic 96–165; BP diastolic 64–95; PULSE 56–74; RESP 16–24; TEMP 97.8–98.3; O2SAT 92–100
[2018-02-26] MEDS: PROPOFOL 1000 MG/100 ML INJ 100 ML IV PRN ×9 (00:19→23:16)
[2018-02-26] MEDS: EPOPROSTENOL NEB SOLUTION 50 NG/KG/MIN 100 ML NEB SCH ×6 (02:47→19:32)
[2018-02-26] MEDS: LORazepam 1 MG TAB PO SCH ×2 (02:47→17:52)
[2018-02-26] MEDS: RESP: ALBUTEROL 2.5 MG/IPRATROPIUM 0.5 MG NEB (PRN) INH ×2 (03:39→08:04)
[2018-02-26] MEDS: DEXMEDETOMIDINE INJ 1,000 MCG in SODIUM CHLOR 0.9% 250 ML INJ 240 ML IV PRN ×3 (05:51→19:57)
[2018-02-26 07:08] LABS: AUTOMATED NEUTROPHIL # 10.6 TH/MM3 (1.8-7.7); BASOPHIL % 0.2 % (0.0-2.0); EOSINOPHIL % 0.3 % (0.0-4.0); HEMOGLOBIN 9.3 GM/DL (13.0-17.0); LYMPH % 9.6 % (9.0-44.0); LYMPHOCYTE # 1.2 TH/MM3 (1.0-4.8); MEAN CELL VOLUME 66.3 FL (80.0-100.0); MEAN CORPUSCULAR HEMOGLOBIN 19.8 PG (27.0-34.0); MEAN PLATELET VOLUME 9.2 FL (7.0-11.0); MONO % 5.5 % (0.0-8.0); MONOCYTE # 0.7 TH/MM3 (0-0.9); NEUT % 84.4 % (16.0-70.0); PLATELET COUNT 240 TH/MM3 (150-450); RED BLOOD COUNT 4.69 MIL/MM3 (4.50-5.90); RED CELL DISTRIBUTION WIDTH 22.6 % (11.6-17.2); WHITE BLOOD COUNT 12.6 TH/MM3 (4.0-11.0)
[2018-02-26 07:23] LABS: MEAN CORPUSCULAR HGB CONC 29.9 % (32.0-36.0)
--- NOTE | 2018-02-26 07:38 | RADRPT ---
EXAM DATE/TIME: 02/26/2018 07:19 [facility] COMPARISON: CHEST SINGLE AP, February 25, 2018, 3:53. INDICATIONS : Shortness of breath, concern for pneumonia. MEDICAL HISTORY : Chronic obstructive pulmonary disease. Diabetes mellitus type II.Chronic obstructive pulmonary diseas e. Diabetes mellitus type II. SURGICAL HISTORY : CABG. Appendectomy. Nephrectomy ENCOUNTER: Subsequent ACUITY: 4 - 6 days PAIN SCORE: Non-responsive. LOCATION: Bilateral chest FINDINGS: Endotracheal tube tip at level of clavicles. Enteric tube courses beneath the diaphragm. EKG leads ar e noted. Left jugular line tip overlies expected location of the SVC. There is cardiomegaly, blunting of the right lateral costophrenic angle and bilateral lower lobe consolidation. The osseous structur es demonstrate right shoulder arthroplasty. CONCLUSION: Bilateral basilar consolidation small right effusion. Dane Brannon MD on February 26, 2018 at 7:35 Board Certified Radiologist. This report was verified electronically.
[2018-02-26 07:40] LABS: ALBUMIN 2.3 GM/DL (3.4-5.0); ALKALINE PHOSPHATASE 47 U/L (45-117); ALT (GPT) 23 U/L (12-78); AST (GOT) 13 U/L (15-37); BICARBONATE 31.4 MEQ/L (21.0-32.0); BLOOD UREA NITROGEN 22 MG/DL (7-18); CALCIUM 8.9 MG/DL (8.5-10.1); CHLORIDE 102 MEQ/L (98-107); CREATININE 0.52 MG/DL (0.60-1.30); GLOMERULAR FILTRATION RATE 170 ML/MIN (>89); GLUCOSE,RANDOM 155 MG/DL (74-106); PHOSPHORUS 1.9 MG/DL (2.5-4.9); SODIUM (NA) 142 MEQ/L (136-145); TOTAL BILIRUBIN ADULT 0.5 MG/DL (0.2-1.0); TOTAL PROTEIN 5.9 GM/DL (6.4-8.2)
[2018-02-26] MEDS ORDERED: DIATRIZOATE MEGLUM/DIATRIZOATE SOD 9 ML CUP PO ONE (07:45)
[2018-02-26] MEDS: RESP: BUDESONIDE 0.5 MG/2 ML NEB NEB SCH ×2 (08:04→20:37)
[2018-02-26] MEDS: CHLORHEXIDINE 0.12% (ORAL KIT) 15 ML CUP MT SCH ×2 (08:17→19:32)
[2018-02-26] MEDS: SODIUM CHLORIDE 0.9% FLUSH 10 ML FLUSH IV FLUSH SCH ×2 (08:17→19:58)
[2018-02-26] MEDS: POTASSIUM CHLORIDE 25 MEQ EFFERVESCENT TAB NG SCH (08:21)
[2018-02-26] MEDS: FAMOTIDINE 20 MG TAB PO SCH ×2 (08:21→19:58)
[2018-02-26] MEDS: APIXABAN 5 MG TABLET PO SCH ×2 (08:21→19:57)
--- NOTE | 2018-02-26 11:02 | HHI.CCPN ---
Subjective Remarks/Hospital Course Patient is a 47-year-old morbidly obese male with past medical history significant for obesity, obstructive sleep apnea clinically, history of DVT, chronic Eliquis use who was brought in by EMS for altered mental status and severe hypoxemia. Apparently per EMS end-tidal CO2 was in the 60s his initial sat was in the 30s, but with bagging came up to the 70s. Initial GCS apparently was 7 but improved with continued bag and mask ventilation in the ED. Sats remained in the low 80s. Patient initially refused intubation and was placed on BiPAP. Received duo nebs and Solu-Medrol and antibiotics (Azactam, Flagyl, vancomycin). Patient continued to be tachypneic and severely hypoxemic, and patient was intubated by the ER physician. Apparently difficult airway and was intubated on the third attempt. Patient was desaturating to low 80s even after intubation and I was called to the ED for assisting. I immediately evaluated the patient he continues to be in severe bronchospasm, severely hypoxemic. Additional breathing treatments ordered. I changed the vent settings to PCAC to target tidal volume 600-650 and reduce the rate to 14. PEEP increased to 10. Gradually oxygen saturation improved to 90. I placed a right IJ central line as the patient was borderline hypotensive. Chest x-ray showed apparently pulmonary vascular congestion. No definite infiltrate. Lactic acid 6. Appears patient has acute COPD exacerbation and severe sepsis, pulmonary embolism needs to be ruled out. IV Solu-Medrol DuoNeb breathing treatments will be continued. Patient takes Eliquis for PE in the past. Further workup and management based on results 02/15: Remains intubated heavily sedated. PEEP remains at 12 FiO2 has been weaned to 55%. CT PE protocol negative for pulmonary embolism, showed bibasilar significant consolidation indicative of pneumonia. Sputum Gram stain shows GPC. Add vancomycin. 02/16: Patient remains intubated remains critical. Remains hypoxemic on high vent support. On attempt to reduce PEEP, he desaturated and currently on 10 of PEEP. FiO2 50%. Sputum culture with MSSA and strep pneumo. Will discontinue Levaquin and Flagyl continue Azactam and vancomycin 02/17: Remains critical, CXR still showing pulmonary edema. IV Lasix repeat dose given. Wean PEEP to 8, FiO2 to 45%. Start SBT as tolerated 02/18: Patient remains intubated heavily sedated. On lightening sedation patient becomes very agitated. PEEP remains at 8 FiO2 down to 40%. Chest x- ray continues to show pulmonary vascular congestion 02/19: Patient transitioned to Precedex in the last 24 hours continues on CPAP trials 15/8/40%. Patient cooperative following commands. Chest x-ray pending. Aggressive diureses initiated BMP pending this afternoon. 02/20: While on Precedex CPAP trial was attempted. After about 15 minutes patient became severely tachypneic diaphoretic with respiratory rate in the 40s. Re sedated with 50 mg IV push of propofol, and restarting propofol infusion. CXR shows improving pulmonary vascular congestion. WBC count though is trending up. 02/21: No events over the night. Patient is currently on CPAP, PS 15/8/40%, with RR in the 30's and Vt low 300's. Patient is sedated with propofol and precedex. Tmax 100.4, I/O 2946/3020. 02/22: No events over the night. Patient is currently on propofol and Precedex, calm, opening eyes to voice stimuli, following commands. RASS of -2. T-max of 100.6. On 0.3 FiO2. Urine output is adequate. 02/23: Yesterday afternoon patient decompensated, requiring high PEEP and 100% O2 with sats in the mid 80s. Patient was switched to bilevel ventilation and started on inhaled Flolan with rapid improvement in his oxygenation. A central line and art line with placed and patient required 1 L fluid bolus. This morning patient is down to 0.4 FiO2. Sedation is achieved with propofol. No pressors. Decreased urine output over the night. T-max of 99. Still with significant NG tube output, over the last 24 hours 1200 mL's. Morning chest x- ray reviewed, significantly improved air entry at bases. 02/24: No events over the night. Due to improved O2 requirements, yesterday, patient was switched from APRV to PRVC mode of ventilation. FiO2 between 0.45 and 0.5, but patient remains on high PEEP, currently at 14. T-max of 99.8. Improved urine output, up to 2200 over the last 24 hours. 02/25: Patient remained sedated and intubated. No events overnight. T-max of 99 and I/O 2080/2200. Morning chest x-ray reviewed, no significant change compared to yesterday, still with bibasilar infiltrates. Oxygenation remains the same, FiO2 of 0.4 and PEEP at 14. Patient is sedated with propofol at 50 and Precedex at 1.5, awake, trying to talk, bucking the ventilator. His mother is present at bedside. 02/26: No events over the night. Worsening oxygenation noted on blood gas this morning, FiO2 increased to 0.6. Patient remains on propofol and Precedex for sedation, he is wide awake following commands. T-max of 98.7. I/O 2170/1650. Morning chest x-ray reviewed, no significant change compared to yesterday. ET tube left IJ central line remain in place. ROS -unobtainable, patient is intubated Objective Vital Signs Date Time Temp Pulse Resp B/P (MAP) Pulse Ox O2 Delivery O2 Flow Rate FiO2 02/26/18 10:00 68 02/26/18 08:07 97 60 02/26/18 08:00 97.8 16 101/65 (77) 96/64 (75) Intake and Output 02/26/18 02/26/18 02/27/18 08:00 16:00 00:00 Intake Total 570 ml 100 ml Output Total 800 ml Balance -230 ml 100 ml Result Diagram: 02/26/18 0600 02/26/18 0600 Other Results Laboratory Tests Test 02/26/18 05:43 02/26/18 08:55 Blood Gas Puncture Site ART LINE ART LINE Blood Gas Patient Temperature 98.6 98.6 Blood Gas HCO3 31 mmol/L (22-26) 33 mmol/L (22-26) Blood Gas Base Excess 7.7 mmol/L (-2-2) 9.6 mmol/L (-2-2) Blood Gas Oxygen Saturation 83 % (90-100) 83 % (90-100) Arterial Blood pH 7.52 (7.380-7.420) 7.55 (7.380-7.420) Arterial Blood Partial Pressure CO2 38 mmHg (38-42) 38 mmHg (38-42) Arterial Blood Partial Pressure O2 52 mmHg (61-120) 51 mmHg (61-120) Arterial Blood Oxygen Content 11.3 Vol % (12.0-20.0) 11.0 Vol % (12.0-20.0) Arterial Blood Carboxyhemoglobin 1.7 % (0-4) 1.8 % (0-4) Arterial Blood Methemoglobin 1.2 % (0-2) 1.3 % (0-2) Blood Gas Hemoglobin 9.7 G/DL (12.0-16.0) 9.4 G/DL (12.0-16.0) Oxygen Delivery Device VENTILATOR VENTILATOR Blood Gas Ventilator Setting PRVC/AC PRVC/AC 450/16/ Blood Gas Inspired Oxygen 40 % 60 % Imaging Last 24 hours Impressions Chest X-Ray 02/26/18 0000 Signed Impressions: Service Date/Time: Monday, February 26, 2018 07:19 - CONCLUSION: Bilateral basilar consolidation small right effusion. Dane Brannon MD Last 24 hours Impressions Chest X-Ray 02/25/18 0600 Signed Impressions: Service Date/Time: Sunday, February 25, 2018 03:53 - CONCLUSION: Persistent left lower lobe consolidation and patchy right lower lung infiltrates. Shane Reed MD Last 24 hours Impressions Chest X-Ray 02/23/18 0600 Signed Impressions: Service Date/Time: January 03:59 - CONCLUSION: Minimal subsegmental atelectasis versus scarring right midlung otherwise clear chest. Tye Steinberg MD Last Impressions Chest X-Ray 02/18/18 0600 Signed Impressions: Service Date/Time: Sunday, February 18, 2018 04:18 - CONCLUSION: Unchanged radiographic appearance most consistent with pulmonary edema. Shane Merrill Jr., MD Head CT 02/14/18 1204 Signed Impressions: Service Date/Time: Wednesday, February 14, 2018 14:09 - CONCLUSION: 1. Chronic ischemic changes in the parietal lobes. No change from previous study. 2. No acute intracranial abnormality or Tye Steinberg MD CT Angiography 02/14/18 1204 Signed Impressions: Service Date/Time: Wednesday, February 14, 2018 20:07 - CONCLUSION: 1. No evidence for pulmonary embolism. 2. Bibasilar consolidation. 3. Cardiomegaly. Tye Steinberg MD Objective Remarks General - middle-aged gentleman, intubated, awake, ill-appearing, following commands HEENT - pupils equal, reactive, sclerae are anicteric, no JVD, neck is supple, no carotid bruit, + ETT, + OGT, left IJ central line (02/22) -site clean CV - regular S1, S2, no murmurs appreciated Chest - scattered coarse breath sounds bibasilarly, no wheezes, decreased breath sounds at bases Abdomen - distended but improved, softer, non-tender, BS hypoactive, no hepatomegaly, no splenomegaly Skin - no rashes, no cyanosis Extremities - warm, no edema, + peripheral pulses RLE, no clubbing, LLE AKA Neuro - intubated, awake, follows commands, moves all extremities, attempts to talk A/P Assessment and Plan 1. Acute hypoxic respiratory failure -slightly worsening, continues to have high PEEP requirements 2. Bibasilar MSSA and strep pneumo pneumonia -patient remains afebrile, leukocytosis slowly trending down 3. Acute COPD exacerbation -resolved 4. Metabolic encephalopathy 5. Hypotension -resolved 6. Ileus -on repeat KUB colon is still distended 7. 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 History of DVT and PE s/p IVC filter 9. LUCAS -resolved, adequate urine output 10. Hx depression and Hx of CVA 3 11. Hx of hypertension and dyslipidemia 12. Hx of childhood osteosarcoma s/p chemoradiation therapy 1. Continue PRVC at current vent settings. Currently on 0.6 FiO2. Increase PEEP to 14 2. Continue inhaled Flolan 3. Vent bundle and bronchodilators 4. Continue sedation with propofol and Precedex. Check triglycerides in a.m. 5. Continue ceftriaxone day 4. Stop levofloxacin (completed 8 day coarse) 6. Repeat cultures sent, negative to date so far 7. Home Eliquis dose increased to 5 twice daily 8. Some dark NG tube aspirate noted from NG tube. Sent to check for occult blood 9. Continue OG tube to low intermittent wall suction and continue to hold tube feeds 10. GI following 11. Repeat ABG at 12 PM 12. GI prophylaxis with famotidine, DVT prophylaxis addressed above I discussed in detail patient's condition with his mother was not at bedside and I answered all her questions to the best of my ability. Patient remains critically ill with hypoxic respiratory failure and he is at very high risk for further decompensation and . William Barcenas MD Feb 26, 2018 11:02
[2018-02-26] MEDS: methylPREDNISolone SOD SUCC 40 MG/1 ML VIAL IV PUSH SCH ×2 (12:14→23:16)
[2018-02-26] MEDS: cefTRIAXone INJ 2,000 MG in SODIUM CHLORIDE 0.9% INJ 100 ML IV SCH (12:15)
--- NOTE | 2018-02-26 12:30 | HHI.GIFU ---
Subjective Remarks Pt resting in bed. intubated. less distended Objective Vitals I&O Vital Signs Date Time Temp Pulse Resp B/P (MAP) Pulse Ox O2 Delivery O2 Flow Rate FiO2 02/26/18 12:00 97.9 68 17 105/73 (84) 96 112/67 (82) 02/26/18 12:00 65 02/26/18 12:00 69 02/26/18 10:00 68 02/26/18 08:07 97 60 02/26/18 08:00 60 02/26/18 08:00 69 02/26/18 08:00 97.8 67 16 101/65 (77) 94 96/64 (75) 02/26/18 06:00 92 60 02/26/18 06:00 65 02/26/18 04:00 40 02/26/18 04:00 98.3 61 16 118/80 (93) 93 127/74 (91) 02/26/18 04:00 61 02/26/18 03:55 96 40 02/26/18 02:00 63 02/26/18 01:38 96 40 02/26/18 00:00 98.0 56 16 165/95 (118) 96 163/92 (115) 02/26/18 00:00 40 02/26/18 00:00 56 02/25/18 23:13 99 40 02/25/18 22:00 55 02/25/18 20:20 95 40 02/25/18 20:00 98.3 56 16 166/102 (123) 97 163/93 (116) 02/25/18 20:00 56 02/25/18 20:00 40 02/25/18 18:00 52 02/25/18 17:00 20 02/25/18 16:00 98.3 56 16 162/97 (118) 96 153/100 (117) 02/25/18 16:00 40 02/25/18 16:00 72 02/25/18 15:51 95 40 02/25/18 14:00 55 I/O 02/25/18 02/25/18 02/25/18 02/26/18 02/26/18 02/26/18 07:00 15:00 23:00 07:00 15:00 23:00 Intake Total 770 ml 750 ml 600 ml 820 ml 450 ml Output Total 650 ml 850 ml 800 ml Balance 120 ml 750 ml -250 ml 20 ml 450 ml Intake IV Total 650 ml 750 ml 600 ml 700 ml 450 ml Other 120 ml 120 ml Output Urine Total 650 ml 850 ml 700 ml Stool Total 0 ml Gastric Drainage Total 100 ml # Bowel Movements 0 0 Laboratory Laboratory Tests Test 02/26/18 05:43 02/26/18 06:00 02/26/18 08:55 02/26/18 12:00 Blood Gas Puncture Site ART LINE ART LINE ART LINE Blood Gas Patient Temperature 98.6 98.6 98.6 Blood Gas HCO3 31 33 31 Blood Gas Base Excess 7.7 9.6 7.6 Blood Gas Oxygen Saturation 83 83 91 Arterial Blood pH 7.52 7.55 7.50 Arterial Blood Partial Pressure CO2 38 38 40 Arterial Blood Partial Pressure O2 52 51 73 Arterial Blood Oxygen Content 11.3 11.0 11.6 Arterial Blood Carboxyhemoglobin 1.7 1.8 1.8 Arterial Blood Methemoglobin 1.2 1.3 1.2 Blood Gas Hemoglobin 9.7 9.4 9.0 Oxygen Delivery Device VENTILATOR VENTILATOR VENTILATOR Blood Gas Ventilator Setting PRVC/AC PRVC/AC 450/16/ PRVC/AC 450/16 Blood Gas Inspired Oxygen 40 60 65 White Blood Count 12.6 Red Blood Count 4.69 Hemoglobin 9.3 Hematocrit 31.0 Mean Corpuscular Volume 66.3 Mean Corpuscular Hemoglobin 19.8 Mean Corpuscular Hemoglobin Concent 29.9 Red Cell Distribution Width 22.6 Platelet Count 240 Mean Platelet Volume 9.2 Neutrophils (%) (Auto) 84.4 Lymphocytes (%) (Auto) 9.6 Monocytes (%) (Auto) 5.5 Eosinophils (%) (Auto) 0.3 Basophils (%) (Auto) 0.2 Neutrophils # (Auto) 10.6 Lymphocytes # (Auto) 1.2 Monocytes # (Auto) 0.7 Eosinophils # (Auto) 0.0 Basophils # (Auto) 0.0 CBC Comment DIFF FINAL Differential Comment Blood Urea Nitrogen 22 Creatinine 0.52 Random Glucose 155 Total Protein 5.9 Albumin 2.3 Calcium Level 8.9 Phosphorus Level 1.9 Magnesium Level 2.0 Alkaline Phosphatase 47 Aspartate Amino Transf (AST/SGOT) 13 Alanine Aminotransferase (ALT/SGPT) 23 Total Bilirubin 0.5 Sodium Level 142 Potassium Level 3.3 Chloride Level 102 Carbon Dioxide Level 31.4 Anion Gap 9 Estimat Glomerular Filtration Rate 170 Date/Time Source Procedure Growth Status 02/22/18 11:30 Blood Peripheral Aerobic Blood Culture - Preliminary NO GROWTH IN 4 DAYS Resulted 02/22/18 11:30 Blood Peripheral Anaerobic Blood Culture - Preliminary NO GROWTH IN 4 DAYS Resulted 02/22/18 10:35 Sputum Endotracheal Gram Stain - Final Complete 02/22/18 10:35 Sputum Endotracheal Sputum Culture - Final HEAVY GROWTH NORMAL RESPIRATORY LUCAS Complete 02/14/18 10:45 Urine Catheterized Urine Urine Culture - Final NO GROWTH IN 48 HOURS. Complete Imaging Last Impressions Chest X-Ray 02/26/18 0000 Signed Impressions: Service Date/Time: Monday, February 26, 2018 07:19 - CONCLUSION: Bilateral basilar consolidation small right effusion. Dane Brannon MD Abdomen X-Ray 02/24/18 0000 Signed Impressions: Service Date/Time: Saturday, February 24, 2018 09:06 - CONCLUSION: Stable distention of the colon. No interval change since the previous study. Jadiel Gómez MD Lower Extremity Ultrasound 02/22/18 0000 Signed Impressions: Service Date/Time: Thursday, February 22, 2018 20:03 - CONCLUSION: No venous thrombosis of either lower extremity. Bebeto Dominique MD Head CT 02/14/18 1204 Signed Impressions: Service Date/Time: Wednesday, February 14, 2018 14:09 - CONCLUSION: 1. Chronic ischemic changes in the parietal lobes. No change from previous study. 2. No acute intracranial abnormality or Tye Steinberg MD CT Angiography 02/14/18 1204 Signed Impressions: Service Date/Time: Wednesday, February 14, 2018 20:07 - CONCLUSION: 1. No evidence for pulmonary embolism. 2. Bibasilar consolidation. 3. Cardiomegaly. Tye Steinberg MD Physical Exam HEENT: normocephalic; atraumatic; no jaundice. intubated CHEST: CTA CARDIAC: RRR ABDOMEN: Soft, distended, obese; bowel sounds are present in all four quadrants.dark bilious output NGT EXTREMITIES:left AKA SKIN: Normal; no rash; no jaundice. ROUND KILN DRAWER: not responsive Assessment and Plan Assessment: (1) GERD (gastroesophageal reflux disease) ICD Codes: K21.9 - Gastro-esophageal reflux disease without esophagitis Status: Chronic Plan 47-year-old morbidly obese male in the intensive care setting with respiratory failure and altered mental status on admission he is currently intubated, sedated, has NG tube connected to low intermittent suction. Patient is critically ill and ventilator weaning process has been initiated. Now is complicated from possible ileus 02/24 abdominal x-ray shows stable distended colon. Hemoglobin is 9.2 , WBC count 13.6, INR 1.1. We will do some follow-up x-rays to evaluate, dilated colon involvement and whether it has extended up into the small bowel. Currently patient is on Eliquis for past PE. Patient had 2 bowel movements for 2017 but none since. 02/26/18 slightly less distended today. was not stable enough to go for CT. HH stable. Plan CT when stable KUB am supportive care Patient is seen by myself and Dr. Carr, note was written on his behalf Brigette Greenfield Feb 26, 2018 12:30
[2018-02-26] MEDS: LORazepam 2 MG/ML VIAL IV PUSH PRN ×2 (14:20→18:32)
[2018-02-26] MEDS ORDERED: FUROSEMIDE 40 MG/4 ML VIAL IV PUSH ONE (16:00)
[2018-02-26] MEDS ORDERED: SODIUM CHLORIDE 0.9% INJ 50 ML ONE (18:55)
[2018-02-26] MEDS: CHLORHEXIDINE GLUCONATE 2 % 1 PACK (2 CLOTHS) TOP SCH (19:32)
[2018-02-27] VITALS (18 sets, daily range): BP systolic 91–164; BP diastolic 53–91; PULSE 83–136; RESP 22–44; TEMP 98–100.1; O2SAT 91–100
[2018-02-27] MEDS: EPOPROSTENOL NEB SOLUTION 50 NG/KG/MIN 100 ML NEB SCH ×4 (01:54→20:28)
[2018-02-27] MEDS: PROPOFOL 1000 MG/100 ML INJ 100 ML IV PRN ×4 (01:55→23:24)
[2018-02-27] MEDS: LORazepam 1 MG TAB PO SCH ×2 (01:55→16:52)
--- NOTE | 2018-02-27 02:53 | RADRPT ---
EXAM DATE/TIME: 02/27/2018 02:13 [facility] COMPARISON: CHEST SINGLE AP, February 26, 2018, 7:19. INDICATIONS : Shortness of breath, possible pulmonary disease. MEDICAL HISTORY : Chronic obstructive pulmonary disease. Diabetes mellitus type II. SURGICAL HISTORY : CABG. Appendectomy. Nephrectomy ENCOUNTER: Subsequent ACUITY: 2 weeks PAIN SCORE: Non-responsive. LOCATION: Bilateral chest FINDINGS: A single view of the chest demonstrates improving aeration in both lung bases. Possible small residua l right-sided effusion. Endotracheal, nasogastric tubes and a left IJ central venous catheter are unc hanged in position. Right shoulder hemiarthroplasty. Osseous structures are otherwise intact. CONCLUSION: Improving aeration in both lung basis with possible small residual right-sided effusion. Lucien Barnes MD on February 27, 2018 at 2:50 Board Certified Radiologist. This report was verified electronically.
--- NOTE | 2018-02-27 02:59 | RADRPT ---
EXAM DATE/TIME: 02/27/2018 02:18 [facility] COMPARISON: ABDOMEN KUB ONLY, February 21, 2018, 11:19. ABDOMEN KUB ONLY, February 24, 2018, 9:06. INDICATIONS : Distention. MEDICAL HISTORY : Chronic obstructive pulmonary disease. Diabetes mellitus type II. SURGICAL HISTORY : CABG. Appendectomy. IVC Filter placement. Nephrectomy ENCOUNTER: Subsequent ACUITY: 2 weeks PAIN SCORE: Non-responsive. LOCATION: Bilateral abdomen FINDINGS: Supine view of the abdomen was performed. There is stable distention of a loop of colon projecting in the right midabdomen. More distal bowel and the rectal vault are decompressed. No pneumoperitoneum. Right total hip arthroplasty. Removal IVC filter identified. CONCLUSION: 1. Focally dilated bowel loop in the right abdominal quadrant with decompression of the rectal vault. 2. CT abdomen with contrast is suggested to exclude possible volvulus. 3. No pneumoperitoneum. Lucien Barnes MD on February 27, 2018 at 2:51 Board Certified Radiologist. This report was verified electronically.
[2018-02-27] MEDS: LORazepam 2 MG/ML VIAL IV PUSH PRN ×3 (04:26→13:05)
[2018-02-27] MEDS: DEXMEDETOMIDINE INJ 1,000 MCG in SODIUM CHLOR 0.9% 250 ML INJ 240 ML IV PRN ×2 (04:27→19:45)
[2018-02-27 07:40] LABS: AUTOMATED NEUTROPHIL # 10.3 TH/MM3 (1.8-7.7); BASOPHIL % 0.2 % (0.0-2.0); EOSINOPHIL % 0.3 % (0.0-4.0); HEMATOCRIT 33.4 % (39.0-51.0); HEMOGLOBIN 9.9 GM/DL (13.0-17.0); LYMPH % 11.8 % (9.0-44.0); LYMPHOCYTE # 1.5 TH/MM3 (1.0-4.8); MEAN CELL VOLUME 66.6 FL (80.0-100.0); MEAN CORPUSCULAR HEMOGLOBIN 19.8 PG (27.0-34.0); MEAN PLATELET VOLUME 8.9 FL (7.0-11.0); MONO % 5.7 % (0.0-8.0); MONOCYTE # 0.7 TH/MM3 (0-0.9); PLATELET COUNT 238 TH/MM3 (150-450); RED BLOOD COUNT 5.02 MIL/MM3 (4.50-5.90); RED CELL DISTRIBUTION WIDTH 23.6 % (11.6-17.2); WHITE BLOOD COUNT 12.5 TH/MM3 (4.0-11.0)
[2018-02-27 07:47] LABS: MEAN CORPUSCULAR HGB CONC 29.7 % (32.0-36.0)
[2018-02-27] MEDS ORDERED: RASS Change Order XX ONE (08:00)
[2018-02-27] MEDS: MIDAZOLAM 100 MG/100 ML INJ 100 ML IV PRN ×2 (08:10→19:44)
[2018-02-27 08:11] LABS: ALBUMIN 2.7 GM/DL (3.4-5.0); ALT (GPT) 25 U/L (12-78); AST (GOT) 15 U/L (15-37); BICARBONATE 34.6 MEQ/L (21.0-32.0); BLOOD UREA NITROGEN 30 MG/DL (7-18); CALCIUM 9.1 MG/DL (8.5-10.1); CHLORIDE 97 MEQ/L (98-107); CREATININE 0.79 MG/DL (0.60-1.30); GLOMERULAR FILTRATION RATE 105 ML/MIN (>89); GLUCOSE,RANDOM 97 MG/DL (74-106); SODIUM (NA) 145 MEQ/L (136-145)
[2018-02-27 08:14] LABS: ALKALINE PHOSPHATASE 49 U/L (45-117); TOTAL BILIRUBIN ADULT 0.7 MG/DL (0.2-1.0); TOTAL PROTEIN 6.2 GM/DL (6.4-8.2)
[2018-02-27] MEDS: RESP: BUDESONIDE 0.5 MG/2 ML NEB NEB SCH ×2 (08:51→20:39)
[2018-02-27] MEDS ORDERED: MAGNESIUM OXIDE 400 MG TAB PO PRN (09:45)
[2018-02-27] MEDS ORDERED: MAGNESIUM SULFATE INJ 4 GM in SODIUM CHLORIDE 0.9% INJ 92 ML IV PRN (09:45)
[2018-02-27] MEDS ORDERED: POTASSIUM CHLORIDE 25 MEQ EFFERVESCENT TAB PO PRN (09:45)
[2018-02-27] MEDS ORDERED: POTASSIUM PHOSPHATE MONOBASIC 500 MG TAB PO/TUBE PRN (09:45)
[2018-02-27] MEDS ORDERED: POTASSIUM CHLOR 40 MEQ PREMIX 100 ML IV-CENTRAL PRN (09:45)
[2018-02-27] MEDS ORDERED: POTASSIUM PHOSPHATE MONOBASIC 500 MG TAB PO PRN (09:45)
[2018-02-27] MEDS ORDERED: POTASSIUM CHLOR 20 MEQ PREMIX 100 ML IV PRN (09:45)
[2018-02-27] MEDS ORDERED: SODIUM PHOSPHATE INJ 30 MMOL in SODIUM CHLOR 0.9% 250 ML INJ 240 ML IV PRN (09:45)
[2018-02-27] MEDS ORDERED: POTASSIUM PHOSPHATE INJ 30 MMOL in SODIUM CHLOR 0.9% 250 ML INJ 250 ML IV PRN (09:45)
--- NOTE | 2018-02-27 10:28 | HHI.CCPN ---
Subjective Remarks/Hospital Course Patient is a 47-year-old morbidly obese male with past medical history significant for obesity, obstructive sleep apnea clinically, history of DVT, chronic Eliquis use who was brought in by EMS for altered mental status and severe hypoxemia. Apparently per EMS end-tidal CO2 was in the 60s his initial sat was in the 30s, but with bagging came up to the 70s. Initial GCS apparently was 7 but improved with continued bag and mask ventilation in the ED. Sats remained in the low 80s. Patient initially refused intubation and was placed on BiPAP. Received duo nebs and Solu-Medrol and antibiotics (Azactam, Flagyl, vancomycin). Patient continued to be tachypneic and severely hypoxemic, and patient was intubated by the ER physician. Apparently difficult airway and was intubated on the third attempt. Patient was desaturating to low 80s even after intubation and I was called to the ED for assisting. I immediately evaluated the patient he continues to be in severe bronchospasm, severely hypoxemic. Additional breathing treatments ordered. I changed the vent settings to PCAC to target tidal volume 600-650 and reduce the rate to 14. PEEP increased to 10. Gradually oxygen saturation improved to 90. I placed a right IJ central line as the patient was borderline hypotensive. Chest x-ray showed apparently pulmonary vascular congestion. No definite infiltrate. Lactic acid 6. Appears patient has acute COPD exacerbation and severe sepsis, pulmonary embolism needs to be ruled out. IV Solu-Medrol DuoNeb breathing treatments will be continued. Patient takes Eliquis for PE in the past. Further workup and management based on results 02/15: Remains intubated heavily sedated. PEEP remains at 12 FiO2 has been weaned to 55%. CT PE protocol negative for pulmonary embolism, showed bibasilar significant consolidation indicative of pneumonia. Sputum Gram stain shows GPC. Add vancomycin. 02/16: Patient remains intubated remains critical. Remains hypoxemic on high vent support. On attempt to reduce PEEP, he desaturated and currently on 10 of PEEP. FiO2 50%. Sputum culture with MSSA and strep pneumo. Will discontinue Levaquin and Flagyl continue Azactam and vancomycin 02/17: Remains critical, CXR still showing pulmonary edema. IV Lasix repeat dose given. Wean PEEP to 8, FiO2 to 45%. Start SBT as tolerated 02/18: Patient remains intubated heavily sedated. On lightening sedation patient becomes very agitated. PEEP remains at 8 FiO2 down to 40%. Chest x- ray continues to show pulmonary vascular congestion 02/19: Patient transitioned to Precedex in the last 24 hours continues on CPAP trials 15/8/40%. Patient cooperative following commands. Chest x-ray pending. Aggressive diureses initiated BMP pending this afternoon. 02/20: While on Precedex CPAP trial was attempted. After about 15 minutes patient became severely tachypneic diaphoretic with respiratory rate in the 40s. Re sedated with 50 mg IV push of propofol, and restarting propofol infusion. CXR shows improving pulmonary vascular congestion. WBC count though is trending up. 02/21: No events over the night. Patient is currently on CPAP, PS 15/8/40%, with RR in the 30's and Vt low 300's. Patient is sedated with propofol and precedex. Tmax 100.4, I/O 2946/3020. 02/22: No events over the night. Patient is currently on propofol and Precedex, calm, opening eyes to voice stimuli, following commands. RASS of -2. T-max of 100.6. On 0.3 FiO2. Urine output is adequate. 02/23: Yesterday afternoon patient decompensated, requiring high PEEP and 100% O2 with sats in the mid 80s. Patient was switched to bilevel ventilation and started on inhaled Flolan with rapid improvement in his oxygenation. A central line and art line with placed and patient required 1 L fluid bolus. This morning patient is down to 0.4 FiO2. Sedation is achieved with propofol. No pressors. Decreased urine output over the night. T-max of 99. Still with significant NG tube output, over the last 24 hours 1200 mL's. Morning chest x- ray reviewed, significantly improved air entry at bases. 02/24: No events over the night. Due to improved O2 requirements, yesterday, patient was switched from APRV to PRVC mode of ventilation. FiO2 between 0.45 and 0.5, but patient remains on high PEEP, currently at 14. T-max of 99.8. Improved urine output, up to 2200 over the last 24 hours. 02/25: Patient remained sedated and intubated. No events overnight. T-max of 99 and I/O 2081/2200. Morning chest x-ray reviewed, no significant change compared to yesterday, still with bibasilar infiltrates. Oxygenation remains the same, FiO2 of 0.4 and PEEP at 14. Patient is sedated with propofol at 50 and Precedex at 1.5, awake, trying to talk, bucking the ventilator. His mother is present at bedside. 02/26: No events over the night. Worsening oxygenation noted on blood gas this morning, FiO2 increased to 0.6. Patient remains on propofol and Precedex for sedation, he is wide awake following commands. T-max of 98.7. I/O 2170/1650. Morning chest x-ray reviewed, no significant change compared to yesterday. ET tube left IJ central line remain in place. 02/27: Yesterday, due to worsening hypoxia patient was placed on bilevel ventilation with improvement in his oxygenation. Over the night he was switched back to PRVC (unclear why). This morning patient was placed back on APRV, tolerating it well so far, down to 50% O2. He had one episode of low BP that resolved with 500 cc fluid bolus. Still with significant NG tube output. Unable to have CT abdomen and pelvis due to high O2 requirements. Patient remains afebrile, with a T-max of 98.3, urine output 1900 mL's over the last 24 hours. Morning chest x-ray reviewed, improvement in bibasilar opacities, right side worse than left. ROS -unobtainable, patient is intubated Objective Vital Signs Date Time Temp Pulse Resp B/P (MAP) Pulse Ox O2 Delivery O2 Flow Rate FiO2 02/27/18 10:00 134 02/27/18 08:51 99 60 02/27/18 08:51 Ventilator 02/27/18 08:00 99.8 44 96/53 (67) 91/59 (70) Intake and Output 02/27/18 02/27/18 02/28/18 08:00 16:00 00:00 Intake Total 770 ml Output Total 1250 ml Balance -480 ml Result Diagram: 02/27/18 0600 02/27/18 0600 Other Results Microbiology Date/Time Source Procedure Growth Status 02/26/18 16:44 Stool Stool Stool Occult Blood (BRIANA) - Final HEMOCCULT NEGATIVE Complete Laboratory Tests Test 02/26/18 12:00 02/26/18 17:16 02/27/18 05:09 02/27/18 09:00 Blood Gas Puncture Site ART LINE ART LINE ART LINE ART LINE Blood Gas Patient Temperature 98.6 98.6 98.6 98.6 Blood Gas HCO3 31 mmol/L (22-26) 32 mmol/L (22-26) 35 mmol/L (22-26) 41 mmol/L (22-26) Blood Gas Base Excess 7.6 mmol/L (-2-2) 7.6 mmol/L (-2-2) 11.5 mmol/L (-2-2) 16.8 mmol/L (-2-2) Blood Gas Oxygen Saturation 91 % (90-100) 96 % (90-100) 92 % (90-100) 96 % ( 90-100) Arterial Blood pH 7.50 (7.380-7.420) 7.45 (7.380-7.420) 7.55 (7.380-7.420) 7.54 (7.380-7.420) Arterial Blood Partial Pressure CO2 40 mmHg (38-42) 47 mmHg (38-42) 40 mmHg (38-42) 49 mmHg (38-42) Arterial Blood Partial Pressure O2 73 mmHg (61-120) 112 mmHg (61-120) 75 mmHg (61-120) 105 mmHg (61-120) Arterial Blood Oxygen Content 11.6 Vol % (12.0-20.0) 12.5 Vol % (12.0-20.0) 12.5 Vol % (12.0-20.0) 14.3 Vol % (12.0-20.0) Arterial Blood Carboxyhemoglobin 1.8 % (0-4) 1.6 % (0-4) 1.7 % (0-4) 1.7 % (0-4) Arterial Blood Methemoglobin 1.2 % (0-2) 1.1 % (0-2) 1.4 % (0-2) 1.1 % (0-2) Blood Gas Hemoglobin 9.0 G/DL (12.0-16.0) 9.1 G/DL (12.0-16.0) 9.6 G/DL (12.0-16.0) 10.5 G/DL (12.0-16.0) Oxygen Delivery Device VENTILATOR VENTILATOR VENTILATOR Blood Gas Ventilator Setting PRVC/AC 450/16 APRV TH5.0/PH26 PRVC/AC16/450/ Blood Gas Inspired Oxygen 65 % 60 % 60 % Imaging Last 24 hours Impressions Chest X-Ray 02/26/18 0000 Signed Impressions: Service Date/Time: Monday, February 26, 2018 07:19 - CONCLUSION: Bilateral basilar consolidation small right effusion. Dane Brannon MD Last 24 hours Impressions Chest X-Ray 02/25/18 0600 Signed Impressions: Service Date/Time: Sunday, February 25, 2018 03:53 - CONCLUSION: Persistent left lower lobe consolidation and patchy right lower lung infiltrates. Shane Reed MD Last 24 hours Impressions Chest X-Ray 02/23/18 0600 Signed Impressions: Service Date/Time: January 03:59 - CONCLUSION: Minimal subsegmental atelectasis versus scarring right midlung otherwise clear chest. Tye Steinberg MD Last Impressions Chest X-Ray 02/18/18 0600 Signed Impressions: Service Date/Time: Sunday, February 18, 2018 04:18 - CONCLUSION: Unchanged radiographic appearance most consistent with pulmonary edema. Shane Merrill Jr., MD Head CT 02/14/18 1204 Signed Impressions: Service Date/Time: Wednesday, February 14, 2018 14:09 - CONCLUSION: 1. Chronic ischemic changes in the parietal lobes. No change from previous study. 2. No acute intracranial abnormality or Tye Steinberg MD CT Angiography 02/14/18 1204 Signed Impressions: Service Date/Time: Wednesday, February 14, 2018 20:07 - CONCLUSION: 1. No evidence for pulmonary embolism. 2. Bibasilar consolidation. 3. Cardiomegaly. Tye Steinberg MD Objective Remarks General - middle-aged gentleman, intubated, awake, ill-appearing, following commands HEENT - pupils are equal and reactive, sclerae are anicteric, no scleral edema, no JVD, neck is supple, no carotid bruit, + ETT, + OGT, left IJ central line () -site clean CV - regular heart sounds, no murmurs, rubs or gallops appreciated Chest - some scattered coarse breath sounds bilateral, no wheezes, improved air entry Abdomen - distended but better, softer, non-tender, BS hypoactive, no hepatomegaly, no splenomegaly Skin - no rashes, no cyanosis appreciated Extremities - warm and well perfused, no edema, + peripheral pulses RLE, no clubbing, LLE AKA Neuro - intubated, awake, follows commands, moves all extremities, still attempts to talk A/P Assessment and Plan 1. Acute hypoxic respiratory failure -no significant improvement despite full support for 14 days 2. Bibasilar MSSA and strep pneumo pneumonia -patient remains afebrile, leukocytosis is resolving 3. Acute COPD exacerbation -resolved 4. Metabolic encephalopathy 5. Hypotension -resolved 6. Ileus -on repeat KUB colon is still distended, CT abdomen and pelvis not done yet due to high O2 requirements 7. 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 History of DVT and PE s/p IVC filter 9. LUCAS -resolved, adequate urine output 10. Hx depression and Hx of CVA 3 11. Hx of hypertension and dyslipidemia 12. Hx of childhood osteosarcoma s/p chemoradiation therapy 13. Hypokalemia 1. Continue bilevel, settings readjusted, P high decreased to 26, T high 5 seconds, T low 0.6 seconds, pressure support of 3, current FiO2 0.5 2. Continue inhaled Flolan 3. Vent bundle and bronchodilators 4. Precedex was stopped due to bradycardia. Start midazolam drip and taper down propofol. Check triglycerides today 5. Continue ceftriaxone day 5. Stop levofloxacin (completed 8 day coarse) 6. Repeat cultures sent, negative to date so far 7. Home Eliquis dose increased to 5 twice daily 8. NG tube aspirate negative for bleed 9. Continue OG tube to low intermittent wall suction and continue to hold tube feeds 10. GI following 11. CT abdomen and pelvis when oxygenation improves 12. GI prophylaxis with famotidine, DVT prophylaxis addressed above 13. Replete potassium 14. If no significant improvement of ileus in the next few days patient will need TPN Patient's mother was updated in detail regarding patient's condition. She understands that Kayden is still critically ill and his condition can further deteriorate. We also discussed about tracheostomy in case there is no significant improvement over the next week. Patient remains critically ill with hypoxic respiratory failure and he is at very high risk for further decompensation and . Addendum: Due to persistent tachycardia EKG was done shows sinus tach at 131, minor IVCD, probable biatrial enlargement, some ST depression in the anterolateral leads. Patient did not receive his beta-berkley due to borderline BP. We will correct hyperkalemia and check cardiac enzymes. Addendum 2PM: ABG done on bilevel ventilation Ph 26, Th 5, Tl 0.6, Pl 0 and FiO2 0.4 PS 3 - 7.41/59/189. Vent settings changed to Ph 26, Th 4.5, Tl 0.6, Pl 0, FiO2 0.35. Repeat ABG at 4 PM. William Barcenas MD Feb 27, 2018 10:28
[2018-02-27] MEDS: FAMOTIDINE 20 MG TAB PO SCH ×2 (10:32→20:28)
[2018-02-27] MEDS: NYSTATIN 100,000 U/GM PWD 15 GM BTL TOPICAL SCH ×2 (10:32→20:28)
[2018-02-27] MEDS: POTASSIUM CHLORIDE 25 MEQ EFFERVESCENT TAB NG SCH (10:32)
[2018-02-27] MEDS: APIXABAN 5 MG TABLET PO SCH ×2 (10:33→20:28)
[2018-02-27] MEDS: CHLORHEXIDINE 0.12% (ORAL KIT) 15 ML CUP MT SCH ×2 (10:33→20:28)
[2018-02-27] MEDS: SODIUM CHLORIDE 0.9% FLUSH 10 ML FLUSH IV FLUSH SCH ×2 (10:33→20:28)
[2018-02-27] MEDS: POTASSIUM CHLOR 40 MEQ PREMIX 100 ML IV-CENTRAL PRN ×2 (10:52→13:22)
--- NOTE | 2018-02-27 12:17 | HHI.GIFU ---
Subjective Remarks Pt intubated. Per RN not stable enough to leave floor. (Brigette Greenfield) Objective Vitals I&O Vital Signs Date Time Temp Pulse Resp B/P (MAP) Pulse Ox O2 Delivery O2 Flow Rate FiO2 02/27/18 11:08 99 50 02/27/18 10:00 134 02/27/18 08:51 99 60 02/27/18 08:51 95 Ventilator 60 02/27/18 08:00 99.8 130 44 96/53 (67) 91 91/59 (70) 02/27/18 08:00 60 02/27/18 08:00 132 02/27/18 06:00 127 02/27/18 04:00 112 02/27/18 04:00 60 02/27/18 04:00 98.3 112 22 164/77 (106) 95 111/65 (80) 02/27/18 03:34 99 60 02/27/18 02:00 105 02/27/18 00:00 60 02/27/18 00:00 83 02/27/18 00:00 98.0 83 27 104/76 (85) 98 99/60 (73) 02/26/18 23:34 95 60 02/26/18 22:00 70 02/26/18 20:36 100 60 02/26/18 20:00 98.0 74 18 104/65 (78) 100 02/26/18 20:00 72 02/26/18 20:00 60 02/26/18 18:00 74 02/26/18 16:00 97.9 71 24 121/73 (89) 98 02/26/18 16:00 69 02/26/18 16:00 60 02/26/18 15:30 97 60 02/26/18 14:47 20 02/26/18 14:00 71 02/26/18 12:25 98 65 I/O 02/26/18 02/26/18 02/26/18 02/27/18 02/27/18 02/27/18 07:00 15:00 23:00 07:00 15:00 23:00 Intake Total 820 ml 650 ml 550 ml 770 ml 100 ml Output Total 800 ml 650 ml 1250 ml Balance 20 ml 650 ml -100 ml -480 ml 100 ml Intake IV Total 700 ml 650 ml 550 ml 650 ml 100 ml Other 120 ml 120 ml Output Urine Total 700 ml 450 ml 850 ml Stool Total 0 ml Gastric Drainage Total 100 ml 200 ml 400 ml # Bowel Movements 0 0 Laboratory Laboratory Tests Test 02/26/18 17:16 02/27/18 05:09 02/27/18 06:00 02/27/18 09:00 Blood Gas Puncture Site ART LINE ART LINE ART LINE Blood Gas Patient Temperature 98.6 98.6 98.6 Blood Gas HCO3 32 35 41 Blood Gas Base Excess 7.6 11.5 16.8 Blood Gas Oxygen Saturation 96 92 96 Arterial Blood pH 7.45 7.55 7.54 Arterial Blood Partial Pressure CO2 47 40 49 Arterial Blood Partial Pressure O2 112 75 105 Arterial Blood Oxygen Content 12.5 12.5 14.3 Arterial Blood Carboxyhemoglobin 1.6 1.7 1.7 Arterial Blood Methemoglobin 1.1 1.4 1.1 Blood Gas Hemoglobin 9.1 9.6 10.5 Oxygen Delivery Device VENTILATOR VENTILATOR Blood Gas Ventilator Setting APRV TH5.0/PH26 PRVC/AC16/450/ Blood Gas Inspired Oxygen 60 60 White Blood Count 12.5 Red Blood Count 5.02 Hemoglobin 9.9 Hematocrit 33.4 Mean Corpuscular Volume 66.6 Mean Corpuscular Hemoglobin 19.8 Mean Corpuscular Hemoglobin Concent 29.7 Red Cell Distribution Width 23.6 Platelet Count 238 Mean Platelet Volume 8.9 Neutrophils (%) (Auto) 82.0 Lymphocytes (%) (Auto) 11.8 Monocytes (%) (Auto) 5.7 Eosinophils (%) (Auto) 0.3 Basophils (%) (Auto) 0.2 Neutrophils # (Auto) 10.3 Lymphocytes # (Auto) 1.5 Monocytes # (Auto) 0.7 Eosinophils # (Auto) 0.0 Basophils # (Auto) 0.0 CBC Comment DIFF FINAL Differential Comment Blood Urea Nitrogen 30 Creatinine 0.79 Random Glucose 97 Total Protein 6.2 Albumin 2.7 Calcium Level 9.1 Phosphorus Level 3.0 Magnesium Level 2.0 Alkaline Phosphatase 49 Aspartate Amino Transf (AST/SGOT) 15 Alanine Aminotransferase (ALT/SGPT) 25 Total Bilirubin 0.7 Sodium Level 145 Potassium Level 2.7 Chloride Level 97 Carbon Dioxide Level 34.6 Anion Gap 13 Estimat Glomerular Filtration Rate 105 Date/Time Source Procedure Growth Status 02/22/18 11:30 Blood Peripheral Aerobic Blood Culture - Final NO GROWTH IN 5 DAYS Complete 02/22/18 11:30 Blood Peripheral Anaerobic Blood Culture - Final NO GROWTH IN 5 DAYS Complete 02/26/18 16:44 Stool Stool Stool Occult Blood (BRIANA) - Final HEMOCCULT NEGATIVE Complete 02/22/18 10:35 Sputum Endotracheal Gram Stain - Final Complete 02/22/18 10:35 Sputum Endotracheal Sputum Culture - Final HEAVY GROWTH NORMAL RESPIRATORY LUCAS Complete 02/14/18 10:45 Urine Catheterized Urine Urine Culture - Final NO GROWTH IN 48 HOURS. Complete Imaging Last Impressions Chest X-Ray 02/27/18 0600 Signed Impressions: Service Date/Time: Tuesday, February 27, 2018 02:13 - CONCLUSION: Improving aeration in both lung basis with possible small residual right-sided effusion. Lucien Barnes MD Abdomen X-Ray 02/27/18 0600 Signed Impressions: Service Date/Time: Tuesday, February 27, 2018 02:18 - CONCLUSION: 1. Focally dilated bowel loop in the right abdominal quadrant with decompression of the rectal vault. 2. CT abdomen with contrast is suggested to exclude possible volvulus. 3. No pneumoperitoneum. Lucien Barnes MD Lower Extremity Ultrasound 02/22/18 0000 Signed Impressions: Service Date/Time: Thursday, February 22, 2018 20:03 - CONCLUSION: No venous thrombosis of either lower extremity. Bebeto Dominique MD Head CT 02/14/18 1204 Signed Impressions: Service Date/Time: Wednesday, February 14, 2018 14:09 - CONCLUSION: 1. Chronic ischemic changes in the parietal lobes. No change from previous study. 2. No acute intracranial abnormality or Tye Steinberg MD CT Angiography 02/14/18 1204 Signed Impressions: Service Date/Time: Wednesday, February 14, 2018 20:07 - CONCLUSION: 1. No evidence for pulmonary embolism. 2. Bibasilar consolidation. 3. Cardiomegaly. Tye Steinberg MD Physical Exam HEENT: normocephalic; atraumatic; no jaundice. intubated CHEST: CTA CARDIAC: RRR ABDOMEN: Soft, distended, obese; bowel sounds are present in all four quadrants.dark bilious output NGT EXTREMITIES:left AKA SKIN: Normal; no rash; no jaundice. CRYSTAL GRINDER: opens eyes (Brigette Greenfield) Assessment and Plan Assessment: (1) GERD (gastroesophageal reflux disease) ICD Codes: K21.9 - Gastro-esophageal reflux disease without esophagitis Status: Chronic Plan 47-year-old morbidly obese male in the intensive care setting with respiratory failure and altered mental status on admission he is currently intubated, sedated, has NG tube connected to low intermittent suction. Patient is critically ill and ventilator weaning process has been initiated. Now is complicated from possible ileus 02/24 abdominal x-ray shows stable distended colon. Hemoglobin is 9.2 , WBC count 13.6, INR 1.1. We will do some follow-up x-rays to evaluate, dilated colon involvement and whether it has extended up into the small bowel. Currently patient is on Eliquis for past PE. Patient had 2 bowel movements for 2017 but none since. 02/26/18 slightly less distended today. was not stable enough to go for CT. HH stable. 02/26/18 not stable enough to leave floor for imaging studies, has been tachy, hypotensive. PLAN poss colonoscopy bedside, Dr Sam will evaluate supportive care Patient is seen by myself and Dr. Sam, note was written on his behalf (Brigette Greenfield) Plan Patient was seen and examined, agree with above note, patient abdomen is much softer than before, I am not sure about the x-ray if it is a good representation , I doubt that this is volvulus, we will need a CT scan for confirmation, I discussed the case with the veterinary assistant technician, if abdomen become more firm or distended we will need to a colonoscopy with decompression, patient is with higher risk because he is on Eliquis (Yas Sam MD) Brigette Greenfield Feb 27, 2018 12:17 Yas Sam MD Feb 27, 2018 14:42
[2018-02-27] MEDS: cefTRIAXone INJ 2,000 MG in SODIUM CHLORIDE 0.9% INJ 100 ML IV SCH (13:01)
[2018-02-27] MEDS ORDERED: SODIUM CHLORID 0.9% 500 ML INJ 500 ML IV ONE ×2 (17:00→17:30)
--- NOTE | 2018-02-27 20:20 | EKG ---
Date Performed: 02/27/2018 Time Performed: 12:05:26 PTAGE: 47 years EKG: Sinus tachycardia. Extensive ST-T changes are nonspecific Borderline ECG PREVIOUS TRACING : 02/14/2018 10.13 Since the previous tracing, no significant change noted DOCTOR: Duy Daniel Interpretating Date/Time 02/27/2018 20:19:35
[2018-02-27 21:32] LABS: TROPONIN I 0.46 NG/ML (0.02-0.05)
[2018-02-27] MEDS: POTASSIUM CHLOR 20 MEQ PREMIX 100 ML IV PRN (23:25)
[2018-02-28] VITALS (17 sets, daily range): BP systolic 86–135; BP diastolic 47–77; PULSE 84–119; RESP 12–14; TEMP 97.6–99.1; O2SAT 93–100
[2018-02-28] MEDS: POTASSIUM CHLOR 20 MEQ PREMIX 100 ML IV PRN ×2 (01:12→03:16)
[2018-02-28] MEDS: LORazepam 1 MG TAB PO SCH ×2 (03:16→16:00)
[2018-02-28] MEDS: CHLORHEXIDINE GLUCONATE 2 % 1 PACK (2 CLOTHS) TOP SCH (03:52)
[2018-02-28] MEDS: PROPOFOL 1000 MG/100 ML INJ 100 ML IV PRN ×5 (04:06→20:38)
[2018-02-28 04:27] LABS: AUTOMATED NEUTROPHIL # 11.2 TH/MM3 (1.8-7.7); BASOPHIL # 0.1 TH/MM3 (0-0.2); BASOPHIL % 0.4 % (0.0-2.0); EOSINOPHIL # 0.1 TH/MM3 (0-0.4); EOSINOPHIL % 0.7 % (0.0-4.0); HEMATOCRIT 29.4 % (39.0-51.0); HEMOGLOBIN 8.7 GM/DL (13.0-17.0); LYMPH % 7.8 % (9.0-44.0); MEAN CELL VOLUME 68.2 FL (80.0-100.0); MEAN CORPUSCULAR HEMOGLOBIN 20.1 PG (27.0-34.0); MEAN PLATELET VOLUME 8.7 FL (7.0-11.0); MONO % 5.3 % (0.0-8.0); MONOCYTE # 0.7 TH/MM3 (0-0.9); NEUT % 85.8 % (16.0-70.0); PLATELET COUNT 231 TH/MM3 (150-450); RED BLOOD COUNT 4.31 MIL/MM3 (4.50-5.90); RED CELL DISTRIBUTION WIDTH 23.6 % (11.6-17.2)
[2018-02-28 04:32] LABS: MEAN CORPUSCULAR HGB CONC 29.5 % (32.0-36.0)
[2018-02-28 05:15] LABS: ALBUMIN 2.5 GM/DL (3.4-5.0); ALKALINE PHOSPHATASE 55 U/L (45-117); ALT (GPT) 22 U/L (12-78); AST (GOT) 22 U/L (15-37); BICARBONATE 35.2 MEQ/L (21.0-32.0); BLOOD UREA NITROGEN 29 MG/DL (7-18); CALCIUM 8.4 MG/DL (8.5-10.1); CHLORIDE 105 MEQ/L (98-107); CREATININE 0.77 MG/DL (0.60-1.30); GLOMERULAR FILTRATION RATE 108 ML/MIN (>89); GLUCOSE,RANDOM 85 MG/DL (74-106); MAGNESIUM 2.1 MG/DL (1.5-2.5); PHOSPHORUS 2.6 MG/DL (2.5-4.9); SODIUM (NA) 150 MEQ/L (136-145); TOTAL BILIRUBIN ADULT 0.7 MG/DL (0.2-1.0); TRIGLYCERIDES 355 MG/DL (42-150)
--- NOTE | 2018-02-28 06:57 | RADRPT ---
EXAM DATE/TIME: 02/28/2018 05:30 [facility] COMPARISON: CHEST SINGLE AP, February 27, 2018, 2:13. INDICATIONS : Short of breath. MEDICAL HISTORY : Chronic obstructive pulmonary disease. Diabetes mellitus type II. SURGICAL HISTORY : CABG. Appendectomy. Nephrectomy ENCOUNTER: Subsequent ACUITY: 1 week PAIN SCORE: 0/10 LOCATION: Bilateral chest FINDINGS: A single view of the chest demonstrates improving aeration in the right lung base. Developing left ba silar consolidation/effusion. Heart size is normal. Life support tubes are stable in position CONCLUSION: 1. Improving aeration in the right lung base. 2. Developing left basilar consolidation/effusion Lucien Barnes MD on February 28, 2018 at 6:55 Board Certified Radiologist. This report was verified electronically.
[2018-02-28] MEDS: MIDAZOLAM 100 MG/100 ML INJ 100 ML IV PRN ×2 (08:11→17:14)
[2018-02-28] MEDS: RESP: BUDESONIDE 0.5 MG/2 ML NEB NEB SCH ×2 (09:11→21:22)
[2018-02-28] MEDS: APIXABAN 5 MG TABLET PO SCH ×2 (09:39→20:25)
[2018-02-28] MEDS: POTASSIUM CHLORIDE 25 MEQ EFFERVESCENT TAB NG SCH (09:39)
[2018-02-28] MEDS: CHLORHEXIDINE 0.12% (ORAL KIT) 15 ML CUP MT SCH ×2 (09:39→20:25)
[2018-02-28] MEDS: FAMOTIDINE 20 MG TAB PO SCH ×2 (09:39→20:25)
[2018-02-28] MEDS: SODIUM CHLORIDE 0.9% FLUSH 10 ML FLUSH IV FLUSH SCH ×2 (09:39→20:25)
[2018-02-28] MEDS: NYSTATIN 100,000 U/GM PWD 15 GM BTL TOPICAL SCH ×2 (09:40→20:25)
[2018-02-28] MEDS: methylPREDNISolone SOD SUCC 40 MG/1 ML VIAL IV PUSH SCH (10:47)
[2018-02-28] MEDS: EPOPROSTENOL NEB SOLUTION 50 NG/KG/MIN 100 ML NEB SCH ×4 (10:47→20:25)
--- NOTE | 2018-02-28 11:07 | HHI.GIFU ---
Subjective Remarks Intubated. Mother at bedside. Per RN, less OGT output today. No BM. abd iws softer today. Objective Vitals I&O Vital Signs Date Time Temp Pulse Resp B/P (MAP) Pulse Ox O2 Delivery O2 Flow Rate FiO2 02/28/18 09:11 100 35 02/28/18 06:00 114 02/28/18 04:23 100 35 02/28/18 04:00 35 02/28/18 04:00 110 02/28/18 04:00 98.1 110 12 129/68 (88) 100 124/66 (85) 02/28/18 02:00 119 02/28/18 01:16 100 35 02/28/18 00:00 35 02/28/18 00:00 98.6 99 12 95/54 (68) 98 86/47 (60) 02/28/18 00:00 99 02/27/18 22:16 99 35 02/27/18 22:00 103 02/27/18 20:20 100 35 02/27/18 20:00 98.3 117 22 161/91 (114) 95 02/27/18 20:00 117 02/27/18 20:00 35 02/27/18 18:00 83 02/27/18 17:28 100 35 02/27/18 16:00 84 02/27/18 16:00 100.1 101 22 101/56 (71) 91 104/63 (77) 02/27/18 14:00 122 02/27/18 12:00 99.7 136 25 105/59 (74) 100 117/73 (88) 02/27/18 12:00 136 02/27/18 12:00 60 02/27/18 11:08 99 50 I/O 02/27/18 02/27/18 02/27/18 02/28/18 02/28/18 02/28/18 07:00 15:00 23:00 07:00 15:00 23:00 Intake Total 770 ml 400 ml 850 ml 200 ml Output Total 1250 ml 750 ml 625 ml Balance -480 ml 400 ml 100 ml -425 ml Intake IV Total 650 ml 400 ml 850 ml 200 ml Other 120 ml Output Urine Total 850 ml 350 ml 525 ml Gastric Drainage Total 400 ml 400 ml 100 ml # Bowel Movements 0 2 0 Laboratory Laboratory Tests Test 02/27/18 13:45 4/30/18 14:30 02/27/18 17:30 02/27/18 20:20 Blood Gas Puncture Site ART LINE REID Blood Gas Patient Temperature 98.6 98.6 Blood Gas HCO3 37 37 Blood Gas Base Excess 11.8 12.8 Blood Gas Oxygen Saturation 97 92 Arterial Blood pH 7.41 7.46 Arterial Blood Partial Pressure CO2 59 54 Arterial Blood Partial Pressure O2 189 78 Arterial Blood Oxygen Content 13.5 10.9 Arterial Blood Carboxyhemoglobin 1.4 1.7 Arterial Blood Methemoglobin 1.4 1.0 Blood Gas Hemoglobin 9.6 8.4 Oxygen Delivery Device VENTILATOR VENTILATOR Blood Gas Ventilator Setting SEE COMMENTS Blood Gas Inspired Oxygen 50 35 Troponin I 0.62 0.46 Potassium Level 3.0 Test 02/28/18 04:00 02/28/18 05:19 White Blood Count 13.0 Red Blood Count 4.31 Hemoglobin 8.7 Hematocrit 29.4 Mean Corpuscular Volume 68.2 Mean Corpuscular Hemoglobin 20.1 Mean Corpuscular Hemoglobin Concent 29.5 Red Cell Distribution Width 23.6 Platelet Count 231 Mean Platelet Volume 8.7 Neutrophils (%) (Auto) 85.8 Lymphocytes (%) (Auto) 7.8 Monocytes (%) (Auto) 5.3 Eosinophils (%) (Auto) 0.7 Basophils (%) (Auto) 0.4 Neutrophils # (Auto) 11.2 Lymphocytes # (Auto) 1.0 Monocytes # (Auto) 0.7 Eosinophils # (Auto) 0.1 Basophils # (Auto) 0.1 CBC Comment DIFF FINAL Differential Comment Blood Urea Nitrogen 29 Creatinine 0.77 Random Glucose 85 Total Protein 6.0 Albumin 2.5 Calcium Level 8.4 Phosphorus Level 2.6 Magnesium Level 2.1 Alkaline Phosphatase 55 Aspartate Amino Transf (AST/SGOT) 22 Alanine Aminotransferase (ALT/SGPT) 22 Total Bilirubin 0.7 Sodium Level 150 Potassium Level 3.4 Chloride Level 105 Carbon Dioxide Level 35.2 Anion Gap 10 Estimat Glomerular Filtration Rate 108 Triglycerides Level 355 Blood Gas Puncture Site ART LINE Blood Gas Patient Temperature 98.6 Blood Gas HCO3 34 Blood Gas Base Excess 9.4 Blood Gas Oxygen Saturation 95 Arterial Blood pH 7.45 Arterial Blood Partial Pressure CO2 49 Arterial Blood Partial Pressure O2 103 Arterial Blood Oxygen Content 11.9 Arterial Blood Carboxyhemoglobin 1.7 Arterial Blood Methemoglobin 1.2 Blood Gas Hemoglobin 8.7 Oxygen Delivery Device VENTILATOR Blood Gas Ventilator Setting BILEVAL/APRV Blood Gas Inspired Oxygen 35 Date/Time Source Procedure Growth Status 02/22/18 11:30 Blood Peripheral Aerobic Blood Culture - Final NO GROWTH IN 5 DAYS Complete 02/22/18 11:30 Blood Peripheral Anaerobic Blood Culture - Final NO GROWTH IN 5 DAYS Complete 02/26/18 16:44 Stool Stool Stool Occult Blood (BRIANA) - Final HEMOCCULT NEGATIVE Complete 02/22/18 10:35 Sputum Endotracheal Gram Stain - Final Complete 02/22/18 10:35 Sputum Endotracheal Sputum Culture - Final HEAVY GROWTH NORMAL RESPIRATORY LUCAS Complete 02/14/18 10:45 Urine Catheterized Urine Urine Culture - Final NO GROWTH IN 48 HOURS. Complete Imaging Last Impressions Chest X-Ray 02/28/18 0600 Signed Impressions: Service Date/Time: Wednesday, February 28, 2018 05:30 - CONCLUSION: 1. Improving aeration in the right lung base. 2. Developing left basilar consolidation/effusion Lucien Barnes MD Abdomen X-Ray 02/27/18 0600 Signed Impressions: Service Date/Time: Tuesday, February 27, 2018 02:18 - CONCLUSION: 1. Focally dilated bowel loop in the right abdominal quadrant with decompression of the rectal vault. 2. CT abdomen with contrast is suggested to exclude possible volvulus. 3. No pneumoperitoneum. Lucien Barnes MD Lower Extremity Ultrasound 02/22/18 0000 Signed Impressions: Service Date/Time: Thursday, February 22, 2018 20:03 - CONCLUSION: No venous thrombosis of either lower extremity. Bebeto Dominique MD Head CT 02/14/18 1204 Signed Impressions: Service Date/Time: Wednesday, February 14, 2018 14:09 - CONCLUSION: 1. Chronic ischemic changes in the parietal lobes. No change from previous study. 2. No acute intracranial abnormality or Tye Steinberg MD CT Angiography 02/14/18 1204 Signed Impressions: Service Date/Time: Wednesday, February 14, 2018 20:07 - CONCLUSION: 1. No evidence for pulmonary embolism. 2. Bibasilar consolidation. 3. Cardiomegaly. Tye Steinberg MD Physical Exam HEENT: normocephalic; atraumatic; no jaundice. intubated CHEST: CTA CARDIAC: RRR ABDOMEN: Soft, distended, obese; bowel sounds are present in all four quadrants.dark bilious output NGT EXTREMITIES:left AKA SKIN: Normal; no rash; no jaundice. APPLICATION COORDINATOR:non responsive Assessment and Plan Assessment: (1) GERD (gastroesophageal reflux disease) ICD Codes: K21.9 - Gastro-esophageal reflux disease without esophagitis Status: Chronic Plan 47-year-old morbidly obese male in the intensive care setting with respiratory failure and altered mental status on admission he is currently intubated, sedated, has NG tube connected to low intermittent suction. Patient is critically ill and ventilator weaning process has been initiated. Now is complicated from possible ileus 02/24 abdominal x-ray shows stable distended colon. Hemoglobin is 9.2 , WBC count 13.6, INR 1.1. We will do some follow-up x-rays to evaluate, dilated colon involvement and whether it has extended up into the small bowel. Currently patient is on Eliquis for past PE. Patient had 2 bowel movements for 2017 but none since. 02/26/18 slightly less distended today. was not stable enough to go for CT. HH stable. 02/27/18 not stable enough to leave floor for imaging studies, has been tachy, hypotensive. 02/28/18 still not stable to leave floor for imaging. No BM. abd seems softer today. palliative care has been consulted PLAN KUB await palliative care consult supportive care Patient is seen by myself and Dr. Sam, note was written on his behalf Brigette Greenfield February 28, 2018 11:07
--- NOTE | 2018-02-28 12:09 | RADRPT ---
EXAM DATE/TIME: 02/28/2018 11:47 [facility] COMPARISON: ABDOMEN KUB ONLY, February 27, 2018, 2:18. INDICATIONS : Ileus MEDICAL HISTORY : Chronic obstructive pulmonary disease. Diabetes mellitus type II. SURGICAL HISTORY : CABG. Appendectomy. Nephrectomy ENCOUNTER: Subsequent ACUITY: 1 week PAIN SCORE: Non-responsive. LOCATION: Abdomen FINDINGS: Interval development of consolidation in the left lower lung with loss of delineation of the entire l eft hemidiaphragm. Gas containing loop of bowel in the right upper quadrant is similar in appearance to prior examination, measuring 11.6 cm in length (previously measured 14.2 cm). No gas in loops of bowel of the lower abdomen. Gastric tube tip projects within the stomach. CONCLUSION: 1. Persistent gas distended loop of bowel right upper quadrant, slightly smaller than on prior KUB. 2. Interval development of left lower lobe consolidation. Shane Reed MD on February 28, 2018 at 12:06 Board Certified Radiologist. This report was verified electronically.
--- NOTE | 2018-02-28 13:33 | HHI.CCPN ---
Subjective Remarks/Hospital Course Patient is a 47-year-old morbidly obese male with past medical history significant for obesity, obstructive sleep apnea clinically, history of DVT, chronic Eliquis use who was brought in by EMS for altered mental status and severe hypoxemia. Apparently per EMS end-tidal CO2 was in the 60s his initial sat was in the 30s, but with bagging came up to the 70s. Initial GCS apparently was 7 but improved with continued bag and mask ventilation in the ED. Sats remained in the low 80s. Patient initially refused intubation and was placed on BiPAP. Received duo nebs and Solu-Medrol and antibiotics (Azactam, Flagyl, vancomycin). Patient continued to be tachypneic and severely hypoxemic, and patient was intubated by the ER physician. Apparently difficult airway and was intubated on the third attempt. Patient was desaturating to low 80s even after intubation and I was called to the ED for assisting. I immediately evaluated the patient he continues to be in severe bronchospasm, severely hypoxemic. Additional breathing treatments ordered. I changed the vent settings to PCAC to target tidal volume 600-650 and reduce the rate to 14. PEEP increased to 10. Gradually oxygen saturation improved to 90. I placed a right IJ central line as the patient was borderline hypotensive. Chest x-ray showed apparently pulmonary vascular congestion. No definite infiltrate. Lactic acid 6. Appears patient has acute COPD exacerbation and severe sepsis, pulmonary embolism needs to be ruled out. IV Solu-Medrol DuoNeb breathing treatments will be continued. Patient takes Eliquis for PE in the past. Further workup and management based on results 02/15: Remains intubated heavily sedated. PEEP remains at 12 FiO2 has been weaned to 55%. CT PE protocol negative for pulmonary embolism, showed bibasilar significant consolidation indicative of pneumonia. Sputum Gram stain shows GPC. Add vancomycin. 02/16: Patient remains intubated remains critical. Remains hypoxemic on high vent support. On attempt to reduce PEEP, he desaturated and currently on 10 of PEEP. FiO2 50%. Sputum culture with MSSA and strep pneumo. Will discontinue Levaquin and Flagyl continue Azactam and vancomycin 02/17: Remains critical, CXR still showing pulmonary edema. IV Lasix repeat dose given. Wean PEEP to 8, FiO2 to 45%. Start SBT as tolerated 02/18: Patient remains intubated heavily sedated. On lightening sedation patient becomes very agitated. PEEP remains at 8 FiO2 down to 40%. Chest x- ray continues to show pulmonary vascular congestion 02/19: Patient transitioned to Precedex in the last 24 hours continues on CPAP trials 15/8/40%. Patient cooperative following commands. Chest x-ray pending. Aggressive diureses initiated BMP pending this afternoon. 02/20: While on Precedex CPAP trial was attempted. After about 15 minutes patient became severely tachypneic diaphoretic with respiratory rate in the 40s. Re sedated with 50 mg IV push of propofol, and restarting propofol infusion. CXR shows improving pulmonary vascular congestion. WBC count though is trending up. 02/21: No events over the night. Patient is currently on CPAP, PS 15/8/40%, with RR in the 30's and Vt low 300's. Patient is sedated with propofol and precedex. Tmax 100.4, I/O 2946/3020. 02/22: No events over the night. Patient is currently on propofol and Precedex, calm, opening eyes to voice stimuli, following commands. RASS of -2. T-max of 100.6. On 0.3 FiO2. Urine output is adequate. 02/23: Yesterday afternoon patient decompensated, requiring high PEEP and 100% O2 with sats in the mid 80s. Patient was switched to bilevel ventilation and started on inhaled Flolan with rapid improvement in his oxygenation. A central line and art line with placed and patient required 1 L fluid bolus. This morning patient is down to 0.4 FiO2. Sedation is achieved with propofol. No pressors. Decreased urine output over the night. T-max of 99. Still with significant NG tube output, over the last 24 hours 1200 mL's. Morning chest x- ray reviewed, significantly improved air entry at bases. 02/24: No events over the night. Due to improved O2 requirements, yesterday, patient was switched from APRV to PRVC mode of ventilation. FiO2 between 0.45 and 0.5, but patient remains on high PEEP, currently at 14. T-max of 99.8. Improved urine output, up to 2200 over the last 24 hours. 02/25: Patient remained sedated and intubated. No events overnight. T-max of 99 and I/O 2081/2200. Morning chest x-ray reviewed, no significant change compared to yesterday, still with bibasilar infiltrates. Oxygenation remains the same, FiO2 of 0.4 and PEEP at 14. Patient is sedated with propofol at 50 and Precedex at 1.5, awake, trying to talk, bucking the ventilator. His mother is present at bedside. 02/26: No events over the night. Worsening oxygenation noted on blood gas this morning, FiO2 increased to 0.6. Patient remains on propofol and Precedex for sedation, he is wide awake following commands. T-max of 98.7. I/O 2170/1650. Morning chest x-ray reviewed, no significant change compared to yesterday. ET tube left IJ central line remain in place. 02/27: Yesterday, due to worsening hypoxia patient was placed on bilevel ventilation with improvement in his oxygenation. Over the night he was switched back to PRVC (unclear why). This morning patient was placed back on APRV, tolerating it well so far, down to 50% O2. He had one episode of low BP that resolved with 500 cc fluid bolus. Still with significant NG tube output. Unable to have CT abdomen and pelvis due to high O2 requirements. Patient remains afebrile, with a T-max of 98.3, urine output 1900 mL's over the last 24 hours. Morning chest x-ray reviewed, improvement in bibasilar opacities, right side worse than left. 02/28: T-max 100.1. Patient continues on APRV. Patient continues on Flolan, electrolytes noted to be imbalanced, potassium currently being repleted. Objective Vital Signs Date Time Temp Pulse Resp B/P (MAP) Pulse Ox O2 Delivery O2 Flow Rate FiO2 02/28/18 11:28 100 35 02/28/18 06:00 114 02/28/18 04:00 98.1 12 129/68 (88) 124/66 (85) 02/27/18 08:51 Ventilator Intake and Output 02/28/18 02/28/18 03/01/18 08:00 16:00 00:00 Intake Total 200 ml Output Total 625 ml Balance -425 ml Result Diagram: 02/28/18 0400 02/28/18 0400 Other Results Microbiology Date/Time Source Procedure Growth Status 02/26/18 16:44 Stool Stool Stool Occult Blood (BRIANA) - Final HEMOCCULT NEGATIVE Complete Laboratory Tests Test 02/27/18 13:45 02/27/18 17:30 02/28/18 05:19 Blood Gas Puncture Site ART LINE REID ART LINE Blood Gas Patient Temperature 98.6 98.6 98.6 Blood Gas HCO3 37 mmol/L (22-26) 37 mmol/L (22-26) 34 mmol/L (22-26) Blood Gas Base Excess 11.8 mmol/L (-2-2) 12.8 mmol/L (-2-2) 9.4 mmol/L (-2-2) Blood Gas Oxygen Saturation 97 % (90-100) 92 % (90-100) 95 % (90-100) Arterial Blood pH 7.41 (7.380-7.420) 7.46 (7.380-7.420) 7.45 (7.380-7.420) Arterial Blood Partial Pressure CO2 59 mmHg (38-42) 54 mmHg (38-42) 49 mmHg (38-42) Arterial Blood Partial Pressure O2 189 mmHg (61-120) 78 mmHg (61-120) 103 mmHg (61-120) Arterial Blood Oxygen Content 13.5 Vol % (12.0-20.0) 10.9 Vol % (12.0-20.0) 11.9 Vol % (12.0-20.0) Arterial Blood Carboxyhemoglobin 1.4 % (0-4) 1.7 % (0-4) 1.7 % (0-4) Arterial Blood Methemoglobin 1.4 % (0-2) 1.0 % (0-2) 1.2 % (0-2) Blood Gas Hemoglobin 9.6 G/DL (12.0-16.0) 8.4 G/DL (12.0-16.0) 8.7 G/DL (12.0-16.0) Oxygen Delivery Device VENTILATOR VENTILATOR VENTILATOR Blood Gas Ventilator Setting SEE COMMENTS BILEVAL/APRV Blood Gas Inspired Oxygen 50 % 35 % 35 % Imaging Last Impressions Chest X-Ray 02/28/18 0600 Signed Impressions: Service Date/Time: Wednesday, February 28, 2018 05:30 - CONCLUSION: 1. Improving aeration in the right lung base. 2. Developing left basilar consolidation/effusion Lucien Barnes MD Abdomen X-Ray 02/28/18 0000 Signed Impressions: Service Date/Time: Wednesday, February 28, 2018 11:47 - CONCLUSION: 1. Persistent gas distended loop of bowel right upper quadrant, slightly smaller than on prior KUB. 2. Interval development of left lower lobe consolidation. Shane Reed MD Lower Extremity Ultrasound 02/22/18 0000 Signed Impressions: Service Date/Time: Thursday, February 22, 2018 20:03 - CONCLUSION: No venous thrombosis of either lower extremity. Bebeto Dominique MD Head CT 02/14/18 1204 Signed Impressions: Service Date/Time: Wednesday, February 14, 2018 14:09 - CONCLUSION: 1. Chronic ischemic changes in the parietal lobes. No change from previous study. 2. No acute intracranial abnormality or Tye Steinberg MD CT Angiography 02/14/18 1204 Signed Impressions: Service Date/Time: Wednesday, February 14, 2018 20:07 - CONCLUSION: 1. No evidence for pulmonary embolism. 2. Bibasilar consolidation. 3. Cardiomegaly. Tye Steinberg MD Last 24 hours Impressions Chest X-Ray 02/26/18 0000 Signed Impressions: Service Date/Time: Monday, February 26, 2018 07:19 - CONCLUSION: Bilateral basilar consolidation small right effusion. Dane Brannon MD Last 24 hours Impressions Chest X-Ray 02/25/18 0600 Signed Impressions: Service Date/Time: Sunday, February 25, 2018 03:53 - CONCLUSION: Persistent left lower lobe consolidation and patchy right lower lung infiltrates. Shane Reed MD Last 24 hours Impressions Chest X-Ray 02/23/18 0600 Signed Impressions: Service Date/Time: January 03:59 - CONCLUSION: Minimal subsegmental atelectasis versus scarring right midlung otherwise clear chest. Tye Steinberg MD Last Impressions Chest X-Ray 02/18/18 0600 Signed Impressions: Service Date/Time: Sunday, February 18, 2018 04:18 - CONCLUSION: Unchanged radiographic appearance most consistent with pulmonary edema. Shane Merrill Jr., MD Head CT 02/14/18 1204 Signed Impressions: Service Date/Time: Wednesday, February 14, 2018 14:09 - CONCLUSION: 1. Chronic ischemic changes in the parietal lobes. No change from previous study. 2. No acute intracranial abnormality or Tye Steinberg MD CT Angiography 02/14/18 1204 Signed Impressions: Service Date/Time: Wednesday, February 14, 2018 20:07 - CONCLUSION: 1. No evidence for pulmonary embolism. 2. Bibasilar consolidation. 3. Cardiomegaly. Tye Steinberg MD Objective Remarks General -chronically ill-appearing middle-aged gentleman, intubated and sedated for optimal ventilator synchrony HEENT - pupils are equal and reactive, sclerae are anicteric, no scleral edema, no JVD, neck is supple, no carotid bruit, + ETT, + OGT, left IJ central line () -site clean CV - regular heart sounds, no murmurs, rubs or gallops appreciated Chest - some scattered coarse breath sounds bilateral, no wheezes, improved air entry Abdomen - distended but better, softer, non-tender, BS hypoactive, no hepatomegaly, no splenomegaly Skin - no rashes, no cyanosis appreciated Extremities - warm and well perfused, no edema, + peripheral pulses RLE, no clubbing, LLE AKA Neuro - intubated, awake, follows commands, moves all extremities, still attempts to talk A/P Assessment and Plan 1. Acute hypoxic respiratory failure -no significant improvement despite full support for 14 days 2. Bibasilar MSSA and strep pneumo pneumonia -patient remains afebrile, leukocytosis is resolving 3. Acute COPD exacerbation -resolved 4. Metabolic encephalopathy 5. Hypotension -resolved 6. Ileus -on repeat KUB colon is still distended, CT abdomen and pelvis not done yet due to high O2 requirements 7. 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 History of DVT and PE s/p IVC filter 9. LUCAS -resolved, adequate urine output 10. Hx depression and Hx of CVA 3 11. Hx of hypertension and dyslipidemia 12. Hx of childhood osteosarcoma s/p chemoradiation therapy 13. Hypokalemia 1. Continue bilevel, settings readjusted, P high decreased to 26, T high 5 seconds, T low 0.6 seconds, pressure support of 3, current FiO2 0.5 2. Continue inhaled Flolan 3. Vent bundle and bronchodilators 4. Precedex was stopped due to bradycardia. Start midazolam drip and taper down propofol. Check triglycerides today 5. Continue ceftriaxone day 6. Stop levofloxacin (completed 8 day coarse) 6. Repeat cultures sent, negative to date so far 7. Home Eliquis dose increased to 5 twice daily 8. NG tube aspirate negative for bleed 9. Continue OG tube to low intermittent wall suction and continue to hold tube feeds 10. GI following 11. CT abdomen and pelvis when oxygenation improves 12. GI prophylaxis with famotidine, DVT prophylaxis addressed above 13. Repletion of electrolytes per ICU protocol 14. If no significant improvement of ileus in the next few days patient will need TPN Patient's mother was updated in detail regarding patient's condition. She understands that Kayden is still critically ill and his condition can further deteriorate. Palliative care has been consult Patient remains critically ill with hypoxic respiratory failure and he is at very high risk for further decompensation and . Addendum 2PM: ABG done on bilevel ventilation Ph 26, Th 5, Tl 0.6, Pl 0 and FiO2 0.4 PS 3 - 7.41/59/189. Vent settings changed to Ph 26, Th 4.5, Tl 0.6, Pl 0, FiO2 0.35. Repeat ABG at 4 PM. Will begin weaning off Flolan if possible my billing statement This patient remains critically ill with one or more organ systems which are or may become a threat to life. I have spent in excess of 36 minutes discontinuously in the care and management of this patient. This time is exclusive of procedures, and includes, but is not limited to, evaluation of the patient, review of the medical record, discussions with family, consultants, nursing staff, or respiratory therapy, and documentation in the medical record. Physician Nancy Irizarry MD February 28, 2018 13:33
[2018-02-28] MEDS: FREE WATER G-TUBE SCH ×2 (14:00→22:00)
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
[2018-02-28] MEDS: cefTRIAXone INJ 2,000 MG in SODIUM CHLORIDE 0.9% INJ 100 ML IV SCH (15:12)
[2018-03-01] VITALS (18 sets, daily range): BP systolic 116–160; BP diastolic 71–88; PULSE 60–86; RESP 12–15; TEMP 97.5–98.8; O2SAT 92–100
[2018-03-01] MEDS: PROPOFOL 1000 MG/100 ML INJ 100 ML IV PRN ×8 (00:02→22:34)
[2018-03-01] MEDS: MIDAZOLAM 100 MG/100 ML INJ 100 ML IV PRN ×2 (03:26→14:04)
[2018-03-01] MEDS: EPOPROSTENOL NEB SOLUTION 50 NG/KG/MIN 100 ML NEB SCH ×6 (04:00→20:00)
[2018-03-01] MEDS: CHLORHEXIDINE GLUCONATE 2 % 1 PACK (2 CLOTHS) TOP SCH (04:00)
--- NOTE | 2018-03-01 04:04 | RADRPT ---
EXAM DATE/TIME: 03/01/2018 02:38 [facility] COMPARISON: CHEST SINGLE AP, February 28, 2018, 5:30. INDICATIONS : Short of breath. MEDICAL HISTORY : Chronic obstructive pulmonary disease. Diabetes mellitus type II. SURGICAL HISTORY : CABG. Appendectomy. Nephrectomy ENCOUNTER: Subsequent ACUITY: 2 weeks PAIN SCORE: 0/10 LOCATION: Bilateral chest FINDINGS: A single view of the chest demonstrates persistent left basilar consolidation/effusion. Minimal atele ctatic changes in the right hemidiaphragm. Heart size is normal. Life support tubes including an endo tracheal nasogastric and left-sided central venous catheter are all stable in position. Right shoulde r arthroplasty. Osseous structures are otherwise intact. CONCLUSION: Stable chest with left basilar consolidation/effusion. Lucien Barnes MD on March 01, 2018 at 4:01 Board Certified Radiologist. This report was verified electronically.
[2018-03-01] MEDS: LORazepam 1 MG TAB PO SCH ×2 (04:47→16:04)
[2018-03-01] MEDS: FREE WATER G-TUBE SCH ×3 (05:49→21:37)
[2018-03-01 05:56] LABS: AUTOMATED NEUTROPHIL # 10.6 TH/MM3 (1.8-7.7); BASOPHIL % 0.3 % (0.0-2.0); EOSINOPHIL % 0.1 % (0.0-4.0); HEMATOCRIT 28.9 % (39.0-51.0); HEMOGLOBIN 8.5 GM/DL (13.0-17.0); LYMPH % 5.4 % (9.0-44.0); LYMPHOCYTE # 0.6 TH/MM3 (1.0-4.8); MEAN CELL VOLUME 68.6 FL (80.0-100.0); MEAN CORPUSCULAR HEMOGLOBIN 20.3 PG (27.0-34.0); MEAN PLATELET VOLUME 8.8 FL (7.0-11.0); MONO % 3.2 % (0.0-8.0); MONOCYTE # 0.4 TH/MM3 (0-0.9); PLATELET COUNT 216 TH/MM3 (150-450); RED BLOOD COUNT 4.21 MIL/MM3 (4.50-5.90); RED CELL DISTRIBUTION WIDTH 23.8 % (11.6-17.2); WHITE BLOOD COUNT 11.6 TH/MM3 (4.0-11.0)
[2018-03-01 05:59] LABS: MEAN CORPUSCULAR HGB CONC 29.6 % (32.0-36.0)
[2018-03-01 06:03] LABS: ALBUMIN 2.5 GM/DL (3.4-5.0); ALT (GPT) 22 U/L (12-78); AST (GOT) 13 U/L (15-37); BICARBONATE 34.7 MEQ/L (21.0-32.0); BLOOD UREA NITROGEN 33 MG/DL (7-18); CALCIUM 9.1 MG/DL (8.5-10.1); CHLORIDE 103 MEQ/L (98-107); CREATININE 0.67 MG/DL (0.60-1.30); GLOMERULAR FILTRATION RATE 127 ML/MIN (>89); GLUCOSE,RANDOM 124 MG/DL (74-106); MAGNESIUM 2.3 MG/DL (1.5-2.5); PHOSPHORUS 2.7 MG/DL (2.5-4.9); SODIUM (NA) 145 MEQ/L (136-145)
[2018-03-01 06:05] LABS: ALKALINE PHOSPHATASE 49 U/L (45-117); TOTAL BILIRUBIN ADULT 0.6 MG/DL (0.2-1.0); TOTAL PROTEIN 6.3 GM/DL (6.4-8.2)
[2018-03-01] MEDS: CHLORHEXIDINE 0.12% (ORAL KIT) 15 ML CUP MT SCH ×2 (08:00→19:35)
[2018-03-01] MEDS: POTASSIUM CHLORIDE 25 MEQ EFFERVESCENT TAB NG SCH (08:21)
[2018-03-01] MEDS: SODIUM CHLORIDE 0.9% FLUSH 10 ML FLUSH IV FLUSH SCH ×2 (08:21→20:46)
[2018-03-01] MEDS: FAMOTIDINE 20 MG TAB PO SCH ×2 (08:21→20:46)
[2018-03-01] MEDS: APIXABAN 5 MG TABLET PO SCH ×2 (08:21→20:46)
[2018-03-01] MEDS: methylPREDNISolone SOD SUCC 40 MG/1 ML VIAL IV PUSH SCH (08:21)
[2018-03-01] MEDS: NYSTATIN 100,000 U/GM PWD 15 GM BTL TOPICAL SCH ×2 (08:24→20:46)
[2018-03-01] MEDS: RESP: BUDESONIDE 0.5 MG/2 ML NEB NEB SCH ×2 (09:15→19:47)
--- NOTE | 2018-03-01 10:56 | HHI.CCPN ---
Subjective Remarks/Hospital Course Patient is a 47-year-old morbidly obese male with past medical history significant for obesity, obstructive sleep apnea clinically, history of DVT, chronic Eliquis use who was brought in by EMS for altered mental status and severe hypoxemia. Apparently per EMS end-tidal CO2 was in the 60s his initial sat was in the 30s, but with bagging came up to the 70s. Initial GCS apparently was 7 but improved with continued bag and mask ventilation in the ED. Sats remained in the low 80s. Patient initially refused intubation and was placed on BiPAP. Received duo nebs and Solu-Medrol and antibiotics (Azactam, Flagyl, vancomycin). Patient continued to be tachypneic and severely hypoxemic, and patient was intubated by the ER physician. Apparently difficult airway and was intubated on the third attempt. Patient was desaturating to low 80s even after intubation and I was called to the ED for assisting. I immediately evaluated the patient he continues to be in severe bronchospasm, severely hypoxemic. Additional breathing treatments ordered. I changed the vent settings to PCAC to target tidal volume 600-650 and reduce the rate to 14. PEEP increased to 10. Gradually oxygen saturation improved to 90. I placed a right IJ central line as the patient was borderline hypotensive. Chest x-ray showed apparently pulmonary vascular congestion. No definite infiltrate. Lactic acid 6. Appears patient has acute COPD exacerbation and severe sepsis, pulmonary embolism needs to be ruled out. IV Solu-Medrol DuoNeb breathing treatments will be continued. Patient takes Eliquis for PE in the past. Further workup and management based on results 02/15: Remains intubated heavily sedated. PEEP remains at 12 FiO2 has been weaned to 55%. CT PE protocol negative for pulmonary embolism, showed bibasilar significant consolidation indicative of pneumonia. Sputum Gram stain shows GPC. Add vancomycin. 02/16: Patient remains intubated remains critical. Remains hypoxemic on high vent support. On attempt to reduce PEEP, he desaturated and currently on 10 of PEEP. FiO2 50%. Sputum culture with MSSA and strep pneumo. Will discontinue Levaquin and Flagyl continue Azactam and vancomycin 02/17: Remains critical, CXR still showing pulmonary edema. IV Lasix repeat dose given. Wean PEEP to 8, FiO2 to 45%. Start SBT as tolerated 02/18: Patient remains intubated heavily sedated. On lightening sedation patient becomes very agitated. PEEP remains at 8 FiO2 down to 40%. Chest x- ray continues to show pulmonary vascular congestion 02/19: Patient transitioned to Precedex in the last 24 hours continues on CPAP trials 15/8/40%. Patient cooperative following commands. Chest x-ray pending. Aggressive diureses initiated BMP pending this afternoon. 02/20: While on Precedex CPAP trial was attempted. After about 15 minutes patient became severely tachypneic diaphoretic with respiratory rate in the 40s. Re sedated with 50 mg IV push of propofol, and restarting propofol infusion. CXR shows improving pulmonary vascular congestion. WBC count though is trending up. 02/21: No events over the night. Patient is currently on CPAP, PS 15/8/40%, with RR in the 30's and Vt low 300's. Patient is sedated with propofol and precedex. Tmax 100.4, I/O 2946/3020. 02/22: No events over the night. Patient is currently on propofol and Precedex, calm, opening eyes to voice stimuli, following commands. RASS of -2. T-max of 100.6. On 0.3 FiO2. Urine output is adequate. 02/23: Yesterday afternoon patient decompensated, requiring high PEEP and 100% O2 with sats in the mid 80s. Patient was switched to bilevel ventilation and started on inhaled Flolan with rapid improvement in his oxygenation. A central line and art line with placed and patient required 1 L fluid bolus. This morning patient is down to 0.4 FiO2. Sedation is achieved with propofol. No pressors. Decreased urine output over the night. T-max of 99. Still with significant NG tube output, over the last 24 hours 1200 mL's. Morning chest x- ray reviewed, significantly improved air entry at bases. 02/24: No events over the night. Due to improved O2 requirements, yesterday, patient was switched from APRV to PRVC mode of ventilation. FiO2 between 0.45 and 0.5, but patient remains on high PEEP, currently at 14. T-max of 99.8. Improved urine output, up to 2200 over the last 24 hours. 02/25: Patient remained sedated and intubated. No events overnight. T-max of 99 and I/O 2081/2200. Morning chest x-ray reviewed, no significant change compared to yesterday, still with bibasilar infiltrates. Oxygenation remains the same, FiO2 of 0.4 and PEEP at 14. Patient is sedated with propofol at 50 and Precedex at 1.5, awake, trying to talk, bucking the ventilator. His mother is present at bedside. 02/26: No events over the night. Worsening oxygenation noted on blood gas this morning, FiO2 increased to 0.6. Patient remains on propofol and Precedex for sedation, he is wide awake following commands. T-max of 98.7. I/O 2170/1650. Morning chest x-ray reviewed, no significant change compared to yesterday. ET tube left IJ central line remain in place. 02/27: Yesterday, due to worsening hypoxia patient was placed on bilevel ventilation with improvement in his oxygenation. Over the night he was switched back to PRVC (unclear why). This morning patient was placed back on APRV, tolerating it well so far, down to 50% O2. He had one episode of low BP that resolved with 500 cc fluid bolus. Still with significant NG tube output. Unable to have CT abdomen and pelvis due to high O2 requirements. Patient remains afebrile, with a T-max of 98.3, urine output 1900 mL's over the last 24 hours. Morning chest x-ray reviewed, improvement in bibasilar opacities, right side worse than left. 02/28: T-max 100.1. Patient continues on APRV. Patient continues on Flolan, electrolytes noted to be imbalanced, potassium currently being repleted. 03/01: Afebrile. Extensive discussion with family regarding tracheostomy. Patient transitioning to PRVC/ AC this a.m., and attempts to wean O2 requirements and Flolan. Patient remains sedated for ventilator synchrony. Objective Vital Signs Date Time Temp Pulse Resp B/P (MAP) Pulse Ox O2 Delivery O2 Flow Rate FiO2 03/01/18 09:10 100 50 03/01/18 06:00 78 03/01/18 04:00 97.7 12 124/80 (95) 133/80 (97) 02/27/18 08:51 Ventilator Intake and Output 03/01/18 03/01/18 03/02/18 08:00 16:00 00:00 Intake Total 800 ml Output Total 425 ml Balance 375 ml Result Diagram: 03/01/18 0510 03/01/18 0510 Other Results Microbiology Date/Time Source Procedure Growth Status 02/26/18 16:44 Stool Stool Stool Occult Blood (BRIANA) - Final HEMOCCULT NEGATIVE Complete Laboratory Tests Test 03/01/18 05:21 03/01/18 06:05 03/01/18 10:17 Blood Gas Puncture Site ART LINE ART LINE ART LINE Blood Gas Patient Temperature 98.6 98.6 98.6 Blood Gas HCO3 35 mmol/L (22-26) 35 mmol/L (22-26) 32 mmol/L (22-26) Blood Gas Base Excess 10.6 mmol/L (-2-2) 10.6 mmol/L (-2-2) 9.0 mmol/L (-2-2) Blood Gas Oxygen Saturation 86 % (90-100) 93 % (90-100) 96 % (90-100) Arterial Blood pH 7.45 (7.380-7.420) 7.47 (7.380-7.420) 7.53 (7.380-7.420) Arterial Blood Partial Pressure CO2 51 mmHg (38-42) 49 mmHg (38-42) 39 mmHg (38-42) Arterial Blood Partial Pressure O2 62 mmHg (61-120) 85 mmHg (61-120) 114 mmHg (61-120) Arterial Blood Oxygen Content 10.3 Vol % (12.0-20.0) 10.5 Vol % (12.0-20.0) 10.6 Vol % (12.0-20.0) Arterial Blood Carboxyhemoglobin 1.9 % (0-4) 1.8 % (0-4) 1.7 % (0-4) Arterial Blood Methemoglobin 1.2 % (0-2) 1.2 % (0-2) 1.1 % (0-2) Blood Gas Hemoglobin 8.4 G/DL (12.0-16.0) 7.9 G/DL (12.0-16.0) 7.7 G/DL (12.0-16.0) Oxygen Delivery Device VENTILATOR VENTILATOR VENTILATOR Blood Gas Ventilator Setting BILEVEL/APRV BILEVEL/APRV PRVC/AC Blood Gas Inspired Oxygen 35 % 50 % 80 % Imaging Last Impressions Chest X-Ray 02/28/18 0600 Signed Impressions: Service Date/Time: Wednesday, February 28, 2018 05:30 - CONCLUSION: 1. Improving aeration in the right lung base. 2. Developing left basilar consolidation/effusion Lucien Barnes MD Abdomen X-Ray 02/28/18 0000 Signed Impressions: Service Date/Time: Wednesday, February 28, 2018 11:47 - CONCLUSION: 1. Persistent gas distended loop of bowel right upper quadrant, slightly smaller than on prior KUB. 2. Interval development of left lower lobe consolidation. Shane Reed MD Lower Extremity Ultrasound 02/22/18 0000 Signed Impressions: Service Date/Time: Thursday, February 22, 2018 20:03 - CONCLUSION: No venous thrombosis of either lower extremity. Bebeto Dominique MD Head CT 02/14/18 1204 Signed Impressions: Service Date/Time: Wednesday, February 14, 2018 14:09 - CONCLUSION: 1. Chronic ischemic changes in the parietal lobes. No change from previous study. 2. No acute intracranial abnormality or Tye Steinberg MD CT Angiography 02/14/18 1204 Signed Impressions: Service Date/Time: Wednesday, February 14, 2018 20:07 - CONCLUSION: 1. No evidence for pulmonary embolism. 2. Bibasilar consolidation. 3. Cardiomegaly. Tye Steinberg MD Last 24 hours Impressions Chest X-Ray 02/26/18 0000 Signed Impressions: Service Date/Time: Monday, February 26, 2018 07:19 - CONCLUSION: Bilateral basilar consolidation small right effusion. Dane Brannon MD Last 24 hours Impressions Chest X-Ray 02/25/18 0600 Signed Impressions: Service Date/Time: Sunday, February 25, 2018 03:53 - CONCLUSION: Persistent left lower lobe consolidation and patchy right lower lung infiltrates. Shane Reed MD Last 24 hours Impressions Chest X-Ray 02/23/18 0600 Signed Impressions: Service Date/Time: January 03:59 - CONCLUSION: Minimal subsegmental atelectasis versus scarring right midlung otherwise clear chest. Tye Steinberg MD Last Impressions Chest X-Ray 02/18/18 0600 Signed Impressions: Service Date/Time: Sunday, February 18, 2018 04:18 - CONCLUSION: Unchanged radiographic appearance most consistent with pulmonary edema. Shane Merrill Jr., MD Head CT 02/14/18 1204 Signed Impressions: Service Date/Time: Wednesday, February 14, 2018 14:09 - CONCLUSION: 1. Chronic ischemic changes in the parietal lobes. No change from previous study. 2. No acute intracranial abnormality or Tye Steinberg MD CT Angiography 02/14/18 1204 Signed Impressions: Service Date/Time: Wednesday, February 14, 2018 20:07 - CONCLUSION: 1. No evidence for pulmonary embolism. 2. Bibasilar consolidation. 3. Cardiomegaly. Tye Steinberg MD Objective Remarks General -chronically ill-appearing middle-aged gentleman, intubated and sedated for optimal ventilator synchrony HEENT - pupils are equal and reactive, sclerae are anicteric, no scleral edema, no JVD, neck is supple, no carotid bruit, + ETT, + OGT, left IJ central line () -site clean CV - regular heart sounds, no murmurs, rubs or gallops appreciated Chest - some scattered coarse breath sounds bilateral, no wheezes, improved air entry Abdomen - distended but better, softer, non-tender, BS hypoactive, no hepatomegaly, no splenomegaly Skin - no rashes, no cyanosis appreciated Extremities - warm and well perfused, no edema, + peripheral pulses RLE, no clubbing, LLE AKA Neuro - intubated, awake, follows commands, moves all extremities, still attempts to talk A/P Assessment and Plan ASSESSMENT 1. Acute hypoxic respiratory failure -no significant improvement despite full support for 14 days 2. Bibasilar MSSA and strep pneumo pneumonia -patient remains afebrile, leukocytosis is resolving 3. Acute COPD exacerbation -resolved 4. Metabolic encephalopathy 5. Hypotension -resolved 6. Ileus -on repeat KUB colon is still distended, CT abdomen and pelvis not done yet due to high O2 requirements 7. 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 History of DVT and PE s/p IVC filter 9. LUCAS -resolved, adequate urine output 10. Hx depression and Hx of CVA 3 11. Hx of hypertension and dyslipidemia 12. Hx of childhood osteosarcoma s/p chemoradiation therapy 13. Electrolyte abnormality PLAN 1. Discontinue bilevel settings - P high decreased to 26, T high 5 seconds, T low 0.6 seconds, pressure support of 3, current FiO2 0.-Changed to AC/PRVC 16/ 550//70/12 and Flolan 2. Continue inhaled Flolan 3. Vent bundle and bronchodilators 4. Continue midazolam drip and taper down propofol. 5. Continue ceftriaxone day 7. Stop levofloxacin (completed 8 day coarse) 6. Original cultures 02/14 -Sputum - Staph Aureus/ Strep Pneum. Follow up repeat cultures 02/22 7. Home Eliquis dose increased to 5 twice daily 8. NG tube aspirate negative for bleed 9. Continue OG tube to low intermittent wall suction and continue to hold tube feeds 10. GI following 11. CT abdomen and pelvis when oxygenation improves 12. GI prophylaxis with famotidine, DVT prophylaxis addressed above 13. Repletion of electrolytes per ICU protocol 14. If no significant improvement of ileus in the next few days patient will start TPN today Extensive discussion with patient's mother was updated in detail regarding patient's condition. She understands that Kayden is still critically ill and his condition can further deteriorate. Palliative care has been consulted Ms. Pride Patient remains critically ill with hypoxic respiratory failure and he is at very high risk for further decompensation and . my billing statement This patient remains critically ill with one or more organ systems which are or may become a threat to life. I have spent in excess of 35 minutes discontinuously in the care and management of this patient. This time is exclusive of procedures, and includes, but is not limited to, evaluation of the patient, review of the medical record, discussions with family, consultants, nursing staff, or respiratory therapy, and documentation in the medical record. Physician Nancy Irizarry MD March 01, 2018 10:56
[2018-03-01] MEDS: cefTRIAXone INJ 2,000 MG in SODIUM CHLORIDE 0.9% INJ 100 ML IV SCH (13:01)
--- NOTE | 2018-03-01 13:39 | HHI.GIFU ---
Subjective Remarks Pt resting in bed, sedated on vent. (Brigette Greenfield) Objective Vitals I&O Vital Signs Date Time Temp Pulse Resp B/P (MAP) Pulse Ox O2 Delivery O2 Flow Rate FiO2 03/01/18 12:23 92 75 03/01/18 12:00 98.6 73 14 154/87 (109) 96 156/85 (108) 03/01/18 12:00 73 03/01/18 10:00 60 03/01/18 10:00 80 03/01/18 09:10 100 50 03/01/18 08:00 98.0 71 12 155/87 (109) 100 156/86 (109) 03/01/18 08:00 71 03/01/18 08:00 35 03/01/18 06:00 78 03/01/18 04:47 100 35 03/01/18 04:00 79 03/01/18 04:00 97.7 79 12 124/80 (95) 100 133/80 (97) 03/01/18 04:00 35 03/01/18 02:00 79 03/01/18 00:08 100 35 03/01/18 00:00 97.5 80 12 116/71 (86) 99 126/75 (92) 03/01/18 00:00 80 03/01/18 00:00 35 02/28/18 22:00 84 02/28/18 20:30 100 35 02/28/18 20:00 35 02/28/18 20:00 87 02/28/18 20:00 97.6 87 12 113/65 (81) 100 118/73 (88) 02/28/18 18:00 90 02/28/18 16:00 35 02/28/18 16:00 92 02/28/18 16:00 100 35 02/28/18 16:00 98.5 92 14 109/63 (78) 93 113/69 (84) 02/28/18 14:00 96 I/O 02/28/18 02/28/18 02/28/18 03/01/18 03/01/18 03/01/18 07:00 15:00 23:00 07:00 15:00 23:00 Intake Total 245.454 ml 292.7 ml 713.6 ml 800 ml Output Total 625 ml 550 ml 425 ml Balance -379.546 ml 292.7 ml 163.6 ml 375 ml Intake IV Total 245.454 ml 292.7 ml 513.6 ml 400 ml Other 200 ml 400 ml Output Urine Total 525 ml 500 ml 325 ml Gastric Drainage Total 100 ml 50 ml 100 ml # Bowel Movements 0 0 0 Laboratory Laboratory Tests Test 02/28/18 16:50 03/01/18 05:10 03/01/18 05:21 03/01/18 06:05 Potassium Level 4.2 3.8 White Blood Count 11.6 Red Blood Count 4.21 Hemoglobin 8.5 Hematocrit 28.9 Mean Corpuscular Volume 68.6 Mean Corpuscular Hemoglobin 20.3 Mean Corpuscular Hemoglobin Concent 29.6 Red Cell Distribution Width 23.8 Platelet Count 216 Mean Platelet Volume 8.8 Neutrophils (%) (Auto) 91.0 Lymphocytes (%) (Auto) 5.4 Monocytes (%) (Auto) 3.2 Eosinophils (%) (Auto) 0.1 Basophils (%) (Auto) 0.3 Neutrophils # (Auto) 10.6 Lymphocytes # (Auto) 0.6 Monocytes # (Auto) 0.4 Eosinophils # (Auto) 0.0 Basophils # (Auto) 0.0 CBC Comment DIFF FINAL Differential Comment Blood Urea Nitrogen 33 Creatinine 0.67 Random Glucose 124 Total Protein 6.3 Albumin 2.5 Calcium Level 9.1 Phosphorus Level 2.7 Magnesium Level 2.3 Alkaline Phosphatase 49 Aspartate Amino Transf (AST/SGOT) 13 Alanine Aminotransferase (ALT/SGPT) 22 Total Bilirubin 0.6 Sodium Level 145 Chloride Level 103 Carbon Dioxide Level 34.7 Anion Gap 7 Estimat Glomerular Filtration Rate 127 Blood Gas Puncture Site ART LINE ART LINE Blood Gas Patient Temperature 98.6 98.6 Blood Gas HCO3 35 35 Blood Gas Base Excess 10.6 10.6 Blood Gas Oxygen Saturation 86 93 Arterial Blood pH 7.45 7.47 Arterial Blood Partial Pressure CO2 51 49 Arterial Blood Partial Pressure O2 62 85 Arterial Blood Oxygen Content 10.3 10.5 Arterial Blood Carboxyhemoglobin 1.9 1.8 Arterial Blood Methemoglobin 1.2 1.2 Blood Gas Hemoglobin 8.4 7.9 Oxygen Delivery Device VENTILATOR VENTILATOR Blood Gas Ventilator Setting BILEVEL/APRV BILEVEL/APRV Blood Gas Inspired Oxygen 35 50 Test 03/01/18 10:17 03/01/18 11:34 03/01/18 13:00 Blood Gas Puncture Site ART LINE ART LINE ART LINE Blood Gas Patient Temperature 98.6 98.6 98.6 Blood Gas HCO3 32 32 33 Blood Gas Base Excess 9.0 8.2 8.2 Blood Gas Oxygen Saturation 96 82 83 Arterial Blood pH 7.53 7.48 7.45 Arterial Blood Partial Pressure CO2 39 44 48 Arterial Blood Partial Pressure O2 114 53 56 Arterial Blood Oxygen Content 10.6 9.4 10.0 Arterial Blood Carboxyhemoglobin 1.7 1.7 1.5 Arterial Blood Methemoglobin 1.1 1.2 1.3 Blood Gas Hemoglobin 7.7 8.1 8.5 Oxygen Delivery Device VENTILATOR VENTILATOR VENTILATOR Blood Gas Ventilator Setting PRVC/AC PRVC/AC PRVC/AC: Blood Gas Inspired Oxygen 80 70 75 Date/Time Source Procedure Growth Status 02/22/18 11:30 Blood Peripheral Aerobic Blood Culture - Final NO GROWTH IN 5 DAYS Complete 02/22/18 11:30 Blood Peripheral Anaerobic Blood Culture - Final NO GROWTH IN 5 DAYS Complete 02/26/18 16:44 Stool Stool Stool Occult Blood (BRIANA) - Final HEMOCCULT NEGATIVE Complete 02/22/18 10:35 Sputum Endotracheal Gram Stain - Final Complete 02/22/18 10:35 Sputum Endotracheal Sputum Culture - Final HEAVY GROWTH NORMAL RESPIRATORY LUCAS Complete 02/14/18 10:45 Urine Catheterized Urine Urine Culture - Final NO GROWTH IN 48 HOURS. Complete Imaging Laboratory Tests Test 02/14/18 10:30 02/14/18 10:45 02/14/18 13:39 02/14/18 17:04 Prothrombin Time 10.7 SEC Prothromb Time International Ratio 1.1 RATIO Activated Partial Thromboplast Time 24.5 SEC Total Creatine Kinase 71 U/L B-Type Natriuretic Peptide 334 PG/ML Lipase 165 U/L Urine Color YELLOW Urine Turbidity CLEAR Urine pH 6.5 Urine Specific [place] 1.013 Urine Protein 300 mg/dL Urine Glucose (UA) TRACE mg/dL Urine Ketones NEG mg/dL Urine Occult Blood NEG Urine Nitrite NEG Urine Bilirubin NEG Urine Urobilinogen LESS THAN 2.0 MG/DL Urine Leukocyte Esterase NEG Urine RBC 2 /hpf Urine WBC 10 /hpf Urine Squamous Epithelial Cells 1 /hpf Urine Bacteria OCC /hpf Urine Hyaline Casts 21 /lpf Urine Mucus FEW /lpf Microscopic Urinalysis Comment CATH-CULTURE IND Lactic Acid Level 2.9 mmol/L Urine Opiates Screen NEG Urine Barbiturates Screen NEG Urine Amphetamines Screen NEG Urine Benzodiazepines Screen NEG Urine Cocaine Screen NEG Urine Cannabinoids Screen POS Test 02/15/18 07:04 02/16/18 05:19 02/16/18 07:35 02/23/18 04:25 Lymphocytes % 5 % Nucleated Red Blood Cells 3 /100 WBC Random Vancomycin Level 5.7 COMMENT Nasal Screen MRSA (PCR) MRSA NOT DETECTED Differential Total Cells Counted 100 Neutrophils % (Manual) 96 % Band Neutrophils % 1 % Monocytes % 2 % Neutrophils # (Manual) 17.7 TH/MM3 Metamyelocytes 1 % Platelet Estimate NORMAL Platelet Morphology Comment NORMAL Ovalocytes 1+ Stomatocytes 1+ Test 02/27/18 20:20 02/28/18 04:00 03/01/18 05:10 03/01/18 13:00 Troponin I 0.46 NG/ML Triglycerides Level 355 MG/DL White Blood Count 11.6 TH/MM3 Red Blood Count 4.21 MIL/MM3 Hemoglobin 8.5 GM/DL Hematocrit 28.9 % Mean Corpuscular Volume 68.6 FL Mean Corpuscular Hemoglobin 20.3 PG Mean Corpuscular Hemoglobin Concent 29.6 % Red Cell Distribution Width 23.8 % Platelet Count 216 TH/MM3 Mean Platelet Volume 8.8 FL Neutrophils (%) (Auto) 91.0 % Lymphocytes (%) (Auto) 5.4 % Monocytes (%) (Auto) 3.2 % Eosinophils (%) (Auto) 0.1 % Basophils (%) (Auto) 0.3 % Neutrophils # (Auto) 10.6 TH/MM3 Lymphocytes # (Auto) 0.6 TH/MM3 Monocytes # (Auto) 0.4 TH/MM3 Eosinophils # (Auto) 0.0 TH/MM3 Basophils # (Auto) 0.0 TH/MM3 CBC Comment DIFF FINAL Differential Comment Blood Urea Nitrogen 33 MG/DL Creatinine 0.67 MG/DL Random Glucose 124 MG/DL Total Protein 6.3 GM/DL Albumin 2.5 GM/DL Calcium Level 9.1 MG/DL Phosphorus Level 2.7 MG/DL Magnesium Level 2.3 MG/DL Alkaline Phosphatase 49 U/L Aspartate Amino Transf (AST/SGOT) 13 U/L Alanine Aminotransferase (ALT/SGPT) 22 U/L Total Bilirubin 0.6 MG/DL Sodium Level 145 MEQ/L Potassium Level 3.8 MEQ/L Chloride Level 103 MEQ/L Carbon Dioxide Level 34.7 MEQ/L Anion Gap 7 MEQ/L Estimat Glomerular Filtration Rate 127 ML/MIN Blood Gas Puncture Site ART LINE Blood Gas Patient Temperature 98.6 Blood Gas HCO3 33 mmol/L Blood Gas Base Excess 8.2 mmol/L Blood Gas Oxygen Saturation 83 % Arterial Blood pH 7.45 Arterial Blood Partial Pressure CO2 48 mmHg Arterial Blood Partial Pressure O2 56 mmHg Arterial Blood Oxygen Content 10.0 Vol % Arterial Blood Carboxyhemoglobin 1.5 % Arterial Blood Methemoglobin 1.3 % Blood Gas Hemoglobin 8.5 G/DL Oxygen Delivery Device VENTILATOR Blood Gas Ventilator Setting PRVC/AC: Blood Gas Inspired Oxygen 75 % Physical Exam HEENT: normocephalic; atraumatic; no jaundice. intubated CHEST: CTA CARDIAC: RRR ABDOMEN: Soft, distended, obese; BS faint.dark bilious output NGT EXTREMITIES:left AKA SKIN: Normal; no rash; no jaundice. PEDODONTIST:sedated on vent (Brigette Greenfield) Assessment and Plan Assessment: (1) GERD (gastroesophageal reflux disease) ICD Codes: K21.9 - Gastro-esophageal reflux disease without esophagitis Status: Chronic Plan 47-year-old morbidly obese male in the intensive care setting with respiratory failure and altered mental status on admission he is currently intubated, sedated, has NG tube connected to low intermittent suction. Patient is critically ill and ventilator weaning process has been initiated. Now is complicated from possible ileus 02/24 abdominal x-ray shows stable distended colon. Hemoglobin is 9.2 , WBC count 13.6, INR 1.1. We will do some follow-up x-rays to evaluate, dilated colon involvement and whether it has extended up into the small bowel. Currently patient is on Eliquis for past PE. Patient had 2 bowel movements for 2017 but none since. 02/26/18 slightly less distended today. was not stable enough to go for CT. HH stable. 02/27/18 not stable enough to leave floor for imaging studies, has been tachy, hypotensive. 02/28/18 still not stable to leave floor for imaging. No BM. abd seems softer today. palliative care has been consulted 03/01/18 abd soft. no BM documented. palliative care now following, family deciding on goals. KUB indicated mild improvement ileus PLAN CT abd when stable await palliative care f/u supportive care Patient is seen by myself and Dr. Sam, note was written on his behalf (Brigette Greenfield) Plan Patient seem to be doing slightly better, respiratory status is improving, abdomen less distended and soft, await CT scan when patient can tolerate it (Yas Sam MD) Brigette Greenfield March 01, 2018 13:39 Yas Sam MD March 01, 2018 21:08
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
[2018-03-01] MEDS: RESP: ALBUTEROL 2.5 MG/IPRATROPIUM 0.5 MG NEB (PRN) INH (19:47)
[2018-03-01] MEDS ORDERED: FAT EMULSION 20% INJ 250 ML (Daily over 8 hours) IV-CENTRAL SCH (20:00)
[2018-03-01] MEDS ORDERED: CLINIMIX E 5/25 2000 mL- >42 mls/hr IV-CENTRAL SCH ×3 (20:00)
[2018-03-01] MEDS ORDERED: CLINIMIX E 4.25/25 1000 mL- </= 42 mls/hr IV-CENTRAL SCH ×3 (20:00)
[2018-03-01] MEDS: CLINIMIX E 4.25/25 1000 mL- </= 42 mls/hr IV-CENTRAL SCH ×3 (20:45)
[2018-03-02] VITALS (18 sets, daily range): BP systolic 119–167; BP diastolic 74–92; PULSE 77–121; RESP 14–34; TEMP 98–99.3; O2SAT 92–100
[2018-03-02] MEDS: MIDAZOLAM 100 MG/100 ML INJ 100 ML IV PRN ×2 (01:03→13:04)
[2018-03-02] MEDS: PROPOFOL 1000 MG/100 ML INJ 100 ML IV PRN ×8 (01:03→23:59)
[2018-03-02] MEDS: EPOPROSTENOL NEB SOLUTION 50 NG/KG/MIN 100 ML NEB SCH ×6 (03:42→20:00)
[2018-03-02] MEDS: LORazepam 1 MG TAB PO SCH ×2 (03:42→16:33)
[2018-03-02] MEDS: CHLORHEXIDINE GLUCONATE 2 % 1 PACK (2 CLOTHS) TOP SCH (03:42)
--- NOTE | 2018-03-02 05:07 | RADRPT ---
EXAM DATE/TIME: 03/02/2018 04:15 [facility] COMPARISON: CHEST SINGLE AP, March 01, 2018, 2:38. INDICATIONS : Shortness of breath, possible pulmonary disease. MEDICAL HISTORY : Chronic obstructive pulmonary disease. Diabetes mellitus type II. SURGICAL HISTORY : CABG. Appendectomy. Nephrectomy ENCOUNTER: Subsequent ACUITY: 2 weeks PAIN SCORE: Non-responsive. LOCATION: Bilateral chest FINDINGS: A single view of the chest demonstrates interval complete opacification and volume loss in the left h emithorax. Left main bronchus appears to end abruptly at the bifurcation and probably represents muco us plugging. Resolving atelectasis in the right base. Right lung is otherwise clear. Heart borders ar e ill-defined due to the lung collapse. Life support tubes are all stable in position. Right shoulder arthroplasty. CONCLUSION: 1. Interval volume loss and complete opacification of the left hemithorax. Plain film findings concer shaka for left mainstem bronchus mucous plugging. 2. Resolving atelectatic changes in the right lung base. 3. Stable position of life support tubes Lucien Barnes MD on March 02, 2018 at 5:02 Board Certified Radiologist. This report was verified electronically.
[2018-03-02 05:15] LABS: AUTOMATED NEUTROPHIL # 8.7 TH/MM3 (1.8-7.7); BASOPHIL % 0.4 % (0.0-2.0); EOSINOPHIL # 0.1 TH/MM3 (0-0.4); EOSINOPHIL % 0.6 % (0.0-4.0); HEMATOCRIT 27.2 % (39.0-51.0); HEMOGLOBIN 8.2 GM/DL (13.0-17.0); LYMPH % 12.1 % (9.0-44.0); LYMPHOCYTE # 1.3 TH/MM3 (1.0-4.8); MEAN CORPUSCULAR HEMOGLOBIN 20.6 PG (27.0-34.0); MEAN CORPUSCULAR HGB CONC 30.3 % (32.0-36.0); MEAN PLATELET VOLUME 8.7 FL (7.0-11.0); MONO % 4.5 % (0.0-8.0); MONOCYTE # 0.5 TH/MM3 (0-0.9); NEUT % 82.4 % (16.0-70.0); PLATELET COUNT 228 TH/MM3 (150-450); RED CELL DISTRIBUTION WIDTH 24.1 % (11.6-17.2); WHITE BLOOD COUNT 10.6 TH/MM3 (4.0-11.0)
[2018-03-02] MEDS: FREE WATER G-TUBE SCH ×3 (05:26→19:49)
[2018-03-02 05:48] LABS: ALBUMIN 2.3 GM/DL (3.4-5.0); ALKALINE PHOSPHATASE 49 U/L (45-117); ALT (GPT) 18 U/L (12-78); AST (GOT) 12 U/L (15-37); BICARBONATE 31.5 MEQ/L (21.0-32.0); BLOOD UREA NITROGEN 25 MG/DL (7-18); CALCIUM 8.4 MG/DL (8.5-10.1); CHLORIDE 102 MEQ/L (98-107); CREATININE 0.77 MG/DL (0.60-1.30); GLOMERULAR FILTRATION RATE 108 ML/MIN (>89); GLUCOSE,RANDOM 232 MG/DL (74-106); MAGNESIUM 1.8 MG/DL (1.5-2.5); PHOSPHORUS 2.1 MG/DL (2.5-4.9); SODIUM (NA) 140 MEQ/L (136-145); TOTAL BILIRUBIN ADULT 0.4 MG/DL (0.2-1.0); TOTAL PROTEIN 5.9 GM/DL (6.4-8.2)
[2018-03-02] MEDS: RESP: BUDESONIDE 0.5 MG/2 ML NEB NEB SCH ×2 (07:24→19:38)
[2018-03-02] MEDS: CHLORHEXIDINE 0.12% (ORAL KIT) 15 ML CUP MT SCH ×2 (08:00→19:50)
[2018-03-02] MEDS ORDERED: ROCURONIUM INJ 50 MG/5 ML VIAL ONE (08:05)
[2018-03-02] MEDS ORDERED: ROCURONIUM INJ 50 MG/5 ML VIAL IV ONE (08:15)
--- NOTE | 2018-03-02 08:29 | PD.PROCEDR ---
Procedure Note Procedure Procedure: Fiberoptic Bronchoscopy Diagnosis: Mucous plugging left hemithorax Indications: Same Consent: Emergent/mother and for Anesthesia: see MAR Description of the Procedure: The patient was sedated and mechanically ventilated. The patient was placed on 100% FIO2 and a volume control mode of ventilation. The fiberoptic bronchoscopy was inserted via 8.0 ETT insitu. The trachea, right and left mainstem bronchi, and sub-segmental bronchi were evaluated. The endobronchial anatomy was normal. Findings: Copious mucus noted in the left mainstem bronchus BAL samples: none The patient tolerated the procedure well with no hemodynamic instability or hypoxia. There were no immediate complications noted. At the conclusion of the procedure, the patient was placed back on their pre-procedure ventilatory settings. There was minimal EBL. A chest x-ray has been ordered. I personally performed the procedure. Nancy Barrera MD March 02, 2018 08:29
--- NOTE | 2018-03-02 08:59 | HHI.CCPN ---
Subjective Remarks/Hospital Course Patient is a 47-year-old morbidly obese male with past medical history significant for obesity, obstructive sleep apnea clinically, history of DVT, chronic Eliquis use who was brought in by EMS for altered mental status and severe hypoxemia. Apparently per EMS end-tidal CO2 was in the 60s his initial sat was in the 30s, but with bagging came up to the 70s. Initial GCS apparently was 7 but improved with continued bag and mask ventilation in the ED. Sats remained in the low 80s. Patient initially refused intubation and was placed on BiPAP. Received duo nebs and Solu-Medrol and antibiotics (Azactam, Flagyl, vancomycin). Patient continued to be tachypneic and severely hypoxemic, and patient was intubated by the ER physician. Apparently difficult airway and was intubated on the third attempt. Patient was desaturating to low 80s even after intubation and I was called to the ED for assisting. I immediately evaluated the patient he continues to be in severe bronchospasm, severely hypoxemic. Additional breathing treatments ordered. I changed the vent settings to PCAC to target tidal volume 600-650 and reduce the rate to 14. PEEP increased to 10. Gradually oxygen saturation improved to 90. I placed a right IJ central line as the patient was borderline hypotensive. Chest x-ray showed apparently pulmonary vascular congestion. No definite infiltrate. Lactic acid 6. Appears patient has acute COPD exacerbation and severe sepsis, pulmonary embolism needs to be ruled out. IV Solu-Medrol DuoNeb breathing treatments will be continued. Patient takes Eliquis for PE in the past. Further workup and management based on results 02/15: Remains intubated heavily sedated. PEEP remains at 12 FiO2 has been weaned to 55%. CT PE protocol negative for pulmonary embolism, showed bibasilar significant consolidation indicative of pneumonia. Sputum Gram stain shows GPC. Add vancomycin. 02/16: Patient remains intubated remains critical. Remains hypoxemic on high vent support. On attempt to reduce PEEP, he desaturated and currently on 10 of PEEP. FiO2 50%. Sputum culture with MSSA and strep pneumo. Will discontinue Levaquin and Flagyl continue Azactam and vancomycin 02/17: Remains critical, CXR still showing pulmonary edema. IV Lasix repeat dose given. Wean PEEP to 8, FiO2 to 45%. Start SBT as tolerated 02/18: Patient remains intubated heavily sedated. On lightening sedation patient becomes very agitated. PEEP remains at 8 FiO2 down to 40%. Chest x- ray continues to show pulmonary vascular congestion 02/19: Patient transitioned to Precedex in the last 24 hours continues on CPAP trials 15/8/40%. Patient cooperative following commands. Chest x-ray pending. Aggressive diureses initiated BMP pending this afternoon. 02/20: While on Precedex CPAP trial was attempted. After about 15 minutes patient became severely tachypneic diaphoretic with respiratory rate in the 40s. Re sedated with 50 mg IV push of propofol, and restarting propofol infusion. CXR shows improving pulmonary vascular congestion. WBC count though is trending up. 02/21: No events over the night. Patient is currently on CPAP, PS 15/8/40%, with RR in the 30's and Vt low 300's. Patient is sedated with propofol and precedex. Tmax 100.4, I/O 2946/3020. 02/22: No events over the night. Patient is currently on propofol and Precedex, calm, opening eyes to voice stimuli, following commands. RASS of -2. T-max of 100.6. On 0.3 FiO2. Urine output is adequate. 02/23: Yesterday afternoon patient decompensated, requiring high PEEP and 100% O2 with sats in the mid 80s. Patient was switched to bilevel ventilation and started on inhaled Flolan with rapid improvement in his oxygenation. A central line and art line with placed and patient required 1 L fluid bolus. This morning patient is down to 0.4 FiO2. Sedation is achieved with propofol. No pressors. Decreased urine output over the night. T-max of 99. Still with significant NG tube output, over the last 24 hours 1200 mL's. Morning chest x- ray reviewed, significantly improved air entry at bases. 02/24: No events over the night. Due to improved O2 requirements, yesterday, patient was switched from APRV to PRVC mode of ventilation. FiO2 between 0.45 and 0.5, but patient remains on high PEEP, currently at 14. T-max of 99.8. Improved urine output, up to 2200 over the last 24 hours. 02/25: Patient remained sedated and intubated. No events overnight. T-max of 99 and I/O 2081/2200. Morning chest x-ray reviewed, no significant change compared to yesterday, still with bibasilar infiltrates. Oxygenation remains the same, FiO2 of 0.4 and PEEP at 14. Patient is sedated with propofol at 50 and Precedex at 1.5, awake, trying to talk, bucking the ventilator. His mother is present at bedside. 02/26: No events over the night. Worsening oxygenation noted on blood gas this morning, FiO2 increased to 0.6. Patient remains on propofol and Precedex for sedation, he is wide awake following commands. T-max of 98.7. I/O 2170/1650. Morning chest x-ray reviewed, no significant change compared to yesterday. ET tube left IJ central line remain in place. 02/27: Yesterday, due to worsening hypoxia patient was placed on bilevel ventilation with improvement in his oxygenation. Over the night he was switched back to PRVC (unclear why). This morning patient was placed back on APRV, tolerating it well so far, down to 50% O2. He had one episode of low BP that resolved with 500 cc fluid bolus. Still with significant NG tube output. Unable to have CT abdomen and pelvis due to high O2 requirements. Patient remains afebrile, with a T-max of 98.3, urine output 1900 mL's over the last 24 hours. Morning chest x-ray reviewed, improvement in bibasilar opacities, right side worse than left. 02/28: T-max 100.1. Patient continues on APRV. Patient continues on Flolan, electrolytes noted to be imbalanced, potassium currently being repleted. 03/01: Afebrile. Extensive discussion with family regarding tracheostomy. Patient transitioning to PRVC/ AC this a.m., and attempts to wean O2 requirements and Flolan. Patient remains sedated for ventilator synchrony. 03/02: Afebrile. Patient tolerated ventilator settings of PRVC/AC to FiO2 of 80% with improvement in oxygenation during the night. FiO2 decreased to 70%. Chest x-ray early this a.m. showed mucous plugging complete left lung, bronchoscopy performed, acetylcysteine initiated. Objective Vital Signs Date Time Temp Pulse Resp B/P (MAP) Pulse Ox O2 Delivery O2 Flow Rate FiO2 03/02/18 06:00 91 03/02/18 04:00 80 5/3/18 04:00 98.7 22 146/79 (101) 100 02/27/18 08:51 Ventilator Intake and Output 03/02/18 03/02/18 03/03/18 08:00 16:00 00:00 Intake Total 800 ml Output Total 650 ml Balance 150 ml Result Diagram: 03/02/18 0500 03/02/18 0500 Other Results Laboratory Tests Test 03/01/18 10:17 03/01/18 11:34 03/01/18 13:00 03/01/18 14:10 Blood Gas Puncture Site ART LINE ART LINE ART LINE ART LINE Blood Gas Patient Temperature 98.6 98.6 98.6 98.6 Blood Gas HCO3 32 mmol/L (22-26) 32 mmol/L (22-26) 33 mmol/L (22-26) 31 mmol/L (22-26) Blood Gas Base Excess 9.0 mmol/L (-2-2) 8.2 mmol/L (-2-2) 8.2 mmol/L (-2-2) 7.2 mmol/L (-2-2) Blood Gas Oxygen Saturation 96 % (90-100) 82 % (90-100) 83 % (90-100) 92 % ( 90-100) Arterial Blood pH 7.53 (7.380-7.420) 7.48 (7.380-7.420) 7.45 (7.380-7.420) 7.45 (7.380-7.420) Arterial Blood Partial Pressure CO2 39 mmHg (38-42) 44 mmHg (38-42) 48 mmHg (38-42) 45 mmHg (38-42) Arterial Blood Partial Pressure O2 114 mmHg (61-120) 53 mmHg (61-120) 56 mmHg (61-120) 79 mmHg (61-120) Arterial Blood Oxygen Content 10.6 Vol % (12.0-20.0) 9.4 Vol % (12.0-20.0) 10.0 Vol % (12.0-20.0) 10.8 Vol % (12.0-20.0) Arterial Blood Carboxyhemoglobin 1.7 % (0-4) 1.7 % (0-4) 1.5 % (0-4) 1.7 % (0-4) Arterial Blood Methemoglobin 1.1 % (0-2) 1.2 % (0-2) 1.3 % (0-2) 1.2 % (0-2) Blood Gas Hemoglobin 7.7 G/DL (12.0-16.0) 8.1 G/DL (12.0-16.0) 8.5 G/DL (12.0-16.0) 8.2 G/DL (12.0-16.0) Oxygen Delivery Device VENTILATOR VENTILATOR VENTILATOR VENTILATOR Blood Gas Ventilator Setting PRVC/AC PRVC/AC PRVC/AC: PRVC/AC Blood Gas Inspired Oxygen 80 % 70 % 75 % 80 % Test 03/01/18 23:48 03/02/18 07:25 Blood Gas Puncture Site ART LINE ART LINE Blood Gas Patient Temperature 98.6 98.6 Blood Gas HCO3 30 mmol/L (22-26) 33 mmol/L (22-26) Blood Gas Base Excess 6.0 mmol/L (-2-2) 8.3 mmol/L (-2-2) Blood Gas Oxygen Saturation 90 % (90-100) 95 % (90-100) Arterial Blood pH 7.46 (7.380-7.420) 7.44 (7.380-7.420) Arterial Blood Partial Pressure CO2 43 mmHg (38-42) 48 mmHg (38-42) Arterial Blood Partial Pressure O2 69 mmHg (61-120) 101 mmHg (61-120) Arterial Blood Oxygen Content 11.5 Vol % (12.0-20.0) 10.4 Vol % (12.0-20.0) Arterial Blood Carboxyhemoglobin 1.5 % (0-4) 1.6 % (0-4) Arterial Blood Methemoglobin 1.1 % (0-2) 1.2 % (0-2) Blood Gas Hemoglobin 9.0 G/DL (12.0-16.0) 7.7 G/DL (12.0-16.0) Oxygen Delivery Device VENTILATOR VENTILATOR Blood Gas Ventilator Setting SEE COMMENTS PRVC/AC550/14 Blood Gas Inspired Oxygen 80 % 80 % Imaging Last Impressions Chest X-Ray 03/02/18 0600 Signed Impressions: Service Date/Time: February 04:15 - CONCLUSION: 1. Interval volume loss and complete opacification of the left hemithorax. Plain film findings concerning for left mainstem bronchus mucous plugging. 2. Resolving atelectatic changes in the right lung base. 3. Stable position of life support tubes Lucien Barnes MD Abdomen X-Ray 02/28/18 0000 Signed Impressions: Service Date/Time: Wednesday, February 28, 2018 11:47 - CONCLUSION: 1. Persistent gas distended loop of bowel right upper quadrant, slightly smaller than on prior KUB. 2. Interval development of left lower lobe consolidation. Shane Reed MD Lower Extremity Ultrasound 02/22/18 0000 Signed Impressions: Service Date/Time: Thursday, February 22, 2018 20:03 - CONCLUSION: No venous thrombosis of either lower extremity. Bebeto Dominique MD Head CT 02/14/18 1204 Signed Impressions: Service Date/Time: Wednesday, February 14, 2018 14:09 - CONCLUSION: 1. Chronic ischemic changes in the parietal lobes. No change from previous study. 2. No acute intracranial abnormality or Tye Steinberg MD CT Angiography 02/14/18 1204 Signed Impressions: Service Date/Time: Wednesday, February 14, 2018 20:07 - CONCLUSION: 1. No evidence for pulmonary embolism. 2. Bibasilar consolidation. 3. Cardiomegaly. Tye Steinberg MD Last Impressions Chest X-Ray 02/28/18 0600 Signed Impressions: Service Date/Time: Wednesday, February 28, 2018 05:30 - CONCLUSION: 1. Improving aeration in the right lung base. 2. Developing left basilar consolidation/effusion Lucien Barnes MD Abdomen X-Ray 02/28/18 0000 Signed Impressions: Service Date/Time: Wednesday, February 28, 2018 11:47 - CONCLUSION: 1. Persistent gas distended loop of bowel right upper quadrant, slightly smaller than on prior KUB. 2. Interval development of left lower lobe consolidation. Shane Reed MD Lower Extremity Ultrasound 02/22/18 0000 Signed Impressions: Service Date/Time: Thursday, February 22, 2018 20:03 - CONCLUSION: No venous thrombosis of either lower extremity. Bebeto Dominique MD Head CT 02/14/18 1204 Signed Impressions: Service Date/Time: Wednesday, February 14, 2018 14:09 - CONCLUSION: 1. Chronic ischemic changes in the parietal lobes. No change from previous study. 2. No acute intracranial abnormality or Tye Steinberg MD CT Angiography 02/14/18 1204 Signed Impressions: Service Date/Time: Wednesday, February 14, 2018 20:07 - CONCLUSION: 1. No evidence for pulmonary embolism. 2. Bibasilar consolidation. 3. Cardiomegaly. Tye Steinberg MD Last 24 hours Impressions Chest X-Ray 02/26/18 0000 Signed Impressions: Service Date/Time: Monday, February 26, 2018 07:19 - CONCLUSION: Bilateral basilar consolidation small right effusion. Dane Brannon MD Last 24 hours Impressions Chest X-Ray 02/25/18 0600 Signed Impressions: Service Date/Time: Sunday, February 25, 2018 03:53 - CONCLUSION: Persistent left lower lobe consolidation and patchy right lower lung infiltrates. Shane Reed MD Last 24 hours Impressions Chest X-Ray 02/23/18 0600 Signed Impressions: Service Date/Time: January 03:59 - CONCLUSION: Minimal subsegmental atelectasis versus scarring right midlung otherwise clear chest. Tye Steinberg MD Last Impressions Chest X-Ray 02/18/18 0600 Signed Impressions: Service Date/Time: Sunday, February 18, 2018 04:18 - CONCLUSION: Unchanged radiographic appearance most consistent with pulmonary edema. Shane Merrill Jr., MD Head CT 02/14/18 1204 Signed Impressions: Service Date/Time: Wednesday, February 14, 2018 14:09 - CONCLUSION: 1. Chronic ischemic changes in the parietal lobes. No change from previous study. 2. No acute intracranial abnormality or Tye Steinberg MD CT Angiography 02/14/18 1204 Signed Impressions: Service Date/Time: Wednesday, February 14, 2018 20:07 - CONCLUSION: 1. No evidence for pulmonary embolism. 2. Bibasilar consolidation. 3. Cardiomegaly. Tye Steinberg MD Objective Remarks General -chronically ill-appearing middle-aged gentleman, intubated and sedated for optimal ventilator synchrony HEENT - pupils are equal and reactive, sclerae are anicteric, no scleral edema, no JVD, neck is supple, no carotid bruit, + ETT, + OGT, left IJ central line () CV - regular heart sounds, no murmurs, rubs or gallops appreciated Chest - some scattered coarse breath sounds bilateral, no wheezes, improved air entry. Diminished breath sounds noted left Abdomen - distended but better, softer, non-tender, BS hypoactive, no hepatomegaly, no splenomegaly Skin - no rashes, no cyanosis appreciated Extremities - warm and well perfused, no edema, + peripheral pulses RLE, no clubbing, LLE AKA Neuro -RASS -2 intubated, when previously on sedation vacation awake, follows commands, moves extremities x 4 A/P Assessment and Plan ASSESSMENT 1. Acute hypoxic respiratory failure -no significant improvement despite full support for 14 days 2. Bibasilar MSSA and strep pneumo pneumonia -patient remains afebrile, leukocytosis is resolving 3. Acute COPD exacerbation -resolved 4. Metabolic encephalopathy 5. Hypotension -resolved 6. Ileus -on repeat KUB colon is still distended, CT abdomen and pelvis not done yet due to high O2 requirements 7. 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 History of DVT and PE s/p IVC filter 9. LUCAS -resolved, adequate urine output 10. Hx depression and Hx of CVA 3 11. Hx of hypertension and dyslipidemia 12. Hx of childhood osteosarcoma s/p chemoradiation therapy 13. Electrolyte abnormality 14. Mucous plugging left main stem bronchus PLAN 1. 5 Discontinue bilevel settings - P high decreased to 26, T high 5 seconds , T low 0.6 seconds, pressure support of 3, current FiO2 0. AC/PRVC 16/ 550//70/ 12 and Flolan 2. Continue inhaled Flolan @ 50 3. Vent bundle and bronchodilators 4. Continue midazolam drip and taper down propofol. 5. Continue ceftriaxone day 8. Stop levofloxacin (completed 8 day coarse) 6. Original cultures 02/14 -Sputum - Staph Aureus/ Strep Pneumo. Follow up repeat cultures 02/22- NGTD 7. Home Eliquis dose increased to 5 twice daily 8. NG tube aspirate negative for bleed 9. Continue OG tube to low intermittent wall suction and continue to hold tube feeds 10. GI following 11. CT abdomen and pelvis pendingwhen oxygenation improves 12. GI prophylaxis with famotidine, DVT prophylaxis addressed above 13. Repletion of electrolytes per ICU protocol 14. 5/2 TPN initiated ., . recommended not available at the hospital at this time Palliative care has been consulted Ms. Pride is following. Patient remains critically ill with hypoxic respiratory failure and he is at very high risk for further decompensation and . my billing statement This patient remains critically ill with one or more organ systems which are or may become a threat to life. I have spent in excess of 30 minutes discontinuously in the care and management of this patient. This time is exclusive of procedures, and includes, but is not limited to, evaluation of the patient, review of the medical record, discussions with family, consultants, nursing staff, or respiratory therapy, and documentation in the medical record. Physician Nancy Irizarry MD March 02, 2018 08:59
[2018-03-02] MEDS: SODIUM CHLORIDE 0.9% FLUSH 10 ML FLUSH IV FLUSH SCH ×2 (09:00→19:49)
[2018-03-02] MEDS: RESP: ALBUTEROL 2.5 MG/IPRATROPIUM 0.5 MG NEB (SCH) NEB ×4 (09:00→19:47)
[2018-03-02] MEDS: APIXABAN 5 MG TABLET PO SCH ×2 (09:20→19:49)
[2018-03-02] MEDS: FAMOTIDINE 20 MG TAB PO SCH ×2 (09:20→19:49)
[2018-03-02] MEDS: methylPREDNISolone SOD SUCC 40 MG/1 ML VIAL IV PUSH SCH (09:20)
[2018-03-02] MEDS: POTASSIUM CHLORIDE 25 MEQ EFFERVESCENT TAB NG SCH (09:20)
[2018-03-02] MEDS: NYSTATIN 100,000 U/GM PWD 15 GM BTL TOPICAL SCH ×2 (09:21→19:49)
--- NOTE | 2018-03-02 09:50 | RADRPT ---
EXAM DATE/TIME: 03/02/2018 08:44 [facility] COMPARISON: CHEST SINGLE AP, March 02, 2018, 4:15. INDICATIONS : Post bronchoscopy MEDICAL HISTORY : Diabetes mellitus type II. Chronic obstructive pulmonary disease. SURGICAL HISTORY : Appendectomy. CABG. chepe filter, nephrectomy ENCOUNTER: Subsequent ACUITY: 3 weeks PAIN SCORE: Non-responsive. LOCATION: Bilateral chest FINDINGS: Stable ETT and left IJ central line. Improved aeration of the left upper lobe following bronchoscopy. No significant pneumothorax. Persistent dense airspace consolidation in the left mid to lower lung z ones. Minimal airspace disease in the right lung base. Cardiomediastinal contours are stable. Remaind er of the exam is unchanged. CONCLUSION: 1. Improved aeration of the left upper lobe following bronchoscopy. 2. No significant pneumothorax. Ramon Petit MD on March 02, 2018 at 9:46 Board Certified Radiologist. This report was verified electronically.
--- NOTE | 2018-03-02 09:51 | RADRPT ---
EXAM DATE/TIME: 03/02/2018 09:24 [facility] COMPARISON: ABDOMEN KUB ONLY, February 28, 2018, 11:47. CHEST SINGLE AP, March 02, 2018, 4:15. INDICATIONS : Abdominal distention MEDICAL HISTORY : Chronic obstructive pulmonary disease. Diabetes mellitus type II. SURGICAL HISTORY : CABG. Appendectomy. nephrectomy, chepe filter ENCOUNTER: Subsequent ACUITY: 3 weeks PAIN SCORE: Non-responsive. LOCATION: Bilateral abdomen FINDINGS: The examination demonstrates a nonspecific bowel gas pattern. There are no findings to indicate obstr uction. There is very little stool within the colon. The osseous structures are grossly intact. There are advanced arthritic changes within the left hip. There has been arthroplasty on the right. Incidental note is made of an IVC filter. CONCLUSION: 1. Nonspecific bowel gas pattern. The previously seen dilated loop of bowel 02/28/18 has been decompre ssed. 2. There is an NG tube within the stomach. Kayden Ramírez MD on March 02, 2018 at 9:43 Board Certified Radiologist. This report was verified electronically.
[2018-03-02] MEDS: RESP: ACETYLCYSTEINE 10% 30 ML NEB NEB SCH ×3 (10:06→19:47)
--- NOTE | 2018-03-02 12:44 | HHI.GIFU ---
Subjective Remarks Pt intubated. Had bronch earlier for mucus plug. (Brigette Greenfield) Objective Vitals I&O Vital Signs Date Time Temp Pulse Resp B/P (MAP) Pulse Ox O2 Delivery O2 Flow Rate FiO2 03/02/18 10:19 94 60 03/02/18 10:00 77 03/02/18 10:00 85 03/02/18 09:10 70 03/02/18 08:30 100 100 03/02/18 08:00 98.8 77 14 126/74 (91) 100 119/77 (91) 03/02/18 08:00 80 03/02/18 08:00 77 03/02/18 06:00 91 03/02/18 04:00 80 03/02/18 04:00 98.7 84 22 146/79 (101) 100 03/02/18 04:00 84 03/02/18 03:24 92 80 03/02/18 02:00 92 03/02/18 00:20 98 80 03/02/18 00:00 99.3 89 34 146/84 (104) 98 154/84 (107) 03/02/18 00:00 89 03/02/18 00:00 80 03/01/18 22:00 84 03/01/18 20:00 85 03/01/18 20:00 98.8 85 14 152/78 (102) 94 149/82 (104) 03/01/18 20:00 80 03/01/18 19:48 95 80 03/01/18 18:00 86 03/01/18 16:25 99 80 03/01/18 16:00 80 03/01/18 16:00 98.4 86 15 160/88 (112) 97 159/86 (110) 03/01/18 16:00 86 03/01/18 14:00 81 03/01/18 13:00 80 I/O 03/01/18 03/01/18 03/01/18 03/02/18 03/02/18 03/02/18 07:00 15:00 23:00 07:00 15:00 23:00 Intake Total 800 ml 100 ml 550 ml 800 ml Output Total 425 ml 500 ml 650 ml Balance 375 ml 100 ml 50 ml 150 ml Intake IV Total 400 ml 100 ml 200 ml 400 ml Other 400 ml 350 ml 400 ml Output Urine Total 325 ml 450 ml 550 ml Gastric Drainage Total 100 ml 50 ml 100 ml # Bowel Movements 0 0 0 Laboratory Laboratory Tests Test 03/01/18 13:00 03/01/18 14:10 03/01/18 23:48 03/02/18 05:00 Blood Gas Puncture Site ART LINE ART LINE ART LINE Blood Gas Patient Temperature 98.6 98.6 98.6 Blood Gas HCO3 33 31 30 Blood Gas Base Excess 8.2 7.2 6.0 Blood Gas Oxygen Saturation 83 92 90 Arterial Blood pH 7.45 7.45 7.46 Arterial Blood Partial Pressure CO2 48 45 43 Arterial Blood Partial Pressure O2 56 79 69 Arterial Blood Oxygen Content 10.0 10.8 11.5 Arterial Blood Carboxyhemoglobin 1.5 1.7 1.5 Arterial Blood Methemoglobin 1.3 1.2 1.1 Blood Gas Hemoglobin 8.5 8.2 9.0 Oxygen Delivery Device VENTILATOR VENTILATOR VENTILATOR Blood Gas Ventilator Setting PRVC/AC: PRVC/AC SEE COMMENTS Blood Gas Inspired Oxygen 75 80 80 White Blood Count 10.6 Red Blood Count 4.00 Hemoglobin 8.2 Hematocrit 27.2 Mean Corpuscular Volume 68.0 Mean Corpuscular Hemoglobin 20.6 Mean Corpuscular Hemoglobin Concent 30.3 Red Cell Distribution Width 24.1 Platelet Count 228 Mean Platelet Volume 8.7 Neutrophils (%) (Auto) 82.4 Lymphocytes (%) (Auto) 12.1 Monocytes (%) (Auto) 4.5 Eosinophils (%) (Auto) 0.6 Basophils (%) (Auto) 0.4 Neutrophils # (Auto) 8.7 Lymphocytes # (Auto) 1.3 Monocytes # (Auto) 0.5 Eosinophils # (Auto) 0.1 Basophils # (Auto) 0.0 CBC Comment DIFF FINAL Differential Comment Blood Urea Nitrogen 25 Creatinine 0.77 Random Glucose 232 Total Protein 5.9 Albumin 2.3 Calcium Level 8.4 Phosphorus Level 2.1 Magnesium Level 1.8 Alkaline Phosphatase 49 Aspartate Amino Transf (AST/SGOT) 12 Alanine Aminotransferase (ALT/SGPT) 18 Total Bilirubin 0.4 Sodium Level 140 Potassium Level 3.5 Chloride Level 102 Carbon Dioxide Level 31.5 Anion Gap 7 Estimat Glomerular Filtration Rate 108 Test 03/02/18 07:25 03/02/18 11:58 Blood Gas Puncture Site ART LINE ART LINE Blood Gas Patient Temperature 98.6 98.6 Blood Gas HCO3 33 31 Blood Gas Base Excess 8.3 6.9 Blood Gas Oxygen Saturation 95 89 Arterial Blood pH 7.44 7.47 Arterial Blood Partial Pressure CO2 48 43 Arterial Blood Partial Pressure O2 101 67 Arterial Blood Oxygen Content 10.4 10.9 Arterial Blood Carboxyhemoglobin 1.6 1.7 Arterial Blood Methemoglobin 1.2 1.2 Blood Gas Hemoglobin 7.7 8.6 Oxygen Delivery Device VENTILATOR VENTILATOR Blood Gas Ventilator Setting PRVC/AC550/14 PRVC/AC 550/14/ Blood Gas Inspired Oxygen 80 60 Date/Time Source Procedure Growth Status 02/22/18 11:30 Blood Peripheral Aerobic Blood Culture - Final NO GROWTH IN 5 DAYS Complete 02/22/18 11:30 Blood Peripheral Anaerobic Blood Culture - Final NO GROWTH IN 5 DAYS Complete 02/26/18 16:44 Stool Stool Stool Occult Blood (BRIANA) - Final HEMOCCULT NEGATIVE Complete 02/22/18 10:35 Sputum Endotracheal Gram Stain - Final Complete 02/22/18 10:35 Sputum Endotracheal Sputum Culture - Final HEAVY GROWTH NORMAL RESPIRATORY LUCAS Complete 02/14/18 10:45 Urine Catheterized Urine Urine Culture - Final NO GROWTH IN 48 HOURS. Complete Imaging Last Impressions Chest X-Ray 03/02/18 0600 Signed Impressions: Service Date/Time: February 04:15 - CONCLUSION: 1. Interval volume loss and complete opacification of the left hemithorax. Plain film findings concerning for left mainstem bronchus mucous plugging. 2. Resolving atelectatic changes in the right lung base. 3. Stable position of life support tubes Lucien Barnes MD Abdomen X-Ray 03/02/18 0000 Signed Impressions: Service Date/Time: February 09:24 - CONCLUSION: 1. Nonspecific bowel gas pattern. The previously seen dilated loop of bowel 02/28/18 has been decompressed. 2. There is an NG tube within the stomach. Kayden Ramírez MD Lower Extremity Ultrasound 02/22/18 0000 Signed Impressions: Service Date/Time: Thursday, February 22, 2018 20:03 - CONCLUSION: No venous thrombosis of either lower extremity. Bebeto Dominique MD Head CT 02/14/18 1204 Signed Impressions: Service Date/Time: Wednesday, February 14, 2018 14:09 - CONCLUSION: 1. Chronic ischemic changes in the parietal lobes. No change from previous study. 2. No acute intracranial abnormality or Tye Steinberg MD CT Angiography 02/14/18 1204 Signed Impressions: Service Date/Time: Wednesday, February 14, 2018 20:07 - CONCLUSION: 1. No evidence for pulmonary embolism. 2. Bibasilar consolidation. 3. Cardiomegaly. Tye Steinberg MD Physical Exam HEENT: normocephalic; atraumatic; no jaundice. intubated CHEST: CTA CARDIAC: RRR ABDOMEN: Soft, obese; BS faint.dark bilious output NGT EXTREMITIES:left AKA SKIN: Normal; no rash; no jaundice. DIRECTOR TELEHEALTH:sedated on vent (Brigette Greenfield) Assessment and Plan Assessment: (1) GERD (gastroesophageal reflux disease) ICD Codes: K21.9 - Gastro-esophageal reflux disease without esophagitis Status: Chronic Plan 47-year-old morbidly obese male in the intensive care setting with respiratory failure and altered mental status on admission he is currently intubated, sedated, has NG tube connected to low intermittent suction. Patient is critically ill and ventilator weaning process has been initiated. Now is complicated from possible ileus 02/24 abdominal x-ray shows stable distended colon. Hemoglobin is 9.2 , WBC count 13.6, INR 1.1. We will do some follow-up x-rays to evaluate, dilated colon involvement and whether it has extended up into the small bowel. Currently patient is on Eliquis for past PE. Patient had 2 bowel movements for 2017 but none since. 02/26/18 slightly less distended today. was not stable enough to go for CT. HH stable. 02/27/18 not stable enough to leave floor for imaging studies, has been tachy, hypotensive. 02/28/18 still not stable to leave floor for imaging. No BM. abd seems softer today. palliative care has been consulted 03/01/18 abd soft. no BM documented. palliative care now following, family deciding on goals. KUB indicated mild improvement ileus 03/02/18 abd softer yet, today. +BM documented yesterday. palliative care following. KUB showing improvement. PLAN TPN per [facility] CT abd when stable await palliative care f/u supportive care GI will sign off. please reconsult if needed. Patient is seen by myself and Dr. Sam, note was written on his behalf (Brigette Greenfield) Plan Patient was seen and examined, agree with above better as far as GI there is no distention if he has any GI symptoms and a CT scan will be warranted at that time, discussed the case with Dr. zavala insurance agents supervisor, will sign off at this time (Yas Sam MD) Brigette Greenfield March 02, 2018 12:44 Yas Sam MD March 02, 2018 20:28
[2018-03-02] MEDS: CLINIMIX E 4.25/25 1000 mL- </= 42 mls/hr IV-CENTRAL SCH ×3 (12:51)
[2018-03-02] MEDS: cefTRIAXone INJ 2,000 MG in SODIUM CHLORIDE 0.9% INJ 100 ML IV SCH (13:08)
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
[2018-03-02] MEDS ORDERED: MULTIVITAMIN INJ 5 ML, FOLIC ACID INJ 0.5 MG in AMINO ACID IN D5W W/ELECTROLYT 1,000 ML IV-CENTRAL SCH ×3 (20:00)
[2018-03-02] MEDS: hydrALAZINE HCL 20 MG/ML VIAL IV PUSH PRN (21:39)
[2018-03-03] VITALS (19 sets, daily range): BP systolic 109–173; BP diastolic 67–101; PULSE 109–127; RESP 15–19; TEMP 98.2–99.3; O2SAT 99–100
[2018-03-03] MEDS: RESP: ACETYLCYSTEINE 10% 30 ML NEB NEB SCH ×6 (00:09→20:00)
[2018-03-03] MEDS: RESP: ALBUTEROL 2.5 MG/IPRATROPIUM 0.5 MG NEB (SCH) NEB ×6 (00:09→20:44)
[2018-03-03] MEDS: MIDAZOLAM 100 MG/100 ML INJ 100 ML IV PRN (00:12)
[2018-03-03] MEDS: PROPOFOL 1000 MG/100 ML INJ 100 ML IV PRN ×7 (03:10→22:31)
[2018-03-03] MEDS: CHLORHEXIDINE GLUCONATE 2 % 1 PACK (2 CLOTHS) TOP SCH (04:00)
[2018-03-03] MEDS: EPOPROSTENOL NEB SOLUTION 50 NG/KG/MIN 100 ML NEB SCH ×4 (04:00→07:35)
[2018-03-03] MEDS: hydrALAZINE HCL 20 MG/ML VIAL IV PUSH PRN ×2 (04:16→08:54)
[2018-03-03] MEDS: LORazepam 1 MG TAB PO SCH ×2 (04:16→13:22)
[2018-03-03 04:36] LABS: AUTOMATED NEUTROPHIL # 13.6 TH/MM3 (1.8-7.7); BASOPHIL # 0.1 TH/MM3 (0-0.2); BASOPHIL % 0.6 % (0.0-2.0); HEMATOCRIT 31.6 % (39.0-51.0); HEMOGLOBIN 9.3 GM/DL (13.0-17.0); LYMPH % 5.7 % (9.0-44.0); LYMPHOCYTE # 0.9 TH/MM3 (1.0-4.8); MEAN CELL VOLUME 69.7 FL (80.0-100.0); MEAN CORPUSCULAR HEMOGLOBIN 20.5 PG (27.0-34.0); MONO % 4.5 % (0.0-8.0); MONOCYTE # 0.7 TH/MM3 (0-0.9); NEUT % 89.2 % (16.0-70.0); PLATELET COUNT 249 TH/MM3 (150-450); RED BLOOD COUNT 4.54 MIL/MM3 (4.50-5.90); RED CELL DISTRIBUTION WIDTH 24.2 % (11.6-17.2); WHITE BLOOD COUNT 15.2 TH/MM3 (4.0-11.0)
[2018-03-03 04:44] LABS: MEAN CORPUSCULAR HGB CONC 29.4 % (32.0-36.0)
[2018-03-03 04:57] LABS: ALBUMIN 2.5 GM/DL (3.4-5.0); ALT (GPT) 17 U/L (12-78); AST (GOT) 11 U/L (15-37); BICARBONATE 29.5 MEQ/L (21.0-32.0); BLOOD UREA NITROGEN 18 MG/DL (7-18); CALCIUM 8.7 MG/DL (8.5-10.1); CHLORIDE 101 MEQ/L (98-107); CREATININE 0.83 MG/DL (0.60-1.30); GLOMERULAR FILTRATION RATE 99 ML/MIN (>89); GLUCOSE,RANDOM 324 MG/DL (74-106); MAGNESIUM 1.6 MG/DL (1.5-2.5); PHOSPHORUS 2.5 MG/DL (2.5-4.9); SODIUM (NA) 140 MEQ/L (136-145)
[2018-03-03 04:59] LABS: ALKALINE PHOSPHATASE 58 U/L (45-117); TOTAL BILIRUBIN ADULT 0.4 MG/DL (0.2-1.0); TOTAL PROTEIN 6.4 GM/DL (6.4-8.2)
--- NOTE | 2018-03-03 05:36 | RADRPT ---
EXAM DATE/TIME: 03/03/2018 04:23 [facility] COMPARISON: CHEST SINGLE AP, March 02, 2018, 8:44. INDICATIONS : Shortness of breath. MEDICAL HISTORY : Diabetes mellitus type II. Chronic obstructive pulmonary disease. SURGICAL HISTORY : Appendectomy. CABG. chepe filter, Nephrectomy. ENCOUNTER: Subsequent ACUITY: 2 weeks PAIN SCORE: Non-responsive. LOCATION: chest FINDINGS: Endotracheal tube, nasogastric tube and central line are stable. There has been improvement in aerati on with significant reexpansion of left lung. Persistent hazy bibasilar parenchymal density worse on the left than the right. Cardiac contours are grossly satisfactory CONCLUSION: Improving aeration Bebeto Leonard MD on March 03, 2018 at 5:34 Board Certified Radiologist. This report was verified electronically.
[2018-03-03] MEDS: FREE WATER G-TUBE SCH (05:46)
[2018-03-03] MEDS: NYSTATIN 100,000 U/GM PWD 15 GM BTL TOPICAL SCH ×2 (07:35→20:14)
[2018-03-03] MEDS: SODIUM CHLORIDE 0.9% FLUSH 10 ML FLUSH IV FLUSH SCH ×2 (07:36→20:10)
[2018-03-03] MEDS: CHLORHEXIDINE 0.12% (ORAL KIT) 15 ML CUP MT SCH ×2 (07:36→20:13)
[2018-03-03] MEDS: RESP: BUDESONIDE 0.5 MG/2 ML NEB NEB SCH ×2 (07:51→20:44)
[2018-03-03] MEDS: MULTIVITAMIN INJ 5 ML, FOLIC ACID INJ 0.5 MG in AMINO ACID IN D5W W/ELECTROLYT 1,000 ML IV-CENTRAL SCH ×6 (08:00→20:22)
[2018-03-03] MEDS: FAMOTIDINE 20 MG TAB PO SCH (08:29)
[2018-03-03] MEDS: APIXABAN 5 MG TABLET PO SCH (08:29)
[2018-03-03] MEDS: POTASSIUM CHLORIDE 25 MEQ EFFERVESCENT TAB NG SCH (08:29)
[2018-03-03] MEDS: methylPREDNISolone SOD SUCC 40 MG/1 ML VIAL IV PUSH SCH (08:29)
--- NOTE | 2018-03-03 09:56 | HHI.CCPN ---
Subjective Remarks/Hospital Course Patient is a 47-year-old morbidly obese male with past medical history significant for obesity, obstructive sleep apnea clinically, history of DVT, chronic Eliquis use who was brought in by EMS for altered mental status and severe hypoxemia. Apparently per EMS end-tidal CO2 was in the 60s his initial sat was in the 30s, but with bagging came up to the 70s. Initial GCS apparently was 7 but improved with continued bag and mask ventilation in the ED. Sats remained in the low 80s. Patient initially refused intubation and was placed on BiPAP. Received duo nebs and Solu-Medrol and antibiotics (Azactam, Flagyl, vancomycin). Patient continued to be tachypneic and severely hypoxemic, and patient was intubated by the ER physician. Apparently difficult airway and was intubated on the third attempt. Patient was desaturating to low 80s even after intubation and I was called to the ED for assisting. I immediately evaluated the patient he continues to be in severe bronchospasm, severely hypoxemic. Additional breathing treatments ordered. I changed the vent settings to PCAC to target tidal volume 600-650 and reduce the rate to 14. PEEP increased to 10. Gradually oxygen saturation improved to 90. I placed a right IJ central line as the patient was borderline hypotensive. Chest x-ray showed apparently pulmonary vascular congestion. No definite infiltrate. Lactic acid 6. Appears patient has acute COPD exacerbation and severe sepsis, pulmonary embolism needs to be ruled out. IV Solu-Medrol DuoNeb breathing treatments will be continued. Patient takes Eliquis for PE in the past. Further workup and management based on results 02/15: Remains intubated heavily sedated. PEEP remains at 12 FiO2 has been weaned to 55%. CT PE protocol negative for pulmonary embolism, showed bibasilar significant consolidation indicative of pneumonia. Sputum Gram stain shows GPC. Add vancomycin. 02/16: Patient remains intubated remains critical. Remains hypoxemic on high vent support. On attempt to reduce PEEP, he desaturated and currently on 10 of PEEP. FiO2 50%. Sputum culture with MSSA and strep pneumo. Will discontinue Levaquin and Flagyl continue Azactam and vancomycin 02/17: Remains critical, CXR still showing pulmonary edema. IV Lasix repeat dose given. Wean PEEP to 8, FiO2 to 45%. Start SBT as tolerated 02/18: Patient remains intubated heavily sedated. On lightening sedation patient becomes very agitated. PEEP remains at 8 FiO2 down to 40%. Chest x- ray continues to show pulmonary vascular congestion 02/19: Patient transitioned to Precedex in the last 24 hours continues on CPAP trials 15/8/40%. Patient cooperative following commands. Chest x-ray pending. Aggressive diureses initiated BMP pending this afternoon. 02/20: While on Precedex CPAP trial was attempted. After about 15 minutes patient became severely tachypneic diaphoretic with respiratory rate in the 40s. Re sedated with 50 mg IV push of propofol, and restarting propofol infusion. CXR shows improving pulmonary vascular congestion. WBC count though is trending up. 02/21: No events over the night. Patient is currently on CPAP, PS 15/8/40%, with RR in the 30's and Vt low 300's. Patient is sedated with propofol and precedex. Tmax 100.4, I/O 2946/3020. 02/22: No events over the night. Patient is currently on propofol and Precedex, calm, opening eyes to voice stimuli, following commands. RASS of -2. T-max of 100.6. On 0.3 FiO2. Urine output is adequate. 02/23: Yesterday afternoon patient decompensated, requiring high PEEP and 100% O2 with sats in the mid 80s. Patient was switched to bilevel ventilation and started on inhaled Flolan with rapid improvement in his oxygenation. A central line and art line with placed and patient required 1 L fluid bolus. This morning patient is down to 0.4 FiO2. Sedation is achieved with propofol. No pressors. Decreased urine output over the night. T-max of 99. Still with significant NG tube output, over the last 24 hours 1200 mL's. Morning chest x- ray reviewed, significantly improved air entry at bases. 02/24: No events over the night. Due to improved O2 requirements, yesterday, patient was switched from APRV to PRVC mode of ventilation. FiO2 between 0.45 and 0.5, but patient remains on high PEEP, currently at 14. T-max of 99.8. Improved urine output, up to 2200 over the last 24 hours. 02/25: Patient remained sedated and intubated. No events overnight. T-max of 99 and I/O 2080/2200. Morning chest x-ray reviewed, no significant change compared to yesterday, still with bibasilar infiltrates. Oxygenation remains the same, FiO2 of 0.4 and PEEP at 14. Patient is sedated with propofol at 50 and Precedex at 1.5, awake, trying to talk, bucking the ventilator. His mother is present at bedside. 02/26: No events over the night. Worsening oxygenation noted on blood gas this morning, FiO2 increased to 0.6. Patient remains on propofol and Precedex for sedation, he is wide awake following commands. T-max of 98.7. I/O 2170/1650. Morning chest x-ray reviewed, no significant change compared to yesterday. ET tube left IJ central line remain in place. 02/27: Yesterday, due to worsening hypoxia patient was placed on bilevel ventilation with improvement in his oxygenation. Over the night he was switched back to PRVC (unclear why). This morning patient was placed back on APRV, tolerating it well so far, down to 50% O2. He had one episode of low BP that resolved with 500 cc fluid bolus. Still with significant NG tube output. Unable to have CT abdomen and pelvis due to high O2 requirements. Patient remains afebrile, with a T-max of 98.3, urine output 1900 mL's over the last 24 hours. Morning chest x-ray reviewed, improvement in bibasilar opacities, right side worse than left. 02/28: T-max 100.1. Patient continues on APRV. Patient continues on Flolan, electrolytes noted to be imbalanced, potassium currently being repleted. 03/01: Afebrile. Extensive discussion with family regarding tracheostomy. Patient transitioning to PRVC/ AC this a.m., and attempts to wean O2 requirements and Flolan. Patient remains sedated for ventilator synchrony. 03/02: Afebrile. Patient tolerated ventilator settings of PRVC/AC to FiO2 of 80% with improvement in oxygenation during the night. FiO2 decreased to 70%. Chest x-ray early this a.m. showed mucous plugging complete left lung, bronchoscopy performed, acetylcysteine initiated. 03/03: T-max 99.3. Chest x-ray left lung aeration much improved. O2 requirements decreased to 55% PaO2 106 this a.m.. We will begin to wean Flolan off. TPN increased to 75 cc/hour per dietary recommendations with subsequent elevation in glucose hyperglycemia in the high 200s-300s, insulin infusion initiated. [id number]. Per report of nurse patient noted to have bright red blood via NG tube, testing Hemoccult, Xarelto placed on hold, serial H&H's being obtained. Hemodynamically stable Protonix infusion initiated. Objective Vital Signs Date Time Temp Pulse Resp B/P (MAP) Pulse Ox O2 Delivery O2 Flow Rate FiO2 03/03/18 09:00 121 19 161/94 (116) 100 173/98 (123) 03/03/18 08:00 55 03/03/18 08:00 98.8 02/27/18 08:51 Ventilator Intake and Output 03/03/18 03/03/18 03/04/18 08:00 16:00 00:00 Intake Total 400 ml 1000 ml Output Total 600 ml Balance -200 ml 1000 ml Result Diagram: 03/03/18 0415 03/03/18 0415 Other Results Laboratory Tests Test 03/02/18 11:58 03/03/18 09:30 Blood Gas Puncture Site ART LINE ART LINE Blood Gas Patient Temperature 98.6 98.6 Blood Gas HCO3 31 mmol/L (22-26) 29 mmol/L (22-26) Blood Gas Base Excess 6.9 mmol/L (-2-2) 5.4 mmol/L (-2-2) Blood Gas Oxygen Saturation 89 % (90-100) 96 % (90-100) Arterial Blood pH 7.47 (7.380-7.420) 7.46 (7.380-7.420) Arterial Blood Partial Pressure CO2 43 mmHg (38-42) 42 mmHg (38-42) Arterial Blood Partial Pressure O2 67 mmHg (61-120) 106 mmHg (61-120) Arterial Blood Oxygen Content 10.9 Vol % (12.0-20.0) 13.0 Vol % (12.0-20.0) Arterial Blood Carboxyhemoglobin 1.7 % (0-4) 1.5 % (0-4) Arterial Blood Methemoglobin 1.2 % (0-2) 1.2 % (0-2) Blood Gas Hemoglobin 8.6 G/DL (12.0-16.0) 9.6 G/DL (12.0-16.0) Oxygen Delivery Device VENTILATOR VENTILATOR Blood Gas Ventilator Setting PRVC/AC 550/14/ PRVC/AC550/14 Blood Gas Inspired Oxygen 60 % 55 % Imaging Last Impressions Chest X-Ray 03/03/18 0600 Signed Impressions: Service Date/Time: Saturday, March 03, 2018 04:23 - CONCLUSION: Improving aeration Bebeto Leonard MD Abdomen X-Ray 03/02/18 0000 Signed Impressions: Service Date/Time: February 09:24 - CONCLUSION: 1. Nonspecific bowel gas pattern. The previously seen dilated loop of bowel 02/28/18 has been decompressed. 2. There is an NG tube within the stomach. Kayden Ramírez MD Lower Extremity Ultrasound 02/22/18 0000 Signed Impressions: Service Date/Time: Thursday, February 22, 2018 20:03 - CONCLUSION: No venous thrombosis of either lower extremity. Bebeto Dominique MD Head CT 02/14/18 1204 Signed Impressions: Service Date/Time: Wednesday, February 14, 2018 14:09 - CONCLUSION: 1. Chronic ischemic changes in the parietal lobes. No change from previous study. 2. No acute intracranial abnormality or Tye Steinberg MD CT Angiography 02/14/18 1204 Signed Impressions: Service Date/Time: Wednesday, February 14, 2018 20:07 - CONCLUSION: 1. No evidence for pulmonary embolism. 2. Bibasilar consolidation. 3. Cardiomegaly. Tye Steinberg MD Last Impressions Chest X-Ray 03/02/18 0600 Signed Impressions: Service Date/Time: February 04:15 - CONCLUSION: 1. Interval volume loss and complete opacification of the left hemithorax. Plain film findings concerning for left mainstem bronchus mucous plugging. 2. Resolving atelectatic changes in the right lung base. 3. Stable position of life support tubes Lucien Barnes MD Abdomen X-Ray 02/28/18 0000 Signed Impressions: Service Date/Time: Wednesday, February 28, 2018 11:47 - CONCLUSION: 1. Persistent gas distended loop of bowel right upper quadrant, slightly smaller than on prior KUB. 2. Interval development of left lower lobe consolidation. Shane Reed MD Lower Extremity Ultrasound 02/22/18 0000 Signed Impressions: Service Date/Time: Thursday, February 22, 2018 20:03 - CONCLUSION: No venous thrombosis of either lower extremity. Bebeto Dominique MD Head CT 02/14/18 1204 Signed Impressions: Service Date/Time: Wednesday, February 14, 2018 14:09 - CONCLUSION: 1. Chronic ischemic changes in the parietal lobes. No change from previous study. 2. No acute intracranial abnormality or Tye Steinberg MD CT Angiography 02/14/18 1204 Signed Impressions: Service Date/Time: Wednesday, February 14, 2018 20:07 - CONCLUSION: 1. No evidence for pulmonary embolism. 2. Bibasilar consolidation. 3. Cardiomegaly. Tye Steinberg MD Last Impressions Chest X-Ray 02/28/18 0600 Signed Impressions: Service Date/Time: Wednesday, February 28, 2018 05:30 - CONCLUSION: 1. Improving aeration in the right lung base. 2. Developing left basilar consolidation/effusion Lucien Barnes MD Abdomen X-Ray 02/28/18 0000 Signed Impressions: Service Date/Time: Wednesday, February 28, 2018 11:47 - CONCLUSION: 1. Persistent gas distended loop of bowel right upper quadrant, slightly smaller than on prior KUB. 2. Interval development of left lower lobe consolidation. Shane Reed MD Lower Extremity Ultrasound 02/22/18 0000 Signed Impressions: Service Date/Time: Thursday, February 22, 2018 20:03 - CONCLUSION: No venous thrombosis of either lower extremity. Bebeto Dominique MD Head CT 02/14/18 1204 Signed Impressions: Service Date/Time: Wednesday, February 14, 2018 14:09 - CONCLUSION: 1. Chronic ischemic changes in the parietal lobes. No change from previous study. 2. No acute intracranial abnormality or Tye Steinberg MD CT Angiography 02/14/18 1204 Signed Impressions: Service Date/Time: Wednesday, February 14, 2018 20:07 - CONCLUSION: 1. No evidence for pulmonary embolism. 2. Bibasilar consolidation. 3. Cardiomegaly. Tye Steinberg MD Last 24 hours Impressions Chest X-Ray 02/26/18 0000 Signed Impressions: Service Date/Time: Monday, February 26, 2018 07:19 - CONCLUSION: Bilateral basilar consolidation small right effusion. Dane Brannon MD Last 24 hours Impressions Chest X-Ray 02/25/18 0600 Signed Impressions: Service Date/Time: Sunday, February 25, 2018 03:53 - CONCLUSION: Persistent left lower lobe consolidation and patchy right lower lung infiltrates. Shane Reed MD Last 24 hours Impressions Chest X-Ray 02/23/18 0600 Signed Impressions: Service Date/Time: January 03:59 - CONCLUSION: Minimal subsegmental atelectasis versus scarring right midlung otherwise clear chest. Tye Steinberg MD Last Impressions Chest X-Ray 02/18/18 06 Signed Impressions: Service Date/Time: Sunday, February 18, 2018 04:18 - CONCLUSION: Unchanged radiographic appearance most consistent with pulmonary edema. Shane Merrill Jr., MD Head CT 02/14/18 1204 Signed Impressions: Service Date/Time: Wednesday, February 14, 2018 14:09 - CONCLUSION: 1. Chronic ischemic changes in the parietal lobes. No change from previous study. 2. No acute intracranial abnormality or Tye Steinberg MD CT Angiography 02/14/18 1204 Signed Impressions: Service Date/Time: Wednesday, February 14, 2018 20:07 - CONCLUSION: 1. No evidence for pulmonary embolism. 2. Bibasilar consolidation. 3. Cardiomegaly. Tye Steinberg MD Objective Remarks General -chronically ill-appearing middle-aged gentleman, intubated and sedated for optimal ventilator synchrony HEENT - pupils are equal and reactive, sclerae are anicteric, no scleral edema, no JVD, neck is supple, no carotid bruit, + ETT, + OGT, left IJ central line () CV - regular heart sounds, no murmurs, rubs or gallops appreciated Chest - some scattered coarse breath sounds bilateral, no wheezes, improved air entry. Diminished breath sounds noted left Abdomen - distended but better, softer, non-tender, BS hypoactive, no hepatomegaly, no splenomegaly Skin - no rashes, no cyanosis appreciated Extremities - warm and well perfused, no edema, + peripheral pulses RLE, no clubbing, LLE AKA Neuro -RASS -2 intubated, when previously on sedation vacation awake, follows commands, moves extremities x 4 A/P Assessment and Plan 1. Acute hypoxic respiratory failure -no significant improvement despite full support for 14 days 2. Bibasilar MSSA and strep pneumo pneumonia -patient remains afebrile, leukocytosis is resolving 3. Acute COPD exacerbation -resolved 4. Metabolic encephalopathy 5. Hypotension -resolved 6. Ileus -03/02 repeat KUB decompressed bowel loop .CT abdomen and pelvis not done yet due to high O2 requirements 7. 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 History of DVT and PE s/p IVC filter 9. LUCAS -resolved, adequate urine output 10. Hx depression and Hx of CVA 3 11. Hx of hypertension and dyslipidemia 12. Hx of childhood osteosarcoma s/p chemoradiation therapy 13. Electrolyte derangement 14. Hyperglycemia 1. Continue PRVC 14//14/.55 2. Continue inhaled Flolan 3. Vent bundle and bronchodilators 4. Precedex was stopped due to bradycardia. Start midazolam drip and taper down propofol. 5. Continue ceftriaxone day 9. Stop levofloxacin (completed 8 day coarse) 6. Repeat cultures sent, negative to date so far 7. Home Eliquis dose increased to 5 twice daily 8. NG tube aspirate negative for bleed 9. Continue OG tube to low intermittent wall suction and continue to hold tube feeds 10. GI following 11. CT abdomen and pelvis when oxygenation improves 12. GI prophylaxis with famotidine, DVT prophylaxis addressed above 13. Repletion of electrolytes per ICU protocol 14. TPN increased to 75 cc/hour now patient with persistent hyperglycemia insulin infusion initiated on 03/03 15. 03/03 replete magnesium level 1.6 Patient's mother was updated in detail regarding patient's condition. She understands that Kayden is still critically ill and his condition can further deteriorate. Palliative care has been consult Patient remains critically ill with hypoxic respiratory failure and he is at very high risk for further decompensation and . Family conference with Mrs. Green patient's mother, scheduling agent and patient's brother at bedside. Provided medical update and status 03/03 Will begin weaning off Flolan if possible my billing statement This patient remains critically ill with one or more organ systems which are or may become a threat to life. I have spent in excess of 30 minutes discontinuously in the care and management of this patient. This time is exclusive of procedures, and includes, but is not limited to, evaluation of the patient, review of the medical record, discussions with family, consultants, nursing staff, or respiratory therapy, and documentation in the medical record. Physician Nancy Irizarry MD March 03, 2018 09:56
[2018-03-03] MEDS ORDERED: INSULIN REGULAR (IV INFUSION) 100 UNITS in SODIUM CHLORIDE 0.9% INJ 99 ML IV PRN (10:00)
[2018-03-03] MEDS ORDERED: MISC INFORMATION OTHER ONE ×2 (10:00→12:45)
[2018-03-03] MEDS ORDERED: DEXTROSE 50% IN WATER 50 ML VIAL(D50) IV PUSH PRN ×2 (10:00→12:45)
[2018-03-03] MEDS: MAGNESIUM SULFATE INJ 2 GM in SODIUM CHLORIDE 0.9% INJ 96 ML IV PRN (10:23)
[2018-03-03] MEDS ORDERED: EPOPROSTENOL NEB SOLUTION 40 NG/KG/MIN 100 ML NEB SCH ×2 (12:00)
[2018-03-03] MEDS: INSULIN REGULAR (IV INFUSION) 100 UNITS in SODIUM CHLORIDE 0.9% INJ 99 ML IV PRN ×2 (12:00→17:51)
[2018-03-03] MEDS: MIDAZOLAM 50 MG/50 ML INJ 50 ML IV PRN ×4 (12:26→22:30)
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
[2018-03-03] MEDS: PROPRANOLOL HCL 20 MG TAB PO SCH ×3 (13:00→20:10)
[2018-03-03 13:07] LABS: HEMATOCRIT 31.6 % (39.0-51.0); HEMOGLOBIN 9.2 GM/DL (13.0-17.0)
[2018-03-03] MEDS: cefTRIAXone INJ 2,000 MG in SODIUM CHLORIDE 0.9% INJ 100 ML IV SCH (14:17)
[2018-03-03] MEDS: LABETALOL HCL 100 MG/20 ML VIAL IV PUSH PRN (14:18)
[2018-03-03] MEDS: PANTOPRAZOLE INJ 80 MG in SODIUM CHLORIDE 0.9% INJ 100 ML IV SCH (15:07)
[2018-03-03 17:50] LABS: HEMATOCRIT 28.1 % (39.0-51.0); HEMOGLOBIN 8.3 GM/DL (13.0-17.0)
[2018-03-03 19:33] LABS: PROTHROMBIN TIME - PATIENT 9.9 SEC (9.8-11.6)
[2018-03-03] MEDS ORDERED: EPOPROSTENOL NEB SOLUTION 30 NG/KG/MIN 100 ML NEB SCH ×2 (20:00)
[2018-03-04] VITALS (22 sets, daily range): BP systolic 87–141; BP diastolic 60–93; PULSE 68–105; RESP 14–16; TEMP 97.2–98.6; O2SAT 98–100
[2018-03-04] MEDS: RESP: ALBUTEROL 2.5 MG/IPRATROPIUM 0.5 MG NEB (SCH) NEB ×7 (01:01→23:49)
[2018-03-04] MEDS: RESP: ACETYLCYSTEINE 10% 30 ML NEB NEB SCH ×7 (01:01→23:49)
[2018-03-04 02:19] LABS: HEMATOCRIT 27.3 % (39.0-51.0); MEAN CELL VOLUME 69.1 FL (80.0-100.0); MEAN CORPUSCULAR HEMOGLOBIN 20.2 PG (27.0-34.0); MEAN PLATELET VOLUME 9.1 FL (7.0-11.0); PLATELET COUNT 188 TH/MM3 (150-450); RED BLOOD COUNT 3.95 MIL/MM3 (4.50-5.90); RED CELL DISTRIBUTION WIDTH 24.8 % (11.6-17.2); WHITE BLOOD COUNT 14.6 TH/MM3 (4.0-11.0)
[2018-03-04] MEDS: INSULIN REGULAR (IV INFUSION) 100 UNITS in SODIUM CHLORIDE 0.9% INJ 99 ML IV PRN ×3 (02:44→20:31)
[2018-03-04] MEDS: PANTOPRAZOLE INJ 80 MG in SODIUM CHLORIDE 0.9% INJ 100 ML IV SCH ×3 (02:45→20:28)
[2018-03-04] MEDS: PROPOFOL 1000 MG/100 ML INJ 100 ML IV PRN ×5 (02:47→20:27)
[2018-03-04 03:11] LABS: MEAN CORPUSCULAR HGB CONC 29.3 % (32.0-36.0)
[2018-03-04 03:16] LABS: BANDS 5 % (0-6); LYMPHOCYTES 10 % (9-44); METAMYELOCYTES 1 % (0-1); MONOCYTES 1 % (0-8); POLYS (SEG NEUTROPHILS) 82 % (16-70); PROMYELOCYTES 1 % (0-0)
[2018-03-04 03:17] LABS: OVALOCYTES 1+ (NORMAL)
[2018-03-04] MEDS: LORazepam 1 MG TAB PO SCH ×2 (04:00→16:30)
[2018-03-04] MEDS: CHLORHEXIDINE GLUCONATE 2 % 1 PACK (2 CLOTHS) TOP SCH (04:00)
[2018-03-04] MEDS ORDERED: EPOPROSTENOL NEB SOLUTION 20 NG/KG/MIN 100 ML NEB SCH ×2 (04:00)
--- NOTE | 2018-03-04 05:09 | RADRPT ---
EXAM DATE/TIME: 03/04/2018 02:49 [facility] COMPARISON: CHEST SINGLE AP, March 03, 2018, 4:23. INDICATIONS : Shortness of breath, possible pulmonary disease. MEDICAL HISTORY : Diabetes mellitus type II. Chronic obstructive pulmonary disease. SURGICAL HISTORY : CABG. Appendectomy. IVC Filter placement. Nephrectomy ENCOUNTER: Subsequent ACUITY: 2 weeks PAIN SCORE: Non-responsive. LOCATION: Bilateral chest FINDINGS: Endotracheal tube, nasogastric tube and left neck central line are stable in good position. There has been slight improvement in aeration with decrease in left lung infiltrate leaving consolidation at t he left base. Mild right base pleural-parenchymal opacity is grossly unchanged. Cardiac contours are stable. CONCLUSION: Improving aeration Bebeto Leonard MD on March 04, 2018 at 5:06 Board Certified Radiologist. This report was verified electronically.
[2018-03-04 05:37] LABS: BICARBONATE 29.7 MEQ/L (21.0-32.0); CALCIUM 8.4 MG/DL (8.5-10.1); CREATININE 0.84 MG/DL (0.60-1.30)
[2018-03-04] MEDS: RESP: BUDESONIDE 0.5 MG/2 ML NEB NEB SCH ×2 (08:29→20:01)
[2018-03-04] MEDS: PROPRANOLOL HCL 20 MG TAB PO SCH (08:35)
[2018-03-04] MEDS: SODIUM CHLORIDE 0.9% FLUSH 10 ML FLUSH IV FLUSH SCH ×2 (08:36→20:27)
[2018-03-04] MEDS: methylPREDNISolone SOD SUCC 40 MG/1 ML VIAL IV PUSH SCH (08:36)
[2018-03-04] MEDS: POTASSIUM CHLORIDE 25 MEQ EFFERVESCENT TAB NG SCH (08:37)
[2018-03-04] MEDS: NYSTATIN 100,000 U/GM PWD 15 GM BTL TOPICAL SCH ×2 (08:37→20:29)
[2018-03-04] MEDS: CHLORHEXIDINE 0.12% (ORAL KIT) 15 ML CUP MT SCH ×2 (08:39→20:27)
[2018-03-04] MEDS: MULTIVITAMIN INJ 5 ML, FOLIC ACID INJ 0.5 MG in AMINO ACID IN D5W W/ELECTROLYT 1,000 ML IV-CENTRAL SCH ×6 (09:54→20:28)
--- NOTE | 2018-03-04 10:49 | HHI.CCPN ---
Subjective Remarks/Hospital Course Patient is a 47-year-old morbidly obese male with past medical history significant for obesity, obstructive sleep apnea clinically, history of DVT, chronic Eliquis use who was brought in by EMS for altered mental status and severe hypoxemia. Apparently per EMS end-tidal CO2 was in the 60s his initial sat was in the 30s, but with bagging came up to the 70s. Initial GCS apparently was 7 but improved with continued bag and mask ventilation in the ED. Sats remained in the low 80s. Patient initially refused intubation and was placed on BiPAP. Received duo nebs and Solu-Medrol and antibiotics (Azactam, Flagyl, vancomycin). Patient continued to be tachypneic and severely hypoxemic, and patient was intubated by the ER physician. Apparently difficult airway and was intubated on the third attempt. Patient was desaturating to low 80s even after intubation and I was called to the ED for assisting. I immediately evaluated the patient he continues to be in severe bronchospasm, severely hypoxemic. Additional breathing treatments ordered. I changed the vent settings to PCAC to target tidal volume 600-650 and reduce the rate to 14. PEEP increased to 10. Gradually oxygen saturation improved to 90. I placed a right IJ central line as the patient was borderline hypotensive. Chest x-ray showed apparently pulmonary vascular congestion. No definite infiltrate. Lactic acid 6. Appears patient has acute COPD exacerbation and severe sepsis, pulmonary embolism needs to be ruled out. IV Solu-Medrol DuoNeb breathing treatments will be continued. Patient takes Eliquis for PE in the past. Further workup and management based on results 02/15: Remains intubated heavily sedated. PEEP remains at 12 FiO2 has been weaned to 55%. CT PE protocol negative for pulmonary embolism, showed bibasilar significant consolidation indicative of pneumonia. Sputum Gram stain shows GPC. Add vancomycin. 02/16: Patient remains intubated remains critical. Remains hypoxemic on high vent support. On attempt to reduce PEEP, he desaturated and currently on 10 of PEEP. FiO2 50%. Sputum culture with MSSA and strep pneumo. Will discontinue Levaquin and Flagyl continue Azactam and vancomycin 02/17: Remains critical, CXR still showing pulmonary edema. IV Lasix repeat dose given. Wean PEEP to 8, FiO2 to 45%. Start SBT as tolerated 02/18: Patient remains intubated heavily sedated. On lightening sedation patient becomes very agitated. PEEP remains at 8 FiO2 down to 40%. Chest x- ray continues to show pulmonary vascular congestion 02/19: Patient transitioned to Precedex in the last 24 hours continues on CPAP trials 15/8/40%. Patient cooperative following commands. Chest x-ray pending. Aggressive diureses initiated BMP pending this afternoon. 02/20: While on Precedex CPAP trial was attempted. After about 15 minutes patient became severely tachypneic diaphoretic with respiratory rate in the 40s. Re sedated with 50 mg IV push of propofol, and restarting propofol infusion. CXR shows improving pulmonary vascular congestion. WBC count though is trending up. 02/21: No events over the night. Patient is currently on CPAP, PS 15/8/40%, with RR in the 30's and Vt low 300's. Patient is sedated with propofol and precedex. Tmax 100.4, I/O 2946/3020. 02/22: No events over the night. Patient is currently on propofol and Precedex, calm, opening eyes to voice stimuli, following commands. RASS of -2. T-max of 100.6. On 0.3 FiO2. Urine output is adequate. 02/23: Yesterday afternoon patient decompensated, requiring high PEEP and 100% O2 with sats in the mid 80s. Patient was switched to bilevel ventilation and started on inhaled Flolan with rapid improvement in his oxygenation. A central line and art line with placed and patient required 1 L fluid bolus. This morning patient is down to 0.4 FiO2. Sedation is achieved with propofol. No pressors. Decreased urine output over the night. T-max of 99. Still with significant NG tube output, over the last 24 hours 1200 mL's. Morning chest x- ray reviewed, significantly improved air entry at bases. 02/24: No events over the night. Due to improved O2 requirements, yesterday, patient was switched from APRV to PRVC mode of ventilation. FiO2 between 0.45 and 0.5, but patient remains on high PEEP, currently at 14. T-max of 99.8. Improved urine output, up to 2200 over the last 24 hours. 02/25: Patient remained sedated and intubated. No events overnight. T-max of 99 and I/O 2080/2200. Morning chest x-ray reviewed, no significant change compared to yesterday, still with bibasilar infiltrates. Oxygenation remains the same, FiO2 of 0.4 and PEEP at 14. Patient is sedated with propofol at 50 and Precedex at 1.5, awake, trying to talk, bucking the ventilator. His mother is present at bedside. 02/26: No events over the night. Worsening oxygenation noted on blood gas this morning, FiO2 increased to 0.6. Patient remains on propofol and Precedex for sedation, he is wide awake following commands. T-max of 98.7. I/O 2170/1650. Morning chest x-ray reviewed, no significant change compared to yesterday. ET tube left IJ central line remain in place. 02/27: Yesterday, due to worsening hypoxia patient was placed on bilevel ventilation with improvement in his oxygenation. Over the night he was switched back to PRVC (unclear why). This morning patient was placed back on APRV, tolerating it well so far, down to 50% O2. He had one episode of low BP that resolved with 500 cc fluid bolus. Still with significant NG tube output. Unable to have CT abdomen and pelvis due to high O2 requirements. Patient remains afebrile, with a T-max of 98.3, urine output 1900 mL's over the last 24 hours. Morning chest x-ray reviewed, improvement in bibasilar opacities, right side worse than left. 02/28: T-max 100.1. Patient continues on APRV. Patient continues on Flolan, electrolytes noted to be imbalanced, potassium currently being repleted. 03/01: Afebrile. Extensive discussion with family regarding tracheostomy. Patient transitioning to PRVC/ AC this a.m., and attempts to wean O2 requirements and Flolan. Patient remains sedated for ventilator synchrony. 03/02: Afebrile. Patient tolerated ventilator settings of PRVC/AC to FiO2 of 80% with improvement in oxygenation during the night. FiO2 decreased to 70%. Chest x-ray early this a.m. showed mucous plugging complete left lung, bronchoscopy performed, acetylcysteine initiated. 03/03: T-max 99.3. Chest x-ray left lung aeration much improved. O2 requirements decreased to 55% PaO2 106 this a.m.. We will begin to wean Flolan off. TPN increased to 75 cc/hour per dietary recommendations with subsequent elevation in glucose hyperglycemia in the high 200s-300s, insulin infusion initiated. Addendum-[id number]. Per report of nurse patient noted to have bright red blood via NG tube, testing Hemoccult, Xarelto placed on hold, serial H&H's being obtained. Hemodynamically stable Protonix infusion initiated. 03/04: Afebrile. Yesterday afternoon the patient was noted to have bright red blood emanating from NG tube new-onset Hemoccult positive NG tube clamped patient placed on Protonix infusion, Eliquis placed on hold. Dr. Sam notified. Patient's abdomen soft. Continue weaning of FiO2 for improved oxygenation continued. The patient was noted to have hypertensive episodes yesterday propranolol was reinstituted, now dosage decreased with parameters per nursing staff. CT of the abdomen with p.o. contrast pending. Hemoglobin overnight was noted to drop last evening 1 g/dL. patient to be transfused 1 unit of packed red blood cells with posttransfusion CBC pending. Hemoglobin H& H to be trending every 12 hours. Objective Vital Signs Date Time Temp Pulse Resp B/P (MAP) Pulse Ox O2 Delivery O2 Flow Rate FiO2 03/04/18 08:29 100 55 03/04/18 06:00 105 03/04/18 04:00 98.6 14 105/68 (80) 87/80 (82) Intake and Output 03/04/18 03/04/18 03/05/18 08:00 16:00 00:00 Intake Total 460 ml Output Total 750 ml Balance -290 ml Result Diagram: 03/04/18 0150 03/04/18 0431 Other Results Microbiology Date/Time Source Procedure Growth Status 03/03/18 12:00 Gastric Gastric Occult Blood - Final GASTROCCULT POSITIVE Complete Laboratory Tests Test 03/04/18 05:50 Blood Gas Puncture Site ART LINE Blood Gas Patient Temperature 98.6 Blood Gas HCO3 29 mmol/L (22-26) Blood Gas Base Excess 3.9 mmol/L (-2-2) Blood Gas Oxygen Saturation 96 % (90-100) Arterial Blood pH 7.37 (7.380-7.420) Arterial Blood Partial Pressure CO2 51 mmHg (38-42) Arterial Blood Partial Pressure O2 111 mmHg (61-120) Arterial Blood Oxygen Content 11.0 Vol % (12.0-20.0) Arterial Blood Carboxyhemoglobin 1.6 % (0-4) Arterial Blood Methemoglobin 1.1 % (0-2) Blood Gas Hemoglobin 8.1 G/DL (12.0-16.0) Oxygen Delivery Device VENTILATOR Blood Gas Ventilator Setting [facility]- Blood Gas Inspired Oxygen 55 % Imaging Last Impressions Chest X-Ray 03/03/18 0600 Signed Impressions: Service Date/Time: Saturday, March 03, 2018 04:23 - CONCLUSION: Improving aeration Bebeto Leonard MD Abdomen X-Ray 03/02/18 0000 Signed Impressions: Service Date/Time: February 09:24 - CONCLUSION: 1. Nonspecific bowel gas pattern. The previously seen dilated loop of bowel 02/28/18 has been decompressed. 2. There is an NG tube within the stomach. Kayden Ramírez MD Lower Extremity Ultrasound 02/22/18 0000 Signed Impressions: Service Date/Time: Thursday, February 22, 2018 20:03 - CONCLUSION: No venous thrombosis of either lower extremity. Bebeto Dominique MD Head CT 02/14/18 1204 Signed Impressions: Service Date/Time: Wednesday, February 14, 2018 14:09 - CONCLUSION: 1. Chronic ischemic changes in the parietal lobes. No change from previous study. 2. No acute intracranial abnormality or Tye Steinberg MD CT Angiography 02/14/18 1204 Signed Impressions: Service Date/Time: Wednesday, February 14, 2018 20:07 - CONCLUSION: 1. No evidence for pulmonary embolism. 2. Bibasilar consolidation. 3. Cardiomegaly. Tye Steinberg MD Last Impressions Chest X-Ray 03/02/18 0600 Signed Impressions: Service Date/Time: February 04:15 - CONCLUSION: 1. Interval volume loss and complete opacification of the left hemithorax. Plain film findings concerning for left mainstem bronchus mucous plugging. 2. Resolving atelectatic changes in the right lung base. 3. Stable position of life support tubes Lucien Barnes MD Abdomen X-Ray 02/28/18 0000 Signed Impressions: Service Date/Time: Wednesday, February 28, 2018 11:47 - CONCLUSION: 1. Persistent gas distended loop of bowel right upper quadrant, slightly smaller than on prior KUB. 2. Interval development of left lower lobe consolidation. Shane Reed MD Lower Extremity Ultrasound 02/22/18 0000 Signed Impressions: Service Date/Time: Thursday, February 22, 2018 20:03 - CONCLUSION: No venous thrombosis of either lower extremity. Bebeto Dominique MD Head CT 02/14/18 1204 Signed Impressions: Service Date/Time: Wednesday, February 14, 2018 14:09 - CONCLUSION: 1. Chronic ischemic changes in the parietal lobes. No change from previous study. 2. No acute intracranial abnormality or Tye Steinberg MD CT Angiography 02/14/18 1204 Signed Impressions: Service Date/Time: Wednesday, February 14, 2018 20:07 - CONCLUSION: 1. No evidence for pulmonary embolism. 2. Bibasilar consolidation. 3. Cardiomegaly. Tye Steinberg MD Last Impressions Chest X-Ray 02/28/18 0600 Signed Impressions: Service Date/Time: Wednesday, February 28, 2018 05:30 - CONCLUSION: 1. Improving aeration in the right lung base. 2. Developing left basilar consolidation/effusion Lucien Barnes MD Abdomen X-Ray 02/28/18 0000 Signed Impressions: Service Date/Time: Wednesday, February 28, 2018 11:47 - CONCLUSION: 1. Persistent gas distended loop of bowel right upper quadrant, slightly smaller than on prior KUB. 2. Interval development of left lower lobe consolidation. Shane Reed MD Lower Extremity Ultrasound 02/22/18 0000 Signed Impressions: Service Date/Time: Thursday, February 22, 2018 20:03 - CONCLUSION: No venous thrombosis of either lower extremity. Bebeto Dominique MD Head CT 02/14/18 1204 Signed Impressions: Service Date/Time: Wednesday, February 14, 2018 14:09 - CONCLUSION: 1. Chronic ischemic changes in the parietal lobes. No change from previous study. 2. No acute intracranial abnormality or Tye Steinberg MD CT Angiography 02/14/18 1204 Signed Impressions: Service Date/Time: Wednesday, February 14, 2018 20:07 - CONCLUSION: 1. No evidence for pulmonary embolism. 2. Bibasilar consolidation. 3. Cardiomegaly. Tye Steinberg MD Last 24 hours Impressions Chest X-Ray 02/26/18 0000 Signed Impressions: Service Date/Time: Monday, February 26, 2018 07:19 - CONCLUSION: Bilateral basilar consolidation small right effusion. Dane Brannon MD Last 24 hours Impressions Chest X-Ray 02/25/18 0600 Signed Impressions: Service Date/Time: Sunday, February 25, 2018 03:53 - CONCLUSION: Persistent left lower lobe consolidation and patchy right lower lung infiltrates. Shane Reed MD Last 24 hours Impressions Chest X-Ray 02/23/18 0600 Signed Impressions: Service Date/Time: January 03:59 - CONCLUSION: Minimal subsegmental atelectasis versus scarring right midlung otherwise clear chest. Tye Steinberg MD Last Impressions Chest X-Ray 02/18/18 0600 Signed Impressions: Service Date/Time: Sunday, February 18, 2018 04:18 - CONCLUSION: Unchanged radiographic appearance most consistent with pulmonary edema. Shane Merrill Jr., MD Head CT 02/14/18 1204 Signed Impressions: Service Date/Time: Wednesday, February 14, 2018 14:09 - CONCLUSION: 1. Chronic ischemic changes in the parietal lobes. No change from previous study. 2. No acute intracranial abnormality or Tye Steinberg MD CT Angiography 02/14/18 1204 Signed Impressions: Service Date/Time: Wednesday, February 14, 2018 20:07 - CONCLUSION: 1. No evidence for pulmonary embolism. 2. Bibasilar consolidation. 3. Cardiomegaly. Tye Steinberg MD Objective Remarks General -chronically ill-appearing middle-aged gentleman, intubated and sedated for optimal ventilator synchrony HEENT - pupils are equal and reactive, sclerae are anicteric, no scleral edema, no JVD, neck is supple, no carotid bruit, + ETT, + OGT, left IJ central line () CV - regular heart sounds, no murmurs, rubs or gallops appreciated Chest - some scattered coarse breath sounds bilateral, no wheezes, improved air entry. Diminished breath sounds noted left Abdomen -soft, nondistended, non-tender, BS hypoactive, no hepatomegaly, no splenomegaly TPN infusion Skin - no rashes, no cyanosis appreciated Extremities - warm and well perfused, no edema, + peripheral pulses RLE, no clubbing, LLE AKA Neuro -RASS -2 intubated, when previously on sedation vacation awake, follows commands, moves extremities x 4 A/P Assessment and Plan ASSESSMENT 1. Ventilator dependent respiratory failure/hypoxemic respiratory failure 2. Bibasilar MSSA and strep pneumo pneumonia -patient remains afebrile, leukocytosis 3. Acute COPD exacerbation -resolved 4. Metabolic encephalopathy 5. Hypotension -resolved 6. Ileus -03/02 repeat KUB decompressed bowel loop .CT abdomen and pelvis not done yet due to high O2 requirements 7. 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 History of DVT and PE s/p IVC filter 9. LUCAS -resolved, adequate urine output 10. Hx depression and Hx of CVA 3 11. Hx of hypertension and dyslipidemia 12. Hx of childhood osteosarcoma s/p chemoradiation therapy 13. Electrolyte derangement 14. Hyperglycemia PLAN 1. Continue PRVC 13/03/14/.55 2. Continue inhaled Flolan 3. Vent bundle and bronchodilators 4. Precedex was stopped due to bradycardia. Start midazolam drip and taper down propofol. 5. Ceftriaxone day 10. Stop levofloxacin (completed 8 day coarse) 6. Repeat cultures sent, negative to date so far 7. Home Eliquis dose -discontinued 03/03 8. 03/03 NG tube positive aspirate for bleed 9. OGT clamped 10. GI following- Dr. Rodrigues . 03/[address] abdomen and pelvis-respiratory requirements decreased now only on 10 ng Flolan, tolerating PRBC. F/U results 12. GI prophylaxis with famotidine, No DVT prophylaxis -in the setting of acute GI 13. Repletion of electrolytes per ICU protocol 14. TPN increased to 75 cc/hour now patient with persistent hyperglycemia insulin infusion initiated on 03/03 15. 03/04-type and screen, transfuse 1 unit packed red blood cells follow-up posttransfusion CBC.Monitor and trend H&H every 12 hours Patient's mother and brother were updated in detail regarding patient's condition. She understands that Kayden is still critically ill and his condition can further deteriorate. Palliative care is following. Patient remains critically ill with hypoxic respiratory failure and he is at very high risk for further decompensation and . Provided medical update and status 03/04 Continue weaning off Flolan my billing statement This patient remains critically ill with one or more organ systems which are or may become a threat to life. I have spent in excess of 39 minutes discontinuously in the care and management of this patient. This time is exclusive of procedures, and includes, but is not limited to, evaluation of the patient, review of the medical record, discussions with family, consultants, nursing staff, or respiratory therapy, and documentation in the medical record. Physician Nancy Irizarry MD March 04, 2018 10:49
--- NOTE | 2018-03-04 10:59 | HHI.GIFU ---
Subjective Remarks Pt on sedation and mechanically ventilated OG to LIWS with some dark red secretions in the suction tubing Abdomen distended but soft Objective Vitals I&O Vital Signs Date Time Temp Pulse Resp B/P (MAP) Pulse Ox O2 Delivery O2 Flow Rate FiO2 03/04/18 10:45 55 03/04/18 08:29 100 55 03/04/18 08:00 97.7 95 16 99/61 (74) 100 111/62 (78) 03/04/18 08:00 55 03/04/18 06:00 105 03/04/18 04:04 100 55 03/04/18 04:00 55 03/04/18 04:00 100 03/04/18 04:00 98.6 100 14 105/68 (80) 100 87/80 (82) 03/04/18 01:01 100 55 03/04/18 00:00 55 03/04/18 00:00 100 03/04/18 00:00 97.9 100 15 103/68 (80) 100 95/91 (92) 03/03/18 22:00 109 03/03/18 20:45 100 55 03/03/18 20:00 55 03/03/18 20:00 98.2 110 15 109/70 (83) 100 117/67 (84) 03/03/18 20:00 110 03/03/18 18:00 118 03/03/18 16:00 55 03/03/18 16:00 98.5 109 16 150/85 (106) 100 03/03/18 16:00 109 03/03/18 15:04 100 55 03/03/18 14:00 123 03/03/18 12:00 125 03/03/18 12:00 55 03/03/18 12:00 98.6 125 19 158/93 (114) 100 163/90 (114) 03/03/18 11:07 99 55 I/O 03/03/18 03/03/18 03/03/18 03/04/18 03/04/18 03/04/18 07:00 15:00 23:00 07:00 15:00 23:00 Intake Total 400 ml 1603 ml 3125.1 ml 460 ml Output Total 600 ml 950 ml 750 ml Balance -200 ml 1603 ml 2175.1 ml -290 ml Intake IV Total 400 ml 1603 ml 1505.1 ml 400 ml TPN/PPN 1500 ml Other 120 ml 60 ml Output Urine Total 300 ml 650 ml 750 ml Gastric Drainage Total 300 ml 300 ml 0 ml # Bowel Movements 0 0 0 Laboratory Laboratory Tests Test 03/03/18 12:22 03/03/18 17:30 03/03/18 19:00 03/04/18 01:50 Hemoglobin 9.2 8.3 8.0 Hematocrit 31.6 28.1 27.3 Magnesium Level 2.4 Prothrombin Time 9.9 Prothromb Time International Ratio 1.0 Activated Partial Thromboplast Time 21.0 White Blood Count 14.6 Red Blood Count 3.95 Mean Corpuscular Volume 69.1 Mean Corpuscular Hemoglobin 20.2 Mean Corpuscular Hemoglobin Concent 29.3 Red Cell Distribution Width 24.8 Platelet Count 188 Mean Platelet Volume 9.1 CBC Comment AUTO DIFF Differential Total Cells Counted 100 Neutrophils % (Manual) 82 Band Neutrophils % 5 Lymphocytes % 10 Monocytes % 1 Neutrophils # (Manual) 13.0 Metamyelocytes 1 Promyelocytes 1 Differential Comment FINAL DIFF MANUAL Platelet Estimate NORMAL Platelet Morphology Comment NORMAL Ovalocytes 1+ Test 03/04/18 04:31 03/04/18 05:50 Blood Urea Nitrogen 30 Creatinine 0.84 Random Glucose 276 Calcium Level 8.4 Sodium Level 139 Potassium Level 3.5 Chloride Level 101 Carbon Dioxide Level 29.7 Anion Gap 8 Estimat Glomerular Filtration Rate 98 Blood Gas Puncture Site ART LINE Blood Gas Patient Temperature 98.6 Blood Gas HCO3 29 Blood Gas Base Excess 3.9 Blood Gas Oxygen Saturation 96 Arterial Blood pH 7.37 Arterial Blood Partial Pressure CO2 51 Arterial Blood Partial Pressure O2 111 Arterial Blood Oxygen Content 11.0 Arterial Blood Carboxyhemoglobin 1.6 Arterial Blood Methemoglobin 1.1 Blood Gas Hemoglobin 8.1 Oxygen Delivery Device VENTILATOR Blood Gas Ventilator Setting PRV-AC Blood Gas Inspired Oxygen 55 Date/Time Source Procedure Growth Status 02/22/18 11:30 Blood Peripheral Aerobic Blood Culture - Final NO GROWTH IN 5 DAYS Complete 02/22/18 11:30 Blood Peripheral Anaerobic Blood Culture - Final NO GROWTH IN 5 DAYS Complete 02/26/18 16:44 Stool Stool Stool Occult Blood (BRIANA) - Final HEMOCCULT NEGATIVE Complete 03/03/18 12:00 Gastric Gastric Occult Blood - Final GASTROCCULT POSITIVE Complete 02/22/18 10:35 Sputum Endotracheal Gram Stain - Final Complete 02/22/18 10:35 Sputum Endotracheal Sputum Culture - Final HEAVY GROWTH NORMAL RESPIRATORY LUCAS Complete 02/14/18 10:45 Urine Catheterized Urine Urine Culture - Final NO GROWTH IN 48 HOURS. Complete Imaging Last Impressions Chest X-Ray 03/04/18 0600 Signed Impressions: Service Date/Time: Sunday, March 04, 2018 02:49 - CONCLUSION: Improving aeration Bebeto Leonard MD Abdomen X-Ray 03/02/18 0000 Signed Impressions: Service Date/Time: February 09:24 - CONCLUSION: 1. Nonspecific bowel gas pattern. The previously seen dilated loop of bowel 02/28/18 has been decompressed. 2. There is an NG tube within the stomach. Kayden Ramírez MD Lower Extremity Ultrasound 02/22/18 0000 Signed Impressions: Service Date/Time: Thursday, February 22, 2018 20:03 - CONCLUSION: No venous thrombosis of either lower extremity. Bebeto Dominique MD Head CT 02/14/18 1204 Signed Impressions: Service Date/Time: Wednesday, February 14, 2018 14:09 - CONCLUSION: 1. Chronic ischemic changes in the parietal lobes. No change from previous study. 2. No acute intracranial abnormality or Tye Steinberg MD CT Angiography 02/14/18 1204 Signed Impressions: Service Date/Time: Wednesday, February 14, 2018 20:07 - CONCLUSION: 1. No evidence for pulmonary embolism. 2. Bibasilar consolidation. 3. Cardiomegaly. Tye Steinberg MD Physical Exam HEENT: Normocephalic; atraumatic CHEST: Respirations synchronized with vent CARDIAC: RRR ABDOMEN: Round, soft, bowel sounds active. OG with dark red secretions in suction tubing SKIN: Normal; no rash; no jaundice. MEDICAL SOCIOLOGIST: Unresponsive, on sedation Assessment and Plan Plan Assessment: - Ileus- Initial consult done on 02/25- pt was too unstable from a respiratory standpoint to go down for CT scan at that time KUB (03/02) --> Nonspecific bowel gas pattern. The previously seen dilated loop of bowel 02/28/18 has been decompressed. There is an NG tube within the stomach. Pt now appears to be stable on mechanical ventilation for transfer to CT scan - discussed with RN - Dark red secretions in suction tubing- some drop in H/H over night Yesterday was 9.3/31.6 currently 8/27.3, however has fluctuated some and was around the same on the 2nd and 3rd Eliquis currently on hold - Hypoxemia- intubated Plan: CT abdomen and pelvis W IV contrast today- discussed with RN Keep Eliquis on hold Serial H/H Transfuse as needed Will follow closely, EGD if needed on emergent basis Further recommendations based on CT findings and clinical course Pt has been seen and examined by myself and Dr. Joshua and this note is written on her behalf Amanda Conley March 04, 2018 10:59
[2018-03-04] MEDS: MIDAZOLAM 50 MG/50 ML INJ 50 ML IV PRN ×3 (11:05→22:25)
[2018-03-04] MEDS ORDERED: DIATRIZOATE MEGLUM/DIATRIZOATE SOD 9 ML CUP PO ONE (11:15)
[2018-03-04] MEDS ORDERED: EPOPROSTENOL NEB SOLUTION 10 NG/KG/MIN 100 ML NEB SCH ×2 (12:00)
[2018-03-04] MEDS: PROPRANOLOL HCL 10 MG TAB PO SCH ×3 (12:12→20:29)
[2018-03-04] MEDS: cefTRIAXone INJ 2,000 MG in SODIUM CHLORIDE 0.9% INJ 100 ML IV SCH (13:32)
[2018-03-04 15:23] LABS: INTERNATIONAL NORMALIZED RATIO 0.9 RATIO; PROTHROMBIN TIME - PATIENT 9.6 SEC (9.8-11.6)
[2018-03-04] MEDS ORDERED: IOHEXOL 350 MG/ML 10 ML VIAL (for RAD DIAG) IVCONTRAST ONE (18:08)
[2018-03-04 18:34] LABS: HEMOGLOBIN 9.4 GM/DL (13.0-17.0)
--- NOTE | 2018-03-04 18:35 | RADRPT ---
EXAM DATE/TIME: 03/04/2018 17:49 [facility] COMPARISON: CT PULMONARY ANGIOGRAM, February 14, 2018, 20:07. CT ABDOMEN & PELVIS W CONTRAST, December 13, 2016, 13 :01. INDICATIONS : Abdominal distention. IV CONTRAST: 65 cc Omnipaque 350 (iohexol) IV ORAL CONTRAST: Prescribed oral contrast ingested. RADIATION DOSE: 22.65 CTDIvol (mGy) ; Patient body habitus MEDICAL HISTORY : Deep venous thrombosis. Stroke Hernia, hiatal. SURGICAL HISTORY : a/v shunt, appendectomy, internal defibrillator, nephrectomy, kidney transplant ENCOUNTER: Initial ACUITY: 1 day PAIN SCALE: Non-responsive LOCATION: Bilateral abdomen TECHNIQUE: Volumetric scanning of the abdomen and pelvis was performed. Using automated exposure control and ad justment of the mA and/or kV according to patient size, radiation dose was kept as low as reasonably achievable to obtain optimal diagnostic quality images. DICOM format image data is available electro nically for review and comparison. FINDINGS: LOWER LUNGS: Moderate sized areas of pulmonary consolidation posterior lung bases, similar to the prior CT angiogr am study of 02/14/2018. LIVER: Homogeneous density without lesion. There is no dilation of the biliary tree. No calcified gallston es. SPLEEN: Normal size without lesion. PANCREAS: Within normal limits. KIDNEYS: 2 mm calculus in the upper pole of the left kidney. 1 cm cyst in the lateral midpole of the left kidn ey. No evidence of hydronephrosis. ADRENAL GLANDS: Within normal limits. VASCULAR: IVC filter in place. Aortic diameter within normal limits. BOWEL/MESENTERY: Moderate severity circumferential wall thickening of the cecum and ascending colon diffusely. Appendi x not identified. No evidence of bowel dilatation. Numerous colonic diverticula. No evidence of acute diverticulitis. No free air or free fluid. ABDOMINAL WALL: Within normal limits. RETROPERITONEUM: There is no lymphadenopathy. BLADDER: Distended. Leone catheter in place. REPRODUCTIVE: Within normal limits. INGUINAL: There is no lymphadenopathy or hernia. MUSCULOSKELETAL: Right hip prosthesis. Old rule out femoral neck fracture deformity. Diffuse fatty atrophy of the ilio psoas on the left.. CONCLUSION: 1. New diffuse circumferential wall thickening of the indicating colitis. 2. Punctate nonobstructing left renal calculus. 3. Urinary bladder is distended with Leone catheter in place. Leone catheter may be obstructed. 4. Old left femoral neck fracture. 5. Chronic bilateral lower lobe pulmonary consolidation. Momo Hand MD on March 04, 2018 at 18:25 Board Certified Radiologist. This report was verified electronically.
[2018-03-05] VITALS (21 sets, daily range): BP systolic 78–141; BP diastolic 63–101; PULSE 83–108; RESP 16–23; TEMP 97.2–99; O2SAT 92–99
[2018-03-05 01:00] LABS: HEMOGLOBIN 9.5 GM/DL (13.0-17.0)
[2018-03-05] MEDS: PROPOFOL 1000 MG/100 ML INJ 100 ML IV PRN ×5 (01:37→22:51)
[2018-03-05] MEDS: MIDAZOLAM 50 MG/50 ML INJ 50 ML IV PRN ×5 (03:10→23:30)
[2018-03-05] MEDS: RESP: ALBUTEROL 2.5 MG/IPRATROPIUM 0.5 MG NEB (SCH) NEB ×6 (03:17→23:17)
[2018-03-05] MEDS: RESP: ACETYLCYSTEINE 10% 30 ML NEB NEB SCH ×2 (03:17→07:08)
[2018-03-05 03:55] LABS: AUTOMATED NEUTROPHIL # 10.8 TH/MM3 (1.8-7.7); BASOPHIL # 0.1 TH/MM3 (0-0.2); EOSINOPHIL # 0.1 TH/MM3 (0-0.4); EOSINOPHIL % 0.6 % (0.0-4.0); HEMATOCRIT 32.4 % (39.0-51.0); HEMOGLOBIN 9.9 GM/DL (13.0-17.0); LYMPH % 10.4 % (9.0-44.0); LYMPHOCYTE # 1.3 TH/MM3 (1.0-4.8); MEAN CELL VOLUME 72.1 FL (80.0-100.0); MEAN CORPUSCULAR HEMOGLOBIN 22.1 PG (27.0-34.0); MEAN CORPUSCULAR HGB CONC 30.7 % (32.0-36.0); MEAN PLATELET VOLUME 8.7 FL (7.0-11.0); MONO % 3.5 % (0.0-8.0); MONOCYTE # 0.4 TH/MM3 (0-0.9); NEUT % 84.5 % (16.0-70.0); PLATELET COUNT 211 TH/MM3 (150-450); RED BLOOD COUNT 4.49 MIL/MM3 (4.50-5.90); WHITE BLOOD COUNT 12.7 TH/MM3 (4.0-11.0)
--- NOTE | 2018-03-05 03:58 | RADRPT ---
EXAM DATE/TIME: 03/05/2018 02:56 [facility] COMPARISON: CHEST SINGLE AP, March 04, 2018, 2:49. INDICATIONS : Shortness of breath, possible pulmonary disease. MEDICAL HISTORY : Diabetes mellitus type II. Chronic obstructive pulmonary disease. SURGICAL HISTORY : CABG. Appendectomy. IVC Filter placement. Nephrectomy ENCOUNTER: Subsequent ACUITY: 2 weeks PAIN SCORE: Non-responsive. LOCATION: Bilateral chest FINDINGS: Endotracheal tube, nasogastric tube and left neck central line are stable. There is been slight inter breezy worsening in aeration with decrease in lung volumes and persistent bibasilar consolidative change s left worse than right. Cardiac contours are grossly unchanged. CONCLUSION: Slight interval worsening in aeration Bebeto Leonard MD on March 05, 2018 at 3:55 Board Certified Radiologist. This report was verified electronically.
[2018-03-05] MEDS: CHLORHEXIDINE GLUCONATE 2 % 1 PACK (2 CLOTHS) TOP SCH (04:00)
[2018-03-05 04:26] LABS: BICARBONATE 31.7 MEQ/L (21.0-32.0); CALCIUM 8.4 MG/DL (8.5-10.1); CREATININE 0.68 MG/DL (0.60-1.30); MAGNESIUM 1.5 MG/DL (1.5-2.5); PHOSPHORUS 2.4 MG/DL (2.5-4.9)
[2018-03-05 04:32] LABS: BANDS 5 % (0-6); CORRECTED NUCLEATED RBC 1 /100 WBC (0-0); LYMPHOCYTES 8 % (9-44); MONOCYTES 2 % (0-8); NEUTROPHIL # MANUAL DIFF 11.4 TH/MM3 (1.8-7.7); NUCLEATED RED BLOOD CELL 1 (0-0); POLYS (SEG NEUTROPHILS) 85 % (16-70); TOXIC VACUOLATION PRESENT (NONE SEEN)
[2018-03-05 04:33] LABS: ACANTHOCYTES OCC (NORMAL); OVALOCYTES 1+ (NORMAL); SPHEROCYTES OCC (NORMAL)
[2018-03-05] MEDS: LORazepam 1 MG TAB PO SCH (05:25)
[2018-03-05] MEDS: RESP: BUDESONIDE 0.5 MG/2 ML NEB NEB SCH ×2 (07:08→20:17)
[2018-03-05] MEDS: methylPREDNISolone SOD SUCC 40 MG/1 ML VIAL IV PUSH SCH (08:25)
[2018-03-05] MEDS: SODIUM CHLORIDE 0.9% FLUSH 10 ML FLUSH IV FLUSH SCH ×2 (08:26→19:26)
[2018-03-05] MEDS: CHLORHEXIDINE 0.12% (ORAL KIT) 15 ML CUP MT SCH ×2 (08:26→19:25)
[2018-03-05] MEDS: POTASSIUM CHLORIDE 25 MEQ EFFERVESCENT TAB NG SCH (08:26)
[2018-03-05] MEDS: NYSTATIN 100,000 U/GM PWD 15 GM BTL TOPICAL SCH ×2 (08:27→19:26)
[2018-03-05] MEDS: PROPRANOLOL HCL 10 MG TAB PO SCH ×4 (08:28→19:26)
[2018-03-05] MEDS: MAGNESIUM SULFATE INJ 2 GM in SODIUM CHLORIDE 0.9% INJ 96 ML IV PRN (08:30)
--- NOTE | 2018-03-05 09:36 | HHI.GIFU ---
Subjective Remarks Pt remains on sedation and mechanically ventilated Abdomen soft Mother and brother at bedside Per RN there has not been any continued output from OG No BM in a few days Pt is on day 4? of TPN (Amanda Conley) Objective Vitals I&O Vital Signs Date Time Temp Pulse Resp B/P (MAP) Pulse Ox O2 Delivery O2 Flow Rate FiO2 03/05/18 07:08 92 50 03/05/18 05:00 103 20 127/80 (96) 92 03/05/18 04:18 97 50 03/05/18 04:00 50 03/05/18 04:00 97.2 94 19 129/84 (99) 93 03/05/18 04:00 94 03/05/18 03:01 92 22 138/80 (99) 99 141/88 (105) 03/05/18 02:00 83 16 116/71 (86) 99 120/75 (90) 03/05/18 02:00 85 03/05/18 01:00 96 50 03/05/18 01:00 85 16 106/63 (77) 96 99/67 (78) 03/05/18 00:00 50 03/05/18 00:00 86 03/05/18 00:00 97.6 86 16 120/69 (86) 97 94/74 (81) 03/04/18 23:00 76 16 129/82 (98) 100 129/93 (105) 03/04/18 22:00 82 16 108/60 (76) 99 89/81 (84) 03/04/18 22:00 82 03/04/18 21:01 73 16 116/74 (88) 100 94/87 (89) 03/04/18 20:04 100 50 03/04/18 20:00 97.2 79 16 123/79 (94) 100 128/73 (91) 03/04/18 20:00 50 03/04/18 20:00 79 03/04/18 18:09 100 100 03/04/18 18:00 79 03/04/18 16:00 97.5 68 16 141/79 (99) 100 03/04/18 16:00 55 03/04/18 16:00 68 03/04/18 15:41 98 50 03/04/18 14:00 71 03/04/18 12:00 74 03/04/18 12:00 55 03/04/18 12:00 97.6 72 16 96/63 (74) 99 103/61 (75) 03/04/18 11:54 100 50 03/04/18 11:50 97.6 75 16 104/62 100 03/04/18 11:35 97.6 76 16 108/69 100 03/04/18 10:45 55 03/04/18 10:00 94 I/O 03/04/18 03/04/18 03/04/18 03/05/18 03/05/18 03/05/18 06:59 14:59 22:59 06:59 14:59 22:59 Intake Total 460 ml 150 ml 710.5 ml 1062.2 ml Output Total 750 ml 1750 ml 2100 ml Balance -290 ml 150 ml -1039.5 ml -1037.8 ml Intake Oral Supplement 70 ml IV Total 400 ml 100 ml 310.5 ml 992.2 ml Packed Cells 400 ml Blood Product IV Normal Saline Flush 50 ml Other 60 ml Output Urine Total 750 ml 1750 ml 2100 ml Gastric Drainage Total 0 ml # Bowel Movements 0 0 Laboratory Laboratory Tests Test 03/04/18 14:42 03/04/18 16:15 03/05/18 00:40 03/05/18 03:00 Prothrombin Time 9.6 Prothromb Time International Ratio 0.9 Hemoglobin 9.4 9.5 9.9 Hematocrit 31.0 31.0 32.4 White Blood Count 12.7 Red Blood Count 4.49 Mean Corpuscular Volume 72.1 Mean Corpuscular Hemoglobin 22.1 Mean Corpuscular Hemoglobin Concent 30.7 Red Cell Distribution Width 26.0 Platelet Count 211 Mean Platelet Volume 8.7 Neutrophils (%) (Auto) 84.5 Lymphocytes (%) (Auto) 10.4 Monocytes (%) (Auto) 3.5 Eosinophils (%) (Auto) 0.6 Basophils (%) (Auto) 1.0 Neutrophils # (Auto) 10.8 Lymphocytes # (Auto) 1.3 Monocytes # (Auto) 0.4 Eosinophils # (Auto) 0.1 Basophils # (Auto) 0.1 CBC Comment AUTO DIFF Differential Total Cells Counted 100 Neutrophils % (Manual) 85 Band Neutrophils % 5 Lymphocytes % 8 Monocytes % 2 Neutrophils # (Manual) 11.4 Nucleated Red Blood Cells 1 Differential Comment FINAL DIFF MANUAL Toxic Vacuolation PRESENT Platelet Estimate NORMAL Platelet Morphology Comment NORMAL Basophilic Stippling MOD Spherocytes OCC Ovalocytes 1+ Acanthocytes OCC Blood Urea Nitrogen 25 Creatinine 0.68 Random Glucose 237 Calcium Level 8.4 Phosphorus Level 2.4 Magnesium Level 1.5 Sodium Level 140 Potassium Level 3.9 Chloride Level 102 Carbon Dioxide Level 31.7 Anion Gap 6 Estimat Glomerular Filtration Rate 125 Date/Time Source Procedure Growth Status 02/22/18 11:30 Blood Peripheral Aerobic Blood Culture - Final NO GROWTH IN 5 DAYS Complete 02/22/18 11:30 Blood Peripheral Anaerobic Blood Culture - Final NO GROWTH IN 5 DAYS Complete 02/26/18 16:44 Stool Stool Stool Occult Blood (BRIANA) - Final HEMOCCULT NEGATIVE Complete 03/03/18 12:00 Gastric Gastric Occult Blood - Final GASTROCCULT POSITIVE Complete 02/22/18 10:35 Sputum Endotracheal Gram Stain - Final Complete 02/22/18 10:35 Sputum Endotracheal Sputum Culture - Final HEAVY GROWTH NORMAL RESPIRATORY LUCAS Complete 02/14/18 10:45 Urine Catheterized Urine Urine Culture - Final NO GROWTH IN 48 HOURS. Complete Imaging Last Impressions Chest X-Ray 03/05/18 0600 Signed Impressions: Service Date/Time: Monday, March 05, 2018 02:56 - CONCLUSION: Slight interval worsening in aeration Bebeto Leonard MD Abdomen/Pelvis CT 03/04/18 1524 Signed Impressions: Service Date/Time: Sunday, March 04, 2018 17:49 - CONCLUSION: 1. New diffuse circumferential wall thickening of the indicating colitis. 2. Punctate nonobstructing left renal calculus. 3. Urinary bladder is distended with Leone catheter in place. Leone catheter may be obstructed. 4. Old left femoral neck fracture. 5. Chronic bilateral lower lobe pulmonary consolidation. Momo Hand MD Abdomen X-Ray 03/02/18 0000 Signed Impressions: Service Date/Time: February 09:24 - CONCLUSION: 1. Nonspecific bowel gas pattern. The previously seen dilated loop of bowel 02/28/18 has been decompressed. 2. There is an NG tube within the stomach. Kayden Ramírez MD Lower Extremity Ultrasound 02/22/18 0000 Signed Impressions: Service Date/Time: Thursday, February 22, 2018 20:03 - CONCLUSION: No venous thrombosis of either lower extremity. Bebeto Dominique MD Head CT 02/14/18 1204 Signed Impressions: Service Date/Time: Wednesday, February 14, 2018 14:09 - CONCLUSION: 1. Chronic ischemic changes in the parietal lobes. No change from previous study. 2. No acute intracranial abnormality or Tye Steinberg MD CT Angiography 02/14/18 1204 Signed Impressions: Service Date/Time: Wednesday, February 14, 2018 20:07 - CONCLUSION: 1. No evidence for pulmonary embolism. 2. Bibasilar consolidation. 3. Cardiomegaly. Tye Steinberg MD Physical Exam HEENT: Normocephalic; atraumatic CHEST: Respirations synchronized with vent CARDIAC: RRR ABDOMEN: Round, soft, bowel sounds active. OG clamped. SKIN: Normal; no rash; no jaundice. 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 The previously seen dilated loop of bowel 02/28/18 has been decompressed. There is an NG tube within the stomach. Pt now appears to be stable on mechanical ventilation for transfer to CT scan - discussed with RN - Dark red secretions in suction tubing- some drop in H/H over night Yesterday was 9.3/31.6 currently 8/27.3, however has fluctuated some and was around the same on the 2nd and 3rd Eliquis currently on hold - Hypoxemia- intubated (03/05) Per RN no continued drainage from OG tube, currently it is clamped. Pt received one unit of PRBCs yesterday, H/H has remained stable over night. Currently 9.9/ 32.4. He remains on Protonix gtt. No BM in a few days, pt has been on TPN for four days. CT abdomen and pelvis W IV contrast (03/04) --> New diffuse circumferential wall thickening of the indicating colitis. Punctate nonobstructing left renal calculus. Urinary bladder is distended with Leone catheter in place. Leone catheter may be obstructed.Old left femoral neck fracture. Chronic bilateral lower lobe pulmonary consolidation. Plan: EGD tomorrow if stable Obtain consent On TPN- NPO Protonix gtt Monitor H/H Transfuse as needed Further recommendations based on findings of above Pt has been seen and examined by myself and Dr. Joshua and this note is written on her behalf (Amanda Conley) Physician Comments seen, examined agree with above egd/colonoscopy (Tali Rodrigues MD) Amanda Conley March 05, 2018 09:36 Tali Rodrigues MD March 05, 2018 14:08
[2018-03-05] MEDS: MULTIVITAMIN INJ 5 ML, FOLIC ACID INJ 0.5 MG in AMINO ACID IN D5W W/ELECTROLYT 1,000 ML IV-CENTRAL SCH ×6 (10:01→22:51)
[2018-03-05] MEDS: cefTRIAXone INJ 2,000 MG in SODIUM CHLORIDE 0.9% INJ 100 ML IV SCH (13:08)
[2018-03-05] MEDS: INSULIN REGULAR (IV INFUSION) 100 UNITS in SODIUM CHLORIDE 0.9% INJ 99 ML IV PRN (13:17)
[2018-03-05] MEDS ORDERED: RESP: ALBUTEROL 2.5 MG/3 ML NEB (PRN) NEB (13:30)
[2018-03-05] MEDS ORDERED: POTASSIUM CHLORIDE 20 MEQ PWD PACKET PO ONE (13:30)
[2018-03-05] MEDS ORDERED: MAGNESIUM SULFATE 1 GM PREMIX 100 ML IV ONE (13:30)
--- NOTE | 2018-03-05 13:36 | HHI.CCPN ---
Subjective Remarks/Hospital Course Patient is a 47-year-old morbidly obese male with past medical history significant for obesity, obstructive sleep apnea clinically, history of DVT, chronic Eliquis use who was brought in by EMS for altered mental status and severe hypoxemia. Apparently per EMS end-tidal CO2 was in the 60s his initial sat was in the 30s, but with bagging came up to the 70s. Initial GCS apparently was 7 but improved with continued bag and mask ventilation in the ED. Sats remained in the low 80s. Patient initially refused intubation and was placed on BiPAP. Received duo nebs and Solu-Medrol and antibiotics (Azactam, Flagyl, vancomycin). Patient continued to be tachypneic and severely hypoxemic, and patient was intubated by the ER physician. Apparently difficult airway and was intubated on the third attempt. Patient was desaturating to low 80s even after intubation and I was called to the ED for assisting. I immediately evaluated the patient he continues to be in severe bronchospasm, severely hypoxemic. Additional breathing treatments ordered. I changed the vent settings to PCAC to target tidal volume 600-650 and reduce the rate to 14. PEEP increased to 10. Gradually oxygen saturation improved to 90. I placed a right IJ central line as the patient was borderline hypotensive. Chest x-ray showed apparently pulmonary vascular congestion. No definite infiltrate. Lactic acid 6. Appears patient has acute COPD exacerbation and severe sepsis, pulmonary embolism needs to be ruled out. IV Solu-Medrol DuoNeb breathing treatments will be continued. Patient takes Eliquis for PE in the past. Further workup and management based on results 02/15: Remains intubated heavily sedated. PEEP remains at 12 FiO2 has been weaned to 55%. CT PE protocol negative for pulmonary embolism, showed bibasilar significant consolidation indicative of pneumonia. Sputum Gram stain shows GPC. Add vancomycin. 02/16: Patient remains intubated remains critical. Remains hypoxemic on high vent support. On attempt to reduce PEEP, he desaturated and currently on 10 of PEEP. FiO2 50%. Sputum culture with MSSA and strep pneumo. Will discontinue Levaquin and Flagyl continue Azactam and vancomycin 02/17: Remains critical, CXR still showing pulmonary edema. IV Lasix repeat dose given. Wean PEEP to 8, FiO2 to 45%. Start SBT as tolerated 02/18: Patient remains intubated heavily sedated. On lightening sedation patient becomes very agitated. PEEP remains at 8 FiO2 down to 40%. Chest x- ray continues to show pulmonary vascular congestion 02/19: Patient transitioned to Precedex in the last 24 hours continues on CPAP trials 15/8/40%. Patient cooperative following commands. Chest x-ray pending. Aggressive diureses initiated BMP pending this afternoon. 02/20: While on Precedex CPAP trial was attempted. After about 15 minutes patient became severely tachypneic diaphoretic with respiratory rate in the 40s. Re sedated with 50 mg IV push of propofol, and restarting propofol infusion. CXR shows improving pulmonary vascular congestion. WBC count though is trending up. 02/21: No events over the night. Patient is currently on CPAP, PS 15/8/40%, with RR in the 30's and Vt low 300's. Patient is sedated with propofol and precedex. Tmax 100.4, I/O 2946/3020. 02/22: No events over the night. Patient is currently on propofol and Precedex, calm, opening eyes to voice stimuli, following commands. RASS of -2. T-max of 100.6. On 0.3 FiO2. Urine output is adequate. 02/23: Yesterday afternoon patient decompensated, requiring high PEEP and 100% O2 with sats in the mid 80s. Patient was switched to bilevel ventilation and started on inhaled Flolan with rapid improvement in his oxygenation. A central line and art line with placed and patient required 1 L fluid bolus. This morning patient is down to 0.4 FiO2. Sedation is achieved with propofol. No pressors. Decreased urine output over the night. T-max of 99. Still with significant NG tube output, over the last 24 hours 1200 mL's. Morning chest x- ray reviewed, significantly improved air entry at bases. 02/24: No events over the night. Due to improved O2 requirements, yesterday, patient was switched from APRV to PRVC mode of ventilation. FiO2 between 0.45 and 0.5, but patient remains on high PEEP, currently at 14. T-max of 99.8. Improved urine output, up to 2200 over the last 24 hours. 02/25: Patient remained sedated and intubated. No events overnight. T-max of 99 and I/O 2080/2200. Morning chest x-ray reviewed, no significant change compared to yesterday, still with bibasilar infiltrates. Oxygenation remains the same, FiO2 of 0.4 and PEEP at 14. Patient is sedated with propofol at 50 and Precedex at 1.5, awake, trying to talk, bucking the ventilator. His mother is present at bedside. 02/26: No events over the night. Worsening oxygenation noted on blood gas this morning, FiO2 increased to 0.6. Patient remains on propofol and Precedex for sedation, he is wide awake following commands. T-max of 98.7. I/O 2170/1650. Morning chest x-ray reviewed, no significant change compared to yesterday. ET tube left IJ central line remain in place. 02/27: Yesterday, due to worsening hypoxia patient was placed on bilevel ventilation with improvement in his oxygenation. Over the night he was switched back to PRVC (unclear why). This morning patient was placed back on APRV, tolerating it well so far, down to 50% O2. He had one episode of low BP that resolved with 500 cc fluid bolus. Still with significant NG tube output. Unable to have CT abdomen and pelvis due to high O2 requirements. Patient remains afebrile, with a T-max of 98.3, urine output 1900 mL's over the last 24 hours. Morning chest x-ray reviewed, improvement in bibasilar opacities, right side worse than left. 02/28: T-max 100.1. Patient continues on APRV. Patient continues on Flolan, electrolytes noted to be imbalanced, potassium currently being repleted. 03/01: Afebrile. Extensive discussion with family regarding tracheostomy. Patient transitioning to PRVC/ AC this a.m., and attempts to wean O2 requirements and Flolan. Patient remains sedated for ventilator synchrony. 03/02: Afebrile. Patient tolerated ventilator settings of PRVC/AC to FiO2 of 80% with improvement in oxygenation during the night. FiO2 decreased to 70%. Chest x-ray early this a.m. showed mucous plugging complete left lung, bronchoscopy performed, acetylcysteine initiated. 03/03: T-max 99.3. Chest x-ray left lung aeration much improved. O2 requirements decreased to 55% PaO2 106 this a.m.. We will begin to wean Flolan off. TPN increased to 75 cc/hour per dietary recommendations with subsequent elevation in glucose hyperglycemia in the high 200s-300s, insulin infusion initiated. Addendum-[id number]. Per report of nurse patient noted to have bright red blood via NG tube, testing Hemoccult, Xarelto placed on hold, serial H&H's being obtained. Hemodynamically stable Protonix infusion initiated. 03/04: Afebrile. Yesterday afternoon the patient was noted to have bright red blood emanating from NG tube new-onset Hemoccult positive NG tube clamped patient placed on Protonix infusion, Eliquis placed on hold. Dr. Sam notified. Patient's abdomen soft. Continue weaning of FiO2 for improved oxygenation continued. The patient was noted to have hypertensive episodes yesterday propranolol was reinstituted, now dosage decreased with parameters per nursing staff. CT of the abdomen with p.o. contrast pending. Hemoglobin overnight was noted to drop last evening 1 g/dL. patient to be transfused 1 unit of packed red blood cells with posttransfusion CBC pending. Hemoglobin H& H to be trending every 12 hours. Subjective 03/05: Remains on pantoprazole drip. Hemodynamically stable. Hemoglobin appears to be stable. Plan for EGD in a.m. 03/06. Arousable and follows commands on midazolam drip at 9 mg an hour. No bowel movement. Objective Vital Signs Date Time Temp Pulse Resp B/P (MAP) Pulse Ox O2 Delivery O2 Flow Rate FiO2 03/05/18 12:00 60 03/05/18 12:00 98.7 96 18 130/83 (99) 94 116/88 (97) Intake and Output 03/05/18 03/05/18 03/06/18 08:00 16:00 00:00 Intake Total 1062.2 ml Output Total 2100 ml Balance -1037.8 ml Result Diagram: 03/05/18 0300 03/05/18 0300 Other Results Microbiology Date/Time Source Procedure Growth Status 02/22/18 11:30 Blood Peripheral Aerobic Blood Culture - Final NO GROWTH IN 5 DAYS Complete 02/22/18 11:30 Blood Peripheral Anaerobic Blood Culture - Final NO GROWTH IN 5 DAYS Complete 02/26/18 16:44 Stool Stool Stool Occult Blood (BRIANA) - Final HEMOCCULT NEGATIVE Complete 03/03/18 12:00 Gastric Gastric Occult Blood - Final GASTROCCULT POSITIVE Complete 02/22/18 10:35 Sputum Endotracheal Gram Stain - Final Complete 02/22/18 10:35 Sputum Endotracheal Sputum Culture - Final HEAVY GROWTH NORMAL RESPIRATORY LUCAS Complete 02/14/18 10:45 Urine Catheterized Urine Urine Culture - Final NO GROWTH IN 48 HOURS. Complete Imaging Last Impressions Chest X-Ray 03/05/18 0600 Signed Impressions: Service Date/Time: Monday, March 05, 2018 02:56 - CONCLUSION: Slight interval worsening in aeration Bebeto Leonard MD Abdomen/Pelvis CT 03/04/18 1524 Signed Impressions: Service Date/Time: Sunday, March 04, 2018 17:49 - CONCLUSION: 1. New diffuse circumferential wall thickening of the indicating colitis. 2. Punctate nonobstructing left renal calculus. 3. Urinary bladder is distended with Leone catheter in place. Leone catheter may be obstructed. 4. Old left femoral neck fracture. 5. Chronic bilateral lower lobe pulmonary consolidation. Momo Hand MD Abdomen X-Ray 03/02/18 0000 Signed Impressions: Service Date/Time: February 09:24 - CONCLUSION: 1. Nonspecific bowel gas pattern. The previously seen dilated loop of bowel 02/28/18 has been decompressed. 2. There is an NG tube within the stomach. Kayden Ramírez MD Lower Extremity Ultrasound 02/22/18 0000 Signed Impressions: Service Date/Time: Thursday, February 22, 2018 20:03 - CONCLUSION: No venous thrombosis of either lower extremity. Bebeto Dominique MD Head CT 02/14/18 1204 Signed Impressions: Service Date/Time: Wednesday, February 14, 2018 14:09 - CONCLUSION: 1. Chronic ischemic changes in the parietal lobes. No change from previous study. 2. No acute intracranial abnormality or Tye Steinberg MD CT Angiography 02/14/18 1204 Signed Impressions: Service Date/Time: Wednesday, February 14, 2018 20:07 - CONCLUSION: 1. No evidence for pulmonary embolism. 2. Bibasilar consolidation. 3. Cardiomegaly. Tye Steinberg MD Objective Remarks General -chronically ill-appearing middle-aged gentleman, intubated and sedated for optimal ventilator synchrony HEENT - pupils are equal and reactive, sclerae are anicteric, no scleral edema, no JVD, neck is supple, no carotid bruit, + ETT, + OGT, left IJ central line () CV - regular heart sounds, no murmurs, rubs or gallops appreciated Chest - some scattered coarse breath sounds bilateral, no wheezes, improved air entry. Diminished breath sounds noted left Abdomen -soft, nondistended, non-tender, BS hypoactive, no hepatomegaly, no splenomegaly TPN infusion Skin - no rashes, no cyanosis appreciated Extremities - warm and well perfused, no edema, + peripheral pulses RLE, no clubbing, LLE AKA Neuro -RASS -2 intubated, when previously on sedation vacation awake, follows commands, moves extremities x 4 Urinary Catheter: Yes Assessment to: Continue Leone insert reason: Prolonged Immobilization Vascular Central Line Catheter: Yes Assessment to: Continue Date of Insertion: Feb 23, 2018 Line: Central Venous Catheter Side: Left A/P Assessment and Plan Neuro/Psych: Acute metabolic encephalopathy Depressive disorder NOS History of CVA 3 -left frontoparietal THC use Currently on propofol drip at 30 mcg/kg/min/midazolam drip at 9 mg now for sedation/analgesia while intubated Goal of RASS -2 Daily sedation vacation when appropriate Fentanyl 50 mcg every 2 hours as needed breakthrough pain/7 through 10 only secondary to ileus Dexmedetomidine held secondary to symptomatically bradycardia Ofirmev 1 g IV every 8 hours as needed fever UDS + THC CV: Hypertension/essential Hyperlipidemia Scheduled on propranolol 10 mg every 6 hours At home on propranolol 20 mg 4 times daily and amlodipine 10 mg daily As needed labetalol, hydralazine for breakthrough hypertension Currently on Clinimix E at 75 cc an hour Holding lipid-lowering agent secondary to n.p.o. status. Resume clinically indicated. Home on pravastatin 40 mg p.o. daily Resp: Acute hypoxic respiratory failure -no significant improvement despite full support for 14 days Bibasilar MSSA and strep pneumo pneumonia -patient remains afebrile, leukocytosis is resolving Acute COPD exacerbation -resolved PRVC 20/500/1.1/12/60 Ventilator bundle Albuterol/ipratropium aerosols every 4 hours with albuterol aerosols every 2 hours as needed dyspnea Hypertonic saline aerosols every 4 hours 4 days for secretion thinning Chest x-ray 03/05 revealed worsening atelectasis GI: GI bleed Colitis Continue pantoprazole drip at 8 mg an hour GI consultation likely EGD in a.m. 03/06 CT abdomen/pelvis 02/03 revealed cerclage wall thickening of the colon, nonobstructing left renal calculus, old left femoral neck fracture Ileus -03/02 repeat KUB decompressed bowel loop : Leone catheter has been placed for accurate I's and O's in a critically ill patient Endo: Hyperglycemia Continue insulin drip currently at 10 units an hour to maintain euglycemia Renal: Left nonobstructing renal stone Creatinine currently within normal limits Monitor urine output Accurate I's and O's Heme: Microcytic anemia Leukocytosis Chronic apixaban use -on hold secondary to GI bleed History of DVT and PE s/p IVC filter Anticoagulation hold secondary to GI bleed Monitor CBC daily. Follow trends Hemoglobin every 12 hours Transfuse 1 unit PRBCs during this hospitalization ID: Staph aureus/strep pneumo sputum positive Currently on ceftriaxone to complete 14 days therapy. Started 02/23. Noted penicillin allergy but has been on for several days without incident MSK: Old left femoral neck fracture Elevated BMI Weight loss encouraged PT evaluate and treat FEN: Hypomagnesia Continue Clinimix E 4.25/75 at 75 cc an hour/nutrition's recommendations. Receiving lipids with propofol 3 g mag sulfate IV 1 now. Access -Left IJ CVL placed 02/23 Prophylax -GI -pantoprazole drip -DVT -SCD/pharmacological prophylaxis on hold secondary to GI bleed Level 2 follow-up Raghu Shirley MD March 05, 2018 13:36
[2018-03-05] MEDS ORDERED: ACETAMINOPHEN 1000 MG/100 ML 100 ML IV PRN (14:00)
[2018-03-05] MEDS ORDERED: MAGNESIUM CITRATE SOLN 300 ML BTL PO ONE ×2 (14:15→20:00)
[2018-03-05] MEDS: ARTIFICIAL TEARS OPTH SOLN 15 ML BTL EACH EYE SCH ×2 (14:59→19:26)
[2018-03-05] MEDS: MAGNESIUM SULFATE 1 GM PREMIX 100 ML IV SCH ×2 (14:59→15:00)
[2018-03-05 15:37] LABS: HEMATOCRIT 31.9 % (39.0-51.0); HEMOGLOBIN 9.7 GM/DL (13.0-17.0)
[2018-03-05] MEDS ORDERED: RESP: SODIUM CHLORIDE 3% 4 ML NEB NEB SCH (16:00)
[2018-03-05] MEDS: RESP: SODIUM CHLORIDE 3% 4 ML NEB NEB SCH ×3 (16:02→23:17)
[2018-03-05] MEDS: PANTOPRAZOLE INJ 80 MG in SODIUM CHLORIDE 0.9% INJ 100 ML IV SCH (18:25)
[2018-03-05] MEDS: SODIUM CHLORIDE 0.9% FLUSH 10 ML FLUSH IV FLUSH PRN (19:26)
[2018-03-06] VITALS (19 sets, daily range): BP systolic 136; BP diastolic 92; PULSE 66–108; RESP 20; O2SAT 92–100
[2018-03-06] MEDS: INSULIN REGULAR (IV INFUSION) 100 UNITS in SODIUM CHLORIDE 0.9% INJ 99 ML IV PRN (01:07)
--- NOTE | 2018-03-06 01:52 | RADRPT ---
EXAM DATE/TIME: 03/06/2018 01:09 [facility] COMPARISON: CHEST SINGLE AP, March 05, 2018, 2:56. INDICATIONS : Shortness of breath, possible pulmonary disease. MEDICAL HISTORY : Diabetes mellitus type II. Chronic obstructive pulmonary disease. SURGICAL HISTORY : CABG. Appendectomy. Nephrectomy ENCOUNTER: Subsequent ACUITY: 2 weeks PAIN SCORE: Non-responsive. LOCATION: Bilateral chest FINDINGS: A single view of the chest demonstrates a bilateral infiltrates left greater than right. The endotrac heal tube, nasogastric tube left IJ central line all in good position. The cardiomediastinal contours are unremarkable. Osseous structures are intact. CONCLUSION: Bibasilar infiltrates left greater than right.. Jadiel Gómez MD on March 06, 2018 at 1:51 Board Certified Radiologist. This report was verified electronically.
[2018-03-06] MEDS: PROPOFOL 1000 MG/100 ML INJ 100 ML IV PRN ×5 (03:06→21:03)
[2018-03-06 03:57] LABS: AUTOMATED NEUTROPHIL # 8.1 TH/MM3 (1.8-7.7); BASOPHIL # 0.4 TH/MM3 (0-0.2); BASOPHIL % 3.9 % (0.0-2.0); EOSINOPHIL # 0.1 TH/MM3 (0-0.4); EOSINOPHIL % 1.1 % (0.0-4.0); HEMATOCRIT 32.3 % (39.0-51.0); HEMOGLOBIN 10.2 GM/DL (13.0-17.0); LYMPH % 7.9 % (9.0-44.0); LYMPHOCYTE # 0.8 TH/MM3 (1.0-4.8); MEAN CELL VOLUME 71.9 FL (80.0-100.0); MEAN CORPUSCULAR HEMOGLOBIN 22.6 PG (27.0-34.0); MEAN CORPUSCULAR HGB CONC 31.5 % (32.0-36.0); MONO % 3.9 % (0.0-8.0); MONOCYTE # 0.4 TH/MM3 (0-0.9); NEUT % 83.2 % (16.0-70.0); PLATELET COUNT 208 TH/MM3 (150-450); RED CELL DISTRIBUTION WIDTH 26.9 % (11.6-17.2); WHITE BLOOD COUNT 9.8 TH/MM3 (4.0-11.0)
[2018-03-06] MEDS: CHLORHEXIDINE GLUCONATE 2 % 1 PACK (2 CLOTHS) TOP SCH (04:00)
[2018-03-06 04:13] LABS: PROTHROMBIN TIME - PATIENT 9.8 SEC (9.8-11.6)
[2018-03-06] MEDS: RESP: SODIUM CHLORIDE 3% 4 ML NEB NEB SCH ×6 (04:16→23:48)
[2018-03-06] MEDS: RESP: ALBUTEROL 2.5 MG/IPRATROPIUM 0.5 MG NEB (SCH) NEB ×6 (04:16→23:48)
[2018-03-06 04:18] LABS: ALBUMIN 2.2 GM/DL (3.4-5.0); ALT (GPT) 22 U/L (12-78); AST (GOT) 12 U/L (15-37); BICARBONATE 31.4 MEQ/L (21.0-32.0); BLOOD UREA NITROGEN 20 MG/DL (7-18); CALCIUM 8.7 MG/DL (8.5-10.1); CHLORIDE 105 MEQ/L (98-107); CREATININE 0.63 MG/DL (0.60-1.30); GLOMERULAR FILTRATION RATE 137 ML/MIN (>89); GLUCOSE,RANDOM 198 MG/DL (74-106); PHOSPHORUS 2.6 MG/DL (2.5-4.9); SODIUM (NA) 144 MEQ/L (136-145)
[2018-03-06 04:21] LABS: ALKALINE PHOSPHATASE 56 U/L (45-117); TOTAL BILIRUBIN ADULT 0.3 MG/DL (0.2-1.0)
[2018-03-06 05:14] LABS: BANDS 2 % (0-6); BASOPHILS 1 % (0-2); CORRECTED NUCLEATED RBC 1 /100 WBC (0-0); LYMPHOCYTES 14 % (9-44); METAMYELOCYTES 1 % (0-1); MONOCYTES 5 % (0-8); MYELOCYTES 1 % (0-0); NEUTROPHIL # MANUAL DIFF 7.8 TH/MM3 (1.8-7.7); NUCLEATED RED BLOOD CELL 1 (0-0); POLYS (SEG NEUTROPHILS) 76 % (16-70)
[2018-03-06 05:21] LABS: POLYCHROMASIA 2.3 % (0.0-1.9)
[2018-03-06] MEDS: PANTOPRAZOLE INJ 80 MG in SODIUM CHLORIDE 0.9% INJ 100 ML IV SCH (05:42)
[2018-03-06] MEDS: MIDAZOLAM 50 MG/50 ML INJ 50 ML IV PRN ×3 (05:42→21:03)
[2018-03-06] MEDS: ARTIFICIAL TEARS OPTH SOLN 15 ML BTL EACH EYE SCH ×3 (05:43→21:01)
[2018-03-06] MEDS: RESP: BUDESONIDE 0.5 MG/2 ML NEB NEB SCH ×2 (07:50→20:01)
[2018-03-06] MEDS: PROPRANOLOL HCL 10 MG TAB PO SCH ×4 (09:18→21:01)
[2018-03-06] MEDS: methylPREDNISolone SOD SUCC 40 MG/1 ML VIAL IV PUSH SCH (09:26)
[2018-03-06] MEDS: SODIUM CHLORIDE 0.9% FLUSH 10 ML FLUSH IV FLUSH SCH ×2 (09:27→21:01)
[2018-03-06] MEDS: CHLORHEXIDINE 0.12% (ORAL KIT) 15 ML CUP MT SCH ×2 (09:27→20:59)
[2018-03-06] MEDS: NYSTATIN 100,000 U/GM PWD 15 GM BTL TOPICAL SCH ×2 (09:27→21:01)
--- NOTE | 2018-03-06 10:03 | HHI.CCPN ---
Subjective Remarks/Hospital Course Patient is a 47-year-old morbidly obese male with past medical history significant for obesity, obstructive sleep apnea clinically, history of DVT, chronic Eliquis use who was brought in by EMS for altered mental status and severe hypoxemia. Apparently per EMS end-tidal CO2 was in the 60s his initial sat was in the 30s, but with bagging came up to the 70s. Initial GCS apparently was 7 but improved with continued bag and mask ventilation in the ED. Sats remained in the low 80s. Patient initially refused intubation and was placed on BiPAP. Received duo nebs and Solu-Medrol and antibiotics (Azactam, Flagyl, vancomycin). Patient continued to be tachypneic and severely hypoxemic, and patient was intubated by the ER physician. Apparently difficult airway and was intubated on the third attempt. Patient was desaturating to low 80s even after intubation and I was called to the ED for assisting. I immediately evaluated the patient he continues to be in severe bronchospasm, severely hypoxemic. Additional breathing treatments ordered. I changed the vent settings to PCAC to target tidal volume 600-650 and reduce the rate to 14. PEEP increased to 10. Gradually oxygen saturation improved to 90. I placed a right IJ central line as the patient was borderline hypotensive. Chest x-ray showed apparently pulmonary vascular congestion. No definite infiltrate. Lactic acid 6. Appears patient has acute COPD exacerbation and severe sepsis, pulmonary embolism needs to be ruled out. IV Solu-Medrol DuoNeb breathing treatments will be continued. Patient takes Eliquis for PE in the past. Further workup and management based on results 02/15: Remains intubated heavily sedated. PEEP remains at 12 FiO2 has been weaned to 55%. CT PE protocol negative for pulmonary embolism, showed bibasilar significant consolidation indicative of pneumonia. Sputum Gram stain shows GPC. Add vancomycin. 02/16: Patient remains intubated remains critical. Remains hypoxemic on high vent support. On attempt to reduce PEEP, he desaturated and currently on 10 of PEEP. FiO2 50%. Sputum culture with MSSA and strep pneumo. Will discontinue Levaquin and Flagyl continue Azactam and vancomycin 02/17: Remains critical, CXR still showing pulmonary edema. IV Lasix repeat dose given. Wean PEEP to 8, FiO2 to 45%. Start SBT as tolerated 02/18: Patient remains intubated heavily sedated. On lightening sedation patient becomes very agitated. PEEP remains at 8 FiO2 down to 40%. Chest x- ray continues to show pulmonary vascular congestion 02/19: Patient transitioned to Precedex in the last 24 hours continues on CPAP trials 15/8/40%. Patient cooperative following commands. Chest x-ray pending. Aggressive diureses initiated BMP pending this afternoon. 02/20: While on Precedex CPAP trial was attempted. After about 15 minutes patient became severely tachypneic diaphoretic with respiratory rate in the 40s. Re sedated with 50 mg IV push of propofol, and restarting propofol infusion. CXR shows improving pulmonary vascular congestion. WBC count though is trending up. 02/21: No events over the night. Patient is currently on CPAP, PS 15/8/40%, with RR in the 30's and Vt low 300's. Patient is sedated with propofol and precedex. Tmax 100.4, I/O 2946/3020. 02/22: No events over the night. Patient is currently on propofol and Precedex, calm, opening eyes to voice stimuli, following commands. RASS of -2. T-max of 100.6. On 0.3 FiO2. Urine output is adequate. 02/23: Yesterday afternoon patient decompensated, requiring high PEEP and 100% O2 with sats in the mid 80s. Patient was switched to bilevel ventilation and started on inhaled Flolan with rapid improvement in his oxygenation. A central line and art line with placed and patient required 1 L fluid bolus. This morning patient is down to 0.4 FiO2. Sedation is achieved with propofol. No pressors. Decreased urine output over the night. T-max of 99. Still with significant NG tube output, over the last 24 hours 1200 mL's. Morning chest x- ray reviewed, significantly improved air entry at bases. 02/24: No events over the night. Due to improved O2 requirements, yesterday, patient was switched from APRV to PRVC mode of ventilation. FiO2 between 0.45 and 0.5, but patient remains on high PEEP, currently at 14. T-max of 99.8. Improved urine output, up to 2200 over the last 24 hours. 02/25: Patient remained sedated and intubated. No events overnight. T-max of 99 and I/O 2080/2200. Morning chest x-ray reviewed, no significant change compared to yesterday, still with bibasilar infiltrates. Oxygenation remains the same, FiO2 of 0.4 and PEEP at 14. Patient is sedated with propofol at 50 and Precedex at 1.5, awake, trying to talk, bucking the ventilator. His mother is present at bedside. 02/26: No events over the night. Worsening oxygenation noted on blood gas this morning, FiO2 increased to 0.6. Patient remains on propofol and Precedex for sedation, he is wide awake following commands. T-max of 98.7. I/O 2170/1650. Morning chest x-ray reviewed, no significant change compared to yesterday. ET tube left IJ central line remain in place. 02/27: Yesterday, due to worsening hypoxia patient was placed on bilevel ventilation with improvement in his oxygenation. Over the night he was switched back to PRVC (unclear why). This morning patient was placed back on APRV, tolerating it well so far, down to 50% O2. He had one episode of low BP that resolved with 500 cc fluid bolus. Still with significant NG tube output. Unable to have CT abdomen and pelvis due to high O2 requirements. Patient remains afebrile, with a T-max of 98.3, urine output 1900 mL's over the last 24 hours. Morning chest x-ray reviewed, improvement in bibasilar opacities, right side worse than left. 02/28: T-max 100.1. Patient continues on APRV. Patient continues on Flolan, electrolytes noted to be imbalanced, potassium currently being repleted. 03/01: Afebrile. Extensive discussion with family regarding tracheostomy. Patient transitioning to PRVC/ AC this a.m., and attempts to wean O2 requirements and Flolan. Patient remains sedated for ventilator synchrony. 03/02: Afebrile. Patient tolerated ventilator settings of PRVC/AC to FiO2 of 80% with improvement in oxygenation during the night. FiO2 decreased to 70%. Chest x-ray early this a.m. showed mucous plugging complete left lung, bronchoscopy performed, acetylcysteine initiated. 03/03: T-max 99.3. Chest x-ray left lung aeration much improved. O2 requirements decreased to 55% PaO2 106 this a.m.. We will begin to wean Flolan off. TPN increased to 75 cc/hour per dietary recommendations with subsequent elevation in glucose hyperglycemia in the high 200s-300s, insulin infusion initiated. Addendum-[id number]. Per report of nurse patient noted to have bright red blood via NG tube, testing Hemoccult, Xarelto placed on hold, serial H&H's being obtained. Hemodynamically stable Protonix infusion initiated. 03/04: Afebrile. Yesterday afternoon the patient was noted to have bright red blood emanating from NG tube new-onset Hemoccult positive NG tube clamped patient placed on Protonix infusion, Eliquis placed on hold. Dr. Sam notified. Patient's abdomen soft. Continue weaning of FiO2 for improved oxygenation continued. The patient was noted to have hypertensive episodes yesterday propranolol was reinstituted, now dosage decreased with parameters per nursing staff. CT of the abdomen with p.o. contrast pending. Hemoglobin overnight was noted to drop last evening 1 g/dL. patient to be transfused 1 unit of packed red blood cells with posttransfusion CBC pending. Hemoglobin H& H to be trending every 12 hours. 03/05: Remains on pantoprazole drip. Hemodynamically stable. Hemoglobin appears to be stable. Plan for EGD in a.m. 03/06. Arousable and follows commands on midazolam drip at 9 mg an hour. No bowel movement. Subjective 03/06: Plan for endoscopy today per GI. FiO2 stable at 50%. Tube feeds remain on hold. Tolerating TPN and remains on insulin drip. BM 3 with bowel prep. Hemoglobin stable Objective Vital Signs Date Time Temp Pulse Resp B/P (MAP) Pulse Ox O2 Delivery O2 Flow Rate FiO2 03/06/18 07:51 93 50 03/06/18 06:00 90 03/05/18 22:00 20 111/64 (80) 99/69 (79) 03/05/18 20:00 98.9 Intake and Output 03/06/18 03/06/18 03/07/18 08:00 16:00 00:00 Intake Total 1151 ml Output Total 1100 ml Balance 51 ml Result Diagram: 03/06/18 0335 03/06/18 0335 Other Results Microbiology Date/Time Source Procedure Growth Status 02/22/18 11:30 Blood Peripheral Aerobic Blood Culture - Final NO GROWTH IN 5 DAYS Complete 02/22/18 11:30 Blood Peripheral Anaerobic Blood Culture - Final NO GROWTH IN 5 DAYS Complete 02/26/18 16:44 Stool Stool Stool Occult Blood (BRIANA) - Final HEMOCCULT NEGATIVE Complete 03/03/18 12:00 Gastric Gastric Occult Blood - Final GASTROCCULT POSITIVE Complete 03/05/18 14:00 Sputum Endotracheal Gram Stain - Final Resulted 03/05/18 14:00 Sputum Endotracheal Sputum Culture Pending Resulted 02/14/18 10:45 Urine Catheterized Urine Urine Culture - Final NO GROWTH IN 48 HOURS. Complete Imaging Last Impressions Chest X-Ray 03/06/18 0600 Signed Impressions: Service Date/Time: Tuesday, March 06, 2018 01:09 - CONCLUSION: Bibasilar infiltrates left greater than right.. Jadiel Gómez MD Abdomen/Pelvis CT 03/04/18 1524 Signed Impressions: Service Date/Time: Sunday, March 04, 2018 17:49 - CONCLUSION: 1. New diffuse circumferential wall thickening of the indicating colitis. 2. Punctate nonobstructing left renal calculus. 3. Urinary bladder is distended with Leone catheter in place. Leone catheter may be obstructed. 4. Old left femoral neck fracture. 5. Chronic bilateral lower lobe pulmonary consolidation. Momo Hand MD Abdomen X-Ray 03/02/18 0000 Signed Impressions: Service Date/Time: February 09:24 - CONCLUSION: 1. Nonspecific bowel gas pattern. The previously seen dilated loop of bowel 02/28/18 has been decompressed. 2. There is an NG tube within the stomach. Kayden Ramírez MD Lower Extremity Ultrasound 02/22/18 0000 Signed Impressions: Service Date/Time: Thursday, February 22, 2018 20:03 - CONCLUSION: No venous thrombosis of either lower extremity. Bebeto Dominique MD Head CT 02/14/18 1204 Signed Impressions: Service Date/Time: Wednesday, February 14, 2018 14:09 - CONCLUSION: 1. Chronic ischemic changes in the parietal lobes. No change from previous study. 2. No acute intracranial abnormality or Tye Steinberg MD CT Angiography 02/14/18 1204 Signed Impressions: Service Date/Time: Wednesday, February 14, 2018 20:07 - CONCLUSION: 1. No evidence for pulmonary embolism. 2. Bibasilar consolidation. 3. Cardiomegaly. Tye Steinberg MD Objective Remarks General -chronically ill-appearing middle-aged gentleman, intubated and sedated for optimal ventilator synchrony HEENT - pupils are equal and reactive, sclerae are anicteric, no scleral edema, no JVD, neck is supple, no carotid bruit, + ETT, + OGT, left IJ central line () CV - regular heart sounds, no murmurs, rubs or gallops appreciated Chest - some scattered coarse breath sounds bilateral, no wheezes, improved air entry. Diminished breath sounds noted left Abdomen -soft, nondistended, non-tender, BS hypoactive, no hepatomegaly, no splenomegaly TPN infusion Skin - no rashes, no cyanosis appreciated Extremities - warm and well perfused, no edema, + peripheral pulses RLE, no clubbing, LLE AKA Neuro -RASS -2 intubated, when previously on sedation vacation awake, follows commands, moves extremities x 4 Urinary Catheter: Yes Assessment to: Continue Leone insert reason: Prolonged Immobilization Vascular Central Line Catheter: Yes Assessment to: Continue Date of Insertion: Feb 23, 2018 Line: Central Venous Catheter Side: Left A/P Assessment and Plan Neuro/Psych: Acute metabolic encephalopathy Depressive disorder NOS History of CVA 3 -left frontoparietal THC use Currently on propofol drip at 30 mcg/kg/min/midazolam drip at 9 mg now for sedation/analgesia while intubated Goal of RASS -2 Daily sedation vacation when appropriate Fentanyl 50 mcg every 2 hours as needed breakthrough pain/7 through 10 only secondary to ileus Dexmedetomidine held secondary to symptomatically bradycardia Ofirmev 1 g IV every 8 hours as needed fever UDS + THC CV: Hypertension/essential Hyperlipidemia Scheduled on propranolol 10 mg every 6 hours At home on propranolol 20 mg 4 times daily and amlodipine 10 mg daily As needed labetalol, hydralazine for breakthrough hypertension Currently on Clinimix E .25/25 at 75 cc an hour Holding lipid-lowering agent secondary to n.p.o. status. Resume clinically indicated. Home on pravastatin 40 mg p.o. daily Resp: Acute hypoxic respiratory failure -no significant improvement despite full support for 14 days Bibasilar MSSA and strep pneumo pneumonia -patient remains afebrile, leukocytosis is resolving Acute COPD exacerbation -resolved PRVC 20/500/1.11/11/49 Ventilator bundle Albuterol/ipratropium aerosols every 4 hours with albuterol aerosols every 2 hours as needed dyspnea Hypertonic saline aerosols every 4 hours 4 days for secretion thinning Chest x-ray 03/06 revealed worsening atelectasis/infiltrates bilaterally GI: GI bleed Colitis Continue pantoprazole drip at 8 mg an hour GI consultation likely EGD/colonoscopy 03/06 CT abdomen/pelvis 02/03 revealed cerclage wall thickening of the colon, nonobstructing left renal calculus, old left femoral neck fracture Ileus -03/02 repeat KUB decompressed bowel loop : Leone catheter has been placed for accurate I's and O's in a critically ill patient Endo: Hyperglycemia Continue insulin drip currently at 10 units an hour to maintain euglycemia Renal: Left nonobstructing renal stone Creatinine currently within normal limits Monitor urine output Accurate I's and O's Heme: Microcytic anemia Chronic apixaban use -on hold secondary to GI bleed History of DVT and PE s/p IVC filter Anticoagulation hold secondary to GI bleed Monitor CBC daily. Follow trends Hemoglobin every 12 hours Transfuse 1 unit PRBCs during this hospitalization ID: Staph aureus/strep pneumo sputum positive Currently on ceftriaxone to complete 14 days therapy. Started 02/23. Noted penicillin allergy but has been on for several days without incident MSK: Old left femoral neck fracture Elevated BMI Weight loss encouraged PT evaluate and treat FEN: Continue Clinimix E 4.25/75 at 75 cc an hour/nutrition's recommendations. Receiving lipids with propofol Access -Left IJ CVL placed 02/23 Prophylax -GI -pantoprazole drip -DVT -SCD/pharmacological prophylaxis on hold secondary to GI bleed Level 2 follow-up Raghu Shirley MD March 06, 2018 10:03
[2018-03-06] MEDS ORDERED: PROPOFOL 200 MG/20 ML AMP IV ONE (12:00)
[2018-03-06] MEDS: MULTIVITAMIN INJ 5 ML, FOLIC ACID INJ 0.5 MG in AMINO ACID IN D5W W/ELECTROLYT 1,000 ML IV-CENTRAL SCH ×6 (12:07→21:02)
--- NOTE | 2018-03-06 13:00 | GIPROC ---
[facility] [address] [facility]. [facility], [address] EGD PROCEDURE REPORT EXAM DATE: 03/06/2018 PATIENT NAME: Kayden Hand I MR #: [id number] BIRTHDATE: 1970 ATTENDING: Tim Benjamin MD ORDER #: [id number] CARPENTER GENERAL: Laura Arzola and Harish Mcgowan STATUS: inpatient INDICATIONS: The patient is a 47 yr old male here for an EGD due to acute post hemorrhagic anemia PROCEDURE PERFORMED: EGD w/ biopsy MEDICATIONS: Per Anesthesia and None. TOPICAL ANESTHETIC: CONSENT: The patient understands the risks and benefits of the procedure and understands that these risks include, but are not limited to: sedation, allergic reaction, infection, perforation and/or bleeding. Alternative means of evaluation and treatment include, among others: physical exam, x-rays, and/or surgical intervention. The patient elects to proceed with this endoscopic procedure. medical equipment was checked for proper function. Hand hygiene and appropriate measures for infection prevention was taken. After the risks, benefits and alternatives of the procedure were thoroughly explained, Informed consent was verified, confirmed and timeout was successfully executed by the treatment team. The patient was anesthetized with topical anesthesia and the EC-3490Li (Pedi C) endoscope was introduced through the mouth and advanced to the second portion of the duodenum. Retroflexed views revealed no abnormalities The gastroscope was then slowly withdrawn and removed. ESOPHAGUS: There was LA Class A esophagitis noted. DUODENUM: The duodenal mucosa appeared normal in the bulb and second portion of the duodenum. STOMACH: A single non-bleeding, round, shallow and clean-based ulcer ranging between 3-7mm in size was found in the gastric body. Biopsies were taken at edge of the ulcer. ADVERSE EVENTS: There were no complications. IMPRESSIONS: 1. There was LA Class A esophagitis noted 2. Normal duodenal mucosa in the bulb and second portion of the duodenum 3. Single ulcer ranging between 3-7mm in size was found in the gastric body; biopsies were taken 4. Retroflexed views revealed no abnormalities RECOMMENDATIONS: 1. Await biopsy results. Biopsy results will not be ready for 7-10 days. If you don't hear from us in two weeks, call our office for biopsy results. 2. Continue PPI 3. Avoid NSAIDS PATIENT CONDITION: stable DISPOSITION: Inpatient REPEAT EXAM: Return 3 months EGD pending biopsy results Tim Benjamin MD eSigned: Tim Benjamin MD 03/06/2018 1:00 PM cc: PATIENT NAME: Yazan Kayden Elisa MR#: [id number]
--- NOTE | 2018-03-06 13:03 | GIPROC ---
[facility] [address] [facility]. [facility], [address] COLONOSCOPY PROCEDURE REPORT EXAM DATE: 03/06/2018 PATIENT NAME: Kayden Hand I MR #: [id number] BIRTHDATE: 1970 ENDOSCOPIST: Tim Benjamin MD ORDER #: [id number] DYE COLORIST DYER: Laura Arzola and Harish Mcgowan STATUS: inpatient INDICATIONS: The patient is a 47 yr old male here for a colonoscopy due to iron deficiency anemia PROCEDURE PERFORMED: Colonoscopy, incomplete MEDICATIONS: Per Anesthesia and None. PREP QUALITY: suboptimal ESTIMATED BLOOD LOSS: None CONSENT: The patient understands the risks and benefits of the procedure and understands that these risks include, but are not limited to: sedation, allergic reaction, infection, perforation and/or bleeding. Alternative means of evaluation and treatment include, among others: physical exam, x-rays, and/or surgical intervention. The patient elects to proceed with this endoscopic procedure. medical equipment was checked for proper function. Hand hygiene and appropriate measures for infection prevention was taken. After the risks, benefits and alternatives of the procedure were thoroughly explained, Informed consent was verified, confirmed and timeout was successfully executed by the treatment team. A digital exam revealed external hemorrhoids The Pentax EC-3490Li endoscope was introduced through the anus and advanced to the sigmoid colon. The instrument was then slowly withdrawn as the colon was fully examined. COLON FINDINGS: The colonic mucosa appeared normal. Retroflexed views revealed internal hemorrhoids and Retroflexed views revealed medium internal hemorrhoids The scope was then completely withdrawn from the patient and the procedure terminated. ADVERSE EVENTS: There were no complications. IMPRESSIONS: 1. The colonic mucosa appeared normal 2. Retroflexed views revealed internal hemorrhoids 3. Retroflexed views revealed medium internal hemorrhoids 4. Revealed external hemorrhoids RECOMMENDATIONS: Continue bowel prep, repeat colonoscopy when cleaned out. RECALL: Return 1 day Colonoscopy Tim Benjamin MD eSigned: Tim Benjamin MD 03/06/2018 1:03 PM cc:
[2018-03-06] MEDS: cefTRIAXone INJ 2,000 MG in SODIUM CHLORIDE 0.9% INJ 100 ML IV SCH (14:02)
[2018-03-06] MEDS: INSULIN DETEMIR 100 UNITS/ML VIAL SQ SCH ×2 (15:30→21:01)
[2018-03-07] VITALS (20 sets, daily range): BP systolic 98–140; BP diastolic 60–88; PULSE 75–107; RESP 20–22; TEMP 98–99.1; O2SAT 92–100
[2018-03-07] MEDS: PROPOFOL 1000 MG/100 ML INJ 100 ML IV PRN ×6 (00:04→23:04)
[2018-03-07] MEDS: CHLORHEXIDINE GLUCONATE 2 % 1 PACK (2 CLOTHS) TOP SCH (04:00)
[2018-03-07] MEDS: PANTOPRAZOLE INJ 80 MG in SODIUM CHLORIDE 0.9% INJ 100 ML IV SCH ×2 (04:03→19:43)
[2018-03-07] MEDS: MIDAZOLAM 50 MG/50 ML INJ 50 ML IV PRN ×3 (04:03→22:39)
[2018-03-07] MEDS: RESP: ALBUTEROL 2.5 MG/IPRATROPIUM 0.5 MG NEB (SCH) NEB ×6 (04:49→23:44)
[2018-03-07] MEDS: RESP: SODIUM CHLORIDE 3% 4 ML NEB NEB SCH ×5 (04:49→23:44)
[2018-03-07] MEDS: ARTIFICIAL TEARS OPTH SOLN 15 ML BTL EACH EYE SCH ×3 (05:28→19:45)
--- NOTE | 2018-03-07 05:39 | RADRPT ---
EXAM DATE/TIME: 03/07/2018 03:45 [facility] COMPARISON: CHEST SINGLE AP, March 06, 2018, 1:09. INDICATIONS : Short of breath. MEDICAL HISTORY : Diabetes mellitus type II. Chronic obstructive pulmonary disease. SURGICAL HISTORY : CABG. Appendectomy. Nephrectomy ENCOUNTER: Subsequent ACUITY: 3 weeks PAIN SCORE: 0/10 LOCATION: Bilateral chest FINDINGS: A single view of the chest demonstrates the ET tube and NG tube both in good position. Lungs are charlie sly clear except for minimal bibasilar atelectasis, improved. The cardiomediastinal contours are unr emarkable. Osseous structures are intact. CONCLUSION: Improved aeration of the lungs. ET tube and NG tube in good position. Jadiel Gómez MD on March 07, 2018 at 5:37 Board Certified Radiologist. This report was verified electronically.
[2018-03-07 06:17] LABS: AUTOMATED NEUTROPHIL # 6.9 TH/MM3 (1.8-7.7); BASOPHIL % 0.5 % (0.0-2.0); EOSINOPHIL # 0.1 TH/MM3 (0-0.4); EOSINOPHIL % 0.6 % (0.0-4.0); HEMATOCRIT 31.2 % (39.0-51.0); HEMOGLOBIN 9.7 GM/DL (13.0-17.0); LYMPH % 14.8 % (9.0-44.0); LYMPHOCYTE # 1.3 TH/MM3 (1.0-4.8); MEAN CELL VOLUME 72.5 FL (80.0-100.0); MEAN CORPUSCULAR HEMOGLOBIN 22.6 PG (27.0-34.0); MEAN CORPUSCULAR HGB CONC 31.2 % (32.0-36.0); MEAN PLATELET VOLUME 8.7 FL (7.0-11.0); MONO % 5.6 % (0.0-8.0); MONOCYTE # 0.5 TH/MM3 (0-0.9); NEUT % 78.5 % (16.0-70.0); PLATELET COUNT 188 TH/MM3 (150-450); RED BLOOD COUNT 4.31 MIL/MM3 (4.50-5.90); RED CELL DISTRIBUTION WIDTH 27.7 % (11.6-17.2); WHITE BLOOD COUNT 8.8 TH/MM3 (4.0-11.0)
[2018-03-07 06:32] LABS: ALBUMIN 2.2 GM/DL (3.4-5.0); AST (GOT) 19 U/L (15-37); BICARBONATE 30.1 MEQ/L (21.0-32.0); BLOOD UREA NITROGEN 19 MG/DL (7-18); CALCIUM 8.8 MG/DL (8.5-10.1); CHLORIDE 105 MEQ/L (98-107); GLOMERULAR FILTRATION RATE 144 ML/MIN (>89); GLUCOSE,RANDOM 144 MG/DL (74-106); MAGNESIUM 1.9 MG/DL (1.5-2.5); SODIUM (NA) 143 MEQ/L (136-145)
[2018-03-07 06:38] LABS: ALKALINE PHOSPHATASE 57 U/L (45-117); ALT (GPT) 23 U/L (12-78); PHOSPHORUS 3.1 MG/DL (2.5-4.9); TOTAL BILIRUBIN ADULT 0.3 MG/DL (0.2-1.0); TOTAL PROTEIN 6.1 GM/DL (6.4-8.2)
[2018-03-07] MEDS: RESP: BUDESONIDE 0.5 MG/2 ML NEB NEB SCH ×2 (08:07→21:42)
[2018-03-07] MEDS: INSULIN DETEMIR 100 UNITS/ML VIAL SQ SCH ×2 (09:00→19:44)
--- NOTE | 2018-03-07 09:27 | HHI.CCPN ---
Subjective Remarks/Hospital Course Patient is a 47-year-old morbidly obese male with past medical history significant for obesity, obstructive sleep apnea clinically, history of DVT, chronic Eliquis use who was brought in by EMS for altered mental status and severe hypoxemia. Apparently per EMS end-tidal CO2 was in the 60s his initial sat was in the 30s, but with bagging came up to the 70s. Initial GCS apparently was 7 but improved with continued bag and mask ventilation in the ED. Sats remained in the low 80s. Patient initially refused intubation and was placed on BiPAP. Received duo nebs and Solu-Medrol and antibiotics (Azactam, Flagyl, vancomycin). Patient continued to be tachypneic and severely hypoxemic, and patient was intubated by the ER physician. Apparently difficult airway and was intubated on the third attempt. Patient was desaturating to low 80s even after intubation and I was called to the ED for assisting. I immediately evaluated the patient he continues to be in severe bronchospasm, severely hypoxemic. Additional breathing treatments ordered. I changed the vent settings to PCAC to target tidal volume 600-650 and reduce the rate to 14. PEEP increased to 10. Gradually oxygen saturation improved to 90. I placed a right IJ central line as the patient was borderline hypotensive. Chest x-ray showed apparently pulmonary vascular congestion. No definite infiltrate. Lactic acid 6. Appears patient has acute COPD exacerbation and severe sepsis, pulmonary embolism needs to be ruled out. IV Solu-Medrol DuoNeb breathing treatments will be continued. Patient takes Eliquis for PE in the past. Further workup and management based on results 02/15: Remains intubated heavily sedated. PEEP remains at 12 FiO2 has been weaned to 55%. CT PE protocol negative for pulmonary embolism, showed bibasilar significant consolidation indicative of pneumonia. Sputum Gram stain shows GPC. Add vancomycin. 02/16: Patient remains intubated remains critical. Remains hypoxemic on high vent support. On attempt to reduce PEEP, he desaturated and currently on 10 of PEEP. FiO2 50%. Sputum culture with MSSA and strep pneumo. Will discontinue Levaquin and Flagyl continue Azactam and vancomycin 02/17: Remains critical, CXR still showing pulmonary edema. IV Lasix repeat dose given. Wean PEEP to 8, FiO2 to 45%. Start SBT as tolerated 02/18: Patient remains intubated heavily sedated. On lightening sedation patient becomes very agitated. PEEP remains at 8 FiO2 down to 40%. Chest x- ray continues to show pulmonary vascular congestion 02/19: Patient transitioned to Precedex in the last 24 hours continues on CPAP trials 15/8/40%. Patient cooperative following commands. Chest x-ray pending. Aggressive diureses initiated BMP pending this afternoon. 02/20: While on Precedex CPAP trial was attempted. After about 15 minutes patient became severely tachypneic diaphoretic with respiratory rate in the 40s. Re sedated with 50 mg IV push of propofol, and restarting propofol infusion. CXR shows improving pulmonary vascular congestion. WBC count though is trending up. 02/21: No events over the night. Patient is currently on CPAP, PS 15/8/40%, with RR in the 30's and Vt low 300's. Patient is sedated with propofol and precedex. Tmax 100.4, I/O 2946/3020. 02/22: No events over the night. Patient is currently on propofol and Precedex, calm, opening eyes to voice stimuli, following commands. RASS of -2. T-max of 100.6. On 0.3 FiO2. Urine output is adequate. 02/23: Yesterday afternoon patient decompensated, requiring high PEEP and 100% O2 with sats in the mid 80s. Patient was switched to bilevel ventilation and started on inhaled Flolan with rapid improvement in his oxygenation. A central line and art line with placed and patient required 1 L fluid bolus. This morning patient is down to 0.4 FiO2. Sedation is achieved with propofol. No pressors. Decreased urine output over the night. T-max of 99. Still with significant NG tube output, over the last 24 hours 1200 mL's. Morning chest x- ray reviewed, significantly improved air entry at bases. 02/24: No events over the night. Due to improved O2 requirements, yesterday, patient was switched from APRV to PRVC mode of ventilation. FiO2 between 0.45 and 0.5, but patient remains on high PEEP, currently at 14. T-max of 99.8. Improved urine output, up to 2200 over the last 24 hours. 02/25: Patient remained sedated and intubated. No events overnight. T-max of 99 and I/O 2080/2200. Morning chest x-ray reviewed, no significant change compared to yesterday, still with bibasilar infiltrates. Oxygenation remains the same, FiO2 of 0.4 and PEEP at 14. Patient is sedated with propofol at 50 and Precedex at 1.5, awake, trying to talk, bucking the ventilator. His mother is present at bedside. 02/26: No events over the night. Worsening oxygenation noted on blood gas this morning, FiO2 increased to 0.6. Patient remains on propofol and Precedex for sedation, he is wide awake following commands. T-max of 98.7. I/O 2170/1650. Morning chest x-ray reviewed, no significant change compared to yesterday. ET tube left IJ central line remain in place. 02/27: Yesterday, due to worsening hypoxia patient was placed on bilevel ventilation with improvement in his oxygenation. Over the night he was switched back to PRVC (unclear why). This morning patient was placed back on APRV, tolerating it well so far, down to 50% O2. He had one episode of low BP that resolved with 500 cc fluid bolus. Still with significant NG tube output. Unable to have CT abdomen and pelvis due to high O2 requirements. Patient remains afebrile, with a T-max of 98.3, urine output 1900 mL's over the last 24 hours. Morning chest x-ray reviewed, improvement in bibasilar opacities, right side worse than left. 02/28: T-max 100.1. Patient continues on APRV. Patient continues on Flolan, electrolytes noted to be imbalanced, potassium currently being repleted. 03/01: Afebrile. Extensive discussion with family regarding tracheostomy. Patient transitioning to PRVC/ AC this a.m., and attempts to wean O2 requirements and Flolan. Patient remains sedated for ventilator synchrony. 03/02: Afebrile. Patient tolerated ventilator settings of PRVC/AC to FiO2 of 80% with improvement in oxygenation during the night. FiO2 decreased to 70%. Chest x-ray early this a.m. showed mucous plugging complete left lung, bronchoscopy performed, acetylcysteine initiated. 03/03: T-max 99.3. Chest x-ray left lung aeration much improved. O2 requirements decreased to 55% PaO2 106 this a.m.. We will begin to wean Flolan off. TPN increased to 75 cc/hour per dietary recommendations with subsequent elevation in glucose hyperglycemia in the high 200s-300s, insulin infusion initiated. Addendum-[id number]. Per report of nurse patient noted to have bright red blood via NG tube, testing Hemoccult, Xarelto placed on hold, serial H&H's being obtained. Hemodynamically stable Protonix infusion initiated. 03/04: Afebrile. Yesterday afternoon the patient was noted to have bright red blood emanating from NG tube new-onset Hemoccult positive NG tube clamped patient placed on Protonix infusion, Eliquis placed on hold. Dr. Sam notified. Patient's abdomen soft. Continue weaning of FiO2 for improved oxygenation continued. The patient was noted to have hypertensive episodes yesterday propranolol was reinstituted, now dosage decreased with parameters per nursing staff. CT of the abdomen with p.o. contrast pending. Hemoglobin overnight was noted to drop last evening 1 g/dL. patient to be transfused 1 unit of packed red blood cells with posttransfusion CBC pending. Hemoglobin H& H to be trending every 12 hours. 03/05: Remains on pantoprazole drip. Hemodynamically stable. Hemoglobin appears to be stable. Plan for EGD in a.m. 03/06. Arousable and follows commands on midazolam drip at 9 mg an hour. No bowel movement. Subjective 03/06: Plan for endoscopy today per GI. FiO2 stable at 50%. Tube feeds remain on hold. Tolerating TPN and remains on insulin drip. BM 3 with bowel prep. Hemoglobin stable. 03/07: No events over the night. T-max of 98.7. Urine output remains appropriate. Patient is currently awake, on propofol and midazolam infusions. FiO2 0.5 and PEEP of 12. Mother is present at bedside. Objective Vital Signs Date Time Temp Pulse Resp B/P (MAP) Pulse Ox O2 Delivery O2 Flow Rate FiO2 03/07/18 08:07 100 50 03/07/18 08:00 83 03/07/18 04:00 98.7 21 137/87 (104) Arterial Line Intake and Output 03/07/18 03/07/18 03/07/18 07:59 15:59 23:59 Intake Total 2835 ml Output Total 375 ml Balance 2460 ml Result Diagram: 03/07/18 0515 03/07/18 0515 Imaging Last Impressions Chest X-Ray 03/06/18 0600 Signed Impressions: Service Date/Time: Tuesday, March 06, 2018 01:09 - CONCLUSION: Bibasilar infiltrates left greater than right.. Jadiel Gómez MD Abdomen/Pelvis CT 03/04/18 1524 Signed Impressions: Service Date/Time: Sunday, March 04, 2018 17:49 - CONCLUSION: 1. New diffuse circumferential wall thickening of the indicating colitis. 2. Punctate nonobstructing left renal calculus. 3. Urinary bladder is distended with Leone catheter in place. Leone catheter may be obstructed. 4. Old left femoral neck fracture. 5. Chronic bilateral lower lobe pulmonary consolidation. Momo Hnad MD Abdomen X-Ray 03/02/18 0000 Signed Impressions: Service Date/Time: February 09:24 - CONCLUSION: 1. Nonspecific bowel gas pattern. The previously seen dilated loop of bowel 02/28/18 has been decompressed. 2. There is an NG tube within the stomach. Kayden Ramírez MD Lower Extremity Ultrasound 02/22/18 0000 Signed Impressions: Service Date/Time: Thursday, February 22, 2018 20:03 - CONCLUSION: No venous thrombosis of either lower extremity. Bebeto Dominique MD Head CT 02/14/18 1204 Signed Impressions: Service Date/Time: Wednesday, February 14, 2018 14:09 - CONCLUSION: 1. Chronic ischemic changes in the parietal lobes. No change from previous study. 2. No acute intracranial abnormality or Tye Steinberg MD CT Angiography 02/14/18 1204 Signed Impressions: Service Date/Time: Wednesday, February 14, 2018 20:07 - CONCLUSION: 1. No evidence for pulmonary embolism. 2. Bibasilar consolidation. 3. Cardiomegaly. Tye Steinberg MD Objective Remarks General - middle-aged gentleman, intubated and sedated, awake, ill-appearing HEENT - pupils equal and reactive, sclerae anicteric, no scleral edema, no JVD, neck supple, no carotid bruit, + ETT, + OGT, left IJ central line (02/22) -site remains clean CV - regular heart sounds, no murmurs, rubs or gallops appreciated Chest - some scattered coarse breath sounds bilateral, no wheezes Abdomen -soft, distended, appears non-tender, BS , no hepatomegaly, no splenomegaly Skin - no rashes, no cyanosis appreciated Extremities - warm and well perfused, no edema, + peripheral pulses RLE, LLE AKA Neuro - intubated, on sedation, awake, does not follow commands Date of Insertion: Feb 23, 2018 Line: Central Venous Catheter Side: Left A/P Assessment and Plan Neuro/Psych: Acute metabolic encephalopathy Depressive disorder NOS History of CVA 3 -left frontoparietal THC use Currently on propofol drip at 30 mcg/kg/min/midazolam drip at 9 mg now for sedation/analgesia while intubated Goal of RASS -2 Daily sedation vacation when appropriate Fentanyl 50 mcg every 2 hours as needed breakthrough pain/7 through 10 only secondary to ileus Dexmedetomidine held secondary to symptomatically bradycardia Ofirmev 1 g IV every 8 hours as needed fever UDS + THC CV: Hypertension/essential Hyperlipidemia Scheduled on propranolol 10 mg every 6 hours At home on propranolol 20 mg 4 times daily and amlodipine 10 mg daily As needed labetalol, hydralazine for breakthrough hypertension Currently on Clinimix E 4.25/25 at 75 cc an hour Holding lipid-lowering agent secondary to n.p.o. status. Resume clinically indicated. Home on pravastatin 40 mg p.o. daily Resp: Acute hypoxic respiratory failure -no significant improvement despite full support Bibasilar MSSA and strep pneumo pneumonia -patient remains afebrile, leukocytosis resolved Acute COPD exacerbation -resolved PRVC 20/500/1.1//50. Patient is synchronized with the ventilator, no auto PEEP, PIP is 25 Ventilator bundle Albuterol/ipratropium aerosols every 4 hours with albuterol aerosols every 2 hours as needed dyspnea Hypertonic saline aerosols every 4 hours 4 days for secretion thinning GI: GI bleed Colitis Continue pantoprazole drip at 8 mg an hour Followed by GI CT abdomen/pelvis 02/03 revealed cerclage wall thickening of the colon, nonobstructing left renal calculus, old left femoral neck fracture Okay to restart tube feeds per GI : Leone catheter has been placed for accurate I's and O's in a critically ill patient Endo: Hyperglycemia Continue insulin drip currently at 10 units an hour to maintain euglycemia Renal: Left nonobstructing renal stone Creatinine currently within normal limits Monitor urine output Accurate I's and O's Heme: Microcytic anemia Chronic apixaban use -on hold secondary to GI bleed History of DVT and PE s/p IVC filter We will discuss with GI if okay to restart anticoagulation Monitor CBC daily. Follow trends Transfuse 1 unit PRBCs during this hospitalization ID: Staph aureus/strep pneumo sputum positive Currently on ceftriaxone to complete 14 days therapy. Started 02/23. Noted penicillin allergy but has been on for several days without incident MSK: Old left femoral neck fracture Elevated BMI Weight loss encouraged PT evaluate and treat FEN: Continue Clinimix E 4.25/75 at 75 cc an hour/nutrition's recommendations. Receiving lipids with propofol Access -Left IJ CVL placed 02/23 Prophylax -GI -pantoprazole drip -DVT -SCD/pharmacological prophylaxis on hold secondary to GI bleed I discussed in detail patient's condition and lack of significant improvement despite full support with mother present at bedside. Based on patient's prior wishes patient would not want tracheostomy placement. Level 2 follow-up William Barcenas MD March 07, 2018 09:26
[2018-03-07 09:31] LABS: BANDS 9 % (0-6); BASOPHILS 1 % (0-2); LYMPHOCYTES 14 % (9-44); METAMYELOCYTES 4 % (0-1); MONOCYTES 6 % (0-8); POLYS (SEG NEUTROPHILS) 66 % (16-70)
[2018-03-07] MEDS: PROPRANOLOL HCL 10 MG TAB PO SCH ×4 (10:02→19:43)
[2018-03-07] MEDS: NYSTATIN 100,000 U/GM PWD 15 GM BTL TOPICAL SCH ×2 (10:06→19:45)
[2018-03-07] MEDS: SODIUM CHLORIDE 0.9% FLUSH 10 ML FLUSH IV FLUSH SCH ×2 (10:07→19:45)
[2018-03-07] MEDS: CHLORHEXIDINE 0.12% (ORAL KIT) 15 ML CUP MT SCH ×2 (10:12→19:43)
--- NOTE | 2018-03-07 12:47 | HHI.GIFU ---
Subjective Remarks Remains on sedation and orally intubated OG tube clamped (+) BM- no obvious blood (Amanda Conley) Objective Vitals I&O Vital Signs Date Time Temp Pulse Resp B/P (MAP) Pulse Ox O2 Delivery O2 Flow Rate FiO2 03/07/18 12:00 50 03/07/18 12:00 78 03/07/18 12:00 99.1 78 20 111/71 (84) 98 03/07/18 11:59 99 50 03/07/18 10:00 91 03/07/18 08:07 100 50 03/07/18 08:00 98.7 83 20 99/65 (76) 99 03/07/18 08:00 50 03/07/18 08:00 83 03/07/18 06:00 95 03/07/18 04:50 92 50 03/07/18 04:00 95 03/07/18 04:00 98.7 95 21 137/87 (104) 97 Arterial Line 03/07/18 04:00 50 03/07/18 02:00 83 03/07/18 00:00 75 03/07/18 00:00 50 03/07/18 00:00 98.0 75 20 119/76 (90) 98 03/06/18 23:48 100 50 03/06/18 22:00 81 03/06/18 20:01 96 50 03/06/18 20:00 98 03/06/18 20:00 98 20 136/92 (107) 95 03/06/18 20:00 50 03/06/18 18:00 107 03/06/18 16:00 108 03/06/18 16:00 50 03/06/18 15:53 97 50 03/06/18 14:00 108 I/O 03/06/18 03/06/18 03/06/18 03/07/18 03/07/18 03/07/18 07:00 15:00 23:00 07:00 15:00 23:00 Intake Total 1151 ml 900 ml 2835 ml Output Total 1100 ml 850 ml 375 ml Balance 51 ml 50 ml 2460 ml IV Total 951 ml 2835 ml TPN/PPN 900 ml Other 200 ml Output Urine Total 1100 ml 850 ml 375 ml Gastric Drainage Total 0 ml # Bowel Movements 3 3 1 Laboratory Laboratory Tests Test 03/07/18 05:15 White Blood Count 8.8 Red Blood Count 4.31 Hemoglobin 9.7 Hematocrit 31.2 Mean Corpuscular Volume 72.5 Mean Corpuscular Hemoglobin 22.6 Mean Corpuscular Hemoglobin Concent 31.2 Red Cell Distribution Width 27.7 Platelet Count 188 Mean Platelet Volume 8.7 Neutrophils (%) (Auto) 78.5 Lymphocytes (%) (Auto) 14.8 Monocytes (%) (Auto) 5.6 Eosinophils (%) (Auto) 0.6 Basophils (%) (Auto) 0.5 Neutrophils # (Auto) 6.9 Lymphocytes # (Auto) 1.3 Monocytes # (Auto) 0.5 Eosinophils # (Auto) 0.1 Basophils # (Auto) 0.0 CBC Comment AUTO DIFF Differential Total Cells Counted 100 Neutrophils % (Manual) 66 Band Neutrophils % 9 Lymphocytes % 14 Monocytes % 6 Basophils % 1 Neutrophils # (Manual) 7.0 Metamyelocytes 4 Differential Comment FINAL DIFF MANUAL Platelet Estimate NORMAL Platelet Morphology Comment NORMAL Blood Urea Nitrogen 19 Creatinine 0.60 Random Glucose 144 Total Protein 6.1 Albumin 2.2 Calcium Level 8.8 Phosphorus Level 3.1 Magnesium Level 1.9 Alkaline Phosphatase 57 Aspartate Amino Transf (AST/SGOT) 19 Alanine Aminotransferase (ALT/SGPT) 23 Total Bilirubin 0.3 Sodium Level 143 Potassium Level 3.8 Chloride Level 105 Carbon Dioxide Level 30.1 Anion Gap 8 Estimat Glomerular Filtration Rate 144 Date/Time Source Procedure Growth Status 02/22/18 11:30 Blood Peripheral Aerobic Blood Culture - Final NO GROWTH IN 5 DAYS Complete 02/22/18 11:30 Blood Peripheral Anaerobic Blood Culture - Final NO GROWTH IN 5 DAYS Complete 02/26/18 16:44 Stool Stool Stool Occult Blood (BRIANA) - Final HEMOCCULT NEGATIVE Complete 03/03/18 12:00 Gastric Gastric Occult Blood - Final GASTROCCULT POSITIVE Complete 03/05/18 14:00 Sputum Endotracheal Gram Stain - Final Resulted 03/05/18 14:00 Sputum Culture - Preliminary Gram Negative Tom Resulted 02/14/18 10:45 Urine Catheterized Urine Urine Culture - Final NO GROWTH IN 48 HOURS. Complete Imaging Last Impressions Chest X-Ray 03/07/18 0600 Signed Impressions: Service Date/Time: Wednesday, March 07, 2018 03:45 - CONCLUSION: Improved aeration of the lungs. ET tube and NG tube in good position. Jadiel Gómez MD Abdomen/Pelvis CT 03/04/18 1524 Signed Impressions: Service Date/Time: Sunday, March 04, 2018 17:49 - CONCLUSION: 1. New diffuse circumferential wall thickening of the indicating colitis. 2. Punctate nonobstructing left renal calculus. 3. Urinary bladder is distended with Leone catheter in place. Leone catheter may be obstructed. 4. Old left femoral neck fracture. 5. Chronic bilateral lower lobe pulmonary consolidation. Momo Hand MD Abdomen X-Ray 03/02/18 0000 Signed Impressions: Service Date/Time: February 09:24 - CONCLUSION: 1. Nonspecific bowel gas pattern. The previously seen dilated loop of bowel 02/28/18 has been decompressed. 2. There is an NG tube within the stomach. Kayden Ramírez MD Lower Extremity Ultrasound 02/22/18 0000 Signed Impressions: Service Date/Time: Thursday, February 22, 2018 20:03 - CONCLUSION: No venous thrombosis of either lower extremity. Bebeto Dominique MD Head CT 02/14/18 1204 Signed Impressions: Service Date/Time: Wednesday, February 14, 2018 14:09 - CONCLUSION: 1. Chronic ischemic changes in the parietal lobes. No change from previous study. 2. No acute intracranial abnormality or Tye Steinberg MD CT Angiography 02/14/18 1204 Signed Impressions: Service Date/Time: Wednesday, February 14, 2018 20:07 - CONCLUSION: 1. No evidence for pulmonary embolism. 2. Bibasilar consolidation. 3. Cardiomegaly. Tye Steinberg MD Physical Exam HEENT: Normocephalic; atraumatic CHEST: Respirations synchronized with vent CARDIAC: RRR ABDOMEN: Round, soft, bowel sounds active. OG clamped. SKIN: Normal; no rash; no jaundice. CIRCUS TRAIN SUPERVISOR: Unresponsive, on sedation (Amanda Conley SPECIAL EVENTS COORDINATOR) Assessment and Plan Assessment: (1) GERD (gastroesophageal reflux disease) ICD Codes: K21.9 - Gastro-esophageal reflux disease without esophagitis Status: Chronic Plan Assessment: - Ileus- Initial consult done on 02/25- pt was too unstable from a respiratory standpoint to go down for CT scan at that time KUB (03/02) --> Nonspecific bowel gas pattern. The previously seen dilated loop of bowel 02/28/18 has been decompressed. There is an NG tube within the stomach. Pt now appears to be stable on mechanical ventilation for transfer to CT scan - discussed with RN - Dark red secretions in suction tubing- some drop in H/H over night Yesterday was 9.3/31.6 currently 8/27.3, however has fluctuated some and was around the same on the 2nd and 3rd Eliquis currently on hold - Hypoxemia- intubated (03/05) Per RN no continued drainage from OG tube, currently it is clamped. Pt received one unit of PRBCs yesterday, H/H has remained stable over night. Currently 9.9/ 32.4. He remains on Protonix gtt. No BM in a few days, pt has been on TPN for four days. CT abdomen and pelvis W IV contrast (03/04) --> New diffuse circumferential wall thickening of the indicating colitis. Punctate nonobstructing left renal calculus. Urinary bladder is distended with Leone catheter in place. Leone catheter may be obstructed.Old left femoral neck fracture. Chronic bilateral lower lobe pulmonary consolidation. (03/07) Remains on sedation and mechanically ventilated via ETT. H/H stable over night. Per RN so bloody or coffee ground secretions when OG was replaced. Pt with (+) BM and no obvious bleeding EGD (03/06) --> Class A esophagitis. Normal duodenal mucosa in the bulb and second portion of the duodenum. Single ulcer ranging between 3-7 mm in size was found in the gastric body. Colonoscopy (03/06) Colonic mucosa appeared normal. Internal and external hemorrhoids. Plan: EGD biopsy pending Protonix Monitor H/H Notify GI if any active bleeding Will hold off on repeat colonoscopy until pt is more stable unless significant drop in H/H and/or reports of GIB GI will sign off, please reconsult as needed Pt has been seen and examined by myself and Dr. Benjamin and this note is written on his behalf (Amanda Conley) Physician Comments Seen and examined with SPECIAL EVENTS COORDINATOR, sedated/intubated. No bleeding reported. Repeat colonoscopy on hold for now till more stable. GI will sign off, please reconsult when able to proceed with colonoscopy. Thank you (Tim Benjamin MD) Amanda Conley March 07, 2018 12:47 Tim Benjamin MD March 07, 2018 17:41
[2018-03-07] MEDS: cefTRIAXone INJ 2,000 MG in SODIUM CHLORIDE 0.9% INJ 100 ML IV SCH (13:51)
[2018-03-07] MEDS: FREE WATER TUBE SCH ×2 (14:00→19:45)
[2018-03-07] MEDS: INSULIN REGULAR (IV INFUSION) 100 UNITS in SODIUM CHLORIDE 0.9% INJ 99 ML IV PRN (18:41)
[2018-03-07] MEDS: MULTIVITAMIN INJ 5 ML, FOLIC ACID INJ 0.5 MG in AMINO ACID IN D5W W/ELECTROLYT 1,000 ML IV-CENTRAL SCH ×3 (19:43)
[2018-03-08] VITALS (36 sets, daily range): BP systolic 90–180; BP diastolic 55–108; PULSE 84–111; RESP 20–32; TEMP 98.5–99.5; O2SAT 92–100
[2018-03-08] MEDS: PANTOPRAZOLE INJ 80 MG in SODIUM CHLORIDE 0.9% INJ 100 ML IV SCH ×3 (02:35→21:16)
[2018-03-08] MEDS: PROPOFOL 1000 MG/100 ML INJ 100 ML IV PRN ×6 (03:19→23:01)
[2018-03-08] MEDS: RESP: ALBUTEROL 2.5 MG/IPRATROPIUM 0.5 MG NEB (SCH) NEB ×5 (04:00→19:23)
[2018-03-08] MEDS: RESP: SODIUM CHLORIDE 3% 4 ML NEB NEB SCH ×5 (04:00→20:25)
--- NOTE | 2018-03-08 04:26 | RADRPT ---
EXAM DATE/TIME: 03/08/2018 03:05 [facility] COMPARISON: CHEST SINGLE AP, March 07, 2018, 3:45. INDICATIONS : Short of breath. MEDICAL HISTORY : Diabetes mellitus type II. Chronic obstructive pulmonary disease. SURGICAL HISTORY : CABG. Appendectomy. Nephrectomy ENCOUNTER: Subsequent ACUITY: 2 weeks PAIN SCORE: 0/10 LOCATION: Bilateral chest FINDINGS: A single view of the chest demonstrates the endotracheal tube, nasogastric tube and left sided centra l venous catheter are in excellent position. The small effusion the left lung base new from the previ ous study. The cardiomediastinal contours are unremarkable. Osseous structures are intact. CONCLUSION: Questionable new infiltrate in the left lung base compared to the previous study. Tub es and catheter in good position. Jadiel Gómez MD on March 08, 2018 at 4:24 Board Certified Radiologist. This report was verified electronically.
[2018-03-08] MEDS: CHLORHEXIDINE GLUCONATE 2 % 1 PACK (2 CLOTHS) TOP SCH (05:03)
[2018-03-08] MEDS: FREE WATER TUBE SCH ×3 (05:03→20:05)
[2018-03-08] MEDS: ARTIFICIAL TEARS OPTH SOLN 15 ML BTL EACH EYE SCH ×3 (05:03→20:02)
[2018-03-08] MEDS: MIDAZOLAM 50 MG/50 ML INJ 50 ML IV PRN ×4 (05:04→18:56)
[2018-03-08] MEDS: LABETALOL HCL 100 MG/20 ML VIAL IV PUSH PRN (05:56)
[2018-03-08 06:03] LABS: AUTOMATED NEUTROPHIL # 6.9 TH/MM3 (1.8-7.7); BASOPHIL % 0.4 % (0.0-2.0); EOSINOPHIL # 0.1 TH/MM3 (0-0.4); EOSINOPHIL % 0.9 % (0.0-4.0); HEMATOCRIT 31.1 % (39.0-51.0); HEMOGLOBIN 9.6 GM/DL (13.0-17.0); LYMPH % 11.9 % (9.0-44.0); MEAN CELL VOLUME 73.3 FL (80.0-100.0); MEAN CORPUSCULAR HEMOGLOBIN 22.7 PG (27.0-34.0); MEAN PLATELET VOLUME 9.3 FL (7.0-11.0); MONO % 6.4 % (0.0-8.0); MONOCYTE # 0.5 TH/MM3 (0-0.9); NEUT % 80.4 % (16.0-70.0); PLATELET COUNT 206 TH/MM3 (150-450); RED BLOOD COUNT 4.24 MIL/MM3 (4.50-5.90); RED CELL DISTRIBUTION WIDTH 27.6 % (11.6-17.2); WHITE BLOOD COUNT 8.6 TH/MM3 (4.0-11.0)
[2018-03-08 06:30] LABS: ALBUMIN 2.3 GM/DL (3.4-5.0); ALT (GPT) 35 U/L (12-78); BICARBONATE 28.7 MEQ/L (21.0-32.0); BLOOD UREA NITROGEN 20 MG/DL (7-18); CALCIUM 8.8 MG/DL (8.5-10.1); CHLORIDE 105 MEQ/L (98-107); GLUCOSE,RANDOM 147 MG/DL (74-106); SODIUM (NA) 142 MEQ/L (136-145)
[2018-03-08 06:37] LABS: ALKALINE PHOSPHATASE 64 U/L (45-117); AST (GOT) 25 U/L (15-37); CREATININE 0.64 MG/DL (0.60-1.30); GLOMERULAR FILTRATION RATE 134 ML/MIN (>89); PHOSPHORUS 3.3 MG/DL (2.5-4.9); TOTAL BILIRUBIN ADULT 0.4 MG/DL (0.2-1.0); TOTAL PROTEIN 6.4 GM/DL (6.4-8.2)
[2018-03-08 07:56] LABS: BANDS 15 % (0-6); LYMPHOCYTES 9 % (9-44); METAMYELOCYTES 1 % (0-1); MONOCYTES 1 % (0-8); MYELOCYTES 1 % (0-0); NEUTROPHIL # MANUAL DIFF 7.7 TH/MM3 (1.8-7.7); POLYS (SEG NEUTROPHILS) 72 % (16-70)
[2018-03-08 07:59] LABS: OVALOCYTES 1+ (NORMAL)
[2018-03-08] MEDS: SODIUM CHLORIDE 0.9% FLUSH 10 ML FLUSH IV FLUSH SCH ×2 (08:32→20:01)
[2018-03-08] MEDS: INSULIN DETEMIR 100 UNITS/ML VIAL SQ SCH ×2 (08:32→20:01)
[2018-03-08] MEDS: PROPRANOLOL HCL 10 MG TAB PO SCH ×4 (08:32→20:05)
[2018-03-08] MEDS: MULTIVITAMIN INJ 5 ML, FOLIC ACID INJ 0.5 MG in AMINO ACID IN D5W W/ELECTROLYT 1,000 ML IV-CENTRAL SCH ×6 (08:32→21:16)
[2018-03-08] MEDS: CHLORHEXIDINE 0.12% (ORAL KIT) 15 ML CUP MT SCH ×2 (08:33→20:01)
[2018-03-08] MEDS: RESP: BUDESONIDE 0.5 MG/2 ML NEB NEB SCH ×2 (08:59→19:23)
--- NOTE | 2018-03-08 09:24 | HHI.CCPN ---
Subjective Remarks/Hospital Course Patient is a 47-year-old morbidly obese male with past medical history significant for obesity, obstructive sleep apnea clinically, history of DVT, chronic Eliquis use who was brought in by EMS for altered mental status and severe hypoxemia. Apparently per EMS end-tidal CO2 was in the 60s his initial sat was in the 30s, but with bagging came up to the 70s. Initial GCS apparently was 7 but improved with continued bag and mask ventilation in the ED. Sats remained in the low 80s. Patient initially refused intubation and was placed on BiPAP. Received duo nebs and Solu-Medrol and antibiotics (Azactam, Flagyl, vancomycin). Patient continued to be tachypneic and severely hypoxemic, and patient was intubated by the ER physician. Apparently difficult airway and was intubated on the third attempt. Patient was desaturating to low 80s even after intubation and I was called to the ED for assisting. I immediately evaluated the patient he continues to be in severe bronchospasm, severely hypoxemic. Additional breathing treatments ordered. I changed the vent settings to PCAC to target tidal volume 600-650 and reduce the rate to 14. PEEP increased to 10. Gradually oxygen saturation improved to 90. I placed a right IJ central line as the patient was borderline hypotensive. Chest x-ray showed apparently pulmonary vascular congestion. No definite infiltrate. Lactic acid 6. Appears patient has acute COPD exacerbation and severe sepsis, pulmonary embolism needs to be ruled out. IV Solu-Medrol DuoNeb breathing treatments will be continued. Patient takes Eliquis for PE in the past. Further workup and management based on results 02/15: Remains intubated heavily sedated. PEEP remains at 12 FiO2 has been weaned to 55%. CT PE protocol negative for pulmonary embolism, showed bibasilar significant consolidation indicative of pneumonia. Sputum Gram stain shows GPC. Add vancomycin. 02/16: Patient remains intubated remains critical. Remains hypoxemic on high vent support. On attempt to reduce PEEP, he desaturated and currently on 10 of PEEP. FiO2 50%. Sputum culture with MSSA and strep pneumo. Will discontinue Levaquin and Flagyl continue Azactam and vancomycin 02/17: Remains critical, CXR still showing pulmonary edema. IV Lasix repeat dose given. Wean PEEP to 8, FiO2 to 45%. Start SBT as tolerated 02/18: Patient remains intubated heavily sedated. On lightening sedation patient becomes very agitated. PEEP remains at 8 FiO2 down to 40%. Chest x- ray continues to show pulmonary vascular congestion 02/19: Patient transitioned to Precedex in the last 24 hours continues on CPAP trials 15/8/40%. Patient cooperative following commands. Chest x-ray pending. Aggressive diureses initiated BMP pending this afternoon. 02/20: While on Precedex CPAP trial was attempted. After about 15 minutes patient became severely tachypneic diaphoretic with respiratory rate in the 40s. Re sedated with 50 mg IV push of propofol, and restarting propofol infusion. CXR shows improving pulmonary vascular congestion. WBC count though is trending up. 02/21: No events over the night. Patient is currently on CPAP, PS 15/8/40%, with RR in the 30's and Vt low 300's. Patient is sedated with propofol and precedex. Tmax 100.4, I/O 2946/3020. 02/22: No events over the night. Patient is currently on propofol and Precedex, calm, opening eyes to voice stimuli, following commands. RASS of -2. T-max of 100.6. On 0.3 FiO2. Urine output is adequate. 02/23: Yesterday afternoon patient decompensated, requiring high PEEP and 100% O2 with sats in the mid 80s. Patient was switched to bilevel ventilation and started on inhaled Flolan with rapid improvement in his oxygenation. A central line and art line with placed and patient required 1 L fluid bolus. This morning patient is down to 0.4 FiO2. Sedation is achieved with propofol. No pressors. Decreased urine output over the night. T-max of 99. Still with significant NG tube output, over the last 24 hours 1200 mL's. Morning chest x- ray reviewed, significantly improved air entry at bases. 02/24: No events over the night. Due to improved O2 requirements, yesterday, patient was switched from APRV to PRVC mode of ventilation. FiO2 between 0.45 and 0.5, but patient remains on high PEEP, currently at 14. T-max of 99.8. Improved urine output, up to 2200 over the last 24 hours. 02/25: Patient remained sedated and intubated. No events overnight. T-max of 99 and I/O 2080/2200. Morning chest x-ray reviewed, no significant change compared to yesterday, still with bibasilar infiltrates. Oxygenation remains the same, FiO2 of 0.4 and PEEP at 14. Patient is sedated with propofol at 50 and Precedex at 1.5, awake, trying to talk, bucking the ventilator. His mother is present at bedside. 02/26: No events over the night. Worsening oxygenation noted on blood gas this morning, FiO2 increased to 0.6. Patient remains on propofol and Precedex for sedation, he is wide awake following commands. T-max of 98.7. I/O 2170/1650. Morning chest x-ray reviewed, no significant change compared to yesterday. ET tube left IJ central line remain in place. 02/27: Yesterday, due to worsening hypoxia patient was placed on bilevel ventilation with improvement in his oxygenation. Over the night he was switched back to PRVC (unclear why). This morning patient was placed back on APRV, tolerating it well so far, down to 50% O2. He had one episode of low BP that resolved with 500 cc fluid bolus. Still with significant NG tube output. Unable to have CT abdomen and pelvis due to high O2 requirements. Patient remains afebrile, with a T-max of 98.3, urine output 1900 mL's over the last 24 hours. Morning chest x-ray reviewed, improvement in bibasilar opacities, right side worse than left. 02/28: T-max 100.1. Patient continues on APRV. Patient continues on Flolan, electrolytes noted to be imbalanced, potassium currently being repleted. 03/01: Afebrile. Extensive discussion with family regarding tracheostomy. Patient transitioning to PRVC/ AC this a.m., and attempts to wean O2 requirements and Flolan. Patient remains sedated for ventilator synchrony. 03/02: Afebrile. Patient tolerated ventilator settings of PRVC/AC to FiO2 of 80% with improvement in oxygenation during the night. FiO2 decreased to 70%. Chest x-ray early this a.m. showed mucous plugging complete left lung, bronchoscopy performed, acetylcysteine initiated. 03/03: T-max 99.3. Chest x-ray left lung aeration much improved. O2 requirements decreased to 55% PaO2 106 this a.m.. We will begin to wean Flolan off. TPN increased to 75 cc/hour per dietary recommendations with subsequent elevation in glucose hyperglycemia in the high 200s-300s, insulin infusion initiated. Addendum-[id number]. Per report of nurse patient noted to have bright red blood via NG tube, testing Hemoccult, Xarelto placed on hold, serial H&H's being obtained. Hemodynamically stable Protonix infusion initiated. 03/04: Afebrile. Yesterday afternoon the patient was noted to have bright red blood emanating from NG tube new-onset Hemoccult positive NG tube clamped patient placed on Protonix infusion, Eliquis placed on hold. Dr. Sam notified. Patient's abdomen soft. Continue weaning of FiO2 for improved oxygenation continued. The patient was noted to have hypertensive episodes yesterday propranolol was reinstituted, now dosage decreased with parameters per nursing staff. CT of the abdomen with p.o. contrast pending. Hemoglobin overnight was noted to drop last evening 1 g/dL. patient to be transfused 1 unit of packed red blood cells with posttransfusion CBC pending. Hemoglobin H& H to be trending every 12 hours. 03/05: Remains on pantoprazole drip. Hemodynamically stable. Hemoglobin appears to be stable. Plan for EGD in a.m. 03/06. Arousable and follows commands on midazolam drip at 9 mg an hour. No bowel movement. 03/06: Plan for endoscopy today per GI. FiO2 stable at 50%. Tube feeds remain on hold. Tolerating TPN and remains on insulin drip. BM 3 with bowel prep. Hemoglobin stable. 03/07: No events over the night. T-max of 98.7. Urine output remains appropriate. Patient is currently awake, on propofol and midazolam infusions. FiO2 0.5 and PEEP of 12. Mother is present at bedside. 03/08: No events over the night. Patient remains intubated and sedated. On 0.4 FiO2 and PEEP of 12. 03/09: Patient remains intubated and sedated. FiO2 increased to 0.5 due to episode of desaturation. Urine output decreased over the night and patient complaining of spasm therefore Leone catheter was replaced with more than 2 L urine output. T-max of 99.8. Patient remains sedated with propofol and Versed. Chest x-ray was reviewed, no significant change compared to yesterday, developing LLL infiltrate. Objective Vital Signs Date Time Temp Pulse Resp B/P (MAP) Pulse Ox O2 Delivery O2 Flow Rate FiO2 03/08/18 08:59 97 40 03/08/18 06:00 101 20 148/70 (96) 03/08/18 04:00 99.4 Intake and Output 03/08/18 03/08/18 03/09/18 08:00 16:00 00:00 Intake Total 675 ml 1005.1 ml Output Total 900 ml Balance -225 ml 1005.1 ml Result Diagram: 03/08/18 0530 03/08/18 05 Other Results Laboratory Tests Test 03/08/18 05:12 Blood Gas Puncture Site LT RADIAL Blood Gas Patient Temperature 98.6 Blood Gas HCO3 28 mmol/L (22-26) Blood Gas Base Excess 4.3 mmol/L (-2-2) Blood Gas Oxygen Saturation 94 % (90-100) Arterial Blood pH 7.44 (7.380-7.420) Arterial Blood Partial Pressure CO2 43 mmHg (38-42) Arterial Blood Partial Pressure O2 87 mmHg (61-120) Arterial Blood Oxygen Content 13.0 Vol % (12.0-20.0) Arterial Blood Carboxyhemoglobin 1.5 % (0-4) Arterial Blood Methemoglobin 1.2 % (0-2) Blood Gas Hemoglobin 9.7 G/DL (12.0-16.0) Oxygen Delivery Device VENTILATOR Blood Gas Ventilator Setting 20/550/IT1.1/12PEEP Blood Gas Inspired Oxygen 40 % Imaging Last 24 hours Impressions Chest X-Ray 03/08/18 06 Signed Impressions: Service Date/Time: Thursday, March 08, 2018 03:05 - CONCLUSION: Questionable new infiltrate in the left lung base compared to the previous study. Tubes and catheter in good position. Jadiel Gómez MD Last Impressions Chest X-Ray 03/06/18 06 Signed Impressions: Service Date/Time: Tuesday, March 06, 2018 01:09 - CONCLUSION: Bibasilar infiltrates left greater than right.. Jadiel Gómez MD Abdomen/Pelvis CT 03/04/18 1524 Signed Impressions: Service Date/Time: Sunday, March 04, 2018 17:49 - CONCLUSION: 1. New diffuse circumferential wall thickening of the indicating colitis. 2. Punctate nonobstructing left renal calculus. 3. Urinary bladder is distended with Leone catheter in place. Leone catheter may be obstructed. 4. Old left femoral neck fracture. 5. Chronic bilateral lower lobe pulmonary consolidation. Momo Hand MD Abdomen X-Ray 03/02/18 0000 Signed Impressions: Service Date/Time: February 09:24 - CONCLUSION: 1. Nonspecific bowel gas pattern. The previously seen dilated loop of bowel 02/28/18 has been decompressed. 2. There is an NG tube within the stomach. Kayden Ramírez MD Lower Extremity Ultrasound 02/22/18 0000 Signed Impressions: Service Date/Time: Thursday, February 22, 2018 20:03 - CONCLUSION: No venous thrombosis of either lower extremity. Bebeto Dominique MD Head CT 02/14/18 1204 Signed Impressions: Service Date/Time: Wednesday, February 14, 2018 14:09 - CONCLUSION: 1. Chronic ischemic changes in the parietal lobes. No change from previous study. 2. No acute intracranial abnormality or Tye Steinberg MD CT Angiography 02/14/18 1204 Signed Impressions: Service Date/Time: Wednesday, February 14, 2018 20:07 - CONCLUSION: 1. No evidence for pulmonary embolism. 2. Bibasilar consolidation. 3. Cardiomegaly. Tye Steinberg MD Objective Remarks General - middle-aged gentleman, intubated, sedated, awake, ill-appearing HEENT - pupils equal and reactive, sclerae anicteric, no scleral edema, no JVD, neck supple, orally intubated, + OGT CV - regular heart sounds, no murmurs, rubs or gallops Chest - scattered coarse breath sounds bilateral, decreased air entry at bases, no wheezes Abdomen - soft, distended, non-tender, + BS Extremities - warm, no edema, + peripheral pulses RLE, LLE AKA Neuro - intubated, on sedation, arousable, but does not follow commands Date of Insertion: Feb 23, 2018 Line: Central Venous Catheter Side: Left A/P Assessment and Plan Neuro/Psych: Acute metabolic encephalopathy Depressive disorder NOS History of CVA 3 -left frontoparietal THC use Currently on propofol drip and midazolam infusion for sedation/analgesia while intubated Goal of RASS -2 Daily sedation vacation when appropriate Fentanyl 50 mcg every 2 hours as needed breakthrough pain/ through 10 only secondary to ileus Dexmedetomidine held secondary to symptomatically bradycardia CV: Hypertension/essential Hyperlipidemia Scheduled on propranolol 10 mg every 6 hours At home on propranolol 20 mg 4 times daily and amlodipine 10 mg daily As needed labetalol, hydralazine for breakthrough hypertension Currently on Clinimix E 4.25/25 at 75 cc an hour Home on pravastatin 40 mg p.o. daily Resp: Acute hypoxic respiratory failure -no significant improvement despite full support Bibasilar MSSA and strep pneumo pneumonia -patient remains afebrile, leukocytosis resolved Concern for stenotrophomonas pneumonia -in the setting of worsening oxygen requirements, episode of fever, developing left lower lobe infiltrate Acute COPD exacerbation -resolved PRVC 20/500/1.11/11/49. Patient is synchronized with the ventilator, no auto PEEP, PIP is 27 Ventilator bundle Albuterol/ipratropium aerosols every 4 hours with albuterol aerosols every 2 hours as needed dyspnea Hypertonic saline aerosols every 4 hours 4 days for secretion thinning Lasix 40 mg iv today GI: GI bleed Colitis Change pantoprazole to daily Discussed with Dr. Benjamin -it is okay to restart tube feeds as well as anticoagulation CT abdomen/pelvis 02/03 revealed cerclage wall thickening of the colon, nonobstructing left renal calculus, old left femoral neck fracture : Leone catheter has been replaced today 03/09 for accurate I's and O's in a critically ill patient Endo: Hyperglycemia Continue insulin drip currently at 10 units an hour to maintain euglycemia Renal: Left nonobstructing renal stone Creatinine currently within normal limits Monitor urine output Accurate I's and O's Heme: Microcytic anemia Chronic apixaban use -on hold secondary to GI bleed History of DVT and PE s/p IVC filter Discussed with Dr. Benjamin - is it ok to restart anticoagulation Monitor CBC daily. Follow trends Transfuse 1 unit PRBCs during this hospitalization ID: Staph aureus/strep pneumo sputum positive Concern for stenotrophomonas pneumonia Completed 14 days of ceftriaxone therapy Levofloxacin day 1 Noted penicillin allergy but has been on for several days without incident MSK: Old left femoral neck fracture Elevated BMI Weight loss encouraged PT evaluate and treat FEN: Continue Clinimix E 4.75 at 75 cc an hour/nutrition's recommendations. Receiving lipids with propofol Continue trickle feeds Access -Left IJ CVL placed 02/23 - 03/08 -RUE PICC placed on 03/08 Prophylax -GI -pantoprazole drip -DVT -SCD No family present at bedside. Level 2 follow-up Addendum: I had extensive conversation with patient's mother, brother, brother' s and close friend regarding Kayden's condition. Despite full support in 24 days of mechanical ventilation patient did not have significant improvement, currently requiring mechanical ventilation at the PEEP of 12 and an FiO2 of 0.45. Mother and brother, on multiple occasions, clearly expressed that the patient would not want to be kept alive on life support and he would not want to have a trach. In keeping up with patient's wishes family wants to withdraw support. I asked palliative care to revisit with family. They specifically requested medication for anxiety and pain. We will respect patient's wishes expressed by his family. William Barcenas MD March 08, 2018 09:24
[2018-03-08] MEDS: NYSTATIN 100,000 U/GM PWD 15 GM BTL TOPICAL SCH ×2 (10:18→20:01)
[2018-03-08] MEDS ORDERED: LEVOFLOXACIN 750 MG PREMIX INJ 150 ML IV SCH (13:00)
--- NOTE | 2018-03-08 13:12 | RADRPT ---
EXAM DATE/TIME: 03/08/2018 12:42 [facility] COMPARISON: CHEST SINGLE AP, March 08, 2018, 3:05. INDICATIONS : PICC line placement. MEDICAL HISTORY : Chronic obstructive pulmonary disease. SURGICAL HISTORY : CABG. ENCOUNTER: Initial ACUITY: 1 day PAIN SCORE: Non-responsive. LOCATION: Bilateral chest FINDINGS: ETT, NGT, and left IJ subclavian catheter are stable in position. Interval placement of left-sided PI CC line with tip beyond the image in the left jugular vein. Redemonstration of left lower lobe airspa ce disease and questionable trace pleural effusion. Cardiomediastinal contours are stable. Remainder of the exam is unchanged. CONCLUSION: 1. Left-sided PICC line tip omitted from the image but in the internal jugular vein. Catheter should be at least retracted 10 cm prior to repositioning attempt. 2. Remainder of the exam is unchanged. Ramon Petit MD on March 08, 2018 at 13:07 Board Certified Radiologist. This report was verified electronically.
[2018-03-08] MEDS ORDERED: SODIUM CHLORIDE 0.9% FLUSH 10 ML FLUSH IV FLUSH PRN (13:30)
--- NOTE | 2018-03-08 14:43 | RADRPT ---
EXAM DATE/TIME: 03/08/2018 14:14 [facility] COMPARISON: CHEST SINGLE AP, March 08, 2018, 12:42. INDICATIONS : PICC line placement. PICC adjusted. MEDICAL HISTORY : Chronic obstructive pulmonary disease. SURGICAL HISTORY : CABG. ENCOUNTER: Subsequent ACUITY: 1 day PAIN SCORE: Non-responsive. LOCATION: Bilateral chest FINDINGS: ET tube, nasogastric tube and left subclavian line in good position. Second left subclavian line is in the jugular vein. Minimal bibasilar parenchymal changes The heart and pulmonary vascularity are normal. CONCLUSION: Lines as above. Shai Ramírez MD FACR on March 08, 2018 at 14:40 Board Certified Radiologist. This report was verified electronically.
[2018-03-08] MEDS: INSULIN REGULAR (IV INFUSION) 100 UNITS in SODIUM CHLORIDE 0.9% INJ 99 ML IV PRN (18:08)
[2018-03-08] MEDS ORDERED: BELLADONNA ALKALOIDS/OPIUM 60 MG SUPP RECTAL ONE (23:45)
[2018-03-09] VITALS (26 sets, daily range): BP systolic 60–183; BP diastolic 40–108; PULSE 97–124; RESP 14–27; TEMP 97.7–99.8; O2SAT 67–100
[2018-03-09] MEDS: RESP: SODIUM CHLORIDE 3% 4 ML NEB NEB SCH ×4 (00:42→11:47)
[2018-03-09] MEDS: RESP: ALBUTEROL 2.5 MG/IPRATROPIUM 0.5 MG NEB (SCH) NEB ×4 (00:42→11:47)
[2018-03-09] MEDS: MIDAZOLAM 50 MG/50 ML INJ 50 ML IV PRN ×3 (01:09→11:05)
[2018-03-09] MEDS: PROPOFOL 1000 MG/100 ML INJ 100 ML IV PRN ×3 (01:58→09:43)
--- NOTE | 2018-03-09 04:54 | RADRPT ---
EXAM DATE/TIME: 03/09/2018 03:03 [facility] COMPARISON: CHEST SINGLE AP, March 08, 2018, 14:14. INDICATIONS : Shortness of breath, possible pulmonary disease. MEDICAL HISTORY : Diabetes mellitus type II. Chronic obstructive pulmonary disease. SURGICAL HISTORY : CABG. Appendectomy. Nephrectomy ENCOUNTER: Subsequent ACUITY: 3 weeks PAIN SCORE: Non-responsive. LOCATION: Bilateral chest FINDINGS: A single AP semierect view of the chest was obtained and again demonstrates an endotracheal tube in p lace with the tip approximately 4 cm above the shiela. A nasogastric tube remains in place and is see n coursing through the esophagus into the stomach. There has been interval placement of a right-sided tic in the region of the there is mild hazy opacity of the lung bases. The heart size at the upper l imits of normal. The bony thorax is intact. The previously noted left-sided PICC line has been remove d. The previously noted left sided central venous catheter has been removed. CONCLUSION: 1. Interval placement of right-sided PICC line. 2. Interval removal of previous noted left-sided PICC line and left sided central venous catheter. 3. Mild hazy opacity remains at the lung bases. Fredi Kenney MD on March 09, 2018 at 4:51 Board Certified Radiologist. This report was verified electronically.
[2018-03-09] MEDS: PANTOPRAZOLE INJ 80 MG in SODIUM CHLORIDE 0.9% INJ 100 ML IV SCH (05:25)
[2018-03-09 05:26] LABS: AUTOMATED NEUTROPHIL # 5.7 TH/MM3 (1.8-7.7); BASOPHIL % 0.2 % (0.0-2.0); EOSINOPHIL # 0.1 TH/MM3 (0-0.4); HEMATOCRIT 29.7 % (39.0-51.0); HEMOGLOBIN 9.1 GM/DL (13.0-17.0); LYMPH % 8.9 % (9.0-44.0); LYMPHOCYTE # 0.6 TH/MM3 (1.0-4.8); MEAN CORPUSCULAR HEMOGLOBIN 22.6 PG (27.0-34.0); MEAN CORPUSCULAR HGB CONC 30.5 % (32.0-36.0); MEAN PLATELET VOLUME 8.6 FL (7.0-11.0); MONO % 7.8 % (0.0-8.0); MONOCYTE # 0.5 TH/MM3 (0-0.9); NEUT % 82.1 % (16.0-70.0); PLATELET COUNT 196 TH/MM3 (150-450); RED BLOOD COUNT 4.02 MIL/MM3 (4.50-5.90); RED CELL DISTRIBUTION WIDTH 28.4 % (11.6-17.2)
[2018-03-09] MEDS: ARTIFICIAL TEARS OPTH SOLN 15 ML BTL EACH EYE SCH (05:27)
[2018-03-09] MEDS: CHLORHEXIDINE GLUCONATE 2 % 1 PACK (2 CLOTHS) TOP SCH (05:27)
[2018-03-09] MEDS: FREE WATER TUBE SCH (05:27)
[2018-03-09 05:49] LABS: ALBUMIN 2.2 GM/DL (3.4-5.0); ALT (GPT) 30 U/L (12-78); AST (GOT) 18 U/L (15-37); BICARBONATE 27.5 MEQ/L (21.0-32.0); BLOOD UREA NITROGEN 25 MG/DL (7-18); CALCIUM 8.8 MG/DL (8.5-10.1); CHLORIDE 104 MEQ/L (98-107); GLOMERULAR FILTRATION RATE 104 ML/MIN (>89); GLUCOSE,RANDOM 180 MG/DL (74-106); MAGNESIUM 2.1 MG/DL (1.5-2.5); PHOSPHORUS 4.1 MG/DL (2.5-4.9); SODIUM (NA) 140 MEQ/L (136-145)
[2018-03-09 05:51] LABS: ALKALINE PHOSPHATASE 67 U/L (45-117); TOTAL BILIRUBIN ADULT 0.4 MG/DL (0.2-1.0); TOTAL PROTEIN 6.4 GM/DL (6.4-8.2)
[2018-03-09] MEDS ORDERED: FUROSEMIDE 40 MG/4 ML VIAL IV PUSH ONE (06:30)
[2018-03-09] MEDS ORDERED: PANTOPRAZOLE SODIUM 40 MG VIAL IV PUSH SCH (06:30)
[2018-03-09] MEDS: INSULIN DETEMIR 100 UNITS/ML VIAL SQ SCH (07:31)
[2018-03-09] MEDS: PROPRANOLOL HCL 10 MG TAB PO SCH (07:31)
[2018-03-09] MEDS: SODIUM CHLORIDE 0.9% FLUSH 10 ML FLUSH IV FLUSH SCH (07:31)
[2018-03-09] MEDS: CHLORHEXIDINE 0.12% (ORAL KIT) 15 ML CUP MT SCH (07:32)
[2018-03-09] MEDS: NYSTATIN 100,000 U/GM PWD 15 GM BTL TOPICAL SCH (07:32)
[2018-03-09] MEDS: RESP: BUDESONIDE 0.5 MG/2 ML NEB NEB SCH (08:04)
[2018-03-09] MEDS ORDERED: SODIUM CHLORIDE 0.9% FLUSH 10 ML FLUSH IV FLUSH SCH (09:00)
[2018-03-09] MEDS: MULTIVITAMIN INJ 5 ML, FOLIC ACID INJ 0.5 MG in AMINO ACID IN D5W W/ELECTROLYT 1,000 ML IV-CENTRAL SCH ×3 (09:37)
[2018-03-09] MEDS ORDERED: MIDAZOLAM HCL 5 MG/ML VIAL (1 ML) IV PUSH ONE ×2 (12:00→12:30)
[2018-03-09] MEDS ORDERED: HYDROmorphone HCL PF 2 MG/ML VIAL IV PUSH ONE (12:00)
[2018-03-09] MEDS ORDERED: MIDAZOLAM HCL 2 MG/2 ML VIAL IV PUSH ONE (12:00)
[2018-03-09] MEDS ORDERED: MIDAZOLAM 100 MG/100 ML INJ 100 ML IV SCH (12:00)
[2018-03-09] MEDS ORDERED: HYOSCYAMINE 0.5 MG/ML AMP IV PUSH ONE (12:00)
[2018-03-09] MEDS ORDERED: HYOSCYAMINE 0.5 MG/ML AMP IV PUSH PRN (12:30)
[2018-03-09] MEDS ORDERED: HYDROmorphone HCL PF 0.5 MG/0.5 ML SYRINGE IV PUSH ONE (12:30)
[2018-03-09] MEDS ORDERED: BISACODYL 10 MG SUPP RECTAL PRN (12:30)
[2018-03-09] MEDS ORDERED: FUROSEMIDE 20 MG/2 ML VIAL IV PUSH PRN (12:30)
[2018-03-09] MEDS ORDERED: ACETAMINOPHEN 650 MG SUPP RECTAL PRN (12:30)
[2018-03-09] MEDS ORDERED: HYDROmorphone HCL PF 0.5 MG/0.5 ML SYRINGE IV PUSH PRN ×2 (12:30)
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
[2018-03-09] MEDS ORDERED: HYDROmorphone HCL PF 0.5 MG/0.5 ML SYRINGE IV PUSH SCH (16:00)
[2018-03-09] MEDS ORDERED: APIXABAN 2.5 MG TABLET PO SCH (21:00)
--- NOTE | 2018-03-10 10:41 | HHI.DS ---
Discharge Summary Admission Date Feb 14, 2018 at 12:04 Admitting Diagnosis acute repsiratory failure (1) Acute hypoxemic respiratory failure ICD Code: J96.01 - Acute respiratory failure with hypoxia Diagnosis: Principal (2) COPD with acute exacerbation ICD Code: J44.1 - Chronic obstructive pulmonary disease with (acute) exacerbation Diagnosis: Principal (3) Septic shock ICD Code: A41.9 - Sepsis, unspecified organism; R65.21 - Severe sepsis with septic shock Diagnosis: Principal (4) Lactic acidemia ICD Code: E87.2 - Acidosis Diagnosis: Principal (5) Pneumonia ICD Code: J18.9 - Pneumonia, unspecified organism Diagnosis: Principal (6) History of pulmonary embolism ICD Code: Z86.711 - Personal history of pulmonary embolism Diagnosis: Secondary Status: Chronic (7) 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 - Malignant neoplasm of bone and articular cartilage, unspecified Diagnosis: Secondary Status: Chronic (8) COPD (chronic obstructive pulmonary disease) ICD Code: J44.9 - Chronic obstructive pulmonary disease, unspecified Diagnosis: Secondary Status: Chronic (9) S/P IVC filter ICD Code: Z95.828 - Presence of other vascular implants and grafts Diagnosis: Secondary Status: Acute (10) Status post above knee amputation of left lower extremity ICD Code: Z89.612 - Acquired absence of left leg above knee Diagnosis: Secondary Status: Chronic Procedures Endotracheal intubation Central line placement Arterial line placement EGD Brief History Patient is a 47-year-old morbidly obese male with past medical history significant for obesity, obstructive sleep apnea clinically, history of DVT, chronic Eliquis use who was brought in by EMS for altered mental status and severe hypoxemia. Apparently per EMS end-tidal CO2 was in the 60s his initial sat was in the 30s, but with bagging came up to the 70s. Initial GCS apparently was 7 but improved with continued bag and mask ventilation in the ED. Sats remained in the low 80s. Patient initially refused intubation and was placed on BiPAP. Received duo nebs and Solu-Medrol and antibiotics (Azactam, Flagyl, vancomycin). Patient continued to be tachypneic and severely hypoxemic, and patient was intubated by the ER physician. Apparently difficult airway and was intubated on the third attempt. Patient was desaturating to low 80s even after intubation and I was called to the ED for assisting. I immediately evaluated the patient he continues to be in severe bronchospasm, severely hypoxemic. Additional breathing treatments ordered. I changed the vent settings to PCAC to target tidal volume 600-650 and reduce the rate to 14. PEEP increased to 10. Gradually oxygen saturation improved to 90. I placed a right IJ central line as the patient was borderline hypotensive. Chest x-ray showed apparently pulmonary vascular congestion. No definite infiltrate. Lactic acid 6. Appears patient has acute COPD exacerbation and severe sepsis, pulmonary embolism needs to be ruled out. IV Solu-Medrol DuoNeb breathing treatments will be continued. Patient takes Eliquis for PE in the past. Further workup and management based on results CBC/BMP: 03/09/18 0500 03/09/18 0500 Significant Findings Laboratory Tests Test 03/08/18 05:12 03/08/18 05:30 03/09/18 05:00 Blood Gas HCO3 28 mmol/L (22-26) Blood Gas Base Excess 4.3 mmol/L (-2-2) Arterial Blood pH 7.44 (7.380-7.420) Arterial Blood Partial Pressure CO2 43 mmHg (38-42) Blood Gas Hemoglobin 9.7 G/DL (12.0-16.0) Red Blood Count 4.24 MIL/MM3 (4.50-5.90) 4.02 MIL/MM3 (4.50-5.90) Hemoglobin 9.6 GM/DL (13.0-17.0) 9.1 GM/DL (13.0-17.0) Hematocrit 31.1 % (39.0-51.0) 29.7 % (39.0-51.0) Mean Corpuscular Volume 73.3 FL (80.0-100.0) 74.0 FL (80.0-100.0) Mean Corpuscular Hemoglobin 22.7 PG (27.0-34.0) 22.6 PG (27.0-34.0) Mean Corpuscular Hemoglobin Concent 31.0 % (32.0-36.0) 30.5 % (32.0-36.0) Red Cell Distribution Width 27.6 % (11.6-17.2) 28.4 % (11.6-17.2) Neutrophils (%) (Auto) 80.4 % (16.0-70.0) 82.1 % (16.0-70.0) Neutrophils % (Manual) 72 % (16-70) Band Neutrophils % 15 % (0-6) Myelocytes 1 % (0-0) Ovalocytes 1+ (NORMAL) Blood Urea Nitrogen 20 MG/DL (7-18) 25 MG/DL (7-18) Random Glucose 147 MG/DL (74-106) 180 MG/DL (74-106) Albumin 2.3 GM/DL (3.4-5.0) 2.2 GM/DL (3.4-5.0) Lymphocytes (%) (Auto) 8.9 % (9.0-44.0) Lymphocytes # (Auto) 0.6 TH/MM3 (1.0-4.8) Imaging Last Impressions Chest X-Ray 03/09/18 0600 Signed Impressions: Service Date/Time: February 03:03 - CONCLUSION: 1. Interval placement of right-sided PICC line. 2. Interval removal of previous noted left-sided PICC line and left sided central venous catheter. 3. Mild hazy opacity remains at the lung bases. Fredi Kenney MD Abdomen/Pelvis CT 03/04/18 1524 Signed Impressions: Service Date/Time: Sunday, March 04, 2018 17:49 - CONCLUSION: 1. New diffuse circumferential wall thickening of the indicating colitis. 2. Punctate nonobstructing left renal calculus. 3. Urinary bladder is distended with Leone catheter in place. Leone catheter may be obstructed. 4. Old left femoral neck fracture. 5. Chronic bilateral lower lobe pulmonary consolidation. Momo Hand MD Abdomen X-Ray 03/02/18 0000 Signed Impressions: Service Date/Time: February 09:24 - CONCLUSION: 1. Nonspecific bowel gas pattern. The previously seen dilated loop of bowel 02/28/18 has been decompressed. 2. There is an NG tube within the stomach. Kayden Ramírez MD Lower Extremity Ultrasound 02/22/18 0000 Signed Impressions: Service Date/Time: Thursday, February 22, 2018 20:03 - CONCLUSION: No venous thrombosis of either lower extremity. Bebeto Dominique MD Head CT 02/14/18 1204 Signed Impressions: Service Date/Time: Wednesday, February 14, 2018 14:09 - CONCLUSION: 1. Chronic ischemic changes in the parietal lobes. No change from previous study. 2. No acute intracranial abnormality or Tye Steinberg MD CT Angiography 02/14/18 1204 Signed Impressions: Service Date/Time: Wednesday, February 14, 2018 20:07 - CONCLUSION: 1. No evidence for pulmonary embolism. 2. Bibasilar consolidation. 3. Cardiomegaly. Tye Steinberg MD PE at Discharge Patient Hospital Course Patient is a 47-year-old morbidly obese male with past medical history significant for obesity, obstructive sleep apnea clinically, history of DVT, chronic Eliquis use who was brought in by EMS for altered mental status and severe hypoxemia. Apparently per EMS end-tidal CO2 was in the 60s his initial sat was in the 30s, but with bagging came up to the 70s. Initial GCS apparently was 7 but improved with continued bag and mask ventilation in the ED. Sats remained in the low 80s. Patient initially refused intubation and was placed on BiPAP. Received duo nebs and Solu-Medrol and antibiotics (Azactam, Flagyl, vancomycin). Patient continued to be tachypneic and severely hypoxemic, and patient was intubated by the ER physician. Apparently difficult airway and was intubated on the third attempt. Patient was desaturating to low 80s even after intubation and I was called to the ED for assisting. I immediately evaluated the patient he continues to be in severe bronchospasm, severely hypoxemic. Additional breathing treatments ordered. I changed the vent settings to PCAC to target tidal volume 600-650 and reduce the rate to 14. PEEP increased to 10. Gradually oxygen saturation improved to 90. I placed a right IJ central line as the patient was borderline hypotensive. Chest x-ray showed apparently pulmonary vascular congestion. No definite infiltrate. Lactic acid 6. Appears patient has acute COPD exacerbation and severe sepsis, pulmonary embolism needs to be ruled out. IV Solu-Medrol DuoNeb breathing treatments will be continued. Patient takes Eliquis for PE in the past. Further workup and management based on results 02/15: Remains intubated heavily sedated. PEEP remains at 12 FiO2 has been weaned to 55%. CT PE protocol negative for pulmonary embolism, showed bibasilar significant consolidation indicative of pneumonia. Sputum Gram stain shows GPC. Add vancomycin. 02/16: Patient remains intubated remains critical. Remains hypoxemic on high vent support. On attempt to reduce PEEP, he desaturated and currently on 10 of PEEP. FiO2 50%. Sputum culture with MSSA and strep pneumo. Will discontinue Levaquin and Flagyl continue Azactam and vancomycin 02/17: Remains critical, CXR still showing pulmonary edema. IV Lasix repeat dose given. Wean PEEP to 8, FiO2 to 45%. Start SBT as tolerated 02/18: Patient remains intubated heavily sedated. On lightening sedation patient becomes very agitated. PEEP remains at 8 FiO2 down to 40%. Chest x- ray continues to show pulmonary vascular congestion 02/19: Patient transitioned to Precedex in the last 24 hours continues on CPAP trials 15/8/40%. Patient cooperative following commands. Chest x-ray pending. Aggressive diureses initiated BMP pending this afternoon. 02/20: While on Precedex CPAP trial was attempted. After about 15 minutes patient became severely tachypneic diaphoretic with respiratory rate in the 40s. Re sedated with 50 mg IV push of propofol, and restarting propofol infusion. CXR shows improving pulmonary vascular congestion. WBC count though is trending up. 02/21: No events over the night. Patient is currently on CPAP, PS 15/8/40%, with RR in the 30's and Vt low 300's. Patient is sedated with propofol and precedex. Tmax 100.4, I/O 2946/3020. 02/22: No events over the night. Patient is currently on propofol and Precedex, calm, opening eyes to voice stimuli, following commands. RASS of -2. T-max of 100.6. On 0.3 FiO2. Urine output is adequate. 02/23: Yesterday afternoon patient decompensated, requiring high PEEP and 100% O2 with sats in the mid 80s. Patient was switched to bilevel ventilation and started on inhaled Flolan with rapid improvement in his oxygenation. A central line and art line with placed and patient required 1 L fluid bolus. This morning patient is down to 0.4 FiO2. Sedation is achieved with propofol. No pressors. Decreased urine output over the night. T-max of 99. Still with significant NG tube output, over the last 24 hours 1200 mL's. Morning chest x- ray reviewed, significantly improved air entry at bases. 02/24: No events over the night. Due to improved O2 requirements, yesterday, patient was switched from APRV to PRVC mode of ventilation. FiO2 between 0.45 and 0.5, but patient remains on high PEEP, currently at 14. T-max of 99.8. Improved urine output, up to 2200 over the last 24 hours. 02/25: Patient remained sedated and intubated. No events overnight. T-max of 99 and I/O 2080/2200. Morning chest x-ray reviewed, no significant change compared to yesterday, still with bibasilar infiltrates. Oxygenation remains the same, FiO2 of 0.4 and PEEP at 14. Patient is sedated with propofol at 50 and Precedex at 1.5, awake, trying to talk, bucking the ventilator. His mother is present at bedside. 02/26: No events over the night. Worsening oxygenation noted on blood gas this morning, FiO2 increased to 0.6. Patient remains on propofol and Precedex for sedation, he is wide awake following commands. T-max of 98.7. I/O 2170/1650. Morning chest x-ray reviewed, no significant change compared to yesterday. ET tube left IJ central line remain in place. 02/27: Yesterday, due to worsening hypoxia patient was placed on bilevel ventilation with improvement in his oxygenation. Over the night he was switched back to PRVC (unclear why). This morning patient was placed back on APRV, tolerating it well so far, down to 50% O2. He had one episode of low BP that resolved with 500 cc fluid bolus. Still with significant NG tube output. Unable to have CT abdomen and pelvis due to high O2 requirements. Patient remains afebrile, with a T-max of 98.3, urine output 1900 mL's over the last 24 hours. Morning chest x-ray reviewed, improvement in bibasilar opacities, right side worse than left. 02/28: T-max 100.1. Patient continues on APRV. Patient continues on Flolan, electrolytes noted to be imbalanced, potassium currently being repleted. 03/01: Afebrile. Extensive discussion with family regarding tracheostomy. Patient transitioning to PRVC/ AC this a.m., and attempts to wean O2 requirements and Flolan. Patient remains sedated for ventilator synchrony. 03/02: Afebrile. Patient tolerated ventilator settings of PRVC/AC to FiO2 of 80% with improvement in oxygenation during the night. FiO2 decreased to 70%. Chest x-ray early this a.m. showed mucous plugging complete left lung, bronchoscopy performed, acetylcysteine initiated. 03/03: T-max 99.3. Chest x-ray left lung aeration much improved. O2 requirements decreased to 55% PaO2 106 this a.m.. We will begin to wean Flolan off. TPN increased to 75 cc/hour per dietary recommendations with subsequent elevation in glucose hyperglycemia in the high 200s-300s, insulin infusion initiated. Addendum-[id number]. Per report of nurse patient noted to have bright red blood via NG tube, testing Hemoccult, Xarelto placed on hold, serial H&H's being obtained. Hemodynamically stable Protonix infusion initiated. 03/04: Afebrile. Yesterday afternoon the patient was noted to have bright red blood emanating from NG tube new-onset Hemoccult positive NG tube clamped patient placed on Protonix infusion, Eliquis placed on hold. Dr. Sam notified. Patient's abdomen soft. Continue weaning of FiO2 for improved oxygenation continued. The patient was noted to have hypertensive episodes yesterday propranolol was reinstituted, now dosage decreased with parameters per nursing staff. CT of the abdomen with p.o. contrast pending. Hemoglobin overnight was noted to drop last evening 1 g/dL. patient to be transfused 1 unit of packed red blood cells with posttransfusion CBC pending. Hemoglobin H& H to be trending every 12 hours. 03/05: Remains on pantoprazole drip. Hemodynamically stable. Hemoglobin appears to be stable. Plan for EGD in a.m. 03/06. Arousable and follows commands on midazolam drip at 9 mg an hour. No bowel movement. 03/06: Plan for endoscopy today per GI. FiO2 stable at 50%. Tube feeds remain on hold. Tolerating TPN and remains on insulin drip. BM 3 with bowel prep. Hemoglobin stable. 03/07: No events over the night. T-max of 98.7. Urine output remains appropriate. Patient is currently awake, on propofol and midazolam infusions. FiO2 0.5 and PEEP of 12. Mother is present at bedside. 03/08: No events over the night. Patient remains intubated and sedated. On 0.4 FiO2 and PEEP of 12. 03/09: Patient remains intubated and sedated. FiO2 increased to 0.5 due to episode of desaturation. Urine output decreased over the night and patient complaining of spasm therefore Leone catheter was replaced with more than 2 L urine output. T-max of 99.8. Patient remains sedated with propofol and Versed. Chest x-ray was reviewed, no significant change compared to yesterday, developing LLL infiltrate. 03/09: I had extensive conversation with patient's mother, brother, brother's and close friend regarding Kayden's condition. Despite full support in 24 days of mechanical ventilation patient did not have significant improvement, currently requiring mechanical ventilation at the PEEP of 12 and an FiO2 of 0.45. Mother and brother, on multiple occasions, clearly expressed that the patient would not want to be kept alive on life support and he would not want to have a trach. In keeping up with patient's wishes family wants to withdraw support. I asked palliative care to revisit with family. They specifically requested medication for anxiety and pain. We will respect patient's wishes expressed by his family. Patient was compassionately extubated and he on 03/09/2018 at 19: 56. Pt Condition on Discharge: Deteriorating William Barcenas MD March 10, 2018 10:41
== END 2018-03-09 20:50 | disposition expired | DRG 870 ==
LOC: NEPC 09:59 → NEDA 12:04 → HIME 15:35
PROVIDERS: ADMIT Internal Medicine; ATTEND Internal Medicine
PROC: 0BH17EZ Insertion of Endotracheal Airway into Trachea, Via Natural or Artificial Opening (ICD-10-PCS; principal; 2018-02-14)
PROC: 5A1955Z Respiratory Ventilation, Greater than 96 Consecutive Hours (ICD-10-PCS; 2018-02-14)
PROC: 5A09357 Assistance with Respiratory Ventilation, Less than 24 Consecutive Hours, Continuous Positive Airway Pressure (ICD-10-PCS; 2018-02-14)
PROC: 05HM33Z Insertion of Infusion Device into Right Internal Jugular Vein, Percutaneous Approach (ICD-10-PCS; 2018-02-14)
PROC: 05HN33Z Insertion of Infusion Device into Left Internal Jugular Vein, Percutaneous Approach (ICD-10-PCS; 2018-02-23)
PROC: 0BC78ZZ Extirpation of Matter from Left Main Bronchus, Via Natural or Artificial Opening Endoscopic (ICD-10-PCS; 2018-03-02)
PROC: 30233N1 Transfusion of Nonautologous Red Blood Cells into Peripheral Vein, Percutaneous Approach (ICD-10-PCS; 2018-03-04)
PROC: 0DB68ZX Excision of Stomach, Via Natural or Artificial Opening Endoscopic, Diagnostic (ICD-10-PCS; 2018-03-06)
PROC: 0DJD8ZZ Inspection of Lower Intestinal Tract, Via Natural or Artificial Opening Endoscopic (ICD-10-PCS; 2018-03-06)
DX: A41.9 Sepsis, unspecified organism (principal); J96.01 Acute respiratory failure with hypoxia; R65.21 Severe sepsis with septic shock; G93.41 Metabolic encephalopathy; J13 Pneumonia due to Streptococcus pneumoniae; J15.211 Pneumonia due to Methicillin susceptible Staphylococcus aureus; I11.0 Hypertensive heart disease with heart failure; N17.9 Acute kidney failure, unspecified; I50.22 Chronic systolic (congestive) heart failure; J44.0 Chronic obstructive pulmonary disease with (acute) lower respiratory infection; K56.7 Ileus, unspecified; E87.2 Acidosis; J44.1 Chronic obstructive pulmonary disease with (acute) exacerbation; J98.11 Atelectasis; K92.2 Gastrointestinal hemorrhage, unspecified; E66.01 Morbid (severe) obesity due to excess calories; E83.42 Hypomagnesemia; T17.990A Other foreign object in respiratory tract, part unspecified in causing asphyxiation, initial encounter; Z89.612 Acquired absence of left leg above knee; Z96.641 Presence of right artificial hip joint; D50.9 Iron deficiency anemia, unspecified; G47.33 Obstructive sleep apnea (adult) (pediatric); F32.9 Major depressive disorder, single episode, unspecified; F17.210 Nicotine dependence, cigarettes, uncomplicated; F41.9 Anxiety disorder, unspecified; K64.4 Residual hemorrhoidal skin tags; K64.8 Other hemorrhoids; J98.01 Acute bronchospasm; E78.5 Hyperlipidemia, unspecified; K21.0 Gastro-esophageal reflux disease with esophagitis; Z68.38 Body mass index [BMI] 38.0-38.9, adult; Z85.830 Personal history of malignant neoplasm of bone; Z86.711 Personal history of pulmonary embolism; Z86.73 Personal history of transient ischemic attack (TIA), and cerebral infarction without residual deficits; Z86.718 Personal history of other venous thrombosis and embolism; Z79.01 Long term (current) use of anticoagulants; Z92.21 Personal history of antineoplastic chemotherapy; Z92.3 Personal history of irradiation; Z99.3 Dependence on wheelchair; Z88.0 Allergy status to penicillin; R00.1 Bradycardia, unspecified; T42.6X5A Adverse effect of other antiepileptic and sedative-hypnotic drugs, initial encounter; R26.9 Unspecified abnormalities of gait and mobility; E87.6 Hypokalemia; F12.90 Cannabis use, unspecified, uncomplicated; K52.9 Noninfective gastroenteritis and colitis, unspecified; N20.0 Calculus of kidney; Z51.5 Encounter for palliative care; R73.9 Hyperglycemia, unspecified
CPT/HCPCS: 31500; 36430; 36556; 36569; 36600; 43753; 51702; 70450; 71045; 71275; 74018; 74177; 76937; 80048; 80053; 80202; 80307; 81001; 82270; 82272; 82550; 82565; 82805; 82948; 83605; 83690; 83735; 83880; 84100; 84132; 84478; 84484; 85007; 85014; 85018; 85025; 85027; 85610; 85670; 85730; 86403; 86850; 86900; 86901; 86920; 87040; 87070; 87077; 87086; 87147; 87184; 87186; 87205; 87641; 87804; 88305; 88312; 93005; 93306; 93970; 94002; 94003; 94640; 94664; 94799; 99292; C9113; J0330; J0360; J0696; J1120; J1170; J1325; J1650; J1817; J1940; J1956; J1980; J2060; J2250; J2920; J2930; J3010; J3370; J3475; J3480; J7030; J7040; J7050; J7608; J7626; P9016; Q9963; Q9967